=== PATIENT | female | born 1990 | race Caucasian/White ===

== ENCOUNTER 2024-03-21 07:16 | Outpatient (RCR) | payer BC, SELFPAY ==
[2024-03-21 08:07] LABS: HCG Quantitative 8482 mIU/mL
[2024-03-23 09:57] LABS: HCG Quantitative 14568 mIU/mL
== END 2024-04-06 12:38 | disposition home or self-care (01) ==
LOC: LAB 07:16
PROVIDERS: PCP Internal Medicine; Visit Provider Obstetrics & Gynecology
DX: N92.6 Irregular menstruation, unspecified (principal)
CPT/HCPCS: 36415; 84702

== ENCOUNTER 2024-04-20 09:47 | Outpatient (OUT) | payer BC, MEDICAID, SELFPAY ==
[2024-04-20 10:22] LABS: BOX Test Reference Lab UNITY; BOX Test Sent Out UNITY
[2024-04-20 10:23] LABS: Basophils Absolute Auto 0.1 10^3/uL (0.0-0.1); Basophils Percent Auto 0.6 % (0.2-2.0); Eosinophils Absolute Auto 0.1 10^3/uL (0.0-0.7); Hematocrit 38.7 % (36.0-48.0); Hemoglobin 13.6 g/dL (12.0-16.0); Immature Granulocytes Abs Auto 0.02 10^3/uL (0.00-0.03); Immature Granulocytes Pct Auto 0.2 % (0.0-0.5); Lymphocytes Absolute Auto 1.7 10^3/uL (1.2-3.8); Lymphocytes Percent Auto 19.3 % (20.5-60.0); Mean Corpuscular HGB Conc 35.1 g/dL (29.9-35.2); Mean Corpuscular Hemoglobin 30.4 pg (26.7-34.0); Mean Corpuscular Volume 86.6 fL (81.0-99.0); Mean Platelet Volume 10.2 fL (9.5-13.5); Monocytes Absolute Auto 0.4 10^3/uL (0.3-0.8); Monocytes Percent Auto 4.8 % (1.7-12.0); Neutrophils Absolute Auto 6.5 10^3/uL (1.4-6.5); Neutrophils Percent Auto 74.1 % (43.0-75.0); Platelet Count 298 10^3/uL (150-450); Red Blood Count 4.47 10^6/uL (4.20-5.40); White Blood Count 8.8 10^3/uL (4.0-11.0)
[2024-04-20 10:58] LABS: Amphetamine Screen Urine NEGATIVE (NEGATIVE); Barbiturates Screen Urine NEGATIVE (NEGATIVE); Benzodiazepines Screen Urine NEGATIVE (NEGATIVE); Buprenorphine Screen Urine NEGATIVE (NEGATIVE); Cannabinoid Screen Urine NEGATIVE (NEGATIVE); Cocaine Screen Urine NEGATIVE (NEGATIVE); Methadone Screen Urine NEGATIVE (NEGATIVE); Methamphetamines Screen Urine NEGATIVE (NEGATIVE); Opiate Screen Urine NEGATIVE (NEGATIVE); Oxycodone Screen Urine NEGATIVE (NEGATIVE); Phencyclidine Screen Urine NEGATIVE (NEGATIVE); Tricyclic Antidepressant Urine NEGATIVE (NEGATIVE)
[2024-04-20 11:34] LABS: Estimated Average Glucose 97 mg/dL
[2024-04-21 06:11] LABS: HBsAg Screen Negative (Negative); HIV Ab/p24 Ag Screen Non Reactive (Non Reactive); Rubella Antibodies, IgG 6.91 index (Immune >0.99)
[2024-04-21 10:08] LABS: Rapid Plasma Reagin, Quant Non Reactive titer (NonRea<1:1)
[2024-04-23 18:08] LABS: HCV Ab Reactive (Non Reactive)
== END 2024-04-20 09:48 | disposition home or self-care (01) ==
LOC: LAB 09:51
PROVIDERS: Visit Provider Obstetrics & Gynecology
DX: Z34.01 Encounter for supervision of normal first pregnancy, first trimester (principal); Z36.0 Encounter for antenatal screening for chromosomal anomalies; N92.6 Irregular menstruation, unspecified
CPT/HCPCS: 36415; 80307; 83036; 85025; 86592; 86762; 86803; 86850; 86900; 86901; 87086; 87340; 87389

== ENCOUNTER 2024-05-10 18:38 | Outpatient (REF) | payer BC, MEDICAID, SELFPAY ==
--- OUTSIDE RECORDS SUMMARY | 2024-05-10 18:43 | XMS_ITS | CCD ---
Author Organization [facility] Inform ion Partnership [facility] Care Team Providers Care Tariff Supervisor Name Role Phone AMANDEEP MORATAYA Admitting Unavailable AMANDEEP MORATAYA Attending Unavailable DR VINCENT BUSTAMANTE Primary Care Unavail able DR GURVINDER GUAMAN V Consulting Unavailable SAMAN JARA Consulting Unavailable Unavailable Primary Care Provider Unavailabl e Medications Current Medications Medication Drug Class(es) Dates Sig (Normalized) Sig (Original) MV-Min-Fe Fum-FA-DHA ( 1 PO) (3 sources) MV-Min- Fe Fum-FA-DHA ( 1 PO) Take by mouth Active Problems Problem Classification Problem Date Documented Da te Episodic/Chronic Hepatitis (1 source) Finding of Hepatitis C status; Translations: [Unspecified viral hepatitis C without hepatic coma] Onset: 04-25-2024 04-25-2024 Episodic Menstrual disorders (1 source) Missed period; Translations: [Irregular menstruation, unspecified] 04-20-2024 Chronic Other lower respiratory disease (4 sources) Cough; Translations: [COUGH] Onset: 11-26-2020 Episodic Other and delivery including normal (2 sources) ; Translations: [Encounter for supervision of normal , unspecified, unspecified trimester] 04-20-2024 Episodic Pneumonia (except that caused by tuberculosis or sexually transmitted disease) (1 source) Pneumonia (except that caused by tuberculosis or sexually transmitted disease); Translations: [PNEUMONIA D/T CORONAVIRUS DIS 2019] Onset: 11-28-2020 Viral infection (1 source) Herpes simplex; Translations: [Herpesviral infection, unspecified] Onset: 04-25-2024 04-25-2024 Episodic Viral infection (1 source) COVID-19; Translations: [COVID-19] Onset: 11-28-2020 Results Test Name Value Interpretation Reference Range Facility BOX TESTon 04-20-2024 BOX TEST SENT OUT [facility] B[facility] 04/20/2024 [facility] HCG ( test) Ql (U)o n 04-20-2024 Interpretation and review of laboratory results Abnormal [facility] Preg Test, Ur Positive Negative [facility] Health care [facility] US OB TRANSVAGINALon 025 US OB TRANSVAGINAL TITLE OF EXAM: US OB TRANSVAGINAL REASON FOR EXAM: Dates TECHNIQUE: Grayscale, color, and M-mode spectral Doppler evaluation of the pelvis COMPARISON: None. PATIENT : 1990 PREGNANCIES: : 3, Para: 2, Aborta: 0 LMP: 02/14/2024 GA by LMP: 8 weeks, 1 day FINDINGS: AUA: 9 weeks, 6 days BETTIE by US: 11/17/2024 Uterus: There is a 4.6 x 2.1 x 5.9 cm gestational sac and 0.6 cm yolk sac within the uterine body/fundus. Live embryo within the gestational sac without evident abnormality. [place] rump length is 2.9 to 3.0 cm. heart rate is 176 bpm. Small lenticular shaped hypoechoic lesion regional to the gestational sac not measured by the spanish speaking nanny, 1 to 2 cm. Cervical length 5.2 cm. Right ovary: 3.0 x 1.8 x 3.1 cm (volume 9 mL). Present color flow. Left ovary not visualized, presumably obscured by overlying tissues/bowel gas. IMPRESSION: 1. Single live intrauterine gestation sonographically measuring 9 weeks, 6 days. 2. Small lenticular shaped hypoechoic lesion adjacent to the gestational sac, 1 to 2 cm. Question small perigestational hemorrhage. DICTATED ON: 04/20/2024 8:16 AM This report has been electronically signed and approved by the interpreting radiologist. Normal Not Available Comment on above: Order Comment: US OB TRANSVAGINAL No LMP recorded. Urinalysis macro (dipstick) panel (U)on 04-20-2024 Bilirubin, UA Negative Negative - 4(70) +++ mg/dL [facility] Blood, UA Negative Negative - 50 Herb/mcL [facility] Clarity, UA Clear [facility] Color, UA Yellow [facility] Glucose, UA Negative Negative - 1999(110) ++++ mg/dL [facility] Interpretation and review of laboratory results Normal [facility] Ketones, UA Negative Negative - 160(16) ++++ mg/dL [facility] Leukocytes, UA Negative Negative - 500+++ Bobby/mcL [facility] Nitrite, UA Negative Negative - Positive [facility] pH, UA 5.5 5 - 9 [facility]ly[facility] Protein, UA Negative Negative - 1999(20) ++++ mg/dL [facility] Spec Grav, UA 1.02 1 - 1.03 [facility] Urobilinogen, UA 1.0 0.2 - 12 mg/dL [facility] PREG QUANT HCGon 025 HCG QUANTITATIVE 90208 mIU/mL [facility] Comment on above: 5-50 0.2-1 WEEK 50-500 1-2 WEEKS 100-5,000 2-3 WEEKS 500-10,000 3-4 WEEKS 1,000-50,000 4-5 WEEKS 10,000-100,000 5-6 WEEKS 15,000-200,000 6-8 WEEKS 10,000-100,000 2-3 [facility] PREG QUANT HCGon 025 HCG QUANTITATIVE 8482 mIU/mL [facility] Comment on above: 5-50 0.2-1 WEEK 50-500 1-2 WEEKS 100-5,000 2-3 WEEKS 500-10,000 3-4 WEEKS 1,000-50,000 4-5 WEEKS 10,000-100,000 5-6 WEEKS 15,000-200,000 6-8 WEEKS 10,000-100,000 2-3 [facility] XR CHEST 1 Von 11-26-2020 XR CHEST 1 V EXAMINATION: XR CHES T 1 V HISTORY: COUGH COMPARISON: 08/07/2014 TECHNIQUE: AP portable erect FINDINGS: LUNGS: Mild bibasilar patchy infiltrates right greater than left. The upper lung zones are clear VASCULATURE: No increased pulmonary vasculature. PLEURA: No pneumothorax, effusion, or pleural thickening. CARDIAC: No cardiomegaly or cardiac silhouette abnormality. MEDIASTINUM: No visible mass or adenopathy. BONES: No fracture or visible bone lesion. OTHER: Negative. IMPRESSION: Multifocal pneumonia, consider a viral pneumonia Electronically authenticated by: GURVINDER GUAMAN Date: 2020-11-26 15:58 Normal [facility] Vital Signs Date Time Vital Sign Value Performing Clinician Oliverio partida 04-20-2024 09:47-0500 Body weight 80.2 kg [facility] Encounters Encounter Date Encounter Type Care Provider Facility Start: 05-10-2024 End: 05-10-2024 Bamboo flowsheet Derian Jose DO Work Phone: [facility] Start: 05-10-2024 End: 05-10-2024 Bamboo flowsheet Derian Jose DO Work Phone: [facility] Start: 04-20-2024 End: 04-20-2024 [facility] Result Encounter Derian Jose DO Work Phone: [facility] Unsolicited Start: 04-20-2024 End: 04-20-2024 [facility] Result Encounter Derian Jose DO Work Phone: [facility] Unsolicited Start: 04-20-2024 End: 04-20-2024 Office outpatient visit 5 minutes [facility] Jose Nurse [facility] Comment on above: GA: 9w3d Start: 04-20-2024 End: 04-20-2024 ambulatory Not Available Start: 03-23-2024 End: 03-23-2024 [facility] Result Encounter Derian Jose DO Work Phone: [facility] Unsolicited Start: 03-23-2024 End: 03-23-2024 [facility] Result Encounter Derian Jose DO Work Phone: [facility] Unsolicited Start: 03-21-2024 End: 03-21-2024 [facility] Result Encounter Derian Jose DO Work Phone: [facility] Unsolicited Start: 03-21-2024 End: 03-21-2024 [facility] Result Encounter Derian Jose DO Work Phone: [facility] Unsolicited Start: 11-26-2020 End: 11-26-2020 ambulatory AMANDEEP MORATAYA Facility:[facility] Procedures Date Procedure Procedure Detail Performing Clinician Start: 04-25-2024 H/O: section History of delivery affecting Derian Jose DO Work Phone: Start: 04-20-2024 BOX TEST Deiran Fazi o DO Work Phone: Start: 04-20-2024 Urnls dip stick/tabl et rgnt non-auto w/o micrscp Derian Jose DO Work Phone: Start: 03-23-2024 [facility] PREG QUANT HCG Core y Jose DO Work Phone: Start: 03-21-2024 [facility] PREG QUANT HCG Core y Jose DO Work Phone: H/O: section H/O: [facility] Plan of Treatment Date Care Activity Detail Author Start: 05-10-2024 End: 05-10-2024 Patient encounter procedure 05/10/2024 11:40 AM EST Office Visit [facility] [address] [place] [address] Derian Garcia, DO [address] [place] [address] [facility] Start: 04-20-2024 End: 04-20-2025 ABO/Rh ABO/Rh Lab Routine Missed menses , unspecified gestational age Expected: 04/20/2024 (Approximate), Expires: 04/20/2025 [facility] Comment on above: Expected: 04/20/2024 (Approximate), Expires: 04/20/2025 Start: 04-20-2024 End: 04-20-2025 Blood type and Indirect antibody screen panel - Blood Type and screen Lab Routine Missed menses , unspecified gestational age Expected: 04/20/2024 (Approximate), Expires: 04/20/2025 [facility] Comment on above: Expected: 04/20/2024 (Approximate), Expires: 04/20/2025 Start: 04-20-2024 End: 04-20-2025 Drugs of abuse panel - Urine by Screen method Rapid drug screen, urine Lab Routine , unspecified gestational age Encounter for supervision of normal first in first trimester Expected: 04/20/2024 (Approximate), Expires: 04/20/2025 [facility] Comment on above: Expected: 04/20/2024 (Approximate), Expires: 04/20/2025 Start: 04-20-2024 End: 04-20-2025 US Pelvis transvaginal [facility] Work Phone: Comment on above: Expected: 04/20/2024 , Expires: 04/20/2025 Bacteria identified in Urine by Culture Urine culture Microbiology Routine Missed menses Ordered: 04/20/2024 [facility] Comment on above: Ordered: 04/20/2024 CBC W Auto Different ial panel - Blood CBC and differential Lab Routine Missed menses , unspecified gestational age Ordered: 04/20/2024 [facility] Comment on above: Ordered: 04/20/2024 Hemoglobin A1c/Hemoglobin.total in Blood Hemoglobin A1c Lab Routine Missed menses , unspecified gestational age Ordered: 04/20/2024 [facility] Comment on above: Ordered: 04/20/2024 Hepatitis B virus surface Ag [Presence] in Serum or Plasma by Immunoassay Hepatitis B surface antigen Lab Routine Missed menses , unspecified gestational age Ordered: 04/20/2024 [facility] Comment on above: Ordered: 04/20/2024 Hepatitis C virus Ab [Presence] in Serum or Plasma by Immunoassay Hepatitis C antibody Lab Routine Missed menses , unspecified gestational age Ordered: 04/20/2024 [facility] Comment on above: Ordered: 04/20/2024 HIV-1/HIV-2 antigen/antibody combination immunoassay HIV-1 and HIV-2 antibodies Lab Routine Missed menses , unspecified gestational age Ordered: 04/20/2024 [facility] Comment on above: Ordered: 04/20/2024 Reagin Ab [Presence] in Serum by RPR RPR Lab Routine Missed menses , unspecified gestational age Ordered: 04/20/2024 [facility] Comment on above: Ordered: 04/20/2024 Rubella antibody, IgG Rubella an tibody, IgG Lab Routine Missed menses , unspecified gestational age Ordered: 04/20/2024 [facility] Comment on above: Ordered: 04/20/2024 Payers Date Payer Category Payer Medicaid [place] [id number] 2024 Medicaid [id number] 2021 [employer] [id number] 2021 Unknown [id number] 1990 Unknown [id number] 1990 Unknown [id number] 1990 Unknown [id number] 1958 Unknown [id number] Social History Date Type Detail [facility] Start: 1990 Sex assigned at Female [facility] Gender identity Not on file [facility] Start: 02-28-2024 [facility] History of Present illness Narrative 04-20-2024 Yessenia Flor LPN - 04/20/2024 9:00 AM EST Note Date & Type Note Facility 04-20-2024 History of Presen t illness Narrative Reason for Appointment: Patient ID: Mary Casey is a 33 y.o. female who presents for Amenorrhea Patient presents today for a Nurse OB Intake appointment. Patient is 9w3d with a Estimated Date of Delivery: 11/20/24 OB History Para Term AB Living 1 SAB IAB Ectopic Multiple Live Births # Outcome Date GA Lbr Rey/2nd Weight Sex Type Anes PTL Lv 1 Current Current Medications: has a current medication list which includes the following prescription(s): mv-min-fe fum-fa-dha. Medical History: Active Ambulatory Problems Diagnosis Date Noted No Active Ambulatory Problems Resolved Ambulatory Problems Diagnosis Date Noted No Resolved Ambulatory Problems No Additional Past Medical History No family history on file. Social History Tobacco Use Smoking status: Not on file Smokeless tobacco: Not on file Substance Use Topics Alcohol use: Not on file Drug use: Not on file History reviewed. No pertinent surgical history. No Known Allergies Vitals: There is no height or weight on file to calculate BMI. BP: Patient's last menstrual period was 02/14/2024. Assessment/Plan Diagnoses and all orders for this visit: Missed menses - US OB transvaginal; Future - Type and screen; Future - ABO/Rh; Future - CBC and differential - Hemoglobin A1c - RPR - Rubella antibody, IgG - Hepatitis B surface antigen - Hepatitis C antibody - HIV-1 and HIV-2 antibodies - Urine culture - POCT , urine manually resulted - POCT urinalysis dipstick manually resulted , unspecified gestational age - Type and screen; Future - ABO/Rh; Future - CBC and differential - Hemoglobin A1c - RPR - Rubella antibody, IgG - Hepatitis B surface antigen - Hepatitis C antibody - HIV-1 and HIV-2 antibodies - Rapid drug screen, urine; Future Encounter for supervision of normal first in first trimester - Rapid drug screen, urine; Future H/O: Nurse Note: OB Intake: Patient presents today for first OB visit. Patients history has been reviewed in great detail including any potential risks. Patient signed consent forms and patient desires testing in both trimesters. Patient currently has no complaints and has been advised to drink 6-8 glasses of water a day, eat no raw or undercooked meat, and stay away from [facility]. Patient has also been advised to not change litter boxes and eat 6 small meals a day. Patient has been consulted regarding the do's and don'ts of . Patient was given labs and all questions and concerns were answered. Follow Up: Patient is to return in 4 weeks for routine OB appointment. Follow Up: Patient is to have labs drawn at directed and return to office for initial OB appointment with provider. Patient may call office as needed with any concerns or questions. Nurse Visit Completed by: Yessenia Flor LPN documented in this encounter [facility] Evaluation note Note Date & Type Note Facility Evaluation note Diagnosis Missed menses , unspecified gestational age Encounter for supervision of normal first in first trimester H/O: Other postprocedural status documented in this encounter [facility] Summary Purpose Family History No Family History Records FoundNo Family History Records Found Advance Directives No Advanced Directives Records FoundNo Advanced Directives Records Found Additional Source Comments INFORMATION SOURCE (unrecogn ized section and content) DATE CREATED AUTHOR 11/29/2020 [facility] DATE CREATED AUTHOR AUTHOR'S ORGANIZ ATION 04/22/2024 [facility] EPIC Reason for Visit (unrecogniz ed section and content) Reason Comments Amenorrhea FOR RECORDS PERTAINING TO PATIENTS WHO ARE OR HAVE BEEN ENROLLED IN A CHEMICAL DEPENDENCY/SUBSTANCEABUSE PROGRAM, SOME INFORMATION MAY BE OMITTED. This clinical summary was aggregated from multiple sources. Caution should be exercised in using it in the provision of clinical care. This summary normalizes information from multiple sources, and as a consequence, information in this document may materially change the coding, format and clinical context of patient data. In addition, data may be omitted in some cases. CLINICAL DECISIONS SHOULD BE BASED ON THE PRIMARY CLINICAL RECORDS. [employer] provides no warranty or guarantee of the accuracy or completeness of information in this document.
[2024-05-17 20:08] LABS: Age Gdln ACOG Testing Note (.); HPV Aptima Positive (Negative); HPV Genotype 16 Positive (Negative); HPV Genotype 18,45 Negative (Negative); IGP, Aptima HPV, rfx 16/18,45 Note (.)
== END 2024-05-10 18:39 | disposition home or self-care (01) ==
LOC: LAB 18:38
PROVIDERS: Visit Provider Obstetrics & Gynecology
DX: Z01.419 Encounter for gynecological examination (general) (routine) without abnormal findings (principal)
CPT/HCPCS: 87624; 87625; 88175

== ENCOUNTER 2024-06-08 14:55 | Outpatient (OUT) | payer BC, SELFPAY ==
--- OUTSIDE RECORDS SUMMARY | 2024-06-08 15:21 | XMS_ITS | CCD ---
Author Organization [place] [facility] Care Team Providers Care Business Systems Analyst Name Role Phone AMANDEEP MORATAYA Admitting Unavailable AMANDEEP MORATAYA Attending Unavailable DR VINCENT BUSTAMANTE Primary Care Unavail able DR GURVINDER GUAMAN V Consulting Unavailable SAMAN JARA Consulting Unavailable Unavailable Primary Care Provider UnavailRANULFO King Attending Unavailable Medications Current Medications Medication Drug Class(es) Dates Sig (Normalized) Sig (Original) metoclopramide 10 mg oral tablet (4 sources) Dopamine-2 Receptor Antagonist Start: 05-10-2024 End: 06-09-2024 metoclopramide (Reglan) 10 MG tablet Indications: 12 weeks gestation of Take 1 tablet (10 mg) by mouth in the morning and 1 tablet (10 mg) at noon and 1 tablet (10 mg) in the evening. Take before meals. Take 1 tablet by mouth 30 minutes prior to meals 3 times daily as needed for nausea.. 90 tablet 3 05/10/2024 06/09/2024 Active MV-Min-Fe Fum-FA-DHA ( 1 PO) (7 sources) MV-Min- Fe Fum-FA-DHA ( 1 PO) Take by mouth Active Problems Problem Classification Problem Date Documented Date Episodic/Chronic Hepatitis (5 sources) Finding of Hepatitis C status; Translations: [Unspecified viral hepatitis C without hepatic coma] Onset: 04-25-2024 04-25-2024 Episodic Immunizations and screening for infectious disease (2 sources) Exposure to sexually transmissible disorder; Translations: [Contact with and (suspected) exposure to infections with a predominantly sexual mode of transmission] 05-10-2024 Episodic Menstrual disorders (1 source) Missed period; Translations: [Irregular menstruation, unspecified] 04-20-2024 Chronic Other female genital disorders (2 sources) Vaginal discharge; Translations: [Other specified noninflammatory disorders of vagina] 05-10-2024 Episodic Other lower respiratory disease (4 sources) Cough; Translations: [COUGH] Onset: 11-26-2020 Episodic Other and delivery including normal (4 sources) ; Translations: [Encounter for supervision of normal , unspecified, unspecified trimester] 04-20-2024 Episodic Pneumonia (except that caused by tuberculosis or sexually transmitted disease) (1 source) Pneumonia (except that caused by tuberculosis or sexually transmitted disease); Translations: [PNEUMONIA D/T CORONAVIRUS DIS 2019] Onset: 11-28-2020 Residual codes; unclassified (2 sources) Gestation period, 12 weeks; Translations: [12 weeks gestation of ] 05-10-2024 Episodic Viral infection (5 sources) Herpes simplex; Translations: [Herpesviral infection, unspecified] Onset: 04-25-2024 04-25-2024 Episodic Viral infection (1 source) COVID-19; Translations: [COVID-19] Onset: 11-28-2020 Results Test Name Value Interpretation Reference Range Facility IGP,APTIMA HPV,AGE GDLNon AGE GDLN ACOG TESTING Note . [facility] Comment on above: TESTS RESULT FLAG UN ITS REF RANGE LAB Clinician Provided Cytology Information Source.............Cervix No. of containers..01 ThinPrep Vial Age Algo ACOG Liss... FLAG LEGEND: L-Low Normal,H-High Normal,LL-Alert Low,HH-Alert High <-Panic Low,>-Panic High,A-Abnormal,AA-Critical Abnormal Performed at: 01 =G [address] [address] Serina Betancourt MD, HPV APTIMA Positive Abnormal Negative [facility] Comment on above: This nucleic acid am plification test detects fourteen high- risk HPV types (16,18,31,33,35,39,45,51,52,56,58,59,66,68) without differentiation. HPV GENOTYPE 16 Positive Abnormal Negative [facility] HPV GENOTYPE 18,45 Negative Negative [facility] Comment on above: Performed at: =G - [facility] [address] [id number] Wood Drill Operator: Serina Betancourt MD, Phone: [phone] Performed at: [facility] [address] [id number] Wood Drill Operator: Serina Betancourt MD, Phone: [phone] IGP, APTIMA HPV, RFX 16/18,45 Note . [facility] Comment on above: TESTS RESULT FLAG UN ITS REF RANGE LAB DIAGNOSIS: 02 NEGATIVE FOR INTRAEPITHELIAL LESION OR MALIGNANCY. Specimen adequacy: 02 Satisfactory for evaluation. Endocervical and/or squamous metaplastic cells (endocervical component) are present. Performed by: 02 Susannah Christina Marble Cutter Operator (ASCP) . 02 Note: Note 02 The Pap smear is a screening test designed to aid in the detection of premalignant and malignant conditions of the uterine cervix. It is not a diagnostic procedure and should not be used as the sole means of detecting cervical cancer. Both false-positive and false-negative reports do occur. Test Methodology: Note 02 This liquid based ThinPrep(R) pap test was screened with the use of an image guided system. HPV Genotype Reflex Note 02 Criteria met, see HPV Genotype results. FLAG LEGEND: L-Low Normal,H-High Normal,LL-Alert Low,HH-Alert High <-Panic Low,>-Panic High,A-Abnormal,AA-Critical Abnormal Performed at: [address] [address] Serina Betancourt MD, Interpretation and review of laboratory results Abnormal [facility] SPATULA-[facility]ONE C[facility] [employer] Urinalysis macro (dipstick) panel (U)on 05-10-2024 Bilirubin, UA Negative Negative - 4(70) +++ mg/dL [facility] Blood, UA Negative Negative - 50 Herb/mcL [facility] Clarity, UA Clear [facility] re Color, UA Straw [facility] [employer] Glucose, UA Negative Negative - 1999(110) ++++ mg/dL [facility] Interpretation and review of laboratory results Abnormal [facility] Ketones, UA Negative Negative - 160(16) ++++ mg/dL [facility] Leukocytes, UA Positive Negative - 500+++ Bobby/mcL [facility] Comment on above: small Nitrite, UA Negative Negative - Positive [facility] pH, UA 7 5 - 9 [facility] [employer] Protein, UA Trace Negative - 1999(20) ++++ mg/dL [facility] Spec Grav, UA 1.02 1 - 1.03 [facility] Urobilinogen, UA 0.2 0.2 - 12 mg/dL [facility] BOX TESTon 04-20-2024 BOX TEST SENT OUT [employer] [facility] BOX1 N[employer] BOX2 04/20/2024 [facility] [employer] [facility]ITY [facility] HCG ( test) Ql (U)o n 04-20-2024 Interpretation and review of laboratory results Abnormal [facility] Preg Test, Ur Positive Negative [facility] care [facility] US OB TRANSVAGINALon [...] within the gestational sac without evident abnormality. [place] rump length is 2.9 to 3.0 cm. heart rate is 176 bpm. Small lenticular shaped hypoechoic lesion regional to the gestational sac not measured by the commercial loan coordinator, 1 to 2 cm. Cervical length 5.2 [...] UA Negative Negative - 4(70) +++ mg/dL [facility] Blood, UA Negative Negative - 50 Herb/mcL [facility] Clarity, UA Clear [facility] re Color, UA Yellow [facility] Glucose, UA Negative Negative - 2000(110) ++++ mg/dL [facility] Interpretation and review of laboratory results Normal [facility] Ketones, UA Negative Negative - 160(16) ++++ mg/dL [facility] Leukocytes, UA Negative Negative - 500+++ Bobby/mcL [facility] Nitrite, UA Negative Negative - Positive [facility] pH, UA 5.5 5 - 9 [facility] [employer] Protein, UA Negative Negative - 2000(20) ++++ mg/dL [facility] Spec Grav, UA 1.02 1 - 1.03 [facility] Urobilinogen, UA 1.0 0.2 - 12 mg/dL [facility] PREG QUANT HCGon 03-23- 025 HCG QUANTITATIVE 45173 mIU/mL [facility] Comment on above: 5-50 0.2-1 WEEK 50-500 1-2 WEEKS 100-5,000 2-3 WEEKS 500-10,000 3-4 WEEKS 1,000-50,000 4-5 WEEKS 10,000-100,000 5-6 WEEKS 15,000-200,000 6-8 WEEKS 10,000-100,000 2-3 MONTHS [facility] PREG QUANT HCGon 025 HCG QUANTITATIVE 8482 mIU/mL [facility] Comment on above: 5-50 0.2-1 WEEK 50-500 1-2 WEEKS 100-5,000 2-3 WEEKS 500-10,000 3-4 WEEKS 1,000-50,000 4-5 WEEKS 10,000-100,000 5-6 WEEKS 15,000-200,000 6-8 WEEKS 10,000-100,000 2-3 MON[facility] XR CHEST 1 Von 11-26-2020 XR [...] by: GURVINDER GUAMAN Date: 2020-11-26 15:58 Normal [facility] Vital Signs Date Time Vital Sign Value Performing Clinician Oliverio bustillosy 05-10-2024 12:13-0500 Body weight 79.74 kg Ranulfo Jose DO Work Phone: [facility] 05-10-2024 12:13-0500 Diastolic blood pressure 80 mm[Hg] Ranulfo Jose DO Work Phone: [facility] 05-10-2024 12:13-0500 Systolic blood pressure 130 mm[Hg] Ranulfo Jose DO Work Phone: [facility] 04-20-2024 09:47-0500 Body weight 80.2 kg [facility] Nurse [facility] Encounters Encounter Date Encounter Type Care Provider Facility Start: 06-07-2024 End: 06-07-2024 Bamboo flowsheet Ranulfo Jose DO Work Phone: [facility] Start: 06-07-2024 End: 06-07-2024 Bamboo flowsheet Ranulfo Jose DO Work Phone: [facility] Start: 05-10-2024 End: 05-10-2024 Bamboo flowsheet Ranulfo Jose DO Work Phone: [facility] Start: 05-10-2024 End: 05-17-2024 Bamboo flowsheet Ranulfo Jose DO Work Phone: [facility] Start: 05-10-2024 End: 05-17-2024 [facility] Result Encounter Ranulfo Jose DO Work Phone: [facility] External Department Unsolicited Start: 05-10-2024 End: 05-10-2024 ambulatory RANULFO JOSE Not Available Start: 05-10-2024 End: 05-10-2024 Patient encounter procedure Ranulfo Jose DO Work Phone: [facility] Start: 05-10-2024 End: 05-10-2024 flow sheet Ranulfo Jose DO Work Phone: [facility] Comment on above: 12 weeks gestation o f ; First trimester ; Well woman exam with routine gynecological exam; Exposure to STD; Vaginal discharge Start: 04-20-2024 End: 04-20-2024 [facility]inis[facility] Result Encounter Ranulfo Jose DO Work Phone: [facility] Unsolicited Start: 04-20-2024 End: 04-20-2024 Clinisync Result Encounter Ranulfo Jose DO Work Phone: [facility] Unsolicited Start: 04-20-2024 End: 04-20-2024 Office outpatient visit 5 minutes [facility] Jose Nurse [facility] Comment on above: GA: 9w3d Start: 04-20-2024 End: 04-20-2024 ambulatory RANULFO JOSE Not Available Start: 03-23-2024 End: 03-23-2024 [facility]inis[facility] Result Encounter Ranulfo Jose DO Work Phone: [facility] Unsolicited Start: 03-23-2024 End: 03-23-2024 Clinisync Result Encounter Ranulfo Jose DO Work Phone: [facility] Unsolicited Start: 03-21-2024 End: 03-21-2024 Clinisync Result Encounter Ranulfo Jose DO Work Phone: [facility] Unsolicited Start: 03-21-2024 End: 03-21-2024 Clinisync Result Encounter Ranulfo Jose DO Work Phone: [facility] Unsolicited Start: 11-26-2020 End: 11-26-2020 ambulatory AMANDEEP MORATAYA Facility: Procedures Date Procedure Procedure Detail Performing Clinician Start: 05-10-2024 Urnls dip stick/tabl et rgnt non-auto w/o micrscp Ranulfo Jose DO Work Phone: Start: 05-10-2024 IGP,APTIMA HPV,AGE GDLN Ranulfo Jose DO Work Phone: Start: 04-25-2024 H/O: section History of delivery affecting Ranulfo Jose DO Work Phone: Start: 04-20-2024 BOX TEST Ranulfo Fazi o DO Work Phone: Start: 04-20-2024 Urnls dip stick/tabl et rgnt non-auto w/o micrscp Ranulfo Jose DO Work Phone: Start: 03-23-2024 [facility] PREG QUANT HCG Core y Jose DO Work Phone: Start: 03-21-2024 [facility] PREG QUANT HCG Core y Jose DO Work Phone: H/O: section H/O: [facility] Plan of Treatment Date Care Activity Detail Author Start: 05-20-2025 End: 05-20-2025 Patient encounter procedure 05/20/2025 9:00 AM EDT Office Visit [facility] [address] [place] [id number] Ranulfo Garcia, DO [address] [place] [address] [facility] Start: 06-07-2024 End: 06-07-2024 Patient encounter procedure [facility] Comment on above: Arrived Start: 05-10-2024 End: 05-10-2024 Patient encounter procedure 05/10/2024 11:40 AM EST Office Visit [facility] [address] [place] [id number] Ranulfo Garcia, DO [address] [place] [address] [facility] Start: 04-20-2024 End: 04-20-2025 ABO/Rh ABO/Rh Lab Routine Missed menses , unspecified gestational age Expected: 04/20/2024 (Approximate), Expires: 04/20/2025 [facility] Comment on above: Expected: 04/20/2024 (Approximate), Expires: 04/20/2025 Start: 04-20-2024 End: 04-20-2025 Blood type and Indirect antibody screen panel - Blood Type and screen Lab Routine Missed menses , unspecified gestational age Expected: 04/20/2024 (Approximate), Expires: 04/20/2025 [facility] Comment on above: Expected: 04/20/2024 (Approximate), Expires: 04/20/2025 Start: 04-20-2024 End: 04-20-2025 Drugs of abuse panel - Urine by Screen method Rapid drug screen, urine Lab Routine , unspecified gestational age Encounter for supervision of normal first in first trimester Expected: 04/20/2024 (Approximate), Expires: 04/20/2025 [facility] Comment on above: Expected: 04/20/2024 (Approximate), Expires: 04/20/2025 Start: 04-20-2024 End: 04-20-2025 US Pelvis transvaginal [facility] Work Phone: Comment on above: Expected: 04/20/2024 , Expires: 04/20/2025 Bacteria identified in Urine by Culture Urine culture Microbiology Routine Missed menses Ordered: 04/20/2024 [facility] Comment on above: Ordered: 04/20/2024 CBC W Auto Different ial panel - Blood CBC and differential Lab Routine Missed menses , unspecified gestational age Ordered: 04/20/2024 [facility] Comment on above: Ordered: 04/20/2024 CHLAMYDIA TRACHOMATI S (GENITO/STI) CHLAMYDIA TRACHOMATIS (GENITO/STI) Lab Routine Exposure to STD Ordered: 05/10/2024 [facility] Comment on above: Ordered: 05/10/2024 Cytology Cervical or vaginal smear or scraping study Pap Smear Pathology and Cytology Routine Well woman exam with routine gynecological exam Ordered: 05/10/2024 [facility] Comment on above: Ordered: 05/10/2024 Hemoglobin A1c/Hemoglobin.total in Blood Hemoglobin A1c Lab Routine Missed menses , unspecified gestational age Ordered: 04/20/2024 [facility] Comment on above: Ordered: 04/20/2024 Hepatitis B virus surface Ag [Presence] in Serum or Plasma by Immunoassay Hepatitis B surface antigen Lab Routine Missed menses , unspecified gestational age Ordered: 04/20/2024 [facility] Comment on above: Ordered: 04/20/2024 Hepatitis C virus Ab [Presence] in Serum or Plasma by Immunoassay Hepatitis C antibody Lab Routine Missed menses , unspecified gestational age Ordered: 04/20/2024 [facility] Comment on above: Ordered: 04/20/2024 HIV-1/HIV-2 antigen/antibody combination immunoassay HIV-1 and HIV-2 antibodies Lab Routine Missed menses , unspecified gestational age Ordered: 04/20/2024 [facility] Comment on above: Ordered: 04/20/2024 Human papilloma viru s DNA [Presence] in Unspecified specimen by Probe with amplification HPV DNA probe, amplified Microbiology Routine Well woman exam with routine gynecological exam Ordered: 05/10/2024 [facility] Comment on above: Ordered: 05/10/2024 Neisseria gonorrhoea e DNA [Presence] in Unspecified specimen by JOSE MANUEL with probe detection Neisseria gonorrhea DNA probe, direct Lab Routine Exposure to STD Ordered: 05/10/2024 [facility] Comment on above: Ordered: 05/10/2024 Reagin Ab [Presence] in Serum by RPR RPR Lab Routine Missed menses , unspecified gestational age Ordered: 04/20/2024 [facility] Comment on above: Ordered: 04/20/2024 Rubella antibody, IgG Rubella an tibody, IgG Lab Routine Missed menses , unspecified gestational age Ordered: 04/20/2024 [facility] Comment on above: Ordered: 04/20/2024 SURESWAB(R) ADVANCED VAGINITIS PLUS, TMA SURESWAB(R) ADVANCED VAGINITIS PLUS, TMA Pathology and Cytology Routine Vaginal discharge Ordered: 05/10/2024 [facility] Work Phone: Comment on above: Ordered: 05/10/2024 Payers Date Payer Category Payer Medicaid [place]ICA[place] [id number] 2024 Medicaid [id number] 2021 [facility] [id number] 2021 Unknown [id number] 1991 Unknown [id number] 1991 Unknown [id number] 1991 Unknown [id number] 1991 Unknown [id number] 1959 Unknown [id number] Social History Date Type Detail Facility Tobacco smoking stat [facility] Tobacco smoking consumption unknown [facility] Start: 1990 Sex assigned at Female [facility] Gender identity Not on file [facility] Start: 02-28-2024 [facility] History of Present illness Narrative 05-10-2024 Jessi Forrest LPN - 05/10/2024 11:40 AM EST Note Date & Type Note Facility 05-10-2024 History of Presen t illness Narrative Reason for Appointment: Patient ID: Mary Casey is a 33 y.o. female who presents for No chief complaint on file. Patient presents today for Annual Exam. and Return OB appointment. MEDICATIONS Current Outpatient Medications Medication Instructions MV-Min-Fe Fum-FA-DHA ( 1 PO) Take by mouth ALLERGIES No Known Allergies PROBLEMS Active Ambulatory Problems Diagnosis Date Noted HSV (herpes simplex virus) infection 04/25/2024 History of delivery affecting 04/25/2024 Hepatitis C test positive ([facility]) 04/25/2024 Resolved Ambulatory Problems Diagnosis Date Noted No Resolved Ambulatory Problems No Additional Past Medical History HISTORY PAST MEDICAL HISTORY SOCIAL HISTORY History reviewed. No pertinent past medical history. Social History Tobacco Use Smoking status: Not on file Smokeless tobacco: Not on file Substance Use Topics Alcohol use: Not on file Drug use: Not on file FAMILY HISTORY No family history on file. SURGICAL HISTORY Past Surgical History: Procedure Laterality Date SECTION, LOW TRANSVERSE COLONOSCOPY TONSILLECTOMY REVIEW OF SYSTEMS Review of Systems: Review of Systems All other systems reviewed and are negative. OBJECTIVE Objective: Physical Exam Constitutional: Appearance: Normal appearance. She is well-developed. Genitourinary: Vulva normal. Breasts: Breasts are soft. Right: Normal. Left: Normal. Cardiovascular: Rate and Rhythm: Normal rate and regular rhythm. Pulmonary: Effort: Pulmonary effort is normal. Breath sounds: Normal breath sounds. Abdominal: General: Bowel sounds are normal. There is no distension. Palpations: Abdomen is soft. Tenderness: There is no abdominal tenderness. There is no guarding or rebound. Musculoskeletal: General: No swelling. Normal range of motion. Right lower leg: No edema. Left lower leg: No edema. Neurological: Mental Status: She is alert and oriented to person, place, and time. Skin: General: Skin is warm and dry. Psychiatric: Mood and Affect: Mood normal. Behavior: Behavior normal. Vitals and nursing note reviewed. Exam conducted with a feeder catcher present. Vitals: There is no height or weight on file to calculate BMI. BP: 130/80 Patient's last menstrual period was 02/14/2024. ASSESSMENT & PLAN ICD-10-CM 1. 12 weeks gestation of Z3A.12 POCT urinalysis dipstick manually resulted 2. First trimester Z34.91 POCT urinalysis dipstick manually resulted 3. Well woman exam with routine gynecological exam Z01.419 Pap Smear HPV DNA probe, amplified 4. Exposure to STD Z20.2 CHLAMYDIA TRACHOMATIS (GENITO/STI) Neisseria gonorrhea DNA probe, direct 5. Vaginal discharge N89.8 SURESWAB(R) ADVANCED VAGINITIS PLUS, TMA New OB: Patient presents today for 1st time obstetrics appointment with provider. Patient is currently 12w2d . Patients history has been reviewed in great detail including any potential risks. Patient stated she currently has no complaints. Expectations throughout regarding labs, ultrasounds, and appointments have been discussed with the patient in detail. It was reiterated that the patient is to drink 6-8 glasses of water a day, eat 6 small meals a day, do not consume raw or undercooked meat, and stay away from [facility]. Patient has been consulted regarding any further do's and don'ts of . Patient voiced understanding and all questions and concerns were answered. Return OB/Annual Exam: Patient presents today for an annual exam/routine obstetrics appointment. Patient is currently 12w2d . Patient is doing well and states she has no complaints. Pap/cultures was obtained without difficulty. Orders Placed This Encounter Procedures HPV DNA probe, amplified CHLAMYDIA TRACHOMATIS (GENITO/STI) Neisseria gonorrhea DNA probe, direct POCT urinalysis dipstick manually resulted Follow Up: Patient is to return to our office in 4 weeks for routine OB appointment Documented by Jessi Forrest LPN on behalf of: Ranulfo Garcia DO documented in this encounter [facility] History of Present illness Narrative 04-20-2024 Yessenia [...] or undercooked meat, and stay away from [facility]. Patient has also been advised to not [...] status documented in this encounter [facility] Evaluation note Note Date & Type Note Facility Evaluation note Diagnosis 12 weeks gestation of First trimester state, incidental Well woman exam with routine gynecological exam Routine gynecological examination Exposure to STD Vaginal discharge Leukorrhea, not specified as infective documented in this encounter [facility] Summary Purpose Family History No Family History Records FoundNo Family History Records Found Advance Directives No Advanced Directives Records FoundNo Advanced Directives Records Found Additional Source Comments INFORMATION SOURCE (unrecogn ized section and content) DATE CREATED AUTHOR 11/29/2020 [facility] DATE CREATED AUTHOR AUTHOR'S ORGANLILIAN ATION 05/12/2024 [facility] EPIC Reason for Visit (unrecogniz ed [...] BE BASED ON THE PRIMARY CLINICAL RECORDS. [employer] provides no warranty or guarantee of the accuracy or completeness of information in this document.
[2024-06-10 00:10] LABS: Gest. Age on Collection Date 16.9 weeks (.); Insulin Dep Diabetes No (.); Maternal Age At EDD 33.1 yr (.); OSBR Risk 1 IN 9862 (.); Results Report (.)
== END 2024-06-08 14:56 | disposition home or self-care (01) ==
PROVIDERS: Visit Provider Obstetrics & Gynecology
DX: Z34.92 Encounter for supervision of normal pregnancy, unspecified, second trimester (principal); Z3A.16 16 weeks gestation of pregnancy
CPT/HCPCS: 36415; 82105

== ENCOUNTER 2024-08-11 11:34 | Outpatient (OUT) | payer BC, SELFPAY ==
--- OUTSIDE RECORDS SUMMARY | 2024-08-09 09:20 | XMS_ITS | Encounter Summary ---
Author Organization [facility] Address [address] [place] [address] Care Team Providers Care Online Facilitator Name Role Phone Unavailable Primary Care Provider Unavailabl e Reason for Visit * Reason Comments Routine Visit Encounter Details Date Type Department Care Team (Latest Contact Info) Description 08/09/2024 9:20 AM EDT Routine [facility] [address] [id number] Derian Garcia, DO [address] [place] [address] Second trimester ; 25 weeks gestation of ; with normal glucose tolerance test (GTT); Diabetes mellitus screening; Encounter for consultation for female sterilization Social History Tobacco Use Types Packs/Day Years Used Date Smoking Tobacco: Never Assessed Estimated Date of Delivery Comme nts Yes 11/20/2024 Based on last me nstrual period of 02/14/2024 Sex and Gender Information Value Date Recorded Sex Assigned at Female 07/12/2022 1:21 PM EDT Legal Sex Female 1:15 PM EDT Gender Identity Not on file Sexual Orientation Not on file documented as of this encounter Last Filed Vital Signs Vital Sign Reading Time Taken Comments Blood Pressure 122/66 08/09/2024 9:50 AM EDT Pulse - - Temperature - - Respiratory Rate - - Oxygen Saturation - - Inhaled Oxygen Concentration - - Weight 83.1 kg (183 lb 1.9 oz) 08/09/2024 9:50 A M EDT Height - - Body Mass Index - - documented in this encounter Plan of Treatment Upcoming Encounters Date Type Department Care Team (Late st Contact Info) Description 08/30/2024 1:50 PM EDT Routine [facility] [address] [address] Sydney Ayala PA [address] [facility] [place] [address] 05/20/2025 9:00 AM EDT Office Visit [facility] [address] [address] Derian Garcia DO [address] [facility] [place] [address] Scheduled Orders Name Type Priority Associated Diagnoses Orde r Schedule CBC Lab Routine Diabetes mellitus screening Expected: 08/09/2024 (Approximate), Expires: 08/09/2025 Glucose tolerance, 1 hour Lab Routine Diabetes mellitus screening Expected: 08/09/2024 (Approximate), Expires: 08/09/2025 documented as of this encounter Procedures Procedure Name Priority Date/Time Associated Diagnosis Comments POCT URINALYSIS DIPSTICK Routine 08/09/2024 9:56 AM EDT Second trimester 25 weeks gestation of documented in this encounter Results * (ABNORMAL) POCT urinalysis dipstick manually resulted (08/09/2024 9:56 AM EDT) Color, UA Yellow Clarity, UA Clear Glucose, UA Negative Negative - 1999(110) ++++ mg/dL Bilirubin, UA Negative Negative - 4(70) +++ mg/dL Ketones, UA Negative Negative - 160(16) ++++ mg/dL Spec Grav, UA 1.020 1 - 1.03 Blood, UA Negative Negative - 50 Herb/mcL pH, UA 8.5 5 - 9 Protein, UA Negative Negative - 2000(20) ++++ mg/dL Urobilinogen, UA 1.0 0.2 - 12 mg/dL Leukocytes, UA Trace Negative - 500+++ Bobby/mcL Nitrite, UA Negative Negative - Positive Urine 08/09/2024 9:56 AM EDT Derian Garcia DO POINT OF CARE TEST ENTER/EDIT OR DERABLES Final Result documented in this encounter Visit Diagnoses Diagnosis Second trimester state, incidental 25 weeks gestation of with normal glucose tolerance test (GTT) Diabetes mellitus screening Screening for diabetes mellitus Encounter for consultation for female sterilization documented in this encounter
--- OUTSIDE RECORDS SUMMARY | 2024-08-09 14:36 | XMS_ITS | Encounter Summary ---
Author Organization [facility] [employer] [facility] tem Address [id number] [address] [place] [address] Care Team Providers Care Technical Services Specialist Name Role Phone Unavailable Primary Care Provider Unavailabl e Reason for Referral * Diagnostic Imaging (Routine) - Pending Review Specialty Diagnoses / Procedures Referred By [facility] Referred To Contact Maternal and Medicine Diagnoses Hepatitis C virus infection in mother during Low-lying placenta Procedures [facility] with or without consult Kristina Palmer MD [address] [address] Phone: tel: fax: Maternal- Medicine at [address] [address] Phone: tel: fax: Referral ID Status Reason Start Date Expiration Date V isits Requested Visits Authorized [id number] Pending Review 07/04/2024 07/04/2025 1 1 Reason for Visit * Diagnostic Imaging (Routine) - Pending Review Specialty Diagnoses / Procedures Referred By [facility] Referred To Contact Maternal and Medicine Diagnoses Hepatitis C virus infection in mother during Low-lying placenta Procedures US [facility] with or without consult Kristina Palmer MD [address] [address] Phone: tel: fax: Maternal- Medicine at [facility] [address] [place] [address] Phone: tel: fax: Referral ID Status Reason Start Date Expiration Date V isits Requested Visits Authorized [id number] Pending Review 07/04/2024 07/04/2025 1 1 Encounter Details Date Type Department Care Team (Latest Contact Info) Description 08/09/2024 2:36 PM EDT - 08/09/2024 11:59 PM EDT Hospital Encounter [facility] [address] [facility] [place] [address] Hepatitis C virus infection in mother during ; Low-lying placenta Discharge Disposition: Home Social History Tobacco Use Types Packs/Day Years Used Date Smoking Tobacco: Never Passive Smoke Exposure: Never Smokeless Tobacco: Never Alcohol Use Standard Drinks/Week Comments Not Currently 0 (1 standard drink = 0.6 oz pur e alcohol) Childcare Answer Date Recorded Childcare Unknown 08/16/2018 Employment Answer Date Recorded Employment Unknown 08/16/2018 Hunger Screening Answer Date Recorded Within the past 12 months we worried whether our food would run out before we got money to buy more. Never True 07/04/2024 Within the past 12 months th e food we bought just didn't last and we didn't have money to get more. Never True 07/04/2024 Purpose - Life Answer Date Recorded Purpose and direction in life Unknown Estimated Date of Delivery Comme nts Yes 11/20/2024 Based on last me nstrual period of 02/14/2024 Sex and Gender Information Value Date Recorded Sex Assigned at Not on file Legal Sex Female 11:50 AM EDT Gender Identity Not on file Sexual Orientation Not on file documented as of this encounter Medications at Time of Discharge metoclopramide (REGLAN) 10 mg tablet Take 1 tablet (10 mg total) by mouth in the morning and 1 tablet (10 mg total) at noon and 1 tablet (10 mg total) in the evening and 1 tablet (10 mg total) before bedtime. [id number] ( 19) 29 mg iron- 1 mg tablet,chewable Chew 1 tablet and swallow in the morning. documented as of this encounter Plan of Treatment Upcoming Encounters Date Type Department Care Team (Late st Contact Info) Description 09/20/2024 11:00 AM EDT Appointment Maternal Medicine [facility] [address] [facility] [address] [place] [address] documented as of this encounter Procedures Procedure Name Priority Date/Time Associated Diagnosis Comments US MFM OB FOLLOW-UP, 1 FETUS Routine 08/09/2024 4:16 PM EDT Hepatitis C virus infection in mother during Low-lying placenta documented in this encounter Results * US MFM OB FOLLOW-UP, 1 FETUS (08/09/2024 4:16 PM EDT) Anatomical Region Laterality Modality OB-ASSISTANT BRAND MANAGER Ultrasound 08/09/2024 3:03 PM EDT Narrative 08/09/2024 4:26 PM EDT NAME: ELAN MCCARTY : 1990 SEX: F Accession Number: [id number] ORDERING PHYSICIAN: KRISTINA PALMER REFERRING PHYSICIAN: RANULFO CARRASCO Coding ----- --------- Procedures 14981: Follow-up Ultrasound, per fetus 32061: Transvaginal Ultrasound (OB) Indication ----- --------- Screening for cervical length , Previous , Hepatitis C in , Obesity in , Screening for follow-up survey History ----- --------- OB History 3. Para 2 [id number] Current ----- --------- Cell free DNA Low Risk analysis Maternal Assessment ----- --------- Physical Exam Height 157 cm, 5 ft 2 in. Initial weight 80 kg, 177 lb. Initial BMI 32.37 kg/m Method ----- --------- Transabdominal and transvaginal ultrasound examination ----- --------- Grier . Number of fetuses: 1 Dating ----- --------- LMP on: 02/14/2024 GA by LMP 25 w + 2 d BETTIE by LMP: 11/20/2024 Previous Ultrasound on: 04/20/2024 Type of prior assessment: CRL U/S measurement at prior assessment date 29.8 mm GA by previous U/S 25 w + 5 d BETTIE by previous Ultrasound: 11/17/2024 Ultrasound examination on: 08/09/2024 GA by U/S based upon: AC, BPD, Femur, HC GA by U/S 26 w + 4 d BETTIE by U/S: 11/11/2024 Assigned: based on the LMP, selected on 07/04/2024 Assigned GA 25 w + 2 d Assigned BETTIE: 11/20/2024 General Evaluation ----- --------- Cardiac activity Present. FHR 140 bpm. Presentation: cephalic Placenta: Placental site: posterior, away from cervical os Umbilical cord: Cord vessels: 3 vessel cord. Insertion site: documented previously Amniotic fluid: Amount of AF: normal amount. MVP 4.6 cm Biometry ----- --------- Standard BPD 64.8 mm 26w 1d 72% Hadlock OFD 87.2 mm 28w 0d >99% Nolan HC 245.5 mm 26w 5d 76% Hadlock Cerebellum tr 29.2 mm 25w 4d 62% Hill AC 232.1 mm 27w 4d 95% Hadlock Femur 47.3 mm 25w 6d 52% Hadlock Humerus 41.9 mm 25w 2d 39% Nolan HC / AC 1.06 EFW 981 g 93% Hadlock EFW (lb) 2 lb EFW (oz) 3 oz EFW by: Hadlock ([id number]) Extended Tibia 41.6 mm 26w 0d 66% Nolan Diving Supervisor 5.0 mm CM 5.0 mm 17% Nicolaides Head / Face / Neck Cephalic index 0.74 11% Nicolaides Nasal bone: present Extremities / Bony Struc FL / BPD 0.73 FL / HC 0.19 FL / AC 0.20 Other Structures FHR 140 bpm Anatomy ----- --------- The following structures appear normal: Head/Neck: Cranium. Lateral ventricles. Cavum septi pellucidi. Cerebellum. Cisterna magna. Parenchyma. Vermis. Face: Lips. Profile. Nose. Nasal bone. Maxilla. Mandible. Heart/Thorax: RVOT view. LVOT view. 3-vessel view. 0-bssmlf-ieorlzk view. Situs. Bicaval view. Interventricular septum. Cardiac position. Cardiac axis. Cardiac size. Cardiac rhythm. Abdomen: Abdom. wall. Cord insertion. Stomach. Kidneys. Bladder. Small bowel. Large bowel. The following structures could not be adequately visualized: Heart / Thorax 4-chamber view. Great vessels. Diaphragm. The following structures were documented previously: Head / Neck Choroid plexus. Midline falx. Neck. Face Orbits. Heart / Thorax Aortic arch view. Ductal arch view. Right lung. Left lung. Abdomen Right renal artery. Left renal artery. Genitals. Spine: Cervical spine. Thoracic spine. Lumbar spine. Sacral spine. Extremities/Skeleton: Right upper arm. Right forearm. Right hand. Left upper arm. Left forearm. Left hand. Right upper leg. Right lower leg. Right foot. Left upper leg. Left lower leg. Left foot. Maternal Structures ----- --------- Uterus Visualized Cervix Visualized Approach - Transvaginal: Cervical length 4.43 cm Right Ovary Not visualized Left Ovary Not visualized Cul de Sac Normal. No free fluid visualized Impression ----- --------- Single viable intrauterine consistent with 25w 2d with an BETTIE of 11/20/2024. Amniotic fluid MVP measures 4.6 cm. Transvaginal cervical length measures 4.43 cm. Posterior low lying placenta has resolved. Recommendations ----- --------- The patient is scheduled in four to six week(s) to complete anatomic survey. Subsequent follow up or other follow up as clinically determined by primary OB provider unless otherwise specified by MFM. Results forwarded to ordering provider so they can follow up with the patient as necessary. Procedure Note Jeni Caballero MD - 08/09/2024 NAME: ELAN MCCARTY : 1990 SEX: F Accession Number: [id number] ORDERING PHYSICIAN: KRISTINA PALMER REFERRING PHYSICIAN: RANULFO CARRASCO Coding ----- --------- Procedures 45664: Follow-up Ultrasound, per fetus 91768: Transvaginal Ultrasound (OB) Indication ----- --------- Screening for cervical length , Previous , Hepatitis C inpregnancy, Obesity in , Screening for follow-up survey History ----- --------- OB History 3. Para 2 [id number] Current ----- --------- Cell free DNA Low Risk analysis Maternal Assessment ----- --------- Physical Exam Height 157 cm, 5 ft 2 in. Initial weight 80 kg, 177 lb.Initial BMI 32.37 kg/m Method ----- --------- Transabdominal and transvaginal ultrasound examination ----- --------- Grier . Number of fetuses: 1 Dating ----- --------- LMP on: 02/14/2024 GA by LMP 25 w + 2 d BETTIE by LMP: 11/20/2024 Previous Ultrasound on: 04/20/2024 Type of prior assessment: CRL U/S measurement at prior assessment date 29.8 mm GA by previous U/S 25 w + 5 d BETTIE by previous Ultrasound: 11/17/2024 Ultrasound examination on: 08/09/2024 GA by U/S based upon: AC, BPD, Femur, HC GA by U/S 26 w + 4 d BETTIE by U/S: 11/11/2024 Assigned: based on the LMP, selected on 07/04/2024 Assigned GA 25 w + 2 d Assigned BETTIE: 11/20/2024 General Evaluation ----- --------- Cardiac activity Present. FHR 140 bpm. Presentation: cephalic Placenta: Placental site: posterior, away from cervical os Umbilical cord: Cord vessels: 3 vessel cord. Insertion site: documentedpreviously Amniotic fluid: Amount of AF: normal amount. MVP 4.6 cm Biometry ----- --------- Standard BPD 64.8 mm 26w 1d 72% Hadlock OFD 87.2 mm 28w 0d >99% Nolan HC 245.5 mm 26w 5d 76% Hadlock Cerebellum tr 29.2 mm 25w 4d 62% Hill AC 232.1 mm 27w 4d 95% Hadlock Femur 47.3 mm 25w 6d 52% Hadlock Humerus 41.9 mm 25w 2d 39% Nolan HC / AC 1.06 EFW 981 g 93% Hadlock EFW (lb) 2 lb EFW (oz) 3 oz EFW by: Hadlock ([id number]) Extended Tibia 41.6 mm 26w 0d 66% Nolan Diving Supervisor 5.0 mm CM 5.0 mm 17% Nicolaides Head / Face / Neck Cephalic index 0.74 11% Nicolaides Nasal bone: present Extremities / Bony Struc FL / BPD 0.73 FL / HC 0.19 FL / AC 0.20 Other Structures FHR 140 bpm Anatomy ----- --------- The following structures appear normal: Head/Neck: Cranium. Lateral ventricles. Cavum septi pellucidi. Cerebellum.Cisterna magna. Parenchyma. Vermis. Face: Lips. Profile. Nose. Nasal bone. Maxilla. Mandible. Heart/Thorax: RVOT view. LVOT view. 3-vessel view. 7-vpefwd-yeujfot view.Situs. Bicaval view. Interventricular septum. Cardiac position. Cardiac axis. Cardiac size. Cardiac rhythm. Abdomen: Abdom. wall. Cord insertion. Stomach. Kidneys. Bladder. Smallbowel. Large bowel. The following structures could not be adequately visualized: Heart / Thorax 4-chamber view. Great vessels. Diaphragm. The following structures were documented previously: Head / Neck Choroid plexus. Midline falx. Neck. Face Orbits. Heart / Thorax Aortic arch view. Ductal arch view. Right lung. Left lung. Abdomen Right renal artery. Left renal artery. Genitals. Spine: Cervical spine. Thoracic spine. Lumbar spine. Sacral spine. Extremities/Skeleton: Right upper arm. Right forearm. Right hand. Leftupper arm. Left forearm. Left hand. Right upper leg. Right lower leg. Right foot. Left upper leg. Left lower leg. Leftfoot. Maternal Structures ----- --------- Uterus Visualized Cervix Visualized Approach - Transvaginal: Cervical length 4.43 cm Right Ovary Not visualized Left Ovary Not visualized Cul de Sac Normal. No free fluid visualized Impression ----- --------- Single viable intrauterine consistent with 25w 2d with an BETTIE of11/20/2024. Amniotic fluid MVP measures 4.6 cm. Transvaginal cervical length measures 4.43 cm. Posterior low lying placenta has resolved. Recommendations ----- --------- The patient is scheduled in four to six week(s) to complete anatomicsurvey. Subsequent follow up or other follow up as clinically determined byprimary OB provider unless otherwise specified by MFM. Results forwarded to ordering provider so they can follow up with thepatient as necessary. us Kristina Palmer MD [facility] US ORDERABLES Final Resul t documented in this encounter Visit Diagnoses Diagnosis Hepatitis C virus infection in mother during Low-lying placenta Hemorrhage from placenta previa, unspecified as to episode of care documented in this encounter
--- OUTSIDE RECORDS SUMMARY | 2024-08-10 14:00 | XMS_ITS | Encounter Summary ---
Author Organization [facility] tem Address [id number] [address] [place] [address] Care Team Providers Care Gas Main And Line Fitter Name Role Phone Unavailable Primary Care Provider Unavailabl e Encounter Details Date Type Department Care Team (Late st Contact Info) Description 08/10/2024 2:00 PM EDT Telemedicine Maternal- Medicine at [facility] [address] [place] [phone] Jeni Caballero MD [address] [facility], [address] [place] [id number] 25 weeks gestation of (Primary Dx); Hepatitis C antibody positive Social History Tobacco Use Types Packs/Day Years [...] on file documented as of this encounter Progress Notes * Jeni Caballero MD - 08/10/2024 2:00 PM EDT Video Visit via Real-time Synchronous Audiovisual Provider Location: [facility] AT [address] [id number] Patient Location: Other Patient Location Performance [employer] Specialist: None Video Visit Consent Statement: I discussed risks, benefits, and alternatives of a real-time synchronous audiovisual consultation with the patient (and any accompanying persons) including the risks that the patient's personal health details and medical records will be discussed over real-time, synchronous, interactive video/audio/telecommunication technology, the visit will not be recorded withoutthe express consent of both the provider and the patient, and that there are some limitations compared to cctb-av-zhlm evaluations. We elected to proceed. REASON FOR OFFICE VISIT: follow up HISTORY OF PRESENT ILLNESS: Mary Casey is a pleasant 33 y.o. at this is 25w3d due on Estimated Date of Delivery: 11/20/24 Currently the patient has no complaints. The patient denies nausea, vomiting, abdominal pain, vaginal bleedind I youg, SOB or chest pain. PAST OBSTETRICAL HISTORY: OB History 3 Para 2 Term 2 AB Living SAB IAB Ectopic Multiple Live Births SURGICAL HISTORY: Past Surgical History: Procedure Laterality Date SECTION COLONOSCOPY TONSILLECTOMY ALLERGIES: No Known Allergies CURRENT MEDICATIONS: Current Outpatient Medications: metoclopramide (REGLAN) 10 mg tablet, Take 1 tablet (10 mg total) by mouth in the morning and 1 tablet (10 mg total) at noon and 1 tablet (10 mg total) in the evening and 1 tablet (10 mg total) before bedtime., Disp: , Rfl: [id number] acid ( 19) 29 mg iron- 1 mg tablet,chewable, Chew 1 tablet and swallow in the morning., Disp: , Rfl: REVIEW OF SYSTEMS: Head and Neck: Negative for any dizziness and headaches. Cardiovascular and Respiratory System: Denies any chest pain, shortness of breath, and coughing. Abdominal and System: Denies any abdominal pain, nausea, vomiting, vaginal bleeding, and vaginal discharge FAMILY/GENETIC HISTORY: No family history of VTE, cardiac defects and mental retardation . SOCIAL HISTORY:Patient denies tobacco use, alcohol use, or drug use. REVIEW OF TESTS AND ULTRASOUND REPORTS: See ultraound report for details. Posterior low lying placenta HABITS: Patient activity no restrictions, diet no restrictions PHYSICAL EXAMINATION: LMP 02/14/2024 . Video visit ABDOMEN LIMITED ULTRASOUND HISTORY: Elevated liver enzymes COMPARISON: None FINDINGS: Pancreas: Visualized portions of the pancreatic head and body are unremarkable. Visualized portions of liver are homogenous in echotexture without focal lesion. No intrahepatic biliary dilatation. Main portal vein is patent with appropriate direction of flow. Gallbladder sludge, no stone, wall thickening, or adjacent fluid. Common duct measures 2 mm, within normal limits for patient's provided age. No visualized ascites. IMPRESSION: 1. Gallbladder sludge. DISCUSSION: Please see original consultation note for detailed recommendations Abdominal ultrasound results reviewed with the patient I also reviewed her recent M ultrasound Low-lying placenta has resolved I was not able to locate hep C quant and therefore I would recommend she has 1 done this was ordered today along with genotype a repeat CMP. The patient tells me that she has been given referral to the GI team and she plans to follow with them Risk of shoulder dystocia recurrence reviewed the patient desires repeat Orders Placed This Encounter Procedures Hepatitis C Virus Quantitative by NAAT HCV Genotype, S Comprehensive metabolic panel Recommendations - please review the original Maternal- Medicine note for detailed recommendations - labs as above - please perform also a viral quant in the 3rd trimester prior to delivery All questions and concerns answered Thank you for allowing me to participate in her care Jeni Caballero MD, FACOG (she/hers) Maternal- Medicine [place] [address] [facility] [address] [place] [address] documented in this encounter Plan of Treatment Upcoming Encounters Date Type Department Care Team (Late st Contact Info) Description 09/20/2024 11:00 AM EDT Appointment Maternal Medicine [place] [address] [facility] [address] [place] [address] Pending Results Name Type Priority Associated Diagnoses Date /Time Hepatitis C Virus Quantitative by NAAT Lab Routine 25 weeks gestation of Hepatitis C antibody positive 08/11/2024 11:03 AM EDT HCV Genotype, S Lab Routine 25 weeks gestation of Hepatitis C antibody positive 08/11/2024 11:03 AM EDT Comprehensive metabolic panel Lab Routine 25 weeks gestation of Hepatitis C antibody positive 08/11/2024 11:03 AM EDT Scheduled Orders Name Type Priority Associated Diagnoses Orde r Schedule Hepatitis C Virus Quantitative by NAAT Lab Routine 25 weeks gestation of Hepatitis C antibody positive 1 Occurrences starting 08/10/2024 until 08/10/2025 HCV Genotype, S Lab Routine 25 weeks gestation of Hepatitis C antibody positive 1 Occurrences starting 08/10/2024 until 08/10/2025 Comprehensive metabolic panel Lab Routine 25 weeks gestation of Hepatitis C antibody positive 1 Occurrences starting 08/10/2024 until 08/10/2025 documented as of this encounter Visit Diagnoses Diagnosis 25 weeks gestation of - Primary Hepatitis C antibody positive documented in this encounter
--- OUTSIDE RECORDS SUMMARY | 2024-08-11 11:38 | XMS_ITS | CCD ---
Author Organization [facility] Inform ion [facility] Care Team Providers Care Cementing Machine Operator Name Role Phone AMANDEEP MORATAYA Admitting Unavailable AMANDEEP MORATAYA Attending Unavailable DIANNA, DR VINCENT Meza Primary Care Unavail able MYERS FLAT, DR GURVINDER Corey Consulting Unavailable SAMAN JARA Consulting Unavailable Unavailable Primary Care Provider Unavailabl e Pcp, Not In System Primary Care Provider Unavail able Pcp, Not In System Primary Care Provider Unavail able Unavailable Primary Care Provider Unavailabl e SPENCER, KRISTINA E Referring Unavailable PCP, NOT IN SYSTEM Primary Care Unavailable SPENCER, KRISTINA E Referring Unavailable SPENCER, KRISTINA E Referring Unavailable JOSE, RANULFO Attending Unavailable JOSE, RANULFO Attending Unavailable CRISTY PULIDO Attending Unavailable JOSE, RANULFO Attending Unavailable JOSE, RANULFO R Referring Unavailable PCP, NOT IN SYSTEM Primary Care Unavailable JOSE, RANULFO R Referring Unavailable PCP, NOT IN SYSTEM Primary Care Unavailable SPENCER, KRISTINA E Attending Unavailable JOSE, RANULFO R Referring Unavailable JONAH MACDONALD Attending Unavailable JOSE, RANULFO R Referring Unavailable Medications Current Medications Medication Drug Class(es) Dates Sig (Normalized) Sig (Original) metoclopramide 10 mg oral tablet (17 sources) Dopamine-2 Receptor Antagonist Start: 05-10-2024 End: [...] needed for nausea.. 90 tablet 3 05/10/2024 Active MV-Min-Fe Fum-FA-DHA ( 1 PO) (14 sources) MV-Min- Fe Fum-FA-DHA ( 1 PO) Take by mouth Active [id number] acid ( 19) 29 mg iron- 1 mg tablet,chewable (9 sources) [id number] acid ( 19) 29 mg iron- 1 mg tablet,chewable Chew 1 tablet and swallow in the morning. Active Problems Active Problems Problem Classification Problem Date Documented Date Episodic/Chronic Hemorrhage during ; abruptio placenta; placenta previa (5 sources) Low lying placenta; Translations: [Low lying placenta NOS or without hemorrhage, unspecified trimester] Onset: 08-09-2024 07-04-2024 Episodic Hepatitis (14 sources) Finding of Hepatitis C status; Translations: [Unspecified viral hepatitis C without hepatic coma] Onset: 04-25-2024 04-25-2024 Episodic Hepatitis (4 sources) Hepatitis Onset: 07-04-2024 07-04-2024 Immunizations and screening for infectious disease (2 sources) Exposure to sexually transmissible disorder; Translations: [Contact with and (suspected) exposure to infections with a predominantly sexual mode of transmission] 05-10-2024 Episodic Menstrual disorders (1 source) Missed period; Translations: [Irregular menstruation, unspecified] 04-20-2024 Chronic Other complications of (7 sources) Viral hepatitis complicating , unspecified trimester; Translations: [Other viral diseases in the mother, unspecified as to episode of care or not applicable] Onset: 07-04-2024 07-04-2024 Episodic Other female genital disorders (2 sources) Vaginal discharge; Translations: [Other specified noninflammatory disorders of vagina] 05-10-2024 Episodic Other lower respiratory disease (4 sources) Cough; Translations: [COUGH] Onset: 11-26-2020 Episodic Other and delivery including normal (8 sources) ; Translations: [Encounter for supervision of normal , unspecified, unspecified trimester] 04-20-2024 Episodic Other screening for suspected conditions (not mental disorders or infectious disease) (1 source) Encounter for other specified screening; Translations: [Encounter for other specified screening] Onset: 07-04-2024 Episodic Pneumonia (except that caused by tuberculosis or sexually transmitted disease) (1 source) Pneumonia (except that caused by tuberculosis or sexually transmitted disease); Translations: [PNEUMONIA D/T CORONAVIRUS DIS 2019] Onset: 11-28-2020 Residual codes; unclassified (2 sources) Insomnia; Translations: [Other insomnia] 06-07-2024 Chronic Residual codes; unclassified (2 sources) Gestation period, 12 weeks; Translations: [12 weeks gestation of ] 05-10-2024 Episodic Residual codes; unclassified (2 sources) Gestation period, 16 weeks; Translations: [16 weeks gestation of ] 06-07-2024 Episodic Residual codes; unclassified (2 sources) Gestation period, 20 weeks; Translations: [20 weeks gestation of ] 07-05-2024 Episodic Residual codes; unclassified (1 source) 25 weeks gestation of ; Translations: [25 weeks gestation of ] Onset: 08-10-2024 Episodic Unclassified (1 source) Hx C/S Onset: 07-04-2024 Viral infection (1 source) COVID-19; Translations: [COVID-19] Onset: 11-28-2020 Past or Other Problems Problem Classification Problem Date Documented Da te Episodic/Chronic Viral infection (12 sources) Herpes simplex; Translations: [Herpesviral infection, unspecified] Onset: 04-25-2024 04-25-2024 Episodic Results Test Name Value Interpretation Reference Range Facility US ABDOMEN LMTDon 07-12-2024 US ABDOMEN LMTD US ABDOMEN LMTD ABDOMEN LIMITED ULTRASOUND HISTORY: Elevated liver enzymes [...] for patient's provided age. No visualized ascites. _ IMPRESSION: 1. Gallbladder sludge. Finalized by Alejandro Fink MD on 07/12/2024 8:[address] [facility] APTTon 07-11-2024 aPTT Coag (Bld) [Time] 29 s Normal 26-37 [facility] Comment on above: Performed By: #### P TT #### [facility] ([facility]) [address] [place] [address] VIR PROTIME AND INRon 07-11-2024 INR 0.9 Normal 0.9-1.2 [facility] Comment on above: Performed By: #### P INR #### [facility] ([facility]) [address] [place] [address] VIR PT Coag (PPP) [Time] 10.5 s Normal 9.8-13.2 [facility] Comment on above: Performed By: #### P INR #### [facility] ([facility]) [address] [place] [address] [place] [address] VIR Urinalysis macro (dipstick) panel (U)on 07-05-2024 Bilirubin, UA Negative Negative - 4(70) +++ mg/dL [facility] Blood, UA Negative Negative - 50 Herb/mcL [facility] Clarity, UA Clear [facility] Healthin re Color, UA Yellow [facility] Healthcar [facility] Glucose, UA Negative Negative - 1999(110) ++++ mg/dL [facility] Interpretation and review of laboratory results Normal [facility] Ketones, UA Negative Negative - 160(16) ++++ mg/dL [facility] Leukocytes, UA Negative Negative - 500+++ Bobby/mcL [facility] Nitrite, UA Negative Negative - Positive [facility] pH, UA 6.5 5 - 9 [facility] Health[facility] e Protein, UA Negative Negative - 1999(20) ++++ mg/dL [facility] Spec Grav, UA 1.02 1 - 1.03 [facility] Urobilinogen, UA 0.2 0.2 - 12 mg/dL [facility] COMPREHENSIVE METABOLIC PANE Maverick 07-04-2024 Albumin [Mass/Vol] 3.9 g/dL Normal 3.2-5.3 [facility] Comment on above: Performed By: #### C MP #### [facility] ([facility]) [address] [place] [address] VIR ALP [Catalytic activity/Vol] 45 U/L Normal 39-130 [facility] Comment on above: Performed By: #### C MP #### [facility] ([facility]) [address] [place] [address] VIR ALT [Catalytic activity/Vol] 55 U/L High <=31 [facility] Comment on above: Performed By: #### C MP #### [facility] ([facility]) [address] [place] [address] VIR Anion gap [Moles/Vol] 8 mmol/L Normal 5-15 [facility] Comment on above: Performed By: #### C MP #### [facility] ([facility]) [address] [place] [address] VIR AST [Catalytic activity/Vol] 31 U/L Normal <=41 [facility] Comment on above: Performed By: #### C MP #### [facility] ([facility]) [address] [place] [address] VIR Bilirubin [Mass/Vol] 0.4 mg/dL Normal 0.3-1.2 [facility] Comment on above: Performed By: #### C MP #### [facility] ([facility]) [address] [place] [address] VIR Calcium [Mass/Vol] 9.5 mg/dL Normal 8.5-10.5 [facility] Comment on above: Performed By: #### C MP #### [facility] ([facility]) [address] [place] [address] VIR Chloride [Moles/Vol] 105 mmol/L Normal 98-109 [facility] Comment on above: Performed By: #### C MP #### [facility] ([facility]) [address] [place] [address] VIR CO2 [Moles/Vol] 25 mmol/L Normal 22-32 [facility] Comment on above: Performed By: #### C MP #### [facility] ([facility]) [address] [place] [address] VIR Creatinine [Mass/Vol] 0.57 mg/dL Normal 0.40-1.00 [facility] Comment on above: Result Comment: METH OD TRACEABLE TO IDMS STANDARD Performed By: #### C MP #### [facility] ([facility]) [address] [place] [address] VIR EGFR (CKD-EPI) NON-RACE DEPENDENT >^90 Normal >=60 [facility] Comment on above: Result Comment: Repo rted eGFR is based on the CKD-EPI 2020 equation that does not use a race coefficient. Performed By: #### C MP #### [facility] ([facility]) [address] [place] [address] VIR Glucose [Mass/Vol] 92 mg/dL Normal 65-99 [facility] Comment on above: Performed By: #### C MP #### [facility] ([facility]) [address] [place] [address] VIR Potassium [Moles/Vol] 3.9 mmol/L Normal 3.5-5.0 [facility] Comment on above: Performed By: #### C MP #### [facility] ([facility]) [address] [facility] [address] [place] [address] VIR Protein [Mass/Vol] 7.0 g/dL Normal 6.0-8.0 [facility] Comment on above: Performed By: #### C MP #### [facility] ([facility]) [address] [place] [address] VIR Sodium [Moles/Vol] 138 mmol/L Normal 134-146 [facility] Comment on above: Performed By: #### C MP #### [facility] ([facility]) [address] [place] [address] VIR Urea nitrogen [Mass/Vol] 10 mg/dL Normal 5-23 [facility] Comment on above: Performed By: #### C MP #### [facility] ([facility]) [address] [place] [address] VIR AFP, SERUM, OPEN SPINA BIFID Aon 06-10-2024 AFP MOM 1.07 . [facility] Healthcar e AFP VALUE 36.0 ng/mL . [facility] Healthcar e COMMENT: Comment . [facility] Healthcar e Comment on above: Erendira Lopez , Ph.D., [facility] Director References: Available Upon Request. Multiples Of Median Cutoffs For AFP Elevations Grier 2.5 Black 2.8 IDD 2.0 Twins 4.5 Abbreviation Definitions IDD - Insulin Dep Diabetes OSBR - Open Spina Bifida Risk For further inquiries contact [employer] [facility] at [phone]. This test was developed and its performance characteristics determined by [employer]. It has not been cleared or approved by the Food and Drug Administration. Performed at: [facility] [place], [place] [id number] Refrigerator Crater: Nancy Pardo [facility], Phone: [phone] GEST. AGE ON COLLECTION DATE 16.9 . weeks [facility] GESTAT. AGE BASED ON LMP . [facility] Comment on above: Recalculations are n ot recommended when gestational dating by LMP and ultrasound are within 10 days. INSULIN DEP DIABETES No . [facility] Healthcare INTERPRETATION Comment . JEWELL Pj galvez Comment on above: Interpretation: Scre en Negative This result is screen negative for OSB. The AFP MoM calculated is based on the gestational age provided. MS-AFP can identify up to 80% of open neural tube defects. Closed neural tube defects and some open defects may not be detected by this test. This test does not screen for Down Syndrome or Trisomy 18. If screening for Down Syndrome or Trisomy 18 is desired, contact [employer] to discuss available options. The [place] [employer] recommends amniocentesis be offered to women age 35 and older. [age] [facility] Targeter App MULTIPLE GESTATION No . [facility] OSBR RISK 1 IN 9861 . ROSIE galvez RACE . [facility] Healthcar e RESULTS Report . [facility] Health[facility] TEST RESULTS: Negative . [facility] care WEIGHT 176 . lbs [facility] Healthcar e N N LMP [id number] 5 16 N 1 Y 176 N N N N N White/ [facility] Senexxcar e Urinalysis macro (dipstick) panel (U)on 06-07-2024 Bilirubin, UA Negative Negative - 4(70) +++ mg/dL [facility] Blood, UA Negative Negative - 50 Herb/mcL [facility] Clarity, UA Clear [facility] Senexxin re Color, UA Yellow [facility] Stylewhile e Glucose, UA Negative Negative - 1999(110) ++++ mg/dL [facility] Interpretation and review of laboratory results Abnormal [facility] Ketones, UA Negative Negative - 160(16) ++++ mg/dL [facility] Leukocytes, UA Trace Negative - 500+++ Bobby/mcL [facility] Nitrite, UA Negative Negative - Positive [facility] pH, UA 6.5 5 - 9 [facility] Stylewhile Protein, UA Negative Negative - 1999(20) ++++ mg/dL [facility] Spec Grav, UA 1.025 1 - 1.03 [facility] Urobilinogen, UA 0.2 0.2 - 12 mg/dL [facility] Stylewhile e IGP,APTIMA HPV,AGE GDLNon AGE GDLN ACOG TESTING Note . [facility] Comment on above: TESTS RESULT FLAG UN ITS REF RANGE LAB Clinician Provided Cytology Information Source.............Cervix No. of containers..01 ThinPrep Vial Age Algo ACOG Liss... FLAG LEGEND: L-Low Normal,H-High Normal,LL-Alert Low,HH-Alert High <-Panic Low,>-Panic High,A-Abnormal,AA-Critical Abnormal Performed at: 01 =G [address] [address] Serina Betancourt MD, HPV APTIMA Positive Abnormal Negative [facility] Comment on above: This nucleic acid am plification test detects fourteen high- risk HPV types (16,18,31,33,35,39,45,51,52,56,58,59,66,68) without differentiation. HPV GENOTYPE 16 Positive Abnormal Negative [facility] HPV GENOTYPE 18,45 Negative Negative [facility] Comment on above: Performed at: =G - L [address], [place] [id number] Refrigerator Crater: Serina Betancourt MD, Phone: [phone] Performed at: [facility] [id number] Refrigerator Crater: Serina Betancourt MD, Phone: [phone] IGP, APTIMA HPV, RFX 16/18,45 Note . [facility] Healthcare Comment on above: TESTS RESULT FLAG U NITS REF RANGE LAB DIAGNOSIS: 02 NEGATIVE FOR INTRAEPITHELIAL LESION OR MALIGNANCY. Specimen adequacy: 02 Satisfactory for evaluation. Endocervical and/or squamous metaplastic cells (endocervical component) are present. Performed by: 02 Susannah Christina Auto Polisher (ASCP) . 02 Note: Note 02 The [...] <-Panic Low,>-Panic High,A-Abnormal,AA-Critical Abnormal Performed at: [address] [address] Serina Betancourt MD, Interpretation and review of laboratory results Abnormal [facility] SPATULA-ALONE CERVIX [facility] Healthcar e Urinalysis macro (dipstick) panel (U)on 05-10-2024 Bilirubin, UA Negative Negative - 4(70) +++ mg/dL [facility] Blood, UA Negative Negative - 50 Herb/mcL [facility] Clarity, UA Clear NOM Healthin re Color, UA Straw [facility] Healthcar e Glucose, UA Negative Negative - 1999(110) ++++ mg/dL [facility] Interpretation and review of laboratory results Abnormal [facility] Ketones, UA Negative Negative - 160(16) ++++ mg/dL [facility] Leukocytes, UA Positive Negative - 500+++ Bobby/mcL [facility] Comment on above: small Nitrite, UA Negative Negative - Positive [facility] pH, UA 7 5 - 9 [facility] Protein, UA Trace Negative - 1999(20) ++++ mg/dL [facility] Spec Grav, UA 1.02 1 - 1.03 [facility] care Urobilinogen, UA 0.2 0.2 - 12 mg/dL [facility] Ultrasound - Officeon 2024 Radiology Study observation (narrative) [facility] AFP Single Marker Scrn, Mate rnal, Serumon 04-20-2024 Ms Alpha-Fetoprotein 36 [facility] BOX TESTon 04-20-2024 BOX TEST SENT OUT MELINDA [facility] [address] [facility] Healthcar e BOX2 04/20/2024 [facility] Healthcar e MELINDA BOX [facility] e CBC without diffon Hematocrit (Bld) [Volume fraction] 38.7 % [facility] Hemoglobin (Bld) [Mass/Vol] 13.6 g/dL [facility] Platelets (Bld) [#/Vol] 298 10*3/uL [facility] Rbc Mcv (Fl) By Automated Count 86.6 [facility] Drug Screen, Urineon 025 Amphetamine/Methamph etamine Negative [facility] Barbiturates Negative [facility] Benzodiazepines Negative [facility] Cocaine Metabolite Negative [facility] Opiates Negative [facility] Oxycodone Negative [facility] Phencyclidine Negative [facility] Thc Marijuana, Urine Negative [facility] HBV surface Ag IA Qlon 04-20 Hepatitis B Surface Antigen Negative [facility] HCG ( test) Ql (U)o n 04-20-2024 Interpretation and review of laboratory results Abnormal [facility] Preg Test, Ur Positive Negative [facility] HCV Ab IA Qlon 04-20-2024 HCV Ab Ql (S) Reactive [facility] HIV 1+2 Ab+HIV1 p24 Ag IA Ql on 04-20-2024 HIV 1&2 AB/AG Non-Reactive [facility] Hemoglobin A1con 04-20-2024 HbA1c (Bld) [Mass fraction] 5 % 4.0 - 6.0 % [facility] High risk HPV w/genoon 04-20 Other High Risk Hpv Positive [facility] No Panel Informationon 04-20 [facility] e Rubella IGG immune statuson 04-20-2024 Rubella immune IgG immune [facility] Syphilis Total(Unknown Syphi lis Status)on 04-20-2024 Syphilis Non-Reactive [facility] Type and screenon 04-20-2024 Abo/Rh(D) Positive [facility] US OB TRANSVAGINALon 025 US OB TRANSVAGINAL [...] within the gestational sac without evident abnormality. Bootjack rump length is 2.9 to 3.0 cm. heart rate is 176 bpm. Small lenticular shaped hypoechoic lesion regional to the gestational sac not measured by the video system repairer, 1 to 2 cm. Cervical length 5.2 [...] Comment: US OB TRANSVAGINAL No LMP recorded. Ultrasound - Officeon 2024 [facility] Urinalysis macro (dipstick) panel (U)on 04-20-2024 Bilirubin, UA Negative Negative - 4(70) +++ mg/dL [facility] Blood, UA Negative Negative - 50 Herb/mcL [facility] Clarity, UA Clear [facility] Healthca re Color, UA Yellow [facility] Healthcar e Glucose, UA Negative Negative - 2000(110) ++++ mg/dL [facility] Interpretation and review of laboratory results Normal [facility] Ketones, UA Negative Negative - 160(16) ++++ mg/dL [facility] Leukocytes, UA Negative Negative - 500+++ Bobby/mcL [facility] Nitrite, UA Negative Negative - Positive [facility] pH, UA 5.5 5 - 9 [facility] Protein, UA Negative Negative - 1999(20) ++++ mg/dL [facility] Spec Grav, UA 1.02 1 - 1.03 [facility] Urobilinogen, UA 1.0 0.2 - 12 mg/dL [facility] PREG QUANT HCGon 025 HCG QUANTITATIVE 18906 mIU/mL [facility] Comment on above: 5-50 0.2-1 WEEK 50-500 1-2 WEEKS 100-5,000 2-3 WEEKS 500-10,000 3-4 WEEKS 1,000-50,000 4-5 WEEKS 10,000-100,000 5-6 WEEKS 15,000-200,000 6-8 WEEKS 10,000-100,000 2-[facility] H[facility] 025 HCG QUANTITATIVE 8482 mIU/mL [facility] Comment on above: 5-50 0.2-1 WEEK 50-500 1-2 WEEKS 100-5,000 2-3 WEEKS 500-10,000 3-4 WEEKS 1,000-50,000 4-5 WEEKS 10,000-100,000 5-6 WEEKS 15,000-200,000 6-8 WEEKS 10,000-100,000 2-3 MONTHS [facility] XR CHEST 1 Von 11-26-2020 XR CHEST [...] by: GURVINDER GUAMAN Date: 2020-11-26 15:58 Normal [facility] Vital Signs Date Time Vital Sign Value Performing Clinician Oliverio partida 07-05-2024 09:23-0400 Body weight 81.65 kg Cristy Pulido NP Work Phone: [facility] 07-05-2024 09:23-0400 Diastolic blood pressure 62 mm[Hg] rCisty Pulido SYRUP FILTERER Work Phone: [facility] 07-05-2024 09:23-0400 Systolic blood pressure 110 mm[Hg] Cristy Pulido SYRUP FILTERER Work Phone: [facility] 07-04-2024 08:39-0400 Body height 157.5 cm Kristina Torres MD Work Phone: [facility] 07-04-2024 08:39-0400 Body mass index (BMI) [Ratio] 33.39 kg/m2 Kristina Torres MD Work Phone: [facility] 07-04-2024 08:39-0400 Body weight 82.83 kg Kristina Torres MD Work Phone: [facility] 07-04-2024 08:39-0400 Diastolic blood pressure 80 mm[Hg] Kristina Torres MD Work Phone: [facility] 07-04-2024 08:39-0400 Heart rate 80 /min Kristina Torres MD Work Phone: [facility] 07-04-2024 08:39-0400 Systolic blood pressure 125 mm[Hg] Kristina Torres MD Work Phone: [facility] 06-07-2024 09:40-0400 Body weight 80.2 kg Ranulfo Jose DO Work Phone: [facility] 06-07-2024 09:40-0400 Diastolic blood pressure 70 mm[Hg] Ranulfo Jose DO Work Phone: [facility] 06-07-2024 09:40-0400 Systolic blood pressure 120 mm[Hg] Ranulfo Jose DO Work Phone: [facility] 05-10-2024 12:13-0500 Body weight 79.74 kg Ranulfo Jose DO Work Phone: [facility] 05-10-2024 12:13-0500 Diastolic blood pressure 80 mm[Hg] Ranulfo Jose DO Work Phone: [facility] 05-10-2024 12:13-0500 Systolic blood pressure 130 mm[Hg] Ranulfo Jose DO Work Phone: [facility] 04-20-2024 09:47-0500 Body weight 80.2 kg Noms Nurse [facility] Encounters Encounter Date Encounter Type Care Provider Facility Start: 08-10-2024 End: 08-10-2024 ambulatory JONAH MACDONALD [facility] Comment on above: Hepatitis C virus in fection in mother during (Primary Dx); Low-lying placenta Start: 08-09-2024 End: 08-09-2024 ambulatory RANULFO R [facility] Start: 08-09-2024 End: 08-09-2024 Bamboo flowsheet Ranulfo Jose DO Work Phone: [facility] Start: 08-09-2024 End: 08-09-2024 Bamboo flowsheet Ranulfo Jose DO Work Phone: [facility] Start: 08-09-2024 End: 08-09-2024 ambulatory RANULFO JOSE Not Available Start: 07-11-2024 End: 07-11-[address] [facility] Start: 07-09-2024 End: 07-09-2024 Telephone encounter Jillian Hernandez [facility] Start: 07-06-2024 End: 07-06-2024 Orders Only Kristina Torres MD Work Phone: [facility] Comment on above: Hepatitis C virus in fection in mother during (Primary Dx) Start: 07-05-2024 End: 07-05-2024 Bamboo flowsheet Cristy Pulido NP Work Phone: [facility] Start: 07-05-2024 End: 07-05-2024 Bamboo flowsheet Cristy Pulido NP Work Phone: [facility] Start: 07-05-2024 End: 07-05-2024 ambulatory CRISTY PULIDO Not Available Start: 07-05-2024 End: 07-05-2024 flow sheet Cristy Pulido SYRUP FILTERER Work Phone: [facility] Comment on above: Second trimester pre gnancy; 20 weeks gestation of Start: 07-04-2024 End: 07-04-2024 Office outpatient new 45 minutes Kathryn Awad MD Work Phone: [facility] Comment on above: Hepatitis C virus in fection in mother during (Primary Dx) Start: 07-04-2024 End: 07-04-2024 Orders Only Jillian Colin RN [facility] Comment on above: Hepatitis C virus in fection in mother during (Primary Dx); Low-lying placenta Start: 07-03-2024 End: 07-03-2024 Chart abstracting Kathryn Awad MD Work Phone: [facility] Start: 06-08-2024 End: 06-10-2024 Clinisync Result Encounter Ranulfo Jose DO Work Phone: [facility] Unsolicited Start: 06-08-2024 End: 06-10-2024 Clinisync Result Encounter Ranulfo Jose DO Work Phone: [facility] Unsolicited Start: 06-07-2024 End: 06-07-2024 Bamboo flowsheet Ranulfo Jose DO Work Phone: [facility] Start: 06-07-2024 End: 06-07-2024 Bamboo flowsheet Ranulfo Jose DO Work Phone: [facility] Start: 06-07-2024 End: 06-07-2024 flow sheet Ranulfo Jose DO Work Phone: [facility] Comment on above: 16 weeks gestation o f ; Second trimester ; Other insomnia Start: 06-07-2024 End: 06-07-2024 ambulatory RANULFO JOSE Not Available Start: 05-10-2024 End: 05-10-2024 Bamboo flowsheet Ranulfo Jose DO Work Phone: [facility] Start: 05-10-2024 End: 05-17-2024 Bamboo flowsheet Ranulfo Jose DO Work Phone: [facility] Start: 05-10-2024 End: 05-17-2024 Clinisync Result Encounter Ranulfo Jose DO Work Phone: [facility] Unsolicited Start: 05-10-2024 End: 05-10-2024 ambulatory RANULFO JOSE Not Available Start: 05-10-2024 End: 05-10-2024 Patient encounter procedure Ranulfo Jose DO Work Phone: [facility] Start: 05-10-2024 End: 05-10-2024 flow sheet Ranulfo Jose DO Work Phone: [facility] Comment on above: 12 weeks gestation o f ; First trimester ; Well woman exam with routine gynecological exam; Exposure to STD; Vaginal discharge Start: 05-07-2024 End: 05-07-2024 Chart abstracting Kristina Torres MD Work Phone: [facility] Start: 04-20-2024 End: 04-20-2024 Clinisync Result Encounter [...] Date Procedure Procedure Detail Performing Clinician Start: 07-05-2024 Urnls dip stick/tabl et rgnt non-auto w/o micrscp Cristy Pulido NP Work Phone: Start: 07-04-2024 H/O: section Previous delivery affecting Kristina Torres MD Work Phone: Start: 06-08-2024 AFP, SERUM, OPEN SPI NA BIFIDA Ranulfo Jose DO Work Phone: Start: 06-07-2024 Urnls dip stick/tabl et rgnt non-auto w/o micrscp Ranulfo Jose DO Work Phone: Start: 05-10-2024 Urnls dip stick/tabl et rgnt non-auto w/o micrscp Ranulfo Jose DO Work Phone: Start: 05-10-2024 IGP,APTIMA HPV,AGE GDLN Ranulfo Jose DO Work Phone: Start: 05-10-2024 Microscopic observat ion [Identifier] in Cervix by Cyto stain Kristina Torres MD Work Phone: Start: 04-25-2024 H/O: section History of delivery affecting Ranulfo Jose DO Work Phone: Start: 04-20-2024 Antibody screen Kathryn woodall MD Work Phone: Start: 04-20-2024 Drug scrn 1+ class nonchromo Not In System Ref Prov Start: 04-20-2024 Hemoglobin glycosyla mark a1c Kathryn Awad MD Work Phone: Start: 04-20-2024 HIGH RISK HPV W/JOSIE No t In System Ref Prov Start: 04-20-2024 HIV 1&2 AB/AG SCREEN (P24 AG) Not In System Ref Prov Start: 04-20-2024 Iaad ia hepatitis b surface antigen Not In System Ref Prov Start: 04-20-2024 Syphilis test non-treponemal antibody qual Not In System Ref Prov Start: 04-20-2024 TYPE AND SCREEN Not In System Ref Prov Start: 04-20-2024 ULTRASOUND OFFICE Not I n System Ref Prov Start: 04-20-2024 BOX TEST Ranulfo Fazi o DO Work Phone: Start: 04-20-2024 Urnls dip stick/tabl et rgnt non-auto w/o micrscp Ranulfo Jose DO Work Phone: Start: 04-20-2024 Microscopic observat ion [Identifier] in Cervix by Cyto stain Kathryn Awad MD Work Phone: Start: 03-23-2024 [facility] PREG QUANT HCG Core y Jose DO Work Phone: Start: 03-21-2024 [facility] PREG QUANT HCG Core y Jose DO Work Phone: H/O: section H/O: [facility] Nurse Plan of Treatment Date Care Activity Detail Author Start: 03-08-2028 DTaP,Tdap and Td Vaccines (8 - Td or Tdap) DTaP,Tdap and Td Vaccines (8 - Td or Tdap) [facility] Start: 05-11-2027 Screening for malign ant neoplasm of cervix Pap Smear [facility] Start: 08-10-2025 End: 08-10-2025 US MFM with or without consult US MFM with or without consult Imaging Routine Hepatitis C virus infection in mother during Low-lying placenta Expected: 08/10/2025 (Approximate), Expires: 08/10/2025 [facility] Work Phone: Comment on above: Expected: 08/10/2025 (Approximate), Expires: 08/10/2025 Start: 07-04-2025 Adult BMI Screening Adult BMI Screen ing [facility] Start: 07-04-2025 Tobacco Screening Tobacco Screening [facility] Start: 07-04-2025 End: 07-04-2025 US MFM with or without consult US MFM with or without consult Imaging Routine Hepatitis C virus infection in mother during Low-lying placenta Expected: 07/04/2025 (Approximate), Expires: 07/04/2025 [facility] Work Phone: Comment on above: Expected: 07/04/2025 (Approximate), Expires: 07/04/2025 Start: 05-20-2025 End: 05-20-2025 Patient encounter procedure 05/20/2025 9:00 AM EDT Office Visit [facility] [address] [place] [id number] Ranulfo Garcia, DO [address] [place] [address] [facility] Start: 11-05-2024 Influenza vaccination Influenza Vacc ine [facility] Start: 09-20-2024 End: 09-20-2024 Patient encounter procedure 09/20/2024 11:00 AM EDT Appointment [facility] [address] [address] [place] [id number] [facility] Start: 08-10-2024 End: 08-10-2024 Telemedicine consultation with patient 08/10/2024 2:00 PM EDT Telemedicine [facility] [address] [place] [phone] Jonah Macdonald MD [address], [address] [place] [id number] [facility] Start: 08-09-2024 End: 08-09-2024 Patient encounter procedure [facility] Start: 07-11-2024 End: 07-11-2024 Patient encounter procedure 07/11/2024 8:00 AM EDT Appointment [facility] - [facility] [address] [place] [address] [facility] Start: 07-06-2024 End: 07-06-2025 US Abdomen limited Ultrasound abdomen limited Imaging Routine Hepatitis C virus infection in mother during Expected: 07/06/2024, Expires: 07/06/2025 [facility] Work Phone: Comment on above: Expected: 07/06/2024 , Expires: 07/06/2025 Start: 07-05-2024 End: 07-05-2024 Patient encounter procedure 07/05/2024 8:30 AM EDT Routine [facility] [address] [phone] Sydney Ayala PA [address] [place] [address] [facility] Start: 07-04-2024 End: 07-04-2024 Patient encounter procedure [facility] Start: 06-07-2024 End: 07-07-2024 Alpha fetoprotein, maternal Alpha fetoprotein, maternal Lab Routine 16 weeks gestation of Second trimester Expected: 06/07/2024 (Approximate), Expires: 07/07/2024 [facility] Work Phone: Comment on above: Expected: 06/07/2024 (Approximate), Expires: 07/07/2024 Start: 06-07-2024 End: 06-07-2024 Patient encounter procedure [facility] Comment on above: Arrived Start: 05-10-2024 End: 03-06-2025 Patient encounter procedure 05/10/2024 11:40 AM EST Office Visit [facility] [address] [place] [address] Ranulfo Garcia DO [address] [place] [address] [facility] OB Start: 04-20-2024 End: 04-20-2025 ABO/Rh ABO/Rh Lab Routine Missed menses , unspecified gestational age Expected: 04/20/2024 (Approximate), Expires: 04/20/2025 [facility] Comment on above: Expected: 04/20/2024 (Approximate), Expires: 04/20/2025 Start: 04-20-2024 End: 04-20-2025 Blood type and Indirect antibody screen panel - Blood Type and screen Lab Routine Missed menses , unspecified gestational age Expected: 04/20/2024 (Approximate), Expires: 04/20/2025 [facility] Comment on above: Expected: 04/20/2024 (Approximate), Expires: 04/20/2025 Start: 04-20-2024 End: 04-20-2025 Drugs of abuse panel - Urine by Screen method Rapid drug screen, urine Lab Routine , unspecified gestational age Encounter for supervision of normal first in first trimester Expected: 04/20/2024 (Approximate), Expires: 04/20/2025 [facility] Comment on above: Expected: 04/20/2024 (Approximate), Expires: 04/20/2025 Start: 04-20-2024 End: 04-20-2025 US Pelvis transvaginal [facility] Work Phone: Comment on above: Expected: 04/20/2024 , Expires: 04/20/2025 Start: 11-06-2023 Influenza vaccination Influenza Vacc ine [facility] Start: 10-07-2012 Screening for malign ant neoplasm of cervix Pap Smear [facility] Start: 10-07-2009 Adult BMI Follow Up Plan Adult BMI Follow Up Plan [facility] Start: 10-07-2009 Adult BMI Screening Adult BMI Screen ing [facility] Start: 2003 Depression Screening Depression Scre ening [facility] Start: 2003 Tobacco Screening Tobacco Screening [facility] End: 07-04-2025 aPTT in Blood by Coagulation assay APTT Lab Routine Hepatitis C virus infection in mother during 1 Occurrences starting 07/04/2024 until 07/04/2025 [facility] Comment on above: 1 Occurrences starti ng 07/04/2024 until 07/04/2025 Bacteria identified in Urine by Culture Urine culture Microbiology Routine Missed menses Ordered: 04/20/2024 [facility] Comment on above: Ordered: 04/20/2024 CBC W Auto Different ial panel - Blood CBC and differential Lab Routine Missed menses , unspecified gestational age Ordered: 04/20/2024 [facility] Comment on above: Ordered: 04/20/2024 CHLAMYDIA TRACHOMATI S (GENITO/STI) CHLAMYDIA TRACHOMATIS (GENITO/STI) Lab Routine Exposure to STD Ordered: 05/10/2024 [facility] Comment on above: Ordered: 05/10/2024 End: 07-04-2025 Comprehensive metabolic 2000 panel - Serum or Plasma Comprehensive metabolic panel Lab Routine Hepatitis C virus infection in mother during 1 Occurrences starting 07/04/2024 until 07/04/2025 [facility] Phone: Comment on above: 1 Occurrences starti ng 07/04/2024 until 07/04/2025 Comprehensive metabo lic 2000 panel - Serum or Plasma Comprehensive metabolic panel Lab Routine Hepatitis C virus infection in mother during 07/04/2024 11:48 AM EDT [facility] Cytology Cervical or vaginal smear or scraping study Pap Smear Pathology and Cytology Routine Well woman exam with routine gynecological exam Ordered: 05/10/2024 [facility] Comment on above: Ordered: 05/10/2024 Hemoglobin A1c/Hemoglobin.total in Blood Hemoglobin A1c Lab Routine Missed menses , unspecified gestational age Ordered: 04/20/2024 [facility] Comment on above: Ordered: 04/20/2024 Hepatitis B virus surface Ag [Presence] in Serum or Plasma by Immunoassay Hepatitis B surface antigen Lab Routine Missed menses , unspecified gestational age Ordered: 04/20/2024 [facility] Comment on above: Ordered: 04/20/2024 Hepatitis C virus Ab [Presence] in Serum or Plasma by Immunoassay Hepatitis C antibody Lab Routine Missed menses , unspecified gestational age Ordered: 04/20/2024 [facility] Comment on above: Ordered: 04/20/2024 HIV-1/HIV-2 antigen/antibody combination immunoassay HIV-1 and HIV-2 antibodies Lab Routine Missed menses , unspecified gestational age Ordered: 04/20/2024 [facility] Comment on above: Ordered: 04/20/2024 Human papilloma viru s DNA [Presence] in Unspecified specimen by Probe with amplification HPV DNA probe, amplified Microbiology Routine Well woman exam with routine gynecological exam Ordered: 05/10/2024 [facility] Comment on above: Ordered: 05/10/2024 Neisseria gonorrhoea e DNA [Presence] in Unspecified specimen by JOSE MANUEL with probe detection Neisseria gonorrhea DNA probe, direct Lab Routine Exposure to STD Ordered: 05/10/2024 [facility] Comment on above: Ordered: 05/10/2024 End: 07-04-2025 Protime & INR Protime & INR Lab Routine Hepatitis C virus infection in mother during 1 Occurrences starting 07/04/2024 until 07/04/2025 [facility] Comment on above: 1 Occurrences starti ng 07/04/2024 until 07/04/2025 Reagin Ab [Presence] in Serum by RPR RPR Lab Routine Missed menses , unspecified gestational age Ordered: 04/20/2024 [facility] Comment on above: Ordered: 04/20/2024 Rubella antibody, IgG Rubella an tibody, IgG Lab Routine Missed menses , unspecified gestational age Ordered: 04/20/2024 [facility] Comment on above: Ordered: 04/20/2024 SURESWAB(R) ADVANCED VAGINITIS PLUS, TMA SURESWAB(R) ADVANCED VAGINITIS PLUS, TMA Pathology and Cytology Routine Vaginal discharge Ordered: 05/10/2024 [facility] Work Phone: Comment on above: Ordered: 05/10/2024 Immunizations Immunization Date Immunization Notes Care Provider [facility] 12-25-2019 influenza virus vaccine, unspecified formulation Kristina Torres MD Work Phone: [facility] 03-08-2018 tetanus toxoid, redu liza diphtheria toxoid, and acellular pertussis vaccine, adsorbed Kristina Torres MD Work Phone: [facility] Payers Date Payer Category Payer Medicaid MEDICAID [facility] [id number] 2024 Medicaid [id number] 2021 Blue Cross Blue Shield [id number] 2021 Blue Cross Blue [employer] Managed Care - Other ANTH [id number] 2021 Unknown [id number] 2018 Worker's Comp, Other (unspecified) WORKER'S COMPENSATION [id number] 2016 Commercial Managed C are - POS [employer] [id number] 1991 Unknown [id number] [id number]. 2.593 1991 Unknown [id number] 2.16840.1.158899.3.579. 2.1286 1991 Unknown [id number] 2.16840.1.790281.3.579. 2.1286 1991 Unknown [id number] 2.16840.1.051463.3.579. 2.1286 1991 Unknown [id number] 2.16840.1.419086.3.579. 2.1259 1991 Unknown [id number] 2.16.840.1.525555.3.579. 2.1259 1991 Unknown [id number] 2.16.840.1.116113.3.579. 2.1259 1991 Unknown [id number] 2.16.840.1.725535.3.579. 2.1259 1991 Unknown [id number] 2.16.840.1.676101.3.579. 2.1259 1991 Unknown [id number] 2.16.840.1.331147.3.579. 2.1259 1991 Unknown [id number] 2.16.840.1.831668.3.579. 2.1286 1991 Unknown [id number] 2.16.840.1.374836.3.579. 2.1286 1991 Unknown [id number] 2.16.840.1.775526.3.579. 2.1286 1991 Unknown [id number] [id number]. 2.1286 1959 Unknown [id number] Social History Date Type Detail Facility Tobacco smoking status NHIS Tobacco smoking consumption unknown [facility] Start: 1990 Sex assigned at Female [facility] Start: 08-16-2018 End: 04-17-2020 Gender identity Not on file [facility] Start: 02-28-2024 [facility] Start: 08-16-2018 End: 04-17-2020 History of Social function [facility] Childcare Unknown [facility] Start: 1991 Sex assigned at Not on file [facility] Start: 10-10-2014 Sex Female (finding) [facility] Start: 07-04-2024 Tobacco smoking status NJIS Never smoked tobacco [facility] Start: 07-04-2024 Tobacco use and exposure Smokeless tobacco non-user [facility] Start: 07-04-2024 End: 07-09-2024 Alcoholic beverage intake Ex-drinker (finding) [facility] NEGATED: Highlighted rowStart: NINF History of tobacco use Passive smoker [facility] Clinical Notes 04-20-2024 to 07-09-2024 Telephone Encounter - Jillian Hernandez CMA - 07/09/2024 7:28 AM EDTTelephone Encounter - Jillian Hernandez CMA - 07/09/2024 7:28 AM Jhoan Torres MD - 07/06/2024 11:02 AM EDT Note Date & Type Note Facility 07-09-2024 Miscellaneous Notes 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 IU/mL 699,000 Will send a mychart message to patient in regards to treatment plan documented in this encounter [facility] 07-09-2024 Telephone encounter Note 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 IU/mL 699,000 Will send a mychart message to patient in regards to treatment plan [facility] 07-06-2024 History of Presen t illness Narrative Labs reviewed AST/ALT Alt mildly elevated- Recommend ruq sonogram and gi consult . Repeat LFTs within one month documented in this encounter [facility] 07-05-2024 History of Presen t illness Narrative Reason for Appointment: Patient ID: Bibiana Ansari is a 33 y.o. female who presents for Routine Visit Patient presents today for Return OB appointment. MEDICATIONS Current Outpatient Medications Medication Instructions metoclopramide (REGLAN) 10 mg, Oral, 3 times daily before meals, Take 1 tablet by mouth 30 minutes prior to meals 3 times daily as needed for nausea. MV-Min-Fe Fum-FA-DHA ( 1 PO) Take by mouth ALLERGIES No Known Allergies PROBLEMS Active Ambulatory Problems Diagnosis Date Noted HSV (herpes simplex virus) infection 04/25/2024 History of delivery affecting 04/25/2024 Hepatitis C test positive (CMS/HCC) 04/25/2024 Resolved Ambulatory Problems Diagnosis Date Noted No Resolved Ambulatory Problems No Additional Past Medical History HISTORY PAST MEDICAL HISTORY SOCIAL HISTORY No past medical history on file. Social History Tobacco Use Smoking status: Not on file Smokeless tobacco: Not on file Substance Use Topics Alcohol use: Not on file Drug use: Not on file FAMILY HISTORY No family history on file. SURGICAL HISTORY Past Surgical History: Procedure Laterality Date SECTION, LOW TRANSVERSE COLONOSCOPY TONSILLECTOMY REVIEW OF SYSTEMS Review of Systems: Review of Systems Constitutional: Negative. HENT: Negative. Eyes: Negative. Respiratory: Negative. Cardiovascular: Negative. Gastrointestinal: Negative. Genitourinary: Negative. Musculoskeletal: Negative. Skin: Negative. Neurological: Negative. All other systems reviewed and are negative. Hematological: Negative. Endocrine: Negative. Allergic/Immunologic: Negative. OBJECTIVE Objective: Physical Exam Constitutional: Appearance: Normal appearance. She is well-developed. Cardiovascular: Rate and Rhythm: Normal rate and [...] nursing note reviewed. Exam conducted with a technical administrative assistant present. Vitals: There is no height or weight on file to calculate BMI. BP: 110/62 Patient's last menstrual period was 02/14/2024. ASSESSMENT & PLAN ICD-10-CM 1. Second trimester Z34.92 POCT urinalysis dipstick manually resulted 2. 20 weeks gestation of Z3A.20 Return OB: Patient presents today for a routine obstetrics appointment. Patient is currently 20w2d . Patient states she is doing well but has complaints of being tired due to current . Patient has verbalizes frequent movement. labor precautions was discussed/given and patient was instructed to perform kick counts three times a day. Orders Placed This Encounter Procedures POCT urinalysis dipstick manually resulted Follow Up: Patient is to return to office in 4 week for routine OB appointment. Has repeat anatomy scan in 4 weeks with M and continues to follow with [facility] for Hepatitis C dx and serial Liver function testing Documented by Cristy Pulido NP on behalf of: Cristy Pulido NP documented in this encounter [facility] 07-04-2024 History of Presen t illness Narrative Headache/epigastric pain/blurry vision/swelling? Blurry vision, headaches that go away with tylenol Cramping/contractions? Mild cramping occasionally, sharp pains in lower abdomen ocassionaly Abnormal vaginal discharge? Increased vaginal discharge, clear, no foul odor Spotting/vaginal bleeding? Bleeding once after intercourse Loss or gush of fluid like your water may have broken? No Do you have cats at home? Yes Do you change the litter box (reason: risk of toxoplasmosis)? No Genetic testing done this here or other office? Yes, through primary OB, low risk Have you been seen here at [facility] in a previous ? No Recent ER visits or hospitalizations? No Bring blood sugar log or meter with you today? (Please bring them with you for every visit at [facility]) N/A Flu vaccine (Jan-May)? N/A Any concerns that you would like me to mention to the provider today? No REASON FOR CONSULTATION: hepatitis C HISTORY OF PRESENT ILLNESS: Bibiana Ansari is a pleasant 33 y.o. at 20w1d due on Estimated Date of Delivery: 11/20/24 . Currently the patient has no complaints. The patient denies nausea, vomiting, abdominal pain, vaginal bleeding, SOB or chest pain. Bibiana's partner has a history of hepatitis-C due to past IV drug use. He was treated and reports care as of the last time he was tested. He will now be retested. This is a new diagnosis for her and I do not have liver function tests available for review. Bibiana's obstetric history is significant for a shoulder dystocia in her 1st delivery and a subsequent primary section due to that obstetric history of shoulder dystocia. PAST OBSTETRICAL HISTORY: OB History 3 Para [...] mg total) before bedtime., Disp: , Rfl: [id number] acid ( 19) 29 mg iron- 1 [...] no restrictions, diet no restrictions PHYSICAL EXAMINATION: BP 125/80 (BP Site: Right Arm, BP Postition: Sitting) Pulse 80 Ht 157.5 cm (5' 2.01 ) Wt 82.8 kg (182 lb 9.6 oz) LMP 02/14/2024 BMI 33.39 kg/m . Gravid abdomen, Respirations not labored. DISCUSSION: Hepatitis C is one of the most common and potentially serious infections that can occur in women and it affect 1-4% of women in the [facility]. I reviewed with the patient that Hepatitis C is bloodborne virus. The primary mode of Hepatitis C transmission is percutaneous exposure to blood from injection of illicit drugs. Other modes of transmission include vertical transmission (mother to child); sharing of contaminated devices for noninjection drug use; exposure to infected blood through occupational exposures, tattoo needles, or other means; and sexual intercourse (specifically increased in the setting of multiple partners) which can be transmitted via sharing needles in intravenous drug users, through sexual contact, and by vertical transmission. We described that 75% of patients with Hepatitis C infection are asymptomatic and because of this only 25-30% of infected people are actually diagnosed. Without treatment, approximately 15% to 45% of infected individuals spontaneously clear Hepatis C within 6 months of infection. Without treatment, 15% to 30% of patients with chronic Hepatitis C infection develop cirrhosis within 20 years, although rates vary widely by study; 27% of those with cirrhosis develop hepatocellular carcinoma (HCC) within 10 years. In comparison, among patients with cirrhosis treated with antiviral medications and who achieve a sustained virologic response (SVR), only 5% develop HCC within 10 year. In addition, there is a clear causal relationship between chronic Hepatitis C infection and extrahepatic diseases, including cryoglobulinemic vasculitis, lymphoma, cardiovascular diseases, insulin resistance, and type 2 diabetes mellitus. We explained to her that sharing needles with another person who is positive for Hepatitis C can actually worsen her disease status due to being exposed to and infected with multiple strains of Hepatitis C. The diagnosis of Hepatitis C is confirmed by the identification of the antibody to hepatitis C virus, via a second- or third-generation enzyme immunoassay (TALISHA). The antibody may not be present until 6-10 weeks after the onset of clinical illness. Hepatitis C viral RNA can be detected by polymerase chain reaction assay of serum soon after infection, as well as in chronic disease. A positive anti-HCV antibody test result indicates one of the following: the patient has active HCV infection (acute or chronic), the patient has had a past infection that has resolved, or the result is a false positive. Thus, a positive antibody test result can indicate the patient is currently positive, was positive, or is negative. For this reason, a positive anti-HCV antibody result should be followed by a quantitative nucleic acid test for Hepatitis C RNA. If the anti-HCV antibody test result is positive and the Hepatitis C RNA test result is negative, distinguishing a false-positive antibody test from a previous infection requires testing for anti-HCV antibodies with a different antibody assay platform (such as polymerase chain reaction or immunoblot). If the anti-HCV antibody test result on the different platform is negative, the initial test result should be considered a false positive. The patient was counseled that Hepatitis C infection is not associated with an increased risk of structural anomalies. Hepatitis C has been associated with higher risk for of gestational diabetes, intrahepatic cholestasis and increased risk for , growth restriction and low birthweight, admission to the intensive care unit. Maternal Hepatitis C infection has been associated with feeding difficulties and other adverse outcomes, including cephalohematoma, brachial plexus injury, distress, intraventricular hemorrhage, and seizures. The overall risk of Mrzhrrav-Pd-Jnwpm-Transmission (MTCT) during is approximately 4-8%. If the Hepatitis C viral load (VL) is undetectable near the time of delivery, the MTCT rate is reduced to approximately 1% or less. We explained the maternal antibodies cross the placenta and can be detected in the blood for up to 18-24 months, therefore this cannot be used as a test to diagnose the with Hepatitis C infection until after 18 months. The [place] [employer] and CDC recommend screening of infants born to HCV-positive women for anti-HCV antibodies at the age of >18 months or for HCV RNA on 2 occasions in infants at the age of >1 month. We also reviewed that to date there is no evidence that a section reduces the MTCT rate. A section should be reserved for usual obstetric indications. The patient is informed that is compatible with maternal Hepatitis C infection and does not adversely affect the MTCT rate. Abstaining from if the nipples are bleeding or cracked is recommended. To minimize MTCT rate, placement of a scalp electrode or amniotomy will be avoided, if possible, during labor. It is unclear whether a patient with a positive HCV antibody and a negative viral load should be managed in labor in the same fashion as one with a detectable viral load. We suggest that negative confirmatory HCV antibody test results be considered a false positive; thus, the additional precautions suggested earlier are likely unnecessary. However, if the confirmatory test result is positive or if the test was not performed, until further data are available, it may be safest in labor to follow the same suggestions as in a patient with a positive viral load because of the theoretical possibility of intermittent viral shedding. Also if diagnostic testing is requested, patients are counseled that data regarding the risk of vertical transmission are reassuring but limited, risks and benefits should be discussed and shared-decision making utilized. Currently the Society of Maternal- Medicine recommends that direct-acting antiviral regimens only be initiated in the setting of a clinical trial during and that people who become while taking a direct-acting antiviral should be counseled in a shared decision-making framework about the risks and benefits of continuation. Recommendations: early glucola serial assessments of her HCV VL and LFTs per new [facility] guidelines not routinely recommended recommended laboratory tests for confirmed active HCV infection in Liver function tests (AST, ALT, bilirubin) Albumin Platelet count Prothrombin time Quantitative HCV RNA HCV genotype (if not previously obtained) STI screening (HIV, syphilis, gonorrhea, chlamydia, and HBV) third trimester growth ultrasound if no other indication for testing Hep A and Hep B vaccine if not immune refer to GI/cytology supervisor/ID avoid internal monitors and early artificial rupture of membranes when managing labor in patients with HCV unless necessary in the course of management (ie, when unable to trace the heart rate with external monitors and the alternative is proceeding with delivery). recommend against delivery solely for the indication of HCV SUMMARY/RECOMMENDATION: The following is a summary of our recommendations: 1. Aneuploidy screening low risk NIPT 2. Assessment of LFTs and coags. Would repeat with VL in the third trimester. If transaminases are abnormal I would recommend right upper quadrant sonogram. 3. Follow up anatomy and placental location in 4-6 weeks 4. If clinically unable to follow growth due to BMI, consider growth scans every 4 weeks after 28 weeks 5. GDM screening now and if normal repeat at 26-28 weeks 6. No need for additional testing 7. Delivery timing: at or after 39 weeks TIME OF CONSULTATION: We spent 45 minutes with the patient, >50% in discussion and counseling, coordination of care which was [id number]. documented in this encounter [facility] [employer] 06-07-2024 History of Presen t illness Narrative Reason for Appointment: Patient ID: Bibiana Ansari is a 33 y.o. female who presents for Routine Visit Patient presents today for Return OB appointment. MEDICATIONS Current Outpatient Medications Medication Instructions metoclopramide (REGLAN) 10 mg, Oral, 3 times daily before meals, Take 1 tablet by mouth 30 minutes prior to meals 3 times daily as needed for nausea. MV-Min-Fe Fum-FA-DHA ( 1 PO) Take by mouth ALLERGIES No Known Allergies PROBLEMS Active Ambulatory Problems Diagnosis Date Noted HSV (herpes simplex virus) infection 04/25/2024 History of delivery affecting 04/25/2024 Hepatitis C test positive (CMS/HCC) 04/25/2024 Resolved Ambulatory Problems Diagnosis Date Noted [...] Constitutional: Appearance: Normal appearance. She is well-developed. Cardiovascular: Rate and Rhythm: Normal rate and [...] nursing note reviewed. Exam conducted with a technical administrative assistant present. Vitals: There is no height or weight on file to calculate BMI. BP: 120/70 Patient's last menstrual period was 02/14/2024. ASSESSMENT & PLAN ICD-10-CM 1. 16 weeks gestation of Z3A.16 POCT urinalysis dipstick manually resulted Alpha fetoprotein, maternal Alpha fetoprotein, maternal CANCELED: POCT urinalysis dipstick manually resulted 2. Second trimester Z34.92 POCT urinalysis dipstick manually resulted Alpha fetoprotein, maternal Alpha fetoprotein, maternal CANCELED: POCT urinalysis dipstick manually resulted 3. Other insomnia G47.09 Patient presents today for a routine obstetrics appointment. Patient is currently 16w2d with a Estimated Date of Delivery: 11/20/24. Patient complaints of insomnia and advised to take Unisom if needed. Patient voiced that she fall and was concerned with fetus. Reassurance given to patient and spouse. Patient to return to clinic in 4 weeks for routine OB appointment. Manager Package discussed [facility] paperwork with patient and spouse. Patient to RTC in 4 weeks for routine OB care. Documented by Jessi Forrest LPN on behalf of: Ranulfo Garcia DO documented in this encounter [facility] 05-10-2024 History of Presen t illness Narrative Reason for Appointment: Patient ID: Bibiana Ansari is a 33 y.o. female who presents for No chief complaint on file. Patient presents today for Annual Exam. and Return OB appointment. MEDICATIONS Current Outpatient Medications Medication Instructions MV-Min-Fe Fum-FA-DHA ( 1 PO) Take by mouth ALLERGIES No Known Allergies PROBLEMS Active Ambulatory Problems Diagnosis Date Noted HSV (herpes simplex virus) infection 04/25/2024 History of delivery affecting 04/25/2024 Hep[facility] C test positive ([facility] 04/25/2024 Resolved Ambulatory Problems Diagnosis Date Noted [...] nursing note reviewed. Exam conducted with a technical administrative assistant present. Vitals: There is no height or [...] or undercooked meat, and stay away from [facility]. Patient has been consulted regarding any further [...] Ranulfo Garcia DO documented in this encounter [facility] 04-20-2024 History of Presen t illness Narrative Reason for Appointment: Patient ID: Bibiana Ansari is a 33 y.o. female who presents [...] or undercooked meat, and stay away from [facility]. Patient has also been advised to not [...] Yessenia Flor LPN documented in this encounter [facility] Healthcare Evaluation note Diagnosis Missed menses , unspecified gestational age Encounter for supervision of normal first in first trimester H/O: Other postprocedural status [facility] Diagnosis 12 weeks gestation of First trimester state, incidental Well woman exam with routine gynecological exam Routine gynecological examination Exposure to STD Vaginal discharge Leukorrhea, not specified as infective documented [facility] Diagnosis 16 weeks gestation of Second trimester state, incidental Other insomnia [facility] Diagnosis Hepatitis C virus infection in mother during - Primary [facility] Diagnosis Hepatitis C virus infection in mother during - Primary Low-lying placenta Hemorrhage from placenta previa, unspecified as to episode of care [facility] Diagnosis Second trimester state, incidental 20 weeks gestation of documented in this encounter [facility]* Diagnosis Hepatitis C virus infection in mother during - Primary documented in this encounter [facility] Diagnosis Hepatitis C virus infection in mother during - Primary [facility]* Diagnosis Hepatitis C virus infection in mother during - Primary Low-lying placenta Hemorrhage from placenta previa, unspecified as to episode of care documented in this encounter [facility] System[facility]ructionsNot on filedocumented in this encounter [facility] System[facility]ructionsNot on filedocumented in this encounter [facility] SystemInstructionsNot on filedocumented in this encounter [facility] SystemInstructionsNot on filedocumented in this encounter [facility] System[facility]ructionsNot on filedocumented in this encounter [facility] Summary Purpose Family History No Family History Records FoundNo Family History Records FoundNo Family History Records FoundNo Family History Records Found Advance Directives No Advanced Directives Records FoundNo Advanced Directives Records FoundNo Advanced Directives Records FoundNo Advanced Directives Records Found Additional Source Comments INFORMATION SOURCE (unrecogn ized section and content) DATE CREATED AUTHOR 11/29/2020 [facility] DATE CREATED AUTHOR 'S ORGANIZ ATION 08/05/2024 [facility] DATE CREATED AUTHOR AUTHOR'S ORGANIZ ATION 08/10/2024 [facility] DATE CREATED AUTHOR AUTHOR'S ORGANIZ ATION 08/10/2024 [facility] Reason for Visit (unrecogniz ed section and content) Reason Comments Amenorrhea Reason Comments Routine Visit Reason Comments Hepatitis C Hx C/S Care Teams (unrecognized sec tion and content) 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 Start Date End Date [place]cp, [place] [address] PCP - General Family Medicine 03/08/18 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 Start Date End Date Pcp, [place] [address] PCP - General Family Medicine 03/08/18 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 Start Date End Date Pcp, [place] [address] PCP - General Family Medicine 03/08/18 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 Start Date End Date Pcp, [place] [address] PCP - General Family Medicine 03/08/18 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 [facility] [employer] provides no warranty or guarantee of the accuracy or completeness of information in this document.
--- OUTSIDE RECORDS SUMMARY | 2024-08-11 11:38 | XMS_ITS | Encounter Summary ---
Author Organization [facility] Address [address] [place] [address] Care Team Providers Care Floor Associate Name Role Phone Unavailable Primary Care Provider Unavailabl e Encounter Details Date Type Department Care Team (Late st Contact Info) Description 04/27/2024 Abstract [facility] [address] [place] [address] Derian Garcia, [facility] [address] [place], [id number] Social History Tobacco Use Types Packs/Day Years [...] on file documented as of this encounter Plan of Treatment Upcoming Encounters Date Type Department Care Team (Late st Contact Info) Description 08/30/2024 1:50 PM EDT Routine [facility] [address] [place] [address] Sydney Ayala PA [address] [place], [place] [id number] 05/20/2025 9:00 AM EDT Office Visit [facility] [address] [place] [address] Derian Garcia, [address] [place] [address] documented as of this encounter Visit Diagnoses Not on filedocumented in this encounter
--- OUTSIDE RECORDS SUMMARY | 2024-08-11 11:38 | XMS_ITS | Encounter Summary ---
Author Organization [facility] tem Address [id number] [address] [place] [address] Care Team Providers Care Blending Tank Tender Helper Name Role Phone Unavailable Primary Care Provider Unavailabl e Reason for Referral * Diagnostic Imaging (Routine) - Pending Review Specialty Diagnoses / Procedures Referred By Contac t Referred To Contact Maternal and Medicine Diagnoses Hepatitis C virus infection in mother during Low-lying placenta Procedures US MFM with or without consult Kathryn Awad MD [address] [place] [id number] Phone: tel: fax: Maternal- Medicine at [address] [address] Phone: tel: fax: Referral ID Status Reason Start Date Expiration Date V isits Requested Visits Authorized [id number] Pending Review 08/10/2024 08/10/2025 1 1 Encounter Details Date Type Department Care Team (Late st Contact Info) Description 08/10/2024 Orders Only [facility]aternal- Medicine at [address] [phone] Blaise Armas CMA Hepatitis C virus infection in mother during (Primary Dx); Low-lying placenta Social History Tobacco Use Types Packs/Day Years [...] 09/20/2024 11:00 AM EDT Appointment Maternal Medicine [place] [address] [facility] [address] [place] [phone] Scheduled Orders Name Type Priority Associated Diagnoses Orde r Schedule US MFM with or without consult Imaging Routine Hepatitis C virus infection in mother during Low-lying placenta Expected: 08/10/2025 (Approximate), Expires: 08/10/2025 documented as of this encounter Visit Diagnoses Diagnosis Hepatitis C virus infection in mother during - Primary Low-lying placenta Hemorrhage from placenta previa, unspecified as to episode of care documented in this encounter
--- OUTSIDE RECORDS SUMMARY | 2024-08-11 11:38 | XMS_ITS | Encounter Summary ---
Author Organization [employer] [facility] tem Address [id number] [address] [place] [address] Care Team Providers Care Chemical Instrumentation Officer Name Role Phone Unavailable Primary Care Provider Unavailabl e Encounter Details Date Type Department Care Team (Latest Contact Info) Description 08/10/2024 Travel Social History Tobacco Use Types Packs/Day Years [...] 09/20/2024 11:00 AM EDT Appointment Maternal Medicine [place] [address] [facility] [address] [place] [address] documented as of this encounter Visit Diagnoses Not on filedocumented in this encounter
--- OUTSIDE RECORDS SUMMARY | 2024-08-11 11:38 | XMS_ITS | Data Portability ---
Author Organization [facility] VINCENT ANDERSON MD, PHD, [facility] Address [address] [place] [address] Assessment No assessment recorded. Plan of Treatment Reminders Order Date Submit Date Provider Last Modified By Organization Details Last Modified Time Details Appointments None record ed. Lab urinal ysis, dipsti ck 2020 [facility] Main Office, [address] [place], [place] [address] [place], [address], 15:52:28 Referral None record ed. Procedures None record ed. Surgeries None record ed. Imaging None record ed. Medication Orders valacy clovir 500 mg tablet [address] [facility] #[id number], [address] [place], [address], 15:44:03 sertra line 25 mg tablet [address] [facility] #[id number], [address] [place], [address], 15:44:03 Zithro max Z-Jorgito 250 mg tablet 2020 021 [facility]/Pharmacy #[id number], [address] [place], [address], 15:46:09 sertra line 25 mg tablet 2019 020 [facility]arm[facility] #[id number], [address] [place], [address], 0 15:53:59 Patient TargetsNo targets recorded. Patient Instructions Encounter Date Encounter Id Patient Instructions Last Modified By Organization Details Last Modified Time 01/09/2020 [id number] Patient is frustrated about the stress and inability to sleep. We discussed OTC remedies and states she has tried and failed these. She feels that this is mostly anxiety and depression as it runs in the family. We spent 25 minutes discussing the stressors in her life and ways to counteract them. We also discussed massage therapy and relaxation techniques in addition to starting a new medication. [email or web address] Not available 01/22/2020 08:24:29 11/21/2020 [id number] Discussed with patient nature of covid and signs and symptoms to have further investigation. We discussed if SOB worsens if light headed needs to be re evaluated. She does have access to albuterol which she will use every 4-6 hours as needed. If she starts to require it more frequently she needs to be seen. Answered all questions and spent 25 minutes. [email or web address] Not available 11/23/2020 15:39:52 12/24/2020 [id number] Discussed with patient need to use condoms to protect against exposure. Also discussed the outbreaks and preventing spread of herpes. We also discussed the suppression of herpes and decreasing the spread but that it can still happen. Also discussed her moodiness and behavior and how depression and anxiety can influence the behavior but also how sleep can play a role. Patient will start zoloft again for 2 months and see how her behavior changes and to see if her sleep improves. Spent 25 minutes. [email or web address] Not available 12/25/2020 17:10:01 Reason for Referral None Reported. Results Created Date Observation Date Name Description Value Unit Range Abnormal Flag Note LastModifiedBy Organization Detail LastModifiedTime 11/27/19 21 11/26/2020 imagi ng/di thonyos tic resul t No observ ation record ed. [facility] [address] [place], [address], 11/26/2020 16:06:28 Result Notes None recorded. Problems No Known Problems Procedures Surgical History Date Name Laterality Status Provider Name and Address Organization Details Recorded Time tonsillectomy and adenoidectomy completed Vincent Bustamante MD [address] [place], [address], [facility] - VINCENT BUSTAMANTE MD, PHD 01/02/2021 15:49:59 Imaging Results None recorded. Procedure Notes None recorded. Medical Equipment None Reported. Allergies No known drug allergies Medications Name Sig Start Date Stop Date Status Note LastModified by Organization Details LastModified Time azithromyci n 250 mg tablet TAKE 2 TABLETS BY MOUTH ON DAY 1 AND THEN TAKE 1 TABLET BY MOUTH ONCE A DAY ON DAY 2 THROUGH DAY 5 01/02 completed Not Available Not Available Not Available ibuprofen 800 mg tablet 07/24 completed Not Available Not Available Not Available fluconazole 150 mg tablet Take 1 tablet every day by oral route as directed. 07/24 completed Not Available Not Available Not Available prednisone 20 mg tablet TAKE 3 TABLETS BY MOUTH FOR 2 DAYS, THEN 2 TABLETS FOR 2 DAYS, THEN 1 TABLET FOR 2 DAYS 01/02 completed Not Available Not Available Not Available penicillin V potassium 500 mg tablet 07/24 completed Not Available Not Available Not Available Nexium 40 mg capsule,del ayed release Take 1 capsule every day by oral route as directed for 30 days. 09/23 completed Not Available Not Available Not Available acyclovir 400 mg tablet Take 1 tablet every 8 hours by oral route as directed for 7 days. 08/05 completed Not Available Not Available Not Available valacyclovi r 500 mg tablet Take 1 tablet every day by oral route as directed for 90 days. active Not Available Not Available No t Available omeprazole 40 mg capsule,del ayed release Take 1 capsule every day by oral route for 90 days. 07/24 completed Not Available Not Available Not Available Polytrim 10,000 unit-1 mg/mL eye drops Instill 1 drop 4 times a day by ophthalmi c route as directed for 7 days. 01/02 completed Not Available Not Available Not Available sertraline 25 mg tablet Take 1 tablet every day by oral route as directed for 60 days. active Not Available Not Available No t Available albuterol sulfate HFA 90 mcg/actuati on aerosol inhaler INHALE 2 PUFFS BY MOUTH EVERY 6 HOURS NEEDED active Not Available Not Available No t Available bromphenira mine-pseudo ephedrine-D M 2 mg-30 mg-10 mg/5 mL oral syrup TAKE 10 ML BY MOUTH 4 TIMES DAILY NEEDED FOR COLD SYMPTOMS active Not Available Not Available No t Available amoxicillin 875 mg-potassiu kecia clavulanate 125 mg tablet TAKE 1 TABLET BY MOUTH EVERY 12 HOURS FOR 7 DAYS 09/23 completed Not Available Not Available Not Available azithromyci n 500 mg tablet 07/24 completed Not Available Not Available Not Available Larissia 0.1 mg-20 mcg tablet TAKE 1 TABLET BY MOUTH EVERY DAY active Not Available Not Available No t Available Vitals Date Recorded Body height Heart rate Respiratory rate Body temperature Body mass index (BMI) Body weight Oxygen saturation Oxygen saturation in Arterial blood by Pulse oximetry Systolic blood pressure Diastolic blood pressure Provider Name and Address Organization Details Last Updated DateTime 1 160.66 cm 100 /min 20 /min 100.4 [degF] 28.6 kg/m2 41045.5 6 g 98 % 98 % 107 mm[Hg] 62 mm[Hg] Vincent loya MD [address], [address], [facility] VINCENT BUSTAMANTE MD, PHD 1 14:55:12 Date Recorded Body height Heart rate Body temperature Body mass index (BMI) Body weight Oxygen saturation Oxygen saturation in Arterial blood by Pulse oximetry Provider Name and Address Organization Details Last Updated DateTime 0 160.66 cm 69 /min 96.4 [degF] 27.2 kg/m2 22737.8 2 g 99 % 99 % Ruth Barba [facility] VINCENT BUSTAMANTE MD, PHD 0 09:44:35 Date Recorded Body height Heart rate Respiratory rate Body temperature Body mass index (BMI) Body weight Oxygen saturation Oxygen saturation in Arterial blood by Pulse oximetry Systolic blood pressure Diastolic blood pressure Provider Name and Address Organization Details Last Updated DateTime 1 160.66 cm 60 /min 18 /min 98.5 [degF] 29 kg/m2 31972.7 4 g 98 % 98 % 130 mm[Hg] 79 mm[Hg] Vincent loya MD [address], [address], [facility] VINCENT BUSTAMANTE MD, PHD 1 16:54:55 Date Recorded Body mass index (BMI) Body weight Provider Name and Address Organization Details Last Updated DateTime 01/02/2021 28.8 kg/m2 67708.15 g Vincent Bustamante MD [address], [place], [address], [place] Diana BUSTAMANTE MD, PHD 01/02/2021 15:07:03 Date Recorded Body height Heart rate Respiratory rate Body temperature Oxygen saturation Oxygen saturation in Arterial blood by Pulse oximetry Systolic blood pressure Diastolic blood pressure Provider Name and Address Organization Details Last Updated DateTime 1 160.66 cm 72 /min 18 /min 98 [degF] 98 % 98 % 114 mm[Hg] 84 mm[Hg] Shawn Terrazas [facility] VINCENT BUSTAMANTE MD, PHD 10:08:57 Date Recorded Body height Heart rate Respiratory rate Body temperature Body mass index (BMI) Body weight Oxygen saturation Oxygen saturation in Arterial blood by Pulse oximetry Systolic blood pressure Diastolic blood pressure Provider Name and Address Organization Details Last Updated DateTime 0 160.66 cm 76 /min 17 /min 97.8 [degF] 27.4 kg/m2 57262.4 1 g 98 % 98 % 122 mm[Hg] 76 mm[Hg] Ruth Barba [facility] VINCENT BUSTAMANTE MD, PHD 0 09:21:29 Social History Question Answer Notes LastModified by Organizat ion Details LastModified Time Tobacco Smoking Status Never Smoker Not Available [facility] 01/08/2020 03:54:39 Do You Have An Advance Directive? No Information n ot available 11/23/2020 Are You Blind Or Do You Have Difficulty Seeing? No Information n ot available 11/23/2020 What Is Your Level Of Caffeine Consumption? Occasional [id number] Information not available 01/08/2020 How Much Tobacco Do You Chew? None [id number] Information not available 01/08/2020 In The 14 Days Before Symptom Onset, Have You Had Close Contact With A Laboratory-confirm ed COVID-19 While That Case Was Ill? No Information n ot available 11/23/2020 In The 14 Days Before Symptom Onset, Have You Had Close Contact With A Person Who Is Under Investigation For COVID-19 While That Person Was Ill? No Information not available 11/23/2020 Have You Been To An Area Known To Be High Risk For COVID-19? No Information not available 11/23/2020 Are You Deaf Or Do You Have Serious Difficulty Hearing? No Information not available 11/23/2020 What Type Of Diet Are You Following? REGULAR [id number] Information n ot available 01/08/2020 Which Illicit Or Recreational Drugs Have You Used? No [id number] Information not available 01/08/2020 Have You Processed Blood Or Body Fluids From An Ebola Virus Disease Patient Without Appropriate PPE? No Information not available 11/23/2020 Do You Reside In Or Have You Traveled To An Area Where Ebola Virus Transmission Is Active? No Information not available 11/23/2020 Education 12 Information no t available 07/25/2019 Have There Been Any Changes To Your Family Or Social Situation? No Information no t available 11/23/2020 What Is The Fluoride Status Of Your Home? Fluoridated Information not available 11/23/2020 Are There Any Guns Present In Your Home? No [id number] Information not available 01/08/2020 Hard Of Hearing Or Deaf In One Or Both Ears? No Information not available 07/25/2019 Have You Recently Or Are You Planning To Travel To An Area With Zika Virus? No Information not available 11/23/2020 Legally Blind In One Or Both Eyes? No Information no t available 07/25/2019 Live Alone Or With Others? With Others Information not available 07/25/2019 What Was The Date Of Your Most Recent Tobacco Screening? 11/21/2020 Information not available 11/23/2020 How Many Children Do You Have? 2 [id number] Information not available 01/08/2020 Performs Monthly Self-breast Exam? Yes Information no t available 07/25/2019 Seat Belts Used Routinely Yes Information not available 07/25/2019 Are You Sexually Active? Yes [id number] Information not available 01/08/2020 Smoke Alarm In Home Yes Information not available 07/25/2019 Do You Have Smoke And Carbon Monoxide Detectors In Your Home? Yes Information not available 11/23/2020 Are You Passively Exposed To Smoke? No Information no t available 07/25/2019 How Much Tobacco Do You Smoke? No [id number] Information not available 01/08/2020 General Stress Level Medium Information not available 07/25/2019 Do You Use Sunscreen Routinely? Yes [id number] Information not available 01/08/2020 Do You Have Difficulty Walking Or Climbing Stairs? No Information not available 11/23/2020 Sex: Unknown Functional Status Question Answer Note LastModified by Organizat ion Details LastModified Time Do you use any illicit or recreational drugs? No Information not available 11/23/2020 Do you or have you ever used any other forms of tobacco or nicotine? No Information not available 11/23/2020 What is your level of alcohol consumption? Occasional [id number] Information not available 01/08/2020 Do you or have you ever used smokeless tobacco? Never used smokeless tobacco [id number] Information not available 01/08/2020 Are you currently employed? Yes [id number] Information not available 01/08/2020 Do you have transportation difficulties? No Information not available 11/23/2020 Are you able to walk? YESWOREST [id number] Information not available 01/08/2020 Do you have difficulty doing errands alone? No Information not available 11/23/2020 Are you able to care for yourself? Yes [id number] Information n ot available 01/08/2020 Do you have difficulty dressing or bathing? No Information not available 11/23/2020 Do you or have you ever used e-cigarettes or vape? Never used electronic cigarettes [id number] Information not available 01/08/2020 What is your exercise level? Moderate [id number] Information not available 01/08/2020 Mental Status Question Answer Note LastModified by Organization D etails LastModified Time Do you have difficulty concentrating, remembering or making decisions? No Information no t available 11/23/2020 Family History Relationship Description Onset Age of this Age Resolved Age Notes LastModified by Organization Details LastModified Time Maternal Grandmother Heart disease [email or web address] Not available 05/05 13:57:43 Mother Hypertensive disorder [email or web address] Not available 05/05 13:57:52 Unspecified Relation Severe protein-ivana radha malnutrition (Grubbs: less than 60 percent of standard weight) grandcarmen sellerst [email or web address] Not available 05/23/2017 13:58:19 Medical History Condition Response Coronary Artery Disease N Other N Gout N Kidney Stones N Blood Diseases N Hyperthyroidism N Breast Cancer N Blood Transfusion N Hospital Admission Other Than N Hypothyroidism N Lung Disease N Depression N COPD N Defects or Inherited Disease N Developmental or Behavioral Disorders N Breast Problem N Difficulty Swallowing N Anesthesia Complications N Meniere's disease N Anxiety Disorder N Muscle, Joint, or Bone Problems N Obesity N Vision or Eye Problems N Arthritis N Head Injury/Concussion N Polyps N Infertility N Mental Disorder N Congenital Anomalies N Cancer N Varicosities N Stroke N Endometriosis N Bladder or Kidney Problems N High Cholesterol N Liver Disease N Fibromyalgia N Headaches N Kidney Disease N Allergies/Hayfever N Heart Problems N Ear or Hearing Problems N Hospitalizations N Thyroid Problems N GI Problems N ADD/ADHD N Skin Problems N Eating Disorder N Anemia N MRSA exposure N Constipation N Mental Illness N Ovarian Cancer N Diabetes N Bedwetting N Seizures/Epilepsy N Tuberculosis N AIDS/HIV N Congestive Heart Failure (CHF) N Eczema N Diverticulitis N Abuse/Domestic Violence N Asthma N Reflux/GERD N Hepatitis N Heart Disease N Pulmonary Embolism N Pre-Eclampsia N Hypertension N Chronic Ear Infections N Osteoporosis N Chicken Pox N Autism Spectrum Disorder (ASD) N Thrombophilias N Gynecological HistoryNo gynecological history recorded. Obstetrics History GPAL:G 0 P 0 0 0 0 Immunizations Vaccine Type Date Status Note Provider Nam e and Address Organization Details Recorded Time Influenza, split virus, quadrivalent, preservative 0 completed Vicnent Bustamante MD [address] [place], [address], HELIO BUSTAMANTE MD, PHD 12/25/2019 17:31:43 DTaP, unspecified formulation 2 completed stu khalil, HELIO BUSTAMANTE MD, PHD 05/23/2017 13:19:21 DTaP, unspecified formulation 2 completed stu khalil, HELIO BUSTAMANTE MD, PHD 05/23/2017 13:19:28 DTaP, unspecified formulation 3 completed stu khalil, HELIO BUSTAMANTE MD, PHD 05/23/2017 13:19:32 DTaP, unspecified formulation 4 completed stu khalil, HELIO BUSTAMANTE MD, PHD 05/23/2017 13:19:38 DTaP, unspecified formulation 5 completed stu khalil, HLEIO BUSTAMANTE MD, PHD 05/23/2017 13:19:42 polio, unspecified formulation 2 completed stu khalil, HELIO BUSTAMANTE MD, PHD 05/23/2017 13:19:55 polio, unspecified formulation 2 completed stu khalil, HELIO BUSTAMANTE MD, PHD 05/23/2017 13:19:59 polio, unspecified formulation 4 completed stu khalil, HELIO BUSTAMANTE MD, PHD 05/23/2017 13:20:05 MMR 3 completed stu khalil, HELIO BUSTAMANTE MD, PHD 05/23/2017 13:20:15 Hib, unspecified formulation 2 completed stu khalil, HELIO BUSTAMANTE MD, PHD 05/23/2017 13:20:28 Hib, unspecified formulation 2 completed stu khalil, HELIO BUSTAMANTE MD, PHD 05/23/2017 13:20:34 Hib, unspecified formulation 3 completed stu khalil, HELIO BUSTAMANTE MD, PHD 05/23/2017 13:21:03 Hib, unspecified formulation 4 completed stu khalil, HELIO BUSTAMANTE MD, PHD 05/23/2017 13:21:08 Tdap 4 completed stu khalil, HELIO BUSTAMANTE MD, PHD 05/23/2017 13:23:44 Hep B, unspecified formulation 3 completed stu khalil, HELIO BUSTAMANTE MD, PHD 05/23/2017 13:23:59 Hep B, unspecified formulation 4 completed stu khalil, HELIO BUSTAMANTE MD, PHD 05/23/2017 13:24:04 Hep B, unspecified formulation 4 completed stu khalil, HELIO BUSTAMANTE MD, PHD 05/23/2017 13:24:07 influenza, unspecified formulation 4 completed HELIO aquino MD, PHD 05/23/2017 13:24:21 Influenza, split virus, quadrivalent, PF 8 completed Not Available [facility] 03/24/2019 02:56:38 Past Encounters Encounter ID Performer Location Encounter Start Date Encounter Closed Date Diagnosis/Indication Diagnosis SNOMED-CT Code Diagnosis ICD10 Code Diagnosis Note [id number] Vincent Valdez rn, MD Main Office [address] [place] [address] 05/23/2017 14:04:28 05/23/2017 14:41:04 Vaginitis 78640116 N76.0 Dysuria 17246834 R30.0 Viral screening 73912618 4 Z11.59 [id number] Vincent Valdez rn, MD Main Office [address] [place] [address] 06/07/2017 15:33:48 06/07/2017 16:26:52 History of sexually transmitted disease 486131341 Z86.19 Suprapubic pain 05756450 6 R10.33 Mid-cycle bleeding 83919 1000 N92.1 Increased frequency of urination 584177092 R35.0 [id number] Vincent Valdez rn, MD Main Office [address] [place] [address] 11/14/2017 16:49:06 11/14/2017 19:35:26 Gastroesophageal reflux disease 204140089 K21.9 Sore throat 013967604 J0 2.9 [id number] Vincent Valdez rn, MD Main Office [address] [place] [address] 11/21/2017 16:08:00 11/21/2017 16:32:37 Gastroesophageal reflux disease 700965064 K21.9 Administra tion of influenza vaccine 15677155 Z23 [id number] Vincent Valdez rn, MD Main Office [address] [place] [address] 07/25/2019 09:52:31 07/25/2019 11:12:25 Recurrent genital herpes simplex 215949717 A60.00 Dysuria 98438362 R30.0 Pseudofoll iculitis barbae 795468168 L73.1 History of chlamydial infection 316287342 Z86.19 Microscopic hematuria 19 3102557 R31.21 [id number] Vincent Valdez rn, MD Main Office [address] [place] [address] 07/27/2019 09:09:56 07/27/2019 10:05:03 Gastroesophageal reflux disease 719551648 K21.9 Acute pharyngitis 160776 003 J02.9 Laryngitis 70895732 J04. 0 Pruritic rash 91319675 L 28.2 [id number] Vincent Valdez rn, MD Main Office [address] [place] [address] 08/06/2019 09:53:29 08/06/2019 10:41:52 Adult health examination 862281981 Z00.00 Sleep tonio rivera disturbance 52423954 G47.9 [id number] Vincent Valdez rn, MD Main Office [address] [place] [address] 08/21/2019 09:32:36 08/21/2019 10:37:11 Acute urinary tract infection 006778113 N39.0 Herpes sim plex of female genitalia 872517702 A60.09 Pseudofoll iculitis barbae 501327960 L73.1 [id number] Vincetn Valdez rn, MD Main Office [address] [place], [place] [address] [address] 09/24/2019 15:07:20 09/24/2019 16:13:39 Hordeolum externum of upper eyelid of left eye 4937357253 28247 H00.014 Acute conjunctivitis 537 67869 H10.32 [id number] Vincent Valdez rn, MD Main Office [address] [place] [address] 11/19/2019 09:14:38 11/19/2019 09:20:17 Renewal of prescription 394778422 Z76.0 Recurrent genital herpes simplex 454611573 A60.00 [id number] Vincent Valdez rn, MD Main Office [address] [place] [address] 12/25/2019 09:25:03 12/25/2019 09:26:16 Administration of influenza vaccine 36034975 Z23 [id number] Vincent Valdez rn, MD Main Office [address] [place] [address] 01/09/2020 08:55:04 01/09/2020 09:26:21 Mixed anxiety and depressive disorder 976846756 F41.8 Cervical lymphadenopathy 381637308 R59.0 Fatigue 42058637 R53.83 [id number] Vincent Valdez rn, MD Main Office [address] [place], [place] [address] [address] 11/21/2020 10:07:28 11/21/2020 11:11:01 Cough 51594418 R05 Fever 928090616 R50.9 SARS-CoV-2 041574419 U07 .1 [id number] Vincent Valdez rn, MD Main Office [address] [place] [address] 12/24/2020 09:58:38 12/24/2020 10:23:28 Mixed anxiety and depressive disorder 226233594 F41.8 Genital he rpes simplex 23702415 A60.9 Depressive disorder 3548 9007 F32.9 Guerrero 920493566 R45.86 Venereal d isease screening 300260977 Z11.3 Sleep tonio rivera disturbance 18989765 G47.9 [id number] Vincent Valdez rn, Main Office [address] [place] [address] 01/02/2021 09:17:28 01/02/2021 10:03:20 Adult health examination 099798667 Z00.01 Mixed anxi ety and depressive disorder 956415912 F41.8 Genital he rpes simplex 73847165 A60.9 Health Concerns Section Related Observation LastModified by Organization Detai ls LastModified Time None Recorded Concern Status LastModified by Organization Details LastModified Time None Recorded Advance Directives Directive N: Payers Encounter Date Sequence Insurance Name Policy Number Policy Santacruz Covered Member ID Santacruz Member ID Guarantor Name 12/25/2019 1 [employer] (PPO) [facility] Mary Riana Casey [id number] Mary Riana Casey 12/25/2019 2 *SELF PAY* Cr ystal Riana Casey 01/09/2020 1 [employer] (PPO[employer] [facility] Mary Riana Casey [id number] Mary Riana Casey 01/09/2020 2 *SELF PAY* Cr ystal Riana Casey 11/21/2020 1 [employer] (PPO) [facility] Mary Riana Casey [id number] Mary Riana Casey 11/21/2020 2 *SELF PAY* Cr ystal Riana Casey 12/24/2020 1 [employer] (PPO[employer] [facility] Mary Riana Casey [id number] Mary Riana Casey 12/24/2020 2 *SELF PAY* Cr ystal Riana Casey 01/02/2021 1 [employer] (PPO[employer] [facility] Mary Riana Casey [id number] Mary Riana Casey 01/02/2021 2 *SELF PAY* Cr ystal Riana Casey Notes Date Note Type Note Provider Name and Address Organization Details Recorded Time 12/25/2019 text/html Generic HPI TemplateReported bypatient.Notes:Dank adler is here today to receive her flu vaccine. Patient has no concerns today. Patient presents to the office for her annual influenza vaccination. She is doing well and she has no concerns at this time. She has not had any signs or symptoms of an illness. She has not had a fever. She has never had a reaction to previous immunizations and she has no allergy to eggs. She has never had Guillain [place]. Vincent Bustamante MD [address], [place], [address], [place] - VINCENT BUSTAMANTE MD, PHD 12/25/2019 18:10:21 01/09/2020 text/html Sleep ProblemsRe ported [facility].Notes:Dank adler is here today because she is having problems sleeping. Patient states she has a bump on the right side of her head that is very sore and is causing her to loose sleep. Patient presents to the office for evaluation of poor sleeping as well as a bump on the side of her head and feeling very anxious and depressed. She states that she has a lot of trouble falling asleep and then staying a sleep. She feels that she is always on edge and snapping. She states that her mind is always racing when she tries to fall asleep. She is tired most of the day. She does not think she snores.She also complains of a bump on the right side of her head that hurts. She does not remember hitting her head and she just noticed it last night. There has been no fever. Vincent Bustamante MD [address] [place], [address], [place] - VINCENT BUSTAMANTE MD, PHD 01/22/2020 08:27:47 11/21/2020 text/html Patient presents to the office for evaluation of shortness of breath intermittently along with fevers that started yesterday. She first became ill on Tuesday with a migraine followed by myalgias the next day associated with a fever which then prompted her to get a covid test at on (11/20/2020)that was positive. She started having some intermittent SOB and her chest felt like when cold air hits it and you can't breathe . She also started with a sore throat with PND. She was not given any medications at and was told to quarantine for 10 days. Vincent Bustamante MD [address] [place], [place], [address], [place] - VINCENT BUSTAMANTE MD, PHD 11/23/2020 15:40:19 12/24/2020 text/html Patient presents to the office for evaluation of moodiness and being short tempered and quick to snap at everyone. She states she has trouble sleeping and is always tired. She has tried melatonin and some OTC sleep medicines. She states that she was on zoloft for about a month until she ran out of it. She states that she did not notice a change but her friends and family state that she was calmer and more pleasant. She feels she needs to try something because she does not like her behavior. She also would like to restart her medication for her genital herpes. She was on daily routine for a while which did prevent the outbreaks. Since she has been off she had once outbreak and then a couple of mild episodes. She is also concerned about being exposed to STDs. Vincent Bustamante MD [address], [address], [place] - VINCENT BUSTAMANTE MD, PHD 12/25/2020 17:10:29 01/02/2021 text/html Patient presents to the office for her annual wellness as well as for her mixed anxiety/depression. She states that she just picked up her zoloft 5 days ago so it has not been very long ago that she started it. She still feels anxious and snappy. Otherwise she is doing well. She has not had a break out of her herpes in a while but has started taking it daily so to keep it from breaking out. She sees the eye doctor and dentist regularly. 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 She eats and sleeps well. She has one pop a day for caffeine and does not drink coffee. Vincent Bustamante MD [address] [place], [address], [facility] - VINCENT BUSTAMANTE MD, PHD 01/02/2021 15:53:29 OBGyn Episode No OBEpisode recorded.
--- OUTSIDE RECORDS SUMMARY | 2024-08-11 11:38 | XMS_ITS | Encounter Summary ---
Author Organization [facility] Address [address] [place] [address] Care Team Providers Care Football Pad Repairer Name Role Phone Unavailable Primary Care Provider Unavailabl e Encounter Details Date Type Department Care Team (Latest Contact Info) Description 08/02/2024 Travel Social History Tobacco Use Types Packs/Day [...] PM EDT Routine [facility] [address] [place] [address] Sydney Ayala PA [address] [place], [facility] 05/20/2025 9:00 AM EDT Office Visit [facility] [address] [facility] [address] Derian Garcia DO [address] [place] [address] documented as of this encounter Visit Diagnoses Not on filedocumented in this encounter
--- OUTSIDE RECORDS SUMMARY | 2024-08-11 11:38 | XMS_ITS | Encounter Summary ---
Author Organization [employer] [facility] tem Address [id number] [place] [address] Care Team Providers Care Engineer System Administrator Name Role Phone Unavailable Primary Care Provider Unavailabl e Encounter Details Date Type Department Care Team (Latest Contact Info) Description 08/08/2024 Travel Social History Tobacco Use Types Packs/Day [...] 09/20/2024 11:00 AM EDT Appointment [facility] [place] [address] [facility] [address] [place] [address] documented as of this encounter Visit Diagnoses Not on filedocumented in this encounter
--- OUTSIDE RECORDS SUMMARY | 2024-08-11 11:38 | XMS_ITS | Encounter Summary ---
Author Organization [facility] Address [address] [facility] [place] [address] Care Team Providers Care Screen Printing Loader Unloader Name Role Phone Unavailable Primary Care Provider Unavailabl e Encounter Details Date Type Department Care Team (Late st Contact Info) Description 08/09/2024 Bamboo flowsheet [facility] [address] [place] [address] Derian Garcia DO [address] [place], [facility]11 Social History Tobacco Use Types Packs/Day Years [...] Routine [facility] [address] [place] [address] Sydney Ayala PA [address] [place] [address] 05/20/2025 9:00 AM EDT Office Visit [facility] [address] [place] [address] Derian Garcia, [address] [place] [address] documented as of this encounter Visit Diagnoses Not on filedocumented in this encounter
--- OUTSIDE RECORDS SUMMARY | 2024-08-11 11:38 | XMS_ITS | Encounter Summary ---
Author Organization [employer] [facility] tem Address [id number] [address] [place] [address] Care Team Providers Care Silvering Department Supervisor Name Role Phone Unavailable Primary Care Provider Unavailabl e Encounter Details Date Type Department Care Team (Latest Contact Info) Description 08/07/2024 Travel Social History Tobacco Use Types Packs/Day [...] 09/20/2024 11:00 AM EDT Appointment [facility] [place] [address] [facility] [facility] [address] [place] [address] documented as of this encounter Visit Diagnoses Not on filedocumented in this encounter
--- OUTSIDE RECORDS SUMMARY | 2024-08-11 11:38 | XMS_ITS | Encounter Summary ---
Author Organization [facility] Address [address] [facility] [place] [address] Care Team Providers Care Combine Driver Name Role Phone Unavailable Primary Care Provider Unavailabl e Encounter Details Date Type Department Care Team (Late st Contact Info) Description 05/02/2024 Abstract [facility] [address] [place] [address] Derian Garcia, [facility] [place], [facility]11 Social History Tobacco Use Types Packs/Day [...] Routine [facility] [address] [place] [address] Sydney Ayala PA [address] [place], [place] [id number] 05/20/2025 9:00 AM EDT Office Visit [facility] [address] [place] [address] Derian Garcia, [address] [place] [address] documented as of this encounter Visit Diagnoses Not on filedocumented in this encounter
--- OUTSIDE RECORDS SUMMARY | 2024-08-11 11:38 | XMS_ITS | Encounter Summary ---
Author Organization [facility] Address [address] [place] [address] Care Team Providers Care Biofuels Operations Manager Name Role Phone Unavailable Primary Care Provider Unavailabl e Encounter Details Date Type Department Care Team (Late st Contact Info) Description 08/10/2024 Abstract [facility] [address] [place] [address] Ana Lilia Mann MA Social History Tobacco Use Types Packs/Day Years [...] Routine [facility] [address] [place] [address] Sydney Ayala PA [facility] [address] [place], [place] [address] 05/20/2025 9:00 AM EDT Office Visit [facility] [place] [address] Derian Garcia DO [facility] [place] [address] documented as of this encounter Visit Diagnoses Not on filedocumented in this encounter
--- OUTSIDE RECORDS SUMMARY | 2024-08-11 11:38 | XMS_ITS ---
Author Organization [employer] (ClinicalSummary Clone) Address Unknown Care Team Providers Care Pony Trimmer Name Role Phone Unavailable Primary Care Physician Unavailab le Results * [UNITY] ANEUPLOIDY NIPT Performed by: Snehta Component Value Range Date Fraction 5.8% 04/27/2024 06 :35 am UT Sex Chromosome Aneuploidy NOT DETECTED 06:35 am UT Monosomy X LOW RISK <1 in 10,000 2024 06:35 am UT Trisomy 13 LOW RISK <1 in 10,000 2024 06:35 am UT Trisomy 18 LOW RISK <1 in 10,000 2024 06:35 am UTC Trisomy 21 LOW RISK <1 in 10,000 2024 06:35 am UT Sex MALE 04/27/2024 06:3 5 am UT Gestation MUNOZ 04/27/19 06:35 am UT For detailed report, see PDF See PDF 04/27/2024 06:35 am UTC 04/27/2024 06:3 5 am UT Social History Observation Value Start Date End Date
--- OUTSIDE RECORDS SUMMARY | 2024-08-11 11:38 | XMS_ITS | Clinical Summary ---
Author Organization [facility] Healthcare Address [address] [place] [address] Care Team Providers Care Line Assembler Aircraft Name Role Phone Unavailable Primary Care Provider Unavailabl e Allergies No known active allergies Medications MV-Min-Fe Fum-FA-DHA ( 1 PO) Take 1 tablet by mouth Daily Active metoclopramide (Reglan) 10 MG tabletIndicatio ns:12 weeks gestation of Take 1 tablet (10 mg) by mouth in the morning and 1 tablet (10 mg) at noon and 1 tablet (10 mg) in the evening. Take before meals. Take 1 tablet by mouth 30 minutes prior to meals 3 times daily as needed for nausea.. 90 tablet 3 05/10/2024 Active 27-1 MG tabletIndicatio ns:Second trimester ,25 weeks gestation of Take 1 tablet by mouth Daily 30 tablet 11 08/09/2024 Active Active Problems Problem Noted Date Diagnosed Date HSV (herpes simplex virus) infection 04/25/2024 History of delivery affecting 04/25/2024 Hepatitis C test positive 04/25/2024 Estimated Date of Delivery Comme nts Yes 11/20/2024 Based on last me nstrual period of 02/14/2024 Encounters Date Type Department Care Team Description 08/10/2024 Abstract [facility] [address] [place] [address] Ana Lilia Mann MA 08/09/2024 9:20 AM EDT Routine [facility] [address] [place] [address] Derian Garcia DO Second trimester ; 25 weeks gestation of ; with normal glucose tolerance test (GTT); Diabetes mellitus screening; Encounter for consultation for female sterilization 08/09/2024 Bamboo flowsheet [facility] [address] [place] [address] Derian Garcia, DO 08/02/2024 Travel 07/05/2024 8:30 AM EDT Routine [facility] OB [address] [facility] [address] Cristy Pulido, CAFETERIA SERVER Second trimester ; 20 weeks gestation of 07/05/2024 Bamboo flowsheet [facility] [address] [place] [address] Cristy Pulido, LINH 07/03/2024 Telephone [facility] [address] [facility] [place] [place] [id number] 901-200 Jessi oFrrest LPN 06/28/2024 Travel 06/08/2024 Clinisync Result Encounter [facility] External Department Unsolicited Derian Garcia, 06/07/2024 9:10 AM EDT Routine [facility] [address] [place] [address] Derian Garcia DO 16 weeks gestation of ; Second trimester ; Other insomnia 06/07/2024 Bamboo flowsheet [facility] [address] [place] [address] Derian Garcia, 05/31/2024 Travel 05/21/2024 Orders Only [facility] [address] [place] [address] Jackie Corea MA 05/11/2024 Telephone [facility] [address] [place] [address] Derian Garcia DO from Last 3 Months Social History Tobacco Use Types Packs/Day Years Used Date Smoking Tobacco: Never Assessed Estimated Date of Delivery Comme nts Yes 11/20/2024 Based on last me nstrual period of 02/14/2024 Sex and Gender Information Value Date Recorded Sex Assigned at Female 07/12/2022 1:21 PM EDT Legal Sex Female 1:15 PM EDT Gender Identity Not on file Sexual Orientation Not on file Last Filed Vital Signs Vital Sign Reading Time Taken Comments Blood Pressure 122/66 08/09/2024 9:50 AM EDT Pulse - - Temperature - - Respiratory Rate - - Oxygen Saturation - - Inhaled Oxygen Concentration - - Weight 83.1 kg (183 lb 1.9 oz) 08/09/2024 9:50 A M EDT Height - - Body Mass Index - - Plan of Treatment Upcoming Encounters Date Type Department Care Team (Late st Contact Info) Description 08/30/2024 1:50 PM EDT Routine [facility] [address] [facility] [place] [address] Sydney Ayala PA [address] [place] [address] 05/20/2025 9:00 AM EDT Office Visit [facility] [address] [facility] [place] [address] Derian Garcia DO [address] [place] [address] Procedures Procedure Name Priority Date/Time Associated Diagnosis Comments POCT URINALYSIS DIPSTICK Routine 08/09/2024 9:56 AM EDT Second trimester 25 weeks gestation of POCT URINALYSIS DIPSTICK Routine 07/05/2024 9:13 AM EDT Second trimester AFP, SERUM, OPEN SPINA BIFIDA Routine 06/08/2024 3:12 PM EDT POCT URINALYSIS DIPSTICK Routine 06/07/2024 9:45 AM EDT 16 weeks gestation of Second trimester from Last 3 Months Results * (ABNORMAL) POCT urinalysis dipstick manually resulted (08/09/2024 9:56 AM EDT) Only the most recent of3 resultswithin the time period is included. Color, UA Yellow Clarity, UA Clear Glucose, UA Negative Negative - 2000(110) ++++ mg/dL Bilirubin, UA Negative Negative - [...] CARE TEST ENTER/EDIT OR DERABLES Final Result * AFP, SERUM, OPEN SPINA BIFIDA (06/08/2024 3:12 PM EDT) RESULTS Report . [facility] TEST RESULTS: *Screen Negative* . [facility] GEST. AGE ON COLLECTION DATE 16.9 . weeks [facility] GESTAT. AGE BASED ON LMP . [facility] Comment: Recalculations are not recommended when gestational dating by LMP and ultrasound are within 10 days. [age] [facility] RACE . [facility] WEIGHT 176 . lbs [facility] INSULIN DEP DIABETES No . [facility] MULTIPLE GESTATION No . [facility] AFP VALUE 36.0 . ng/mL [facility] AFP MOM 1.07 . [facility] OSBR RISK 1 IN 9862 . [facility] INTERPRETATION Comment . [facility] Comment: Interpretation: Screen Negative This result is screen negative for [...] Customer Services to discuss available options. The [employer] recommends amniocentesis be offered to women age 35 and older. COMMENT: Comment . [facility] Comment: Erendira Lopez, Ph.D., [facility] Director References: Available Upon Request. Multiples Of Median Cutoffs For AFP Elevations Grier 2.5 Black 2.8 IDD 2.0 Twins 4.5 Abbreviation Definitions IDD - Insulin Dep Diabetes OSBR - Open Spina Bifida Risk For further inquiries contact [employer] at [phone]. This test was developed and its performance characteristics determined by [facility]. It has not been cleared or approved by the Food and Drug Administration. Performed at: [facility] [address] [id number] Aerospace Physiological Technician: Nancy Pardo [facility], Phone: [phone] 06/08/2024 3:12 PM EDT 06/08/2024 3:13 PM EDT Narrative [facility] - 06/10/2024 12:10 AM EDT N N LMP [id number] N 1 Y 176 N N N N N White/ us Derian Garcia DO LAB BLOOD ORDERABLES Final Resul t [facility] from Last 3 Months Insurance
--- OUTSIDE RECORDS SUMMARY | 2024-08-11 11:38 | XMS_ITS | Encounter Summary ---
Author Organization [facility] Address [address] [facility] [address] Care Team Providers Care Lab Engineer Name Role Phone Unavailable Primary Care Provider Unavailabl e Encounter Details Date Type Department Care Team (Late st Contact Info) Description 04/20/2024 Abstract [facility] [address] [place] [address] Derian Garcia, [facility] [place], [facility]11 Social History Tobacco Use Types Packs/Day Years [...] Routine [facility] [address] [place] [address] Sydney Ayala PA [address] [place], [place] [id number] 05/20/2025 9:00 AM EDT Office Visit [facility] [address] [place] [address] Derian Garcia, [address] [place] [address] documented as of this encounter Visit Diagnoses Not on filedocumented in this encounter
--- OUTSIDE RECORDS SUMMARY | 2024-08-11 11:38 | XMS_ITS | Clinical Summary ---
Author Organization [facility] tem Address [id number] [address] [place] [address] Care Team Providers Care Signal Tester Name Role Phone Unavailable Primary Care Provider Unavailabl e Allergies No known active allergies Medications [id number] c acid ( 19) 29 mg iron- 1 mg tablet,chewable Chew 1 tablet and swallow in the morning. Active metoclopramide (REGLAN) 10 mg tablet Take 1 tablet (10 mg total) by mouth in the morning and 1 tablet (10 mg total) at noon and 1 tablet (10 mg total) in the evening and 1 tablet (10 mg total) before bedtime. Active Active Problems Problem Noted Date Diagnosed Date Previous delivery affecting 0 07/04/2024 Estimated Date of Delivery Comme nts Yes 11/20/2024 Based on last me nstrual period of 02/14/2024 Encounters Date Type Department Care Team Description 08/10/2024 2:00 PM EDT Telemedicine Maternal- Medicine at [address] [phone] Jeni Caballero MD 25 weeks gestation of (Primary Dx); Hepatitis C antibody positive 08/10/2024 Travel 08/10/2024 Orders Only Maternal- Medicine at [address] [phone] Blaise Armas CMA Hepatitis C virus infection in mother during (Primary Dx); Low-lying placenta 08/09/2024 2:36 PM EDT - 08/09/2024 11:59 PM EDT Hospital Encounter [facility] - [facility] US Imaging [address] [place] [address] Hepatitis C virus infection in mother during ; Low-lying placenta Discharge Disposition: Home 08/08/2024 Travel 08/07/2024 Travel 07/11/2024 7:48 AM EDT - 07/11/2024 11:59 PM EDT Hospital Encounter [facility] - Ultrasound [address] [place] [address] Hepatitis C virus infection in mother during Discharge Disposition: Home 07/10/2024 Travel 07/09/2024 Travel 07/09/2024 Telephone Formerly [facility], Department of [address] [place] [address] Jillian Hernandez CMA 07/06/2024 Orders Only Maternal- Medicine at [facility] [address] [place] [address] Kristina Palmer MD Hepatitis C virus infection in mother during (Primary Dx) 07/06/2024 Orders Only Maternal- Medicine at [facility] [address] [place] [address] Kristina Palmer MD Hepatitis C virus infection in mother during (Primary Dx) 07/04/2024 10:00 AM EDT Office Visit Maternal- Medicine at [facility] [address] [place] [address] Kathryn Awad MD Simmonds, Lisa E, MD Hepatitis C virus infection in mother during (Primary Dx) 07/04/2024 8:30 AM EDT - 07/04/2024 11:59 PM EDT Hospital Encounter [facility] - [facility] US Imaging [address] [place] [address] Encounter for anatomic survey Discharge Disposition: Home 07/04/2024 Orders Only Maternal- Medicine at [facility] [address] [place] [address] Jillian Colin RN Hepatitis C virus infection in mother during (Primary Dx); Low-lying placenta 07/03/2024 Orders Only Maternal- Medicine at [facility] [address] [place] [address] Ref Prov, Not In System 07/03/2024 Abstract Maternal- Medicine at [facility] [address] [place] [address] Kathryn Awad MD 07/02/2024 Travel from Last 3 Months Immunizations Immunization Administration Dates Next Due Tdap 03/08/2018 Social History Tobacco Use Types Packs/Day Years Used Date Smoking Tobacco: Never Passive Smoke Exposure: Never Smokeless Tobacco: Never Tobacco Cessation:Counseling Given: Not Answered Alcohol Use Standard Drinks/Week Comments Not Currently [...] Sign Reading Time Taken Comments Blood Pressure 125/80 07/04/2024 8:39 AM EDT Pulse 80 07/04/2024 8:39 AM EDT Temperature 36.7 C (98.1 F) 03/08/2018 5:20 AM EST Respiratory Rate 14 03/08/2018 5:20 AM EST Oxygen Saturation 100% 03/08/2018 5:20 AM EST Inhaled Oxygen Concentration - - Weight 82.8 kg (182 lb 9.6 oz) 07/04/2024 8:39 A M EDT Height 157.5 cm (5' 2.01 ) 07/04/2024 8:39 AM ED T Body Mass Index 33.39 07/04/2024 8:39 AM EDT Plan of Treatment Upcoming Encounters Date Type Department Care Team (Late st Contact Info) Description 09/20/2024 11:00 AM EDT Appointment Maternal Medicine [place] [address] [facility] [address] [place] [phone] Health Maintenance Due Date Last Done Comments Depression Screening 2003 Adult BMI Follow Up Plan 10/07/2009 Influenza Vaccine 11/05/2024 12/25/2019, , 11/21/2017, Additional history exists Adult BMI Screening 07/04/2025 07/04/2024 Tobacco Screening 08/10/2025 08/10/2024 Pap Smear 05/11/2027 05/10/2024, 04/20/2024 DTaP,Tdap and Td Vaccines (8 - Td or Tdap) 03/08/2028 03/08/2018, 01/01/2014, 06/19/2004, Additional history exists Medical Devices Not on file Procedures Procedure Name Priority Date/Time Associated Diagnosis Comments US MFM OB FOLLOW-UP, 1 FETUS Routine 08/09/2024 4:16 PM EDT Hepatitis C virus infection in mother during Low-lying placenta US ABDOMEN LMTD Routine 07/11/2024 8:17 AM EDT Hepatitis C virus infection in mother during PROTIME & INR Routine 07/11/2024 7:47 AM EDT Hepatitis C virus infection in mother during APTT Routine 07/11/2024 7:47 AM EDT Hepatitis C virus infection in mother during COMPREHENSIVE METABOLIC PANEL Routine 07/04/2024 11:48 AM EDT Hepatitis C virus infection in mother during US MFM COMPREHENSIVE ANATOMIC SURVEY Routine 07/04/2024 10:12 AM EDT Encounter for anatomic survey FREE CELL DNA (NON-[place]) Routine 07/03/2024 4:19 PM EDT HIGH RISK HPV W/SOLA Routine 04/20/2024 from Last 3 Months or Most Recently Relevant to Health Maintenance Results * US [facility] OB FOLLOW-UP, 1 FETUS (08/09/2024 4:16 PM EDT) Only the most recent of2 resultswithin the time period is included. Anatomical Region Laterality Modality OB-ARMATURE BALANCER Ultrasound 08/09/2024 3:03 PM EDT Narrative 08/09/2024 4:26 PM EDT NAME: ELAN MCCARTY : 1990 SEX: F Accession Number: [id number] ORDERING PHYSICIAN: KRISTINA PALMER REFERRING PHYSICIAN: RANULFO CRARASCO Coding ----- --------- Procedures 11796: Follow-up Ultrasound, per fetus 83183: Transvaginal Ultrasound (OB) Indication ----- --------- Screening for cervical length , Previous , Hepatitis C in , Obesity in , Screening for follow-up survey History ----- --------- OB History 3. Para 2 [id number] Current ----- --------- Cell free DNA Low [...] EFW (oz) 3 oz EFW by: Hadlock (ESJ-WQ-PV-FL) Extended Tibia 41.6 mm 26w 0d 66% Nolan Anvil Worker 5.0 mm CM 5.0 mm 17% Nicolaides [...] Heart/Thorax: RVOT view. LVOT view. 3-vessel view. 3-dkvvyq-lpsxdwp view. Situs. Bicaval view. Interventricular septum. Cardiac [...] Note Jeni Caballero MD - 08/09/2024 NAME: EALN MCCARTY : 1990 SEX: F Accession Number: [id number] ORDERING PHYSICIAN: KRISTINA PALMER REFERRING PHYSICIAN: RANULFO CARRASCO Coding ----- --------- Procedures 19735: Follow-up Ultrasound, per fetus 78843: Transvaginal Ultrasound (OB) Indication ----- --------- Screening for cervical length , Previous , Hepatitis C inpregnancy, Obesity in , Screening for follow-up survey History ----- --------- OB History 3. Para 2 [id number] Current ----- --------- Cell free DNA Low [...] EFW (oz) 3 oz EFW by: Hadlock ([id number]-FL) Extended Tibia 41.6 mm 26w 0d 66% Nolan Anvil Worker 5.0 mm CM 5.0 mm 17% Nicolaides [...] Heart/Thorax: RVOT view. LVOT view. 3-vessel view. 8-vvbjxd-gnuzefz view.Situs. Bicaval view. Interventricular septum. Cardiac position. [...] byprimary OB provider unless otherwise specified by [facility]. Results forwarded to ordering provider so they can follow up with thepatient as necessary. us Kristina Palmer MD [facility] US ORDERABLES Final Resul t * Ultrasound abdomen limited (07/11/2024 8:17 AM EDT) Anatomical Region Laterality Modality Body, Abdomen Ultrasound 07/12/2024 8:05 PM EDT Narrative 07/12/2024 8:08 PM EDT ABDOMEN LIMITED ULTRASOUND HISTORY: Elevated liver enzymes [...] No visualized ascites. IMPRESSION: 1. Gallbladder sludge. Finalized by Alejandro Fink MD on 07/12/2024 8:08 PM Procedure Note Alejandro Fink MD - 07/12/2024 ABDOMEN LIMITED ULTRASOUND HISTORY: Elevated liver enzymes COMPARISON: None FINDINGS: Pancreas: Visualized portions of the pancreatic head and body areunremarkable. Visualized portions of liver are homogenous in echotexture without focallesion. No intrahepatic biliary dilatation. Main portal vein is patent withappropriate direction of flow. Gallbladder sludge, no stone, wall thickening, or adjacent fluid. Common duct measures 2 mm, within normal limits for patient's providedage. No visualized ascites. IMPRESSION: 1. Gallbladder sludge. Finalized by Alejandro Fink MD on 07/12/2024 8:08 PM us Kristina Palmer MD [facility] US ORDERABLES Final Resul t * APTT (07/11/2024 7:47 AM EDT) APTT 29 26 - 37 sec 07/11/2024 8:43 AM EDT [facility] Blood Venous blood / Unknown Venipuncture / Unknown 07/11/2024 7:47 AM EDT 07/11/2024 7:47 AM EDT Kristina Palmer MD LAB BLOOD ORDERABLES Final Re sult Performing Organization Address [facility] Co de Phone Number [address] [place] [address], [place] * Protime & INR (07/11/2024 7:47 AM EDT) PROTIME 10.5 9.8 - 13.2 sec 07/11/2024 8:43 AM EDT [facility] INR 0.9 0.9 - 1.2 07/11/2024 8:43 AM EDT [facility] Blood Venous blood / Unknown Venipuncture / Unknown 07/11/2024 7:47 AM EDT 07/11/2024 7:47 AM EDT Kristina Palmer MD LAB BLOOD ORDERABLES Final Re sult Performing Organization Address [facility] Co de Phone Number [address] [place] [address], [place] * (ABNORMAL) Comprehensive metabolic panel (07/04/2024 11:48 AM EDT) SODIUM 138 134 - 146 mmol/L 07/04/2024 6:32 PM EDT [facility] POTASSIUM 3.9 3.5 - 5.0 mmol/L 07/04/2024 6:32 PM EDT [facility] CHLORIDE 105 98 - 109 mmol/L 07/04/2024 6:32 PM EDT [facility] CARBON DIOXIDE 25 22 - 32 mmol/L 07/04/2024 6:32 PM EDT [facility] ANION GAP 8 5 - 15 mmol/L 07/04/2024 6:32 PM T [facility] BLOOD UREA NITROGEN 10 5 - 23 mg/dL 07/04/2024 6:32 PM T [facility] CREATININE 0.57 0.40 - 1.00 mg/dL 07/04/2024 6:32 PM T [facility] Comment:METHOD TRACEABLE TO IDKY STANDARD GLUCOSE 92 65 - 99 mg/dL 07/04/2024 6:32 PM T [facility] CALCIUM 9.5 8.5 - 10.5 mg/dL 07/04/2024 6:32 PM [facility] TOTAL PROTEIN 7.0 6.0 - 8.0 g/dL 07/04/2024 6:32 PM [facility] ALBUMIN 3.9 3.2 - 5.3 g/dL 07/04/2024 6:32 PM [facility] ALKALINE PHOSPHATASE 45 39 - 130 U/L 07/04/2024 6:32 PM [facility] AST 31 <=41 U/L 07/04/2024 6:32 PM [facility] ALT 55(H) <=31 U/L 07/04/2024 6:32 PM [facility] BILIRUBIN,TOTAL 0.4 0.3 - 1.2 mg/dL 07/04/2024 6:32 PM [facility] EGFR Non-Race Dependent >90 >=60 ml/min/1.7 3sq.m 07/04/2024 6:32 PM [facility] Comment: Reported eGFR is based on the CKD-EPI 2020 equation that does not use a race coefficient. Blood Venous blood / Unknown Venipuncture / Unknown 07/04/2024 11:48 AM EDT 07/04/2024 11:48 AM EDT us Kristina Palmer MD LAB BLOOD ORDERABLES Final Re sult [facility] [address] [place] [address], [place] [phone] * Free Cell DNA (07/03/2024 4:19 PM EDT) us Not In System Ref Prov LAB BLOOD ORDERABLES My l Result MANUALLY TRANSCRIBED RESULTS * High risk HPV w/sola (04/20/2024) Other High Risk Hpv POSITIVE MANUALLY TRANSCRIBED RESULTS Thin Prep Cervix uteri structure / Unknown us Not In System Ref Prov LAB BLOOD ORDERABLES My l Result MANUALLY TRANSCRIBED RESULTS from Last 3 Months or Most Recently Relevant to Health Maintenance Insurance [facility] [employer] COMPENSATION
--- OUTSIDE RECORDS SUMMARY | 2024-08-11 11:38 | XMS_ITS | Encounter Summary ---
Author Organization [facility] tem Address [id number] [address] [place] [address] Care Team Providers Care Rn Delivery Name Role Phone Pcp, Not In System Primary Care Provider Unavail able Encounter Details Date Type Department Care Team (Late Contact Info) Description 07/03/2024 Orders Only Maternal- Medicine at [facility] [address] [facility] [place] [phone] Ref Prov, [place] [address] Social History Tobacco Use Types Packs/Day Years Used Date Smoking Tobacco: Never Assessed Childcare Answer Date Recorded Childcare Unknown 08/16/2018 [...] Encounters Date Type Department Care Team (Late Contact Info) Description 09/20/2024 11:00 AM EDT Appointment Maternal Medicine [place] [address] [facility] [address] [place] [address] documented as of this encounter Procedures Procedure Name Priority Date/Time Associated Diagnosis Comments FREE CELL DNA (NON-[place]) Routine 07/03/2024 4:19 PM EDT documented in this encounter Results * Free Cell DNA (07/03/2024 4:19 PM EDT) us Not In System Ref Prov LAB BLOOD ORDERABLES My l Result MANUALLY TRANSCRIBED RESULTS documented in this encounter Visit Diagnoses Not on filedocumented in this encounter Care Teams Rn Delivery Relationship Specialty Start Date End Date Pcp, [place] [phone] PCP - General Family Medicine 03/08/18 07/08/24 documented as of this encounter
--- OUTSIDE RECORDS SUMMARY | 2024-08-11 11:38 | XMS_ITS | Encounter Summary ---
Author Organization [facility] Address [address] [place] [address] Care Team Providers Care Journeyman Pipefitter Name Role Phone Unavailable Primary Care Provider Unavailabl e Encounter Details Date Type Department Care Team (Late st Contact Info) Description 05/21/2024 Orders Only [facility] [address] [place] [address] Jackie Corea MA [address] [place] [address] Social History Tobacco Use Types Packs/Day Years [...] Routine [facility] [address] [place] [address] Sydney Ayala PA [address] [place] [address] 05/20/2025 9:00 AM EDT Office Visit [facility] [address] [place] [address] Derian Garcia DO [address] [place] [address] documented as of this encounter Procedures Procedure Name Priority Date/Time Associated Diagnosis Comments PAP SMEAR Routine 05/10/2024 12:00 AM EST documented in this encounter Results * Pap Smear (05/10/2024 12:00 AM EST) Swab Cervical swab / Unknown us Derian Quarleso DO LAB CYTOLOGY ORDERABLES Final Re sult EXTERNAL LAB documented in this encounter Visit Diagnoses Not on filedocumented in this encounter
[2024-08-11 12:57] LABS: Basophils Percent Auto 0.2 % (0.2-2.0); Eosinophils Absolute Auto 0.1 10^3/uL (0.0-0.7); Hemoglobin 11.5 g/dL (12.0-16.0); Immature Granulocytes Abs Auto 0.03 10^3/uL (0.00-0.03); Immature Granulocytes Pct Auto 0.4 % (0.0-0.5); Lymphocytes Absolute Auto 1.6 10^3/uL (1.2-3.8); Lymphocytes Percent Auto 19.1 % (20.5-60.0); Mean Corpuscular HGB Conc 34.8 g/dL (29.9-35.2); Mean Corpuscular Hemoglobin 30.7 pg (26.7-34.0); Mean Corpuscular Volume 88.2 fL (81.0-99.0); Mean Platelet Volume 10.2 fL (9.5-13.5); Monocytes Absolute Auto 0.4 10^3/uL (0.3-0.8); Monocytes Percent Auto 4.9 % (1.7-12.0); Neutrophils Absolute Auto 6.1 10^3/uL (1.4-6.5); Neutrophils Percent Auto 74.4 % (43.0-75.0); Platelet Count 247 10^3/uL (150-450); Red Blood Count 3.74 10^6/uL (4.20-5.40); Red Cell Distribution Width 12.9 % (11.0-15.0); White Blood Count 8.2 10^3/uL (4.0-11.0)
[2024-08-11 13:27] LABS: Glucose 1 Hour 174 mg/dL (<130)
== END 2024-08-11 11:35 | disposition home or self-care (01) ==
LOC: LAB 11:36
PROVIDERS: Visit Provider Obstetrics & Gynecology
DX: Z13.1 Encounter for screening for diabetes mellitus (principal)
CPT/HCPCS: 36415; 82950; 85025

== ENCOUNTER 2024-08-13 10:01 | Outpatient (OUT) | payer BC, SELFPAY ==
[2024-08-13 11:30] LABS: Glucose Fasting 93 mg/dL (<95)
[2024-08-13 12:01] LABS: Glucose 1 Hour 132 mg/dL (<180)
[2024-08-13 14:38] LABS: Glucose 2 Hour 152 mg/dL (<155)
[2024-08-13 14:41] LABS: Glucose 3 Hour 143 mg/dL (<140)
== END 2024-08-13 10:02 | disposition home or self-care (01) ==
LOC: LAB 10:07
PROVIDERS: Visit Provider Obstetrics & Gynecology
DX: R73.09 Other abnormal glucose (principal)
CPT/HCPCS: 36415; 82951; 82952

== ENCOUNTER 2024-10-12 10:24 | Observation (INO) | payer OTHER, BC, SELFPAY ==
--- OUTSIDE RECORDS SUMMARY | 2024-10-01 14:00 | XMS_ITS | Encounter Summary ---
Author Organization [facility] Address [address] [place] [address] Care Team Providers Care Computer Technology Instructor Name Role Phone Unavailable Primary Care Provider Unavailabl e Encounter Details Date Type Department Care Team (Latest Contact Info) Description 10/01/2024 2:00 PM EDT Ancillary Procedure ROSIE GALVEZ [address] [place] [address] 30 weeks gestation of ([facility]); Third trimester ([facility]); Hepatitis C test positive Social History Tobacco Use Types Packs/Day [...] Care Team (Late st Contact Info) Description 10/15/2024 1:00 PM EDT Routine ROSIE GALVEZ [address] [place] [address] Derian Garcia DO [address] [place], [place] [phone] 05/20/2025 9:00 AM EDT Office Visit ROSIE GALVEZ [address] [place] [address] Derian Garcia, DO [address] [place] [address] Dr Shweta Ricci [place] [phone] documented as of this encounter Procedures Procedure Name Priority Date/Time Associated Diagnosis Comments US OB FOLLOW UP TRANSABDOMINAL APPROACH Routine 10/01/2024 2:20 PM EDT 30 weeks gestation of ([facility]) Third trimester ([facility]) Hepatitis C test positive documented in this encounter Results * US OB follow up transabdominal approach (10/01/2024 2:20 PM EDT) Anatomical Region Laterality Modality Body Ultrasound 10/01/2024 11:4 3 PM EDT Narrative 10/01/2024 11:43 PM EDT EXAM: US OB FOLLOW UP TRANSABDOMINAL APPROACH HISTORY: Hepatitis-C positive. COMPARISON: Ob ultrasound 02/17/2025. TECHNIQUE: Two-dimensional transabdominal grayscale ultrasound imaging of the pelvis was performed. FINDINGS: Gestation: Single Presentation: Cephalic Cardiac Activity: 158 beats per minute Amniotic Fluid Index: 14.1 cm MEASUREMENTS: BPD: 8.3 cm EGA: 33 weeks 3 days HC: 30.4 cm EGA: 33 weeks 6 days AC: 31.4 cm EGA: 35 weeks 2 days FL: 6.4 cm EGA: 33 weeks 1 days HC/AC Ratio: 0.97 The gestational age by today's ultrasound is 34 weeks 0 days (+/- 17 days gestation). Estimated Weight: 2418 grams, +/- 363 grams ( 5 lb 5 oz). Weight Percentile for gestational age: 86 % IMPRESSION: 1. Single, live intrauterine gestation 32 weeks, 6 days by LMP. Today's ultrasound measurements correlate with a gestational age of 34 weeks 0 days. Estimated weight is 2418 grams, +/- 363 grams ( 5 lb 5 oz) which correlates to 86 %. BETTIE by today's ultrasound is 11/12/2024. Interpreted by: Electronically signed by TYRELL NUNO II, MD, PHD at 01-Oct-2024 11:42:55 PM [facility] Procedure Note Tyrell Nuno MD - 10/01/2024 EXAM: US OB FOLLOW UP TRANSABDOMINAL APPROACH HISTORY: Hepatitis-C positive. COMPARISON: Ob ultrasound 02/17/2025. TECHNIQUE: Two-dimensional transabdominal grayscale ultrasound imaging ofthe pelvis was performed. FINDINGS: Gestation: Single Presentation: Cephalic Cardiac Activity: 158 beats per minute Amniotic Fluid Index: 14.1 cm MEASUREMENTS: BPD: 8.3 cm EGA: 33 weeks 3 days HC: 30.4 cm EGA: 33 weeks 6 days AC: 31.4 cm EGA: 35 weeks 2 days FL: 6.4 cm EGA: 33 weeks 1 days HC/AC Ratio: 0.97 The gestational age by today's ultrasound is 34 weeks 0 days (+/- 17 daysgestation). Estimated Weight: 2418 grams, +/- 363 grams ( 5 lb 5 oz). Weight Percentile for gestational age: 86 % IMPRESSION: 1. Single, live intrauterine gestation 32 weeks, 6 days by LMP. Today'sultrasound measurements correlate with a gestational age of 34 weeks 0days. Estimated weight is 2418 grams, +/- 363 grams ( 5 lb 5 oz)which correlates to 86 %. BETTIE by today's ultrasound is 11/12/2024. Interpreted by: Electronically signed by TYRELL NUNO II, MD, PHD 11:42:55 PM [facility] us Derian Jose DO IMG OB US PROCEDURES Final Resul t documented in this encounter Visit Diagnoses Diagnosis 30 weeks gestation of ([facility]) Third trimester ([facility]) state, incidental Hepatitis C test positive documented in this encounter
--- OUTSIDE RECORDS SUMMARY | 2024-10-01 14:50 | XMS_ITS | Encounter Summary ---
Author Organization [facility] Address [address] [place] [address] Care Team Providers Care Leather Tacker Name Role Phone Unavailable Primary Care Provider Unavailabl e Reason for Visit * Reason Comments Routine Visit Encounter Details Date Type Department Care Team (Late st Contact Info) Description 10/01/2024 2:50 PM EDT Routine [facility] Rafael OBMISBAH [address] [phone] Sydney Ayala PA [address] [place] [address] Third trimester ([facility]) Social History Tobacco Use Types Packs/Day Years [...] Sign Reading Time Taken Comments Blood Pressure 124/80 10/01/2024 2:31 PM EDT Pulse - - Temperature - - Respiratory Rate - - Oxygen Saturation - - Inhaled Oxygen Concentration - - Weight 85.7 kg (189 lb) 10/01/2024 2:31 PM EDT Height - - Body Mass Index - - documented in this encounter Progress Notes * SAMAN Encarnacion - 10/01/2024 2:50 PM EDT Reason for Appointment: Patient ID: Mary Casey is a 33 y.o. female who presents for Routine Visit Patient presents today for Return OB appointment. MEDICATIONS Current Outpatient Medications Medication Instructions omeprazole (PRILOSEC) 20 mg, Oral, Daily before breakfast, Do not crush or chew. 27-1 MG tablet 1 tablet, Oral, Daily MV-Min-Fe Fum-FA-DHA ( 1 PO) 1 tablet, Daily ALLERGIES No Known Allergies PROBLEMS Active Ambulatory Problems Diagnosis Date Noted HSV (herpes simplex virus) infection 04/25/2024 History of delivery affecting ([facility]) 04/25/2024 Hepatitis C test positive 04/25/2024 Resolved Ambulatory Problems Diagnosis Date Noted [...] Exam Constitutional: Appearance: Normal appearance. She is normal weight. HENT: Head: Normocephalic. Cardiovascular: Rate and Rhythm: Normal rate. Pulses: Normal pulses. Pulmonary: Effort: Pulmonary effort is normal. Breath sounds: Normal breath sounds. Abdominal: Palpations: Abdomen is soft. Musculoskeletal: General: Normal range of motion. Neurological: General: No focal deficit present. Mental Status: She is alert and oriented to person, place, and time. Psychiatric: Mood and Affect: Mood normal. Behavior: Behavior normal. Thought Content: Thought content normal. Judgment: Judgment normal. Vitals and nursing note reviewed. Vitals: There is no height or weight on file to calculate BMI. BP: 124/80 Patient's last menstrual period was 02/14/2024. ASSESSMENT & PLAN (Z34.93) Third trimester ([facility]) Plan: POCT urinalysis dipstick manually resulted Documented by SAMAN Encarnacion on behalf of: SAMAN Encarnacion documented in this encounter Plan of Treatment Upcoming Encounters Date Type Department Care Team (Late st Contact Info) Description 10/15/2024 1:00 PM EDT Routine ROSIE GALVEZ [address] [place] [phone] Derian Garcia, DO [address] [place], [place] [phone] 05/20/2025 9:00 AM EDT Office Visit ROSIE GALVEZ [address] [facility] [place] [phone] Derian Garcia, DO [address] [place], [place] [phone] documented as of this encounter Procedures Procedure Name Priority Date/Time Associated Diagnosis Comments POCT URINALYSIS DIPSTICK Routine 10/01/2024 2:34 PM EDT Third trimester ([facility]) documented in this encounter Results * POCT urinalysis dipstick manually resulted (10/01/2024 2:34 PM EDT) Color, UA Yellow Clarity, UA Clear Glucose, UA Negative Negative - 1999(110) ++++ mg/dL Bilirubin, UA Negative Negative - 4(70) +++ mg/dL Ketones, UA Negative Negative - 160(16) ++++ mg/dL Spec Grav, UA 1.015 1 - 1.03 Blood, UA Negative Negative - 50 Herb/mcL pH, UA 6.5 5 - 9 Protein, UA Negative Negative - 2000(20) ++++ mg/dL Urobilinogen, UA 0.2 0.2 - 12 mg/dL Leukocytes, UA Negative Negative - 500+++ Bobby/mcL Nitrite, UA Negative Negative - Positive Urine 10/01/2024 2:34 PM EDT Sydney DAVISON POINT OF CARE TEST ENTER/EDIT OR DERABLES Final Result documented in this encounter Visit Diagnoses Diagnosis Third trimester ([facility]) state, incidental documented in this encounter
--- NOTE | 2024-10-12 10:27 | US_ITS ---
The [address] [address] Patient Name: BIBIANA ANSARI MRN: [id number] date: 1990 Sex: F Assigned Patient Location: [facility] Current Patient Location: [facility] Accession/Order Number: [id number] Exam Date: 10/12/2024 11:51 Report Date: 10/12/2024 12:02 At the request of: RANULFO CARRASCO DO Procedure: US OB BPP w non-stress CLINICAL DATA: Patient fell this morning and has had cramping since. BIOPHYSICAL PROFILE: COMPARISON: None There is a single live intrauterine gestation in cephalic presentation. The reported gestational age is 34 weeks 3 days. The heart rate [id number] beats per minutee. FINDINGS: TONE: 1 or more episodes of activity extension and flexion of extremity or opening and closing of the hand [Y] 2/2 GROSS BODY MOVEMENTS: 3 or more discrete body or limb movements [Y] 2/2 BREATHING MOVEMENTS: 1 or more episodes of breathing lasting at least 30 seconds [Y] 2/2 DEBBI: A sIngle deepest vertical pocket of amniotic fluid greater than 2 cm [Y] 2/2 DEBBI: 13.1 cm Total score: 10/12 US/US OB BPP w non-stress IMPRESSION: NORMAL BIOPHYSICAL PROFILE. ULTRASOUND OB PLACENTA COMPARISON: none The placenta is posterior and within normal limits for appearance and position. There might be a tiny venous glass measuring 1 cm in size. No previa or suspected abruption is seen. IMPRESSION: NO SIGNIFICANT PLACENTAL ABNORMALITIES. Impression dictated by: Steffi Lopez M.D. 10/12/2024 12:02 PM Dictation Location: [employer] Electronically authenticated by: [id number] Y Date: 10/12/2024 12:02
--- NOTE | 2024-10-12 10:28 | US_ITS ---
The [place] [id number] Patient Name: BIBIANA ANSARI MRN: [id number] date: 1990 Sex: F Assigned Patient Location: [facility] Current Patient Location: [facility] Accession/Order Number: [id number] Exam Date: 10/12/2024 11:51 Report Date: 10/12/2024 12:02 At the request of: RANULFO CARRASCO DO Procedure: US OB BPP w non-stress CLINICAL DATA: Patient fell this morning and has had cramping since. BIOPHYSICAL PROFILE: COMPARISON: None There is a single live intrauterine gestation in cephalic presentation. The reported gestational age is 34 weeks 3 days. The heart rate [id number] beats per minutee. FINDINGS: TONE: 1 or more episodes of activity extension and flexion of extremity or opening and closing of the hand [Y] 2/2 GROSS BODY MOVEMENTS: 3 or more discrete body or limb movements [Y] 2/2 BREATHING MOVEMENTS: 1 or more episodes of breathing lasting at least 30 seconds [Y] 2/2 DEBBI: A sIngle deepest vertical pocket of amniotic fluid greater than 2 cm [Y] 2/2 DEBBI: 13.1 cm Total score: 10/12 US/US OB placenta IMPRESSION: NORMAL BIOPHYSICAL PROFILE. ULTRASOUND OB PLACENTA COMPARISON: none The placenta is posterior and within normal limits for appearance and position. There might be a tiny venous glass measuring 1 cm in size. No previa or suspected abruption is seen. IMPRESSION: NO SIGNIFICANT PLACENTAL ABNORMALITIES. Impression dictated by: Steffi Lopez M.D. 10/12/2024 12:02 PM Dictation Location: [employer] Electronically authenticated by: [id number] Y Date: 10/12/2024 12:02
--- OUTSIDE RECORDS SUMMARY | 2024-10-12 10:28 | XMS_ITS | Encounter Summary ---
Author Organization [facility] Address [address] [place] [address] Care Team Providers Care Concrete Bucket Unloader Name Role Phone Unavailable Primary Care Provider Unavailabl e Encounter Details Date Type Department Care Team (Late st Contact Info) Description 08/10/2024 Abstract NOMSaima GALVEZ [address] [place] [address] Ana Lilia Mann MA Social History [...] EDT Routine ROSIE GALVEZ [address] [place] [address] Derian Garcia, DO [address] [place] [address] 05/20/2025 9:00 AM EDT Office Visit ROSIE GALVEZ [address] [place] [address] Derian Garcia, DO [address], [facility]11 documented as of this encounter Visit Diagnoses Not on filedocumented in this encounter
--- OUTSIDE RECORDS SUMMARY | 2024-10-12 10:28 | XMS_ITS | Encounter Summary ---
Author Organization [facility] Address [address] [place] [address] Care Team Providers Care Parliamentary Archivist Name Role Phone Unavailable Primary Care Provider Unavailabl e Encounter Details Date Type Department Care Team (Late st Contact Info) Description 04/20/2024 Abstract ORSIE GALVEZ [address] [place] [phone] Derian Garcia DO [address], [place] [address] Social History Tobacco Use Types Packs/Day Years [...] Info) Description 10/15/2024 1:00 PM EDT Routine NOMSaima GALVEZ [address] [place] [address] Derian Garcia DO [address], [facility]11 05/20/2025 9:00 [place] [address] Derian Garcia, [address] [place] [address] documented as of this encounter Visit Diagnoses Not on filedocumented in this encounter
--- OUTSIDE RECORDS SUMMARY | 2024-10-12 10:28 | XMS_ITS | Encounter Summary ---
Author Organization [facility] Address [address] [place] [address] Care Team Providers Care Meat Products Demonstrator Name Role Phone Unavailable Primary Care Provider Unavailabl e Encounter Details Date Type Department Care Team (Late st Contact Info) Description 05/21/2024 Orders Only NOMSaima GALVEZ [address] [place] [address] Jackie Corea MA [address] [place] [address] Social History Tobacco Use Types Packs/Day Years [...] EDT Routine NOMSaima GALVEZ [address] [place] [address] Derian Garcia DO [address] [place], [place] [id number] 05/20/2025 9:00 AM EDT Office Visit NOMSaima GALVEZ [address] [place] [address] Derian Garcia DO [address] [place] [address] Dr [place] [id number] documented as of this encounter Procedures Procedure Name Priority Date/Time Associated Diagnosis Comments PAP SMEAR Routine 05/10/2024 12:00 AM EST documented in this encounter Results * Pap Smear (05/10/2024 12:00 AM EST) Swab Cervical swab / Unknown Derian Garcia DO LAB CYTOLOGY ORDERABLES Final Re sult EXTERNAL LAB documented in this encounter Visit Diagnoses Not on filedocumented in this encounter
--- OUTSIDE RECORDS SUMMARY | 2024-10-12 10:28 | XMS_ITS ---
Author Organization [facility] (ClinicalSummary Clone) Address Unknown Care Team Providers Care Revenue Cycle Analyst Name Role Phone Unavailable Primary Care Physician Unavailab le Results * [UNITY] ANEUPLOIDY NIPT Performed by: [employer] Component Value Range Date Fraction 5.8% 04/27/2024 [...]
--- OUTSIDE RECORDS SUMMARY | 2024-10-12 10:28 | XMS_ITS | Encounter Summary ---
Author Organization [facility] Address [address] [place] [address] Care Team Providers Care Wire Weaver Cloth Name Role Phone Unavailable Primary Care Provider Unavailabl e Encounter Details Date Type Department Care Team (Late st Contact Info) Description 05/02/2024 Abstract ROSIE GALVEZ [address] [place] [phone] Derian Garcia DO [address], [place] [address] Social History Tobacco Use Types Packs/Day Years [...] EDT Routine NOMSaima GALVEZ [address] [place] [address] Derian Garcia DO [address], [facility]11 05/20/2025 9:00 [place] [address] Derian Garcia, [address] [place] [address] documented as of this encounter Visit Diagnoses Not on filedocumented in this encounter
--- OUTSIDE RECORDS SUMMARY | 2024-10-12 10:28 | XMS_ITS | Clinical Summary ---
Author Organization [facility] Address [address] [place] [address] Care Team Providers Care Hardboard Coating Machine Operator Name Role Phone Unavailable Primary Care Provider Unavailabl e Allergies No known active allergies Medications MV-Min-Fe Fum-FA-DHA ( 1 PO) Take 1 tablet by mouth Daily Active 27-1 MG tabletIndicati ons:Second trimester ([facility]),25 weeks gestation of ([facility]) Take 1 tablet by mouth Daily 30 tablet 11 5 08/10/19 26 Active omeprazole (PriLOSEC) [address] capsuleIndicat ions:Gastroeso phageal Reflux Disease,Heartb urn Take 1 capsule (20 mg) by mouth in the morning. Take before meals. Do not crush or chew. 30 capsule 3 5 Active metoclopramide (Reglan) 10 MG tabletIndicati ons:12 weeks gestation of ([facility]) Take 1 tablet (10 mg) by mouth in the morning and 1 tablet (10 mg) at noon and 1 tablet (10 mg) in the evening. Take before meals. Take 1 tablet by mouth 30 minutes prior to meals 3 times daily as needed for nausea.. 90 tablet 3 5 09/18/19 25 Discontinued Active Problems Problem Noted Date Diagnosed Date HSV (herpes simplex virus) infection 04/25/2024 History of delivery affecting ([facility]) 04/25/2024 Hepatitis C test positive 04/25/2024 Estimated Date of Delivery Comme nts Yes 11/20/2024 Based on last me nstrual period of 02/14/2024 Encounters Date Type Department Care Team Description 10/12/2024 Telephone [facility]OM[facility] Rafael GALVEZ [address] [place] [address] Ana Lilia Mann MA 10/01/2024 2:50 PM EDT Routine [facility] Rafael GALVEZ [address] [facility] [place] [place] [address] Sydney Ayala PA Third trimester ([facility]) 10/01/2024 2:00 PM EDT Ancillary Procedure NOMS Rafael COOLEYGYN [address] [place] [address] 30 weeks gestation of ([facility]); Third trimester ([facility]); Hepatitis C test positive 09/24/2024 Travel 09/17/2024 1:50 PM EDT Routine NOMS Rafael [place] [address] Derian Garcia DO 30 weeks gestation of ([facility]); Third trimester ([facility]); Hepatitis C test positive ; Gastroesophageal reflux in ([facility]) 09/17/2024 Bamboo flowsheet NOMS Rafael [place] [address] Derian Garcia DO 09/12/2024 Travel 08/30/2024 1:50 PM EDT Routine NOMS [place] [address] Sydnye Ayala PA Third trimester ([facility] 28 weeks gestation of ([facility]); Hepatitis C test positive ; Gastroesophageal reflux in ([facility]) 08/30/2024 Bamboo flowsheet NOMS Rafael GALVEZ [address] [address] Sydney Ayala PA 08/23/2024 Travel 08/16/2024 Abstract [facility] Mcmullen [facility] [place] [address] Ana Lilia Mann MA 08/13/2024 Clinisync Result Encounter NOMS External Department Unsolicited Derian Garcia, 08/13/2024 [place] [address] Ana Lilia Mann MA 08/11/2024 Clinisync Result Encounter NOMS External Department Unsolicited Derian Garcia, 08/10/2024 Abstract [facility] Rafael Mcmullen [facility] [place] [address] Ana Lilia Mann, ROSINA 08/09/2024 9:20 AM [place] [address] Derian Garcia, Second trimester ([facility]); 25 weeks gestation of ([facility]); with normal glucose tolerance test (GTT) ([facility]); Diabetes mellitus screening; Encounter for consultation for female sterilization 08/09/2024 [place] [address] Derian Garcia, 08/02/2024 Travel from Last 3 Months Social History Tobacco [...] 1:00 PM EDT Routine ROSIE GALVEZ [address] [address] Derian Garcia, DO [address] [facility] [address] [place] [address] 05/20/2025 9:00 AM EDT Office Visit ROSIE GALVEZ [address] [facility] [place] [address] Derian Garcia, DO [address] [place], [place] [address] Procedures Procedure Name Priority Date/Time Associated Diagnosis Comments POCT URINALYSIS DIPSTICK Routine 10/01/2024 2:34 PM EDT Third trimester ([facility]) US OB FOLLOW UP TRANSABDOMINAL APPROACH Routine 10/01/2024 2:20 PM EDT 30 weeks gestation of ([facility]) Third trimester ([facility]) Hepatitis C test positive POCT URINALYSIS DIPSTICK Routine 09/17/2024 2:06 PM EDT 30 weeks gestation of ([facility]) Third trimester ([facility]) Hepatitis C test positive Gastroesophageal reflux in ([facility]) POCT URINALYSIS DIPSTICK Routine 08/30/2024 2:07 PM EDT Third trimester ([facility]) GLUCOSE TOLERANCE 3 HOUR Routine 08/13/2024 10:26 AM EDT GLUCOSE 1 HOUR Routine 08/11/2024 12:42 PM EDT ALL CBC WITH AUTO DIFF Routine 12:42 PM EDT POCT URINALYSIS DIPSTICK Routine 08/09/2024 9:56 AM EDT Second trimester ([facility]) 25 weeks gestation of ([facility]) from Last 3 Months Results * POCT urinalysis dipstick manually resulted (10/01/2024 2:34 PM EDT) Only the most recent of4 resultswithin the time period is included. Color, [...] - Positive Urine 10/01/2024 2:34 PM EDT us Sydney DAVISON POINT OF CARE TEST ENTER/EDIT OR DERABLES Final Result * US OB follow up transabdominal approach [...] II, MD, PHD at 01-Oct-2024 11:42:55 PM [facility] Procedure Note Tyrell Nuno MD - [...] signed by TYRELL NUNO II, MD, PHD [id number] 11:42:55 PM [facility] us Derian Jose DO IMG OB US PROCEDURES Final Resul t * (ABNORMAL) GLUCOSE TOLERANCE 3 HOUR (08/13/2024 10:26 AM EDT) GLUCOSE TOLERANCE 3 HOUR (H) mg/dL [facility] Comment: GLU FAST 93 (<95) Col: 08/13/24 1026 GLU 1HR 132 (<180) Col: 08/13/24 1128 GLU 2HR 152 (<155) Col: 08/13/24 1228 GLU 3HR 143H (<140) Col: 08/13/24 1331 08/13/2024 10:2 6 AM EDT 08/13/2024 10:32 AM EDT Narrative [facility] - 08/13/2024 3:00 PM EDT Derian Jose DO LAB BLOOD ORDERABLES Final Resul t Performing Organization Address City/[facility]/ZIP Co de Phone Number [facility] TB * (ABNORMAL) GLUCOSE 1 HOUR (08/11/2024 12:42 PM EDT) GLUCOSE 1 HOUR 174(H) <130 mg/dL [facility] 08/11/2024 12:4 2 PM EDT 08/11/2024 12:50 PM EDT Narrative [facility] - 08/11/2024 1:28 PM EDT Derian Jose DO LAB BLOOD ORDERABLES Final Resul t [facility] TB * (ABNORMAL) ALL CBC WITH AUTO DIFF (08/11/2024 12:42 PM EDT) [facility] WBC 8.2 4.0 - 11.0 10 3/uL TB[facility] TBH RBC 3.74(L) 4.20 - 5.40 10 6/uL TBH TBH HGB 11.5(L) 12.0 - 16.0 g/dL TBH TBH HCT 33.0(L) 36.0 - 48.0 % TBH TBH MCV 88.2 81.0 - 99.0 fL TBH TBH MCH 30.7 26.7 - 34.0 pg TBH TBH MCHC 34.8 29.9 - 35.2 g/dL TBH TBH RDW 12.9 11.0 - 15.0 % TBH TBH PLT 247 150 - 450 10 3/uL TBH TBH MPV 10.2 9.5 - 13.5 fL TBH NEUTROPHILS PERCENT AUTO 74.4 43.0 - 75.0 % TBH LYMPHOCYTES PERCENT AUTO 19.1(L) 20.5 - 60.0 % TBH MONOCYTES PERCENT AUTO 4.9 1.7 - 12.0 % TBH TBH EO % 1.0 0.9 - 7.0 % TBH BASOPHILS PERCENT AUTO 0.2 0.2 - 2.0 % TBH IMMATURE GRANULOCYTES PCT AUTO 0.4 0.0 - 0.5 % TBH NEUTROPHILS ABSOLUTE AUTO 6.1 1.4 - 6.5 10 3/uL TBH LYMPHOCYTES ABSOLUTE AUTO 1.6 1.2 - 3.8 10 3/uL TBH MONOCYTES ABSOLUTE AUTO 0.4 0.3 - 0.8 10 3/uL TBH TBH EO # 0.1 0.0 - 0.7 10 3/uL TBH BASOPHILS ABSOLUTE AUTO 0.0 0.0 - 0.1 10 3/uL [facility] IMMATURE GRANULOCYTES ABS AUTO 0.03 0.00 - 0.03 10 3/uL [facility] 08/11/2024 12:4 2 PM EDT 08/11/2024 12:50 PM EDT Narrative [facility] - 08/11/2024 12:58 PM EDT us Derian Jose DO [facility] Final Result [facility] from Last 3 Months Insurance [facility]
--- OUTSIDE RECORDS SUMMARY | 2024-10-12 10:28 | XMS_ITS | Encounter Summary ---
Author Organization [facility] Address [address] [place] [address] Care Team Providers Care Strategy Specialist Name Role Phone Unavailable Primary Care Provider Unavailabl e Encounter Details Date Type Department Care Team (Late st Contact Info) Description 10/12/2024 Telephone NOMS Rafael GALVEZ [address] [place] [address] Ana Lilia Mann MA Social History [...] on file documented as of this encounter Miscellaneous Notes * Telephone Encounter - Ana Lilia Mann MA - 10/12/2024 9:43 AM EDT Pt reports falling at work on her side/stomach about 45 min ago. Pt states she's had mild cramping since the fall. Advised pt to head to [facility] for evaluation, PVU documented in this encounter Plan of Treatment Upcoming Encounters Date Type Department Care Team (Late st Contact Info) Description 10/15/2024 1:00 PM EDT Routine NOM[facility] Rafael GALVEZ [address] [place] [address] Derian Garcia, DO [address] [facility] [address] [place], [place] [id number] 05/20/2025 9:00 AM EDT Office Visit NOMS Rafael GALVEZ [address] [place] [phone] Derian Garcia, DO [address] [facility] [address] [place], [place] [id number] documented as of this encounter Visit Diagnoses Not on filedocumented in this encounter
--- OUTSIDE RECORDS SUMMARY | 2024-10-12 10:28 | XMS_ITS | Encounter Summary ---
Author Organization [facility] Address [address] [place] [address] Care Team Providers Care Drum Builder Name Role Phone Unavailable Primary Care Provider Unavailabl e Encounter Details Date Type Department Care Team (Late st Contact Info) Description 05/02/2024 Abstract ROSIE GALVEZ [address] [place] [address] Derian Garcia DO [address], [place] [address] Social History Tobacco Use Types Packs/Day Years [...] EDT Routine NOMSaima GALVEZ [address] [place] [address] Derian Garcia DO [address], [facility] 05/20/2025 9:00 AM [place] [address] Derian Garcia, [address] [place] [address] documented as of this encounter Visit Diagnoses Not on filedocumented in this encounter
--- OUTSIDE RECORDS SUMMARY | 2024-10-12 10:28 | XMS_ITS | Clinical Summary ---
Author Organization [facility] [employer] [facility] tem Address [id number] [address] [place] [address] Care Team Providers Care Receiver Bulk System Name Role Phone Unavailable Primary Care Provider Unavailabl e Allergies No known active allergies Medications [id number] c acid ( 19) 29 mg iron- [...] Encounters Date Type Department Care Team Description 09/20/2024 Travel 08/10/2024 2:00 PM EDT Telemedicine Maternal- Medicine at [facility] [address] [place] [address] Jeni Caballero MD 25 weeks gestation of (Primary Dx); Hepatitis C antibody positive 08/10/2024 Travel 08/10/2024 Orders Only Maternal- Medicine at [facility] [address] [place] [phone] Blaise Armas CMA Hepatitis C virus infection in mother during (Primary Dx); Low-lying placenta 08/09/2024 2:36 PM EDT - 08/09/2024 11:59 PM EDT Hospital Encounter [facility] Imaging [address] [place] [address] Hepatitis C virus infection in mother during ; Low-lying placenta Discharge Disposition: Home 08/08/2024 Travel 08/07/2024 Travel from Last 3 Months Immunizations Immunization [...] 07/04/2024 8:39 AM EDT Plan of Treatment Health Maintenance Due Date Last Done Comments [...] Name Priority Date/Time Associated Diagnosis Comments US MF OB FOLLOW-UP, 1 FETUS Routine 09/20/2024 11:29 AM EDT Hepatitis C virus infection in mother during Low-lying placenta COMPREHENSIVE METABOLIC PANEL Routine 08/11/2024 11:03 AM EDT 25 weeks gestation of Hepatitis C antibody positive HCV GENOTYPE, S Routine 08/11/2024 11:03 AM EDT 25 weeks gestation of Hepatitis C antibody positive HEPATITIS C VIRUS QUANTITATIVE BY NAAT Routine 08/11/2024 11:03 AM EDT 25 weeks gestation of Hepatitis C antibody positive US M OB FOLLOW-UP, 1 FETUS Routine 08/09/2024 4:16 PM EDT Hepatitis C virus infection in mother during Low-lying placenta HIGH RISK HPV W/JOSIE Routine 04/20/2024 from Last 3 Months or Most Recently Relevant to Health Maintenance Results * US [facility] OB FOLLOW-UP, 1 FETUS (09/20/2024 11:29 AM EDT) Only the most recent of2 resultswithin the time period is included. Anatomical Region Laterality Modality OB-TWO WAY RADIO INSTALLER Ultrasound 09/20/2024 10:5 3 AM EDT Narrative 09/23/2024 7:32 PM EDT NAME: JACINTO MCCARTY : 1990 SEX: F Accession Number: [id number] ORDERING PHYSICIAN: KATHRYN AG REFERRING PHYSICIAN: RANULFO CARRASCO Coding ----- --------- Procedures 43523: Follow-up Ultrasound, per fetus Indication ----- --------- Previous , Hepatitis C in , Obesity in , Screening for follow-up survey History ----- --------- OB History 3. Para 2 [id number] Current ----- --------- Cell free DNA Low Risk analysis Maternal Assessment ----- --------- Physical Exam Height 157 cm, 5 ft 2 in. Weight 85 kg, 188 lb. Initial weight 80 kg, 177 lb. BMI 34.39 kg/m . Initial BMI 32.37 kg/m . Weight gain 5 kg, 11 lb Method ----- --------- Transabdominal ultrasound examination. View: Suboptimal view: limited by late gestational age and position ----- --------- Grier . Number of fetuses: 1 Dating ----- --------- LMP on: 02/14/2024 GA by LMP 31 w + 2 d BETTIE by LMP: 11/20/2024 Previous Ultrasound on: 04/20/2024 Type of prior assessment: CRL U/S measurement at prior assessment date 29.8 mm GA by previous U/S 31 w + 5 d BETTIE by previous Ultrasound: 11/17/2024 Ultrasound examination on: 09/20/2024 GA by U/S based upon: AC, BPD, Femur, HC GA by U/S 31 w + 6 d BETTIE by U/S: 11/16/2024 Assigned: based on the LMP, selected on 07/04/2024 Assigned GA 31 w + 2 d Assigned BETTIE: 11/20/2024 General Evaluation ----- --------- Cardiac activity Present. FHR 136 bpm. Presentation: cephalic Placenta: Placental site: posterior, previously documented away from cervical os Umbilical cord: Cord vessels: 3 vessel cord. Insertion site: normal insertion, documented previously Amniotic fluid: Amount of AF: normal amount. MVP 4.5 cm Biometry ----- --------- Standard BPD 78.4 mm 31w 3d 45% Hadlock OFD 97.6 mm 31w 4d 57% Nolna HC 281.6 mm 30w 6d 9% Hadlock Cerebellum tr 42.1 mm 33w 2d 88% Hill AC 299.1 mm 33w 6d 97% Hadlock Femur 59.4 mm 31w 0d 27% Hadlock Humerus 53.6 mm 31w 1d 50% Nolan HC / AC 0.94 EFW 1,990 g 77% Hadlock EFW (lb) 4 lb EFW (oz) 6 oz EFW by: Hadlock ([id number]) Extended Tibia 54.3 mm 32w 0d 76% Nolan Explosive Ordn[employer] Disposal Manager 3.1 mm CM 7.2 mm 52% Nicolaides Head / Face / Neck Cephalic index 0.80 59% Nicolaides Nasal bone: documented previously Extremities / Bony Struc FL / BPD 0.76 FL / HC 0.21 FL / AC 0.20 Other Structures FHR 136 bpm Anatomy ----- --------- The following structures appear normal: Head/Neck: Cranium. Lateral ventricles. Cavum septi pellucidi. Cerebellum. Cisterna magna. Parenchyma. Vermis. Heart/Thorax: 4-chamber view. 8-hbajnw-nhaipmd view. Situs. Interventricular septum. Great vessels. Cardiac position. Cardiac axis. Cardiac size. Cardiac rhythm. Diaphragm. Abdomen: Abdom. wall. Stomach. Kidneys. Bladder. The following structures were documented previously: Head / Neck Choroid plexus. Midline falx. Neck. Nuchal fold. Face: Lips. Profile. Nose. Nasal bone. Maxilla. Mandible. Orbits. Heart / Thorax RVOT view. LVOT view. 3-vessel view. Aortic arch view. Bicaval view. Ductal arch view. Right lung. Left lung. Abdomen Cord insertion. Small bowel. Large bowel. Right renal artery. Left renal artery. Genitals. Spine: Cervical spine. Thoracic spine. Lumbar spine. Sacral spine. Extremities/Skeleton: Right upper arm. Right forearm. Right hand. Left upper arm. Left forearm. Left hand. Right upper leg. Right lower leg. Right foot. Left upper leg. Left lower leg. Left foot. Maternal Structures ----- --------- Uterus Visualized Cervix Suboptimal Approach - Transabdominal Right Ovary Not visualized Left Ovary Visualized Size 2.7 cm x 2.1 cm x 1.2 cm. Vol 3.6 cm Cul de Sac Suboptimal Impression ----- --------- Single viable intrauterine with appropriate interval growth. EFW measures at the 77%, AC measures at the 97%. Amniotic fluid MVP measures 4.5 cm. anatomic survey did not reveal sonographic evidence of any gross structural abnormalities. Recommendations ----- --------- Please see [facility] recommendations from prior clinical and/or ultrasound report documentation. Subsequent follow up or other follow up as clinically determined by primary OB provider unless otherwise specified by [facility]. Results forwarded to ordering provider so they can follow up with the patient as necessary. Procedure Note Kathryn Ag MD - 09/23/2024 NAME: JACINTO MCCARTY : 1990 SEX: F Accession Number: [id number] ORDERING PHYSICIAN: KATHRYN AG REFERRING PHYSICIAN: RANULFO CARRASCO Coding ----- --------- Procedures 81046: Follow-up Ultrasound, per fetus Indication ----- --------- Previous , Hepatitis C in , Obesity in ,Screening for follow-up survey History ----- --------- OB History 3. Para 2 [id number] Current ----- --------- Cell free DNA Low Risk analysis Maternal Assessment ----- --------- Physical Exam Height 157 cm, 5 ft 2 in. Weight 85 kg, 188 lb. Initialweight 80 kg, 177 lb. BMI 34.39 kg/m . Initial BMI 32.37 kg/m . Weight gain 5 kg, 11 lb Method ----- --------- Transabdominal ultrasound examination. View: Suboptimal view: limited bylate gestational age and position ----- --------- Grier . Number of fetuses: 1 Dating ----- --------- LMP on: 02/14/2024 GA by LMP 31 w + 2 d BETTIE by LMP: 11/20/2024 Previous Ultrasound on: 04/20/2024 Type of prior assessment: CRL U/S measurement at prior assessment date 29.8 mm GA by previous U/S 31 w + 5 d BETTIE by previous Ultrasound: 11/17/2024 Ultrasound examination on: 09/20/2024 GA by U/S based upon: AC, BPD, Femur, HC GA by U/S 31 w + 6 d BETTIE by U/S: 11/16/2024 Assigned: based on the LMP, selected on 07/04/2024 Assigned GA 31 w + 2 d Assigned BETTIE: 11/20/2024 General Evaluation ----- --------- Cardiac activity Present. FHR 136 bpm. Presentation: cephalic Placenta: Placental site: posterior, previously documented away fromcervical os Umbilical cord: Cord vessels: 3 vessel cord. Insertion site: normalinsertion, documented previously Amniotic fluid: Amount of AF: normal amount. MVP 4.5 cm Biometry ----- --------- Standard BPD 78.4 mm 31w 3d 45% Hadlock OFD 97.6 mm 31w 4d 57% Nolan HC 281.6 mm 30w 6d 9% Hadlock Cerebellum tr 42.1 mm 33w 2d 88% Hill AC 299.1 mm 33w 6d 97% Hadlock Femur 59.4 mm 31w 0d 27% Hadlock Humerus 53.6 mm 31w 1d 50% Nolna HC / AC 0.94 EFW 1,990 g 77% Hadlock EFW (lb) 4 lb EFW (oz) 6 oz EFW by: Hadlock ([id number]) Extended Tibia 54.3 mm 32w 0d 76% Nolan Explosive Ordnance Disposal Manager 3.1 mm CM 7.2 mm 52% Nicolaides Head / Face / Neck Cephalic index 0.80 59% Nicolaides Nasal bone: documented previously Extremities / Bony Struc FL / BPD 0.76 FL / HC 0.21 FL / AC 0.20 Other Structures FHR 136 bpm Anatomy ----- --------- The following structures appear normal: Head/Neck: Cranium. Lateral ventricles. Cavum septi pellucidi. Cerebellum.Cisterna magna. Parenchyma. Vermis. Heart/Thorax: 4-chamber view. 8-dyeewa-bwgbmwp view. Situs.Interventricular septum. Great vessels. Cardiac position. Cardiac axis. Cardiac size. Cardiac rhythm. Diaphragm. Abdomen: Abdom. wall. Stomach. Kidneys. Bladder. The following structures were documented previously: Head / Neck Choroid plexus. Midline falx. Neck. Nuchal fold. Face: Lips. Profile. Nose. Nasal bone. Maxilla. Mandible. Orbits. Heart / Thorax RVOT view. LVOT view. 3-vessel view. Aortic arch view.Bicaval view. Ductal arch view. Right lung. Left lung. Abdomen Cord insertion. Small bowel. Large bowel. Right renalartery. Left renal artery. Genitals. Spine: Cervical spine. Thoracic spine. Lumbar spine. Sacral spine. Extremities/Skeleton: Right upper arm. Right forearm. Right hand. Leftupper arm. Left forearm. Left hand. Right upper leg. Right lower leg. Right foot. Left upper leg. Left lower leg. Leftfoot. Maternal Structures ----- --------- Uterus Visualized Cervix Suboptimal Approach - Transabdominal Right Ovary Not visualized Left Ovary Visualized Size 2.7 cm x 2.1 cm x 1.2 cm. Vol 3.6 cm Cul de Sac Suboptimal Impression ----- --------- Single viable intrauterine with appropriate interval growth. EFWmeasures at the 77%, AC measures at the 97%. Amniotic fluid MVP measures 4.5 cm. anatomic survey did not reveal sonographic evidence of any grossstructural abnormalities. Recommendations ----- --------- Please see [facility] recommendations from prior clinical and/or ultrasoundreport documentation. Subsequent follow up or other follow up as clinically determined byprimary OB provider unless otherwise specified by [facility]. Results forwarded to ordering provider so they can follow up with thepatient as necessary. us Kathryn Ag MD [facility] ORDERABLES Final Result * (ABNORMAL) Hepatitis C Virus Quantitative by NAAT (08/11/2024 11:03 AM EDT) Pathologist [facility] HCV VIRAL LOAD 7,830,000 .00(H) 0 copies IU/mL IU/mL 08/13/2024 10:12 AM EDT [facility] HCV LOG VALUE 6.89(H) 0 copies Log IU/mL Log IU/mL 08/13/2024 10:12 AM EDT [facility] HCV Interpretation Detected( A) Not Detected 08/13/2024 10:12 AM EDT [facility] Blood Venous blood / Unknown Venipuncture / Unknown 08/11/2024 11:03 AM EDT 08/11/2024 11:03 AM EDT Jeni Caballero MD LAB BLOOD ORDERABLES Final Result [facility] [address] [place] [address], [place] [phone] * (ABNORMAL) HCV Genotype, S (08/11/2024 11:03 AM EDT) HCV GENOTYPE, S 1a(A) Undetected 11:19 PM EDT [facility] Comment: ADDITIONAL INFORMATION This test was performed using the Alfonso RealTime HCV Genotype II assay ([employer] [place], [place]). Test Performed by: [facility] [place] [address] Owner/Operator: Jovanna Ha Ph.D.; CLIA# [id number] Blood Venous blood / Unknown Venipuncture / Unknown 08/11/2024 11:03 AM EDT 08/11/2024 11:03 AM EDT us Jeni Caballero MD LAB BLOOD ORDERABLES Final Result [facility] [address] [place] [address], [place] * (ABNORMAL) Comprehensive metabolic panel (08/11/2024 11:03 AM EDT) Pathologist [facility] SODIUM 138 134 - 146 mmol/L 08/11/2024 3:42 PM [facility] POTASSIUM 4.1 3.5 - 5.0 mmol/L 08/11/2024 3:42 PM [facility] CHLORIDE 106 98 - 109 mmol/L 08/11/2024 3:42 PM [facility] CARBON DIOXIDE 24 22 - 32 mmol/L 08/11/2024 3:42 PM [facility] ANION GAP 8 5 - 15 mmol/L 08/11/2024 3:42 PM [facility] BLOOD UREA NITROGEN 7 5 - 23 mg/dL 08/11/2024 3:42 PM [facility] CREATININE 0.61 0.40 - 1.00 mg/dL 08/11/2024 3:42 PM [facility] Comment:METHOD TRACEABLE TO IDMI STANDARD GLUCOSE 84 65 - 99 mg/dL 08/11/2024 3:42 PM [facility] CALCIUM 9.2 8.5 - 10.5 mg/dL 08/11/2024 3:42 PM [facility] TOTAL PROTEIN 6.5 6.0 - 8.0 g/dL 08/11/2024 3:42 PM [facility] ALBUMIN 3.7 3.2 - 5.3 g/dL 08/11/2024 3:42 PM [facility] ALKALINE PHOSPHATASE 52 39 - 130 U/L 08/11/2024 3:42 PM [facility] AST 26 <=41 U/L 08/11/2024 3:42 PM [facility] ALT 36(H) <=31 U/L 08/11/2024 3:42 PM [facility] BILIRUBIN,TOTAL 0.5 0.3 - 1.2 mg/dL 08/11/2024 3:42 PM [facility] EGFR Non-Race Dependent >90 >=60 ml/min/1.7 3sq.m 08/11/2024 3:42 PM [facility] Comment: Reported eGFR is based on the CKD-EPI 2020 equation that does not use a race coefficient. Blood Venous blood / Unknown Venipuncture / Unknown 08/11/2024 11:03 AM EDT 08/11/2024 11:03 AM EDT us Jeni Caballero MD LAB BLOOD ORDERABLES Final Result [facility] [address] [place] [address], [place] [phone] * High risk HPV w/josie (04/20/2024) Other High Risk Hpv POSITIVE MANUALLY TRANSCRIBED RESULTS ThinPrep cytology technique (qualifier value) Cervix uteri structure / Unknown us Not In System Ref Prov LAB BLOOD ORDERABLES My l Result MANUALLY TRANSCRIBED RESULTS from Last 3 Months or Most Recently Relevant to Health Maintenance Insurance [address] [place] [address] WORKERS COMPENSATION
--- OUTSIDE RECORDS SUMMARY | 2024-10-12 10:28 | XMS_ITS | Encounter Summary ---
Author Organization [facility] tem Address [id number] [address] [place] [address] Care Team Providers Care Cycle Manager Name Role Phone Pcp, Not In System Primary Care Provider Unavail able Encounter Details Date Type Department Care Team (Late st Contact Info) Description 07/03/2024 Orders Only Maternal- Medicine at [facility] [address] [place] [address] Ref Prov, [place] [address] Social History Tobacco Use Types Packs/Day Years [...] as of this encounter Plan of Treatment Not on file documented as of this encounter Procedures Procedure Name Priority Date/Time Associated Diagnosis Comments FREE CELL DNA (NON-[facility] SEND OUT) Routine 07/03/2024 4:19 PM EDT documented in this encounter Results * Free Cell DNA (07/03/2024 4:19 PM EDT) us Not In System Ref Prov LAB BLOOD ORDERABLES My leander Result MANUALLY TRANSCRIBED RESULTS documented in this encounter Visit Diagnoses Not on filedocumented in this encounter Care Teams Cycle Manager Relationship Specialty Start Date End Date Pcp, [place] [address] PCP - General Family Medicine 03/08/18 07/08/24 documented as of this encounter
--- OUTSIDE RECORDS SUMMARY | 2024-10-12 10:28 | XMS_ITS | Encounter Summary ---
Author Organization [facility] Address [address] [place] [address] Care Team Providers Care Cook Mayonnaise Name Role Phone Unavailable Primary Care Provider Unavailabl e Encounter Details Date Type Department Care Team (Late st Contact Info) Description 04/27/2024 Abstract [facility] [address] [place] [phone] Derian Garcia DO [address], [place] [address] Social History Tobacco Use Types Packs/Day Years [...] EDT Routine [facility] [address] [place] [phone] Derian Garcia DO [address], [facility] 05/20/2025 9:00 AM [place] [phone] Derian Garcia, [address] [place] [address] documented as of this encounter Visit Diagnoses Not on filedocumented in this encounter
--- OUTSIDE RECORDS SUMMARY | 2024-10-12 10:29 | XMS_ITS | Encounter Summary ---
Author Organization [facility] Address [address] [place] [address] Care Team Providers Care Academic Director Name Role Phone Unavailable Primary Care Provider Unavailabl e Encounter Details Date Type Department Care Team (Late st Contact Info) Description 08/16/2024 Abstract [facility] [address] [place] [address] Ana Lilia Mann MA Social History [...] EDT Routine [facility] [address] [place] [address] Derian Garcia, DO [address] [place] [address] 05/20/2025 9:00 AM EDT Office Visit [facility] [address] [place] [address] Derian Garcia, DO [address], [facility] documented as of this encounter Visit Diagnoses Not on filedocumented in this encounter
[2024-10-12 10:30] VITALS: TEMP 36.3
[2024-10-12 11:38] VITALS: BP 121/80; PULSE 73
== END 2024-10-12 15:05 | disposition home or self-care (01) ==
PROVIDERS: Admitting Provider Obstetrics & Gynecology; Visit Provider Obstetrics & Gynecology
DX: O26.893 Other specified pregnancy related conditions, third trimester (principal); Z3A.34 34 weeks gestation of pregnancy
CPT/HCPCS: 76815; 76818; G0378; G0379

== ENCOUNTER 2024-10-20 22:03 | Observation (INO) | payer BC, SELFPAY ==
--- OUTSIDE RECORDS SUMMARY | 2024-10-15 13:00 | XMS_ITS | Encounter Summary ---
Author Organization [facility] Address [address] [place] [address] Care Team Providers Care Flow Match Sofa Cutter Name Role Phone Unavailable Primary Care Provider Unavailabl e Reason for Visit * Reason Comments Routine Visit Encounter Details Date Type Department Care Team (Late st Contact Info) Description 10/15/2024 1:00 PM EDT Routine [facility] [address] [place] [phone] Derian Garcia DO [address] [place] [address] Cystitis (Primary Dx); Third trimester ([facility]); 35 weeks gestation of ([facility]) Social History Tobacco Use Types Packs/Day Years [...] documented in this encounter Progress Notes * Cristy Pulido NP - 10/15/2024 1:00 PM EDT [...] virus) infection 04/25/2024 History of delivery affecting ([facility]) 04/25/2024 Hepatitis C test positive 04/25/2024 Resolved [...] nursing note reviewed. Exam conducted with a building maintenance repairer present. Vitals: There is no height or weight on file to calculate BMI. BP: 122/78 Patient's last menstrual period was 02/14/2024. ASSESSMENT & PLAN ICD-10-CM 1. Third trimester ([facility]) Z34.93 POCT urinalysis dipstick manually resulted 2. 35 weeks gestation of ([facility]) Z3A.35 Return OB: Patient presents today for [...] Care Team (Late st Contact Info) Description 10/23/2024 1:10 PM EDT Routine ROSIE GALVEZ [address] [place] [phone] Sydney Ayala PA [address] [place] [address] 05/20/2025 9:00 AM EDT Office Visit ROSIE GALVEZ [address] [place] [address] Derian Garcia DO [address] [place], [place] [id number] documented as of this encounter Procedures Procedure Name Priority Date/Time Associated Diagnosis Comments POCT URINALYSIS DIPSTICK Routine 10/15/2024 1:12 PM EDT Third trimester ([facility]) documented in this encounter Results * (ABNORMAL) [...] UA Negative Negative - Positive Urine 10/15/2024 1:1 2 PM EDT Derian Garcia DO POINT OF CARE TEST ENTER/EDIT OR DERABLES Final Result documented in this encounter Visit Diagnoses Diagnosis Cystitis- Primary Unspecified cystitis Third trimester ([facility]) state, incidental 35 weeks gestation of ([facility]) documented in this encounter
[2024-10-20] VITALS (11 sets, daily range): BP systolic 135–172; BP diastolic 73–102; PULSE 83–105
--- OUTSIDE RECORDS SUMMARY | 2024-10-20 22:07 | XMS_ITS | Encounter Summary ---
Author Organization [facility] Address [address] [place] [address] Care Team Providers Care Willow Analyst Name Role Phone Unavailable Primary Care Provider Unavailabl e Encounter Details Date Type Department Care Team (Late st Contact Info) Description 10/12/2024 Telephone [facility]ALVE[facility] [address] [place] [address] Ana Lilia Mann MA Social History [...] the fall. Advised pt to head to [facility] for evaluation, PVU documented in this encounter Plan of Treatment Upcoming Encounters Date Type Department Care Team (Late st Contact Info) Description 10/23/2024 1:10 PM EDT Routine [facility] GALVE[facility] [address] [place] [address] ySdney Ayala PA [address] [place] [address] 05/20/2025 9:00 AM EDT Office Visit [facility] [address] [address] Derian Garcia DO [address] [place] [address] documented as of this encounter Visit Diagnoses Not on filedocumented in this encounter
--- OUTSIDE RECORDS SUMMARY | 2024-10-20 22:07 | XMS_ITS | Clinical Summary ---
Author Organization [facility] Address [address] [place] [address] Care Team Providers Care Brand Advisor Name Role Phone Unavailable Primary Care Provider Unavailabl e Allergies No known active allergies Medications MV-Min-Fe Fum-FA-DHA ( 1 PO) Take 1 tablet by mouth Daily Active 27-1 MG tabletIndicatio ns:Second trimester ([facility]),25 weeks gestation of ([facility]) Take 1 tablet by mouth Daily 30 tablet 11 08/09/2024 Active omeprazole (PriLOSEC) [address] capsuleIndicati ons:Gastroesoph ageal Reflux Disease,Heartbu rn Take 1 capsule (20 mg) by mouth in the morning. Take before meals. Do not crush or chew. 30 capsule 3 08/30/2024 Active cephalexin (Keflex) 500 MG capsuleIndicati ons:Cystitis Take 1 capsule (500 mg) by mouth in the morning and 1 capsule (500 mg) in the evening and 1 capsule (500 mg) before bedtime. Do all this for 7 days. 21 capsule 10/15/2024 Active Active Problems Problem Noted Date Diagnosed Date HSV (herpes simplex virus) infection 04/25/2024 History of delivery affecting ([facility]) 04/25/2024 Hepatitis C test positive 04/25/2024 Estimated Date of Delivery Comme nts Yes 11/20/2024 Based on last me nstrual period of 02/14/2024 Encounters Date Type Department Care Team Description 10/16/2024 Travel 10/15/2024 1:00 PM EDT Routine [facility] [place] [facility] [address] [address] Ranulfo Garcia, Cystitis (Primary Dx); Third trimester ([facility]); 35 weeks gestation of ([facility]) 10/15/2024 Bamboo flowsheet [facility] [address] [address] Ranulfo Garcia, 10/12/2024 Travel 10/12/2024 Clinisync Result Encounter NOMS External Department Unsolicited Ranulfo Garcia, DO 10/12/2024 Clinisync Result Encounter NOMS External Department Unsolicited Ranulfo Garcia, DO 10/12/2024 Telephone [facility] [address] [address] Ana Lilia Mann MA 10/01/2024 2:50 PM EDT Routine [facility] [address] [address] Sydney Ayala PA Third trimester ([facility]) 10/01/2024 2:00 PM EDT Ancillary Procedure [facility] [address] [place] [address] 30 weeks gestation of ([facility]); Third trimester ([facility]); Hepatitis C test positive 09/24/2024 Travel 09/17/2024 1:50 PM EDT Routine [facility] [place] [facility] [address] [address] Ranulfo Garcia, 30 weeks gestation of ([facility]); Third trimester ([facility]); Hepatitis C test positive ; Gastroesophageal reflux in ([facility]) 09/17/2024 Bamboo flowsheet [facility] [address] [facility] [address] Ranulfo Garcia, DO 09/12/2024 Travel 08/30/2024 1:50 PM [place] [address] Sydney Ayala PA Third trimester ([facility]); 28 weeks gestation of ([facility]); Hepatitis C test positive ; Gastroesophageal reflux in ([facility]) 08/30/2024 Bamboo flowsheet [facility] [place] [address] Sydney Ayala PA 08/23/2024 Travel 08/16/2024 Abstract [facility] [address] [place] [address] Ana Lilia Mann [place] 08/13/2024 Clinisync Result Encounter NOMS External Department Unsolicited Ranulfo Garcia, 08/13/2024 [place] [address] Ana Lilia Mann [place] 08/11/2024 Clinisync Result Encounter NOMS External Department Unsolicited Ranulfo Garcia, 08/10/2024 Abstract [facility] [address] [place] [address] Ana Lilia Mann [place] 08/09/2024 9:20 AM [place] [address] Ranulfo Garcia, Second trimester ([facility]); 25 weeks gestation of ([facility]); with normal glucose tolerance test (GTT) ([facility]); Diabetes mellitus screening; Encounter for consultation for female sterilization 08/09/2024 Bamboo flowsheet [facility] [address] [place] [address] Ranulfo Garcia, 08/02/2024 Travel from Last 3 Months [...] 1:10 PM EDT Routine ROSIE GALVEZ [address] [address] Sydney Ayala PA [address] [address] 05/20/2025 9:00 AM EDT Office Visit ROSIE GALVEZ [address] [place] [address] Ranulfo Garcia DO [address] [place] [address] Procedures Procedure Name Priority Date/Time Associated Diagnosis Comments POCT URINALYSIS DIPSTICK Routine 10/15/2024 1:12 PM EDT Third trimester ([facility]) US OB BPP W NON-STRESS 10/12/2024 12:02 PM EDT US OB PLACENTA 10/12/2024 12:02 PM EDT POCT URINALYSIS DIPSTICK Routine 10/01/2024 2:34 PM [...] Routine 08/09/2024 9:56 AM EDT Second trimester ([facility]) 25 weeks gestation of ([facility]) from Last 3 Months Results * (ABNORMAL) POCT urinalysis dipstick manually resulted (10/15/2024 1:12 PM EDT) Only the most recent of5 resultswithin the time period is included. Color, UA Yellow Clarity, UA Clear Glucose, UA Negative Negative - 1999(110) ++++ mg/dL Bilirubin, UA Negative Negative - 4(70) +++ mg/dL Ketones, UA Negative Negative - 160(16) ++++ mg/dL Spec Grav, UA 1.025 1 - 1.03 Blood, UA Positive Negative - 50 Herb/mcL pH, UA 6.0 5 - 9 Protein, UA 1+ Negative - 1999(20) ++++ mg/dL Urobilinogen, UA 1.0 0.2 - 12 mg/dL Leukocytes, UA Negative Negative - 500+++ Bobby/mcL Nitrite, UA Negative Negative - Positive Urine 10/15/2024 1:12 PM EDT us Ranulfo Garcia DO POINT OF CARE TEST ENTER/EDIT OR DERABLES Final Result * US OB PLACENTA (10/12/2024 12:02 PM EDT) Anatomical Region Laterality Modality Other 10/12/2024 12:0 2 PM EDT Narrative 10/12/2024 12:04 [place] [address] Ultrasound Report Signed Patient: BIBIANA ANSARI MR#: [id number] : 1990 Acct:[id number] Age/Sex: 34 / F ADM Date: Loc: [facility] [address]: Ranulfo Garcia D.O. Ordering Physician: Ranulfo Garcia D.O. Date of Service: 10/12/24 Procedure(s): US OB placenta Accession Number(s): [id number] cc: Ranulfo Garcia D.O.; Physician,Non-Staff M.DThomas [address] [address] Patient Name: BIBIANA ANSARI MRN: [id number] date: 1990 Sex: F Assigned Patient Location: [facility] Current Patient Location: [facility] Accession/Order Number: [id number] Exam Date: 10/12/2024 11:51 Report Date: 10/12/2024 12:02 At the request of: RANULFO GARCIA DO Procedure: US OB BPP w non-stress CLINICAL DATA: Patient fell this morning and has had cramping since. BIOPHYSICAL PROFILE: COMPARISON: None There is a single live intrauterine gestation in cephalic presentation. The reported gestational age is 34 weeks 3 days. The heart rate [id number] beats per minutee. FINDINGS: TONE: 1 or more episodes of activity extension and flexion of extremity or opening and closing of the hand [Y] 2/2 GROSS BODY MOVEMENTS: 3 or more discrete body or limb movements [Y] 2/2 BREATHING MOVEMENTS: 1 or more episodes of breathing lasting at least 30 seconds [Y] 2/2 DEBBI: A sIngle deepest vertical pocket of amniotic fluid greater than 2 cm [Y] 2/2 DEBBI: 13.1 cm Total score: 10/12 US/US OB placenta IMPRESSION: NORMAL BIOPHYSICAL PROFILE. ULTRASOUND OB PLACENTA COMPARISON: none The placenta is posterior and within normal limits for appearance and position. There might be a tiny venous glass measuring 1 cm in size. No previa or suspected abruption is seen. IMPRESSION: NO SIGNIFICANT PLACENTAL ABNORMALITIES. Impression dictated by: Steffi Lopez M.D. 10/12/2024 12:02 PM [facility]ict[facility] Electron[facility] authenticated by: [id number] Y Date: 10/12/2024 12:02 Dictated By: Steffi Lopez M.D. Signed By: 10/12/24 1204 DD/ 1202 TD/TT: Store Coordinator: Procedure Note Radiology, Radiologist, MD - 10/12/2024 [place] [address] Ultrasound Report Signed Patient: BIBIANA ANSARI AMR#: [id number] : 1990Acct:[id number] Age/Sex: 34 / FADM Date: Loc: [facility] 254-[address]: Ranulfo Garcia D.O. Ordering Physician: Ranulfo Garcia D.O. Date of Service: 10/12/24 Procedure(s): US OB placenta Accession Number(s): [id number] cc: Ranulfo Garcia D.O.; Physician,Non-Staff [place] The [place] [id number] Patient Name: BIBIANA ANSARI MRN: [id number] date: 1990 Sex: F Assigned Patient Location: [facility] Current Patient Location: [facility] Accession/Order Number: [id number] Exam Date: 10/12/2024 11:51 Report Date: 10/12/2024 12:02 At the request of: RANULFO GARCIA DO Procedure: US OB BPP w non-stress CLINICAL DATA: Patient fell this morning and has had cramping since. BIOPHYSICAL PROFILE: COMPARISON: None There is a single live intrauterine gestation in cephalic presentation.The reported gestational age is 34 weeks 3 days. The heart [id number] beats per minutee. FINDINGS: TONE: 1 or more episodes of activity extension and flexion of extremity or opening and closing of the hand [Y] 2/2 GROSS BODY MOVEMENTS: 3 or more discrete body or limb movements [Y] 2/2 BREATHING MOVEMENTS: 1 or more episodes of breathing lastingat least 30 seconds [Y] 2/2 DEBBI: A sIngle deepest vertical pocket of amniotic fluid greater than 2 cm [Y] 2/2 DEBBI: 13.1 cm Total score: 10/12 US/US OB placenta IMPRESSION: NORMAL BIOPHYSICAL PROFILE. ULTRASOUND OB PLACENTA COMPARISON: none The placenta is posterior and within normal limits for appearance and position. There might be a tiny venous glass measuring 1 cm in size. No previa or suspected abruption is seen. IMPRESSION: NO SIGNIFICANT PLACENTAL ABNORMALITIES. Impression dictated by: Steffi Lopez M.D. 10/12/2024 12:02 PM Dictation Location: [place] [address] Electronically authenticated by: [id number] Y Date: 2:02 Dictated By: Steffi Lopez M.D. Signed By:10/12/24 1204 DD/ 1202 TD/TT: Store Coordinator: us Ranulfo Garcia DO [facility] Final Result * US OB BPP W NON-STRESS (10/12/2024 12:02 PM EDT) Anatomical Region Laterality Modality Other 10/12/2024 12:0 2 PM EDT Narrative 10/12/2024 12:05 PM EDT The [address] [address] Ultrasound Report Signed Patient: BIBIANA ANSARI MR#: [id number] : 1990 Acct:[id number] Age/Sex: 34 / F ADM Date: Loc: [facility] 254-[address]: Ranulfo Garcia D.O. Ordering Physician: Ranulfo Garcia D.O. Date of Service: 10/12/24 Procedure(s): US OB BPP w non-stress Accession Number(s): [id number] cc: Ranulfo Garcia D.O.; Physician,Non-Staff [place] [address] Patient Name: BIBIANA ANSARI MRN: [facility]:[id number] date: 1990 Sex: F Assigned Patient Location: [facility] Current Patient Location: [facility] Accession/Order Number: [id number] Exam Date: 10/12/2024 11:51 Report Date: 10/12/2024 12:02 At the request of: RANULFO GARCIA DO Procedure: US OB BPP w non-stress CLINICAL DATA: Patient fell this morning and has had cramping since. BIOPHYSICAL PROFILE: COMPARISON: None There is a single live intrauterine gestation in cephalic presentation. The reported gestational age is 34 weeks 3 days. The heart rate [id number] beats per minutee. FINDINGS: TONE: 1 or more episodes of activity extension and flexion of extremity or opening and closing of the hand [Y] 2/2 GROSS BODY MOVEMENTS: 3 or more discrete body or limb movements [Y] 2/2 BREATHING MOVEMENTS: 1 or more episodes of breathing lasting at least 30 seconds [Y] 2/2 DEBBI: A sIngle deepest vertical pocket of amniotic fluid greater than 2 cm [Y] 2/2 DEBBI: 13.1 cm Total score: 10/12 US/US OB BPP w non-stress IMPRESSION: NORMAL BIOPHYSICAL PROFILE. ULTRASOUND OB PLACENTA COMPARISON: none The placenta is posterior and within normal limits for appearance and position. There might be a tiny venous glass measuring 1 cm in size. No previa or suspected abruption is seen. IMPRESSION: NO SIGNIFICANT PLACENTAL ABNORMALITIES. Impression dictated by: Steffi Lopez M.D. 10/12/2024 12:02 PM Dictation Location: [place] [address] Electronically authenticated by: [id number] Y Date: 10/12/2024 12:02 Dictated By: Steffi Lopez M.D. Signed By: 10/12/24 1205 DD/ 120 TD/TT: Store Coordinator: Procedure Note Radiology, Radiologist, - 10/12/2024 [place] [address] Ultrasound Report Signed Patient: BIBIANA ANSARI AMR#: [id number] : 1990Acct:[id number] Age/Sex: 34 / FADM Date: Loc: [facility] 254-[address]: Ranulfo Gracia D.O. Ordering Physician: Ranulfo Garcia D.O. Date of Service: 10/12/24 Procedure(s): US OB BPP w non-stress Accession Number(s): [id number] cc: Ranulfo Garcia D.O.; Physician,Non-Staff [place] [facility] [place] [id number] Patient Name: BIBIANA ANSARI MRN: [id number] date: 1990 Sex: F Assigned Patient Location: [facility] Current Patient Location: [facility] Accession/Order Number: [id number] Exam Date: 10/12/2024 11:51 Report Date: 10/12/2024 12:02 At the request of: RANULFO GARCIA DO Procedure: US OB BPP w non-stress CLINICAL DATA: Patient fell this morning and has had cramping since. BIOPHYSICAL PROFILE: COMPARISON: None There is a single live intrauterine gestation in cephalic presentation.The reported gestational age is 34 weeks 3 days. The heart [id number] beats per minutee. FINDINGS: TONE: 1 or more episodes of activity extension and flexion of extremity or opening and closing of the hand [Y] 2/2 GROSS BODY MOVEMENTS: 3 or more discrete body or limb movements [Y] 2/2 BREATHING MOVEMENTS: 1 or more episodes of breathing lastingat least 30 seconds [Y] 2/2 DEBBI: A sIngle deepest vertical pocket of amniotic fluid greater than 2 cm [Y] 2/2 DEBBI: 13.1 cm Total score: 8/8 US/US OB BPP w non-stress IMPRESSION: NORMAL BIOPHYSICAL PROFILE. ULTRASOUND OB PLACENTA COMPARISON: none The placenta is posterior and within normal limits for appearance and position. There might be a tiny venous glass measuring 1 cm in size. No previa or suspected abruption is seen. IMPRESSION: NO SIGNIFICANT PLACENTAL ABNORMALITIES. Impression dictated by: Steffi Lopez M.D. 10/12/2024 12:02 PM Dictation Location: [place] Electronically authenticated by: [id number] Y Date: 2:02 Dictated By: Steffi Lopez M.D. Signed By:10/12/24 1205 DD/ 120 TD/TT: Store Coordinator: us Ranulfo Jose DO [facility] Final Result * US OB follow up [...] II, MD, PHD at 01-Oct-2024 11:42:55 PM [facility] Procedure Note Tyrell Nuno MD - [...] signed by TYRELL NUNO II, MD, PHD [id number] 11:42:55 PM [facility] us Ranulfo Jose DO [facility] OB US PROCEDURES Final Resul t * (ABNORMAL) GLUCOSE TOLERANCE 3 HOUR (08/13/2024 10:26 AM EDT) GLUCOSE TOLERANCE 3 HOUR (H) mg/dL [facility] Comment: GLU FAST 93 (<95) Col: 08/13/24 1026 GLU 1HR 132 (<180) Col: 08/13/24 1128 GLU 2HR 152 (<155) Col: 08/13/24 1228 GLU 3HR 143H (<140) Col: 08/13/24 1331 08/13/2024 10:2 6 AM EDT 08/13/2024 10:32 AM EDT [facility] SARABJITISYAZ - 08/13/2024 3:00 PM EDT Ranulfo Jose DO LAB BLOOD ORDERABLES Final Resul t Performing Organization Address City/[facility] Co de Phone Number [facility] * (ABNORMAL) GLUCOSE 1 HOUR (08/11/2024 12:42 PM EDT) Pathologist [facility] GLUCOSE 1 HOUR 174(H) <130 mg/dL [facility] 08/11/2024 12:4 2 PM EDT 08/11/2024 12:50 PM EDT [facility] - 08/11/2024 1:28 PM EDT [facility] DO LAB BLOOD ORDERABLES Final Resul t Performing Organization Address [facility] Co de Phone Number [facility] * (ABNORMAL) ALL CBC WITH AUTO DIFF (08/11/2024 12:42 PM EDT) Pathologist [facility] TB WBC 8.2 4.0 - 11.0 10 3/uL [facility] TBH RBC 3.74(L) 4.20 - 5.40 10 6/uL [facility] HGB 11.5(L) 12.0 - 16.0 g/dL [facility] TB HCT 33.0(L) 36.0 - 48.0 % [facility] [...] Narrative [facility] - 08/11/2024 12:58 PM EDT Ranulfo Garcia DO [facility] Final Result [facility] from Last 3 Months [address], [place] [address] BCBS
--- OUTSIDE RECORDS SUMMARY | 2024-10-20 22:07 | XMS_ITS | Encounter Summary ---
Author Organization [facility] Address [address] [place] [address] Care Team Providers Care Barrel Waterer Name Role Phone Unavailable Primary Care Provider Unavailabl e Encounter Details Date Type Department Care Team (Late st Contact Info) Description 04/27/2024 Abstract N[facility] GALVEZ [address] [place] [address] Derian Garcia DO [address] [place], [place] [address] Social History Tobacco Use Types Packs/Day Years [...] Info) Description 10/23/2024 1:10 PM EDT Routine NOMSaima GALVEZ [address] [place] [address] Sydney Ayala PA [address] [place], [facility]11 05/20/2025 9:00 AM EDT Office Visit ROSIE GALVEZ [address] [place] [address] Derian Garcia, [address] [place], [place] [address] documented as of this encounter Visit Diagnoses Not on filedocumented in this encounter
--- OUTSIDE RECORDS SUMMARY | 2024-10-20 22:07 | XMS_ITS | Encounter Summary ---
Author Organization [facility] Address [address] [place] [address] Care Team Providers Care Loader Unloader Name Role Phone Unavailable Primary Care Provider Unavailabl e Encounter Details Date Type Department Care Team (Late st Contact Info) Description 04/20/2024 Abstract NOM[facility]aima GALVEZ [address] [place] [address] Derian Garcia DO [address], [place] [address] Social History Tobacco Use Types Packs/Day Years [...] Description 10/23/2024 1:10 PM EDT Routine NOMSaima AGLVEZ [address] [place] [address] Sydney Ayala PA [address] [place], [facility] 05/20/2025 9:00 AM EDT Office Visit ROSIE GALVEZ [address] [place] [address] Derian Garcia, [address] [place], [place] [address] documented as of this encounter Visit Diagnoses Not on filedocumented in this encounter
--- OUTSIDE RECORDS SUMMARY | 2024-10-20 22:08 | XMS_ITS | Encounter Summary ---
Author Organization [facility] Address [address] [place] [address] Care Team Providers Care Supervisor Spring Up Name Role Phone Unavailable Primary Care Provider Unavailabl e Encounter Details Date Type Department Care Team (Latest Contact Info) Description 10/12/2024 Travel Social History Tobacco Use Types Packs/Day [...] 1:10 PM EDT Routine NOMSaima GALVEZ [address] [place] [address] Sydney Ayala PA [address] [place], [facility] 05/20/2025 9:00 AM EDT Office Visit ROSIE GALVEZ [address] [place] [address] Derian Garcia DO [address] [place], [facility] documented as of this encounter Visit Diagnoses Not on filedocumented in this encounter
--- OUTSIDE RECORDS SUMMARY | 2024-10-20 22:08 | XMS_ITS | Encounter Summary ---
Author Organization [facility] Address [address] [place] [address] Care Team Providers Care Liner Machine Operator Name Role Phone Unavailable Primary Care Provider Unavailabl e Encounter Details Date Type Department Care Team (Late st Contact Info) Description 05/21/2024 Orders Only NOM[facility]aima GALVEZ [address] [place] [address] Jackie Corea MA [address] [place] [address] Social History Tobacco Use Types Packs/Day Years [...] 1:10 PM EDT Routine NOM[facility]aima GALVEZ [address] [facility] [place] [address] Sydney Ayala PA [address] [place] [address] 05/20/2025 9:00 AM EDT Office Visit NOMSaima GALVEZ [address] [place] [address] Derian Garcia DO [address] [place] [address] [place] [address] documented as of this encounter Procedures Procedure Name Priority Date/Time Associated Diagnosis Comments PAP SMEAR Routine 05/10/2024 12:00 AM EST documented in this encounter Results * Pap Smear (05/10/2024 12:00 AM EST) Swab Cervical swab / Unknown us Derian Garcia DO LAB CYTOLOGY ORDERABLES Final Re sult EXTERNAL LAB documented in this encounter Visit Diagnoses Not on filedocumented in this encounter
--- OUTSIDE RECORDS SUMMARY | 2024-10-20 22:08 | XMS_ITS | Encounter Summary ---
Author Organization [facility] Address [address] [place] [address] Care Team Providers Care Industrial Insulator Name Role Phone Unavailable Primary Care Provider Unavailabl e Encounter Details Date Type Department Care Team (Late st Contact Info) Description 05/02/2024 Abstract NOMSaima GALVEZ [address] [place] [address] Derian Garcia DO [address], [place] [address] Social History Tobacco Use Types Packs/Day Years [...] EDT Routine NOMSaima GALVEZ [address] [place] [address] Sydney Ayala PA [address] [place], [facility] 05/20/2025 9:00 AM EDT Office Visit ROSIE GALVEZ [address] [place] [address] Derian Garcia, [address] [place], [place] [id number] documented as of this encounter Visit Diagnoses Not on filedocumented in this encounter
--- OUTSIDE RECORDS SUMMARY | 2024-10-20 22:08 | XMS_ITS | Encounter Summary ---
Author Organization [facility] Address [address] [place] [address] Care Team Providers Care Mill Operator Head Name Role Phone Unavailable Primary Care Provider Unavailabl e Encounter Details Date Type Department Care Team (Late st Contact Info) Description 10/12/2024 Clinisync Result Encounter [facility] External Department Unsolicited Ranulfo Garcia, DO [address], [facility] [address] Social History Tobacco Use Types Packs/Day Years [...] PM EDT Routine N[facility]S [place] GALVEZ [address] [place] [address] Sydney Ayala PA [address] [place], [facility] [address] 05/20/2025 9:00 AM EDT Office Visit NOMSaima GALVEZ [address] [place] [address] Ranulfo Garcia DO [address] [place] [id number] documented as of this encounter Procedures Procedure Name Priority Date/Time Associated Diagnosis Comments US OB BPP W NON-STRESS 10/12/2024 12:02 PM EDT documented in this encounter Results * US OB BPP W NON-STRESS (10/12/2024 12:02 PM EDT) Anatomical Region Laterality Modality Other 10/12/2024 12:0 2 PM EDT Narrative 10/12/2024 12:05 [place] [address] Ultrasound Report Signed Patient: MARY ANSARI MR#: [id number] : 1990 Acct:[id number] Age/Sex: 34 / F ADM Date: Loc: [facility] 254- Attending Dr: Ranulfo Garcia D.O. Ordering Physician: Ranulfo Garcia D.O. Date of Service: 10/12/24 Procedure(s): US OB BPP w non-stress Accession Number(s): [id number] cc: Ranulfo Garcia D.O.; Physician,Non-Staff Larry The [address] [address] Patient Name: MARY ANSARI MRN: [id number] date: 1990 Sex: F Assigned Patient Location: [facility] Current Patient Location: [facility] Accession/Order Number: [id number] Exam Date: 10/12/2024 11:51 Report Date: 10/12/2024 12:02 At the request of: RANULFO GARCIA DO Procedure: US OB BPP w non-stress CLINICAL DATA: Patient fell this morning and has had cramping since. BIOPHYSICAL PROFILE: COMPARISON: None There is a single live intrauterine gestation in cephalic presentation. The reported gestational age is 34 weeks 3 days. The heart rate [id number] beats per minutee. FINDINGS: TONE: 1 or [...] Lopez M.D. 10/12/2024 12:02 PM Dictation Location: [place] [address] Electronically authenticated by: [id number] Y Date: 10/12/2024 12:02 Dictated By: Steffi Lopez M.D. Signed By: 10/12/24 1205 DD/ 1202 TD/TT: Entry Level: Procedure Note Radiology, Radiologist, MD - 10/12/2024 [place] [address] Ultrasound Report Signed Patient: MARY ANSARI AMR#: [id number] : 1990Acct:[id number] Age/Sex: 34 / FADM Date: Loc: [facility] 254- Attending Dr: Ranulfo Garcia D.O. Ordering Physician: Ranulfo Garcia D.O. Date of Service: 10/12/24 Procedure(s): US OB BPP w non-stress Accession Number(s): [id number] cc: Ranulfo Garcia D.O.; Physician,Non-Staff Larry The [place] [id number] Patient Name: MARY ANSARI MRN: [id number] date: 1990 Sex: F Assigned Patient Location: [facility] Current Patient Location: [facility] Accession/Order Number: [id number] Exam Date: 10/12/2024 11:51 Report Date: 10/12/2024 12:02 At the request of: RANULFO GARCIA DO Procedure: US OB BPP w non-stress CLINICAL DATA: Patient fell this morning and has had cramping since. BIOPHYSICAL PROFILE: COMPARISON: None There is a single live intrauterine gestation in cephalic presentation.The reported gestational age is 34 weeks 3 days. The heart [id number] beats per minutee. FINDINGS: TONE: 1 or [...] Lopez M.D. 10/12/2024 12:02 PM Dictation Location: [place] [address] Electronically authenticated by: [id number] Y Date: 2:02 Dictated By: Steffi Lopez M.D. Signed By:10/12/24 1205 DD/ 1202 TD/TT: Entry Level: us Ranulfo Garcia DO [facility] Final Result documented in this encounter Visit Diagnoses Not on filedocumented in this encounter
--- OUTSIDE RECORDS SUMMARY | 2024-10-20 22:08 | XMS_ITS | Encounter Summary ---
Author Organization [facility] Address [address] [place] [address] Care Team Providers Care Harbor Police Launch Commander Name Role Phone Unavailable Primary Care Provider Unavailabl e Encounter Details Date Type Department Care Team (Late st Contact Info) Description 05/02/2024 Abstract NOMSaima GALVEZ [address] [place] [address] Derian Garcia DO [address], [place] [address] Social History Tobacco Use Types Packs/Day Years [...] EDT Routine NOMSaima GALVEZ [address] [place] [address] Sydney Ayala PA [address] [place], [facility]11 05/20/2025 9:00 AM EDT Office Visit ROSIE GALVEZ [address] [place] [address] Derian Garcia, [address] [place], [place] [id number] documented as of this encounter Visit Diagnoses Not on filedocumented in this encounter
--- OUTSIDE RECORDS SUMMARY | 2024-10-20 22:08 | XMS_ITS | Encounter Summary ---
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 Phone Unavailable Primary Care Provider Unavailabl e Encounter Details Date Type Department Care Team (Late st Contact Info) Description 10/12/2024 Clinisync Result Encounter NOMS External Department Unsolicited Ranulfo Garcia, DO [address], [facility]11 Social History Tobacco Use Types Packs/Day [...] Routine [facility]S [place] GALVEZ [address] [place] [address] Sydney Ayala PA [address] [place], [facility]11 05/20/2025 9:00 AM EDT Office Visit NOMSaima GALVEZ [address] [place] [address] Ranulfo Garcia DO [address] [place] [id number] documented as of this encounter Procedures Procedure Name Priority Date/Time Associated Diagnosis Comments US OB PLACENTA 10/12/2024 12:02 PM EDT documented in this encounter Results * US OB PLACENTA (10/12/2024 12:02 PM EDT) Anatomical Region Laterality Modality Other 10/12/2024 12:0 2 PM EDT Narrative 10/12/2024 12:04 PM EDT [address] [address] Ultrasound Report Signed Patient: MARY ANSARI MR#: [id number] : 1990 Acct:[id number] Age/Sex: 34 / F ADM Date: Loc: [facility] 254-[address]: Ranulfo Garcia D.O. Ordering Physician: Ranulfo Garcia D.O. Date of Service: 10/12/24 Procedure(s): US OB placenta Accession Number(s): [id number] cc: Ranulfo Garcia D.O.; Physician,Non-Staff Larry [address] [address] Patient Name: MARY ANSARI MRN: [id number] date: 1990 Sex: F Assigned Patient Location: [facility] Current Patient Location: [facility] Accession/Order Number: [id number] Exam Date: 10/12/2024 11:51 Report Date: 10/12/2024 12:02 At the request of: RANULFO GARCIA DO Procedure: US OB BPP w non-stress CLINICAL DATA: Patient fell this morning and has had cramping since. BIOPHYSICAL PROFILE: COMPARISON: None There is a single live intrauterine gestation in cephalic presentation. The reported gestational age is 34 weeks 3 days. The heart rate beats per minutee. FINDINGS: TONE: 1 or [...] Lopez M.D. 10/12/2024 12:02 PM Dictation Location: [facility] Electronically authenticated by: [id number] Y Date: 10/12/2024 12:02 Dictated By: Steffi Lopez M.D. Signed By: 10/12/24 1204 DD/ 1202 TD/TT: Grouter Helper: Procedure Note Radiology, Radiologist, MD - 10/12/2024 [place] [address] Ultrasound Report Signed Patient: MARY ANSARI AMR#: [id number] : 1990Acct:[id number] Age/Sex: 34 / FADM Date: Loc: [facility] 254-[address]: Ranulfo Garcia D.O. Ordering Physician: Ranulfo Garcia D.O. Date of Service: 10/12/24 Procedure(s): US OB placenta Accession Number(s): [id number] cc: Ranulfo Garcia D.O.; Physician,Non-Staff Larry The [address] [address] Patient Name: MARY ANSARI MRN: [id number] date: 1990 Sex: F Assigned Patient Location: [facility] Current Patient Location: [facility] Accession/Order Number: [id number] Exam Date: 10/12/2024 11:51 Report Date: 10/12/2024 12:02 At the request of: RANULFO GARCIA DO Procedure: US OB BPP w non-stress CLINICAL DATA: Patient fell this morning and has had cramping since. BIOPHYSICAL PROFILE: COMPARISON: None There is a single live intrauterine gestation in cephalic presentation.The reported gestational age is 34 weeks 3 days. The heart [id number] beats per minutee. FINDINGS: TONE: 1 or [...] Lopez M.D. 10/12/2024 12:02 PM Dictation Location: [place] [address] Electronically authenticated by: [id number] Y Date: 2:02 Dictated By: Steffi Lopez M.D. Signed By:10/12/24 1204 DD/ 1202 TD/TT: Grouter Helper: us Ranulfo Garcia DO [facility] Final Result documented in this encounter Visit Diagnoses Not on filedocumented in this encounter
--- OUTSIDE RECORDS SUMMARY | 2024-10-20 22:08 | XMS_ITS | CCD ---
Author Organization [facility] Care Team Providers Care Marketing Technology Specialist Name Role Phone AMANDEEP MORATAYA Admitting Unavailable AMANDEEP MORATAYA Attending Unavailable DIANNA, DR VINCENT Meza Primary Care Unavail able WEST, DR GURVINDER Corey Consulting Unavailable SAMAN JARA Consulting Unavailable Unavailable Primary Care Provider Unavailabl e Pcp, Not In System Primary Care Provider Unavail able Pcp, Not In System Primary Care Provider Unavail able Unavailable Primary Care Provider Unavailabl e JOSE, RANULFO R Referring Unavailable PCP, NOT IN SYSTEM Primary Care Unavailable JOSE, RANULFO R Referring Unavailable PCP, NOT IN SYSTEM Primary Care Unavailable SPENCER, KRISTINA E Attending Unavailable JOSE, RANULFO R Referring Unavailable DOCHEVA, NIKOLINA P Attending Unavailable JOSE, RANULFO R Referring Unavailable SPENCER, KRISTINA E Referring Unavailable PCP, NOT IN SYSTEM Primary Care Unavailable SPENCER, KRISTINA E Referring Unavailable SPENCER, KRISTINA E Referring Unavailable DOCHEVA, NIKOLINA P Referring Unavailable JOSE, RANULFO R Referring Unavailable JOSE, RANULFO Attending Unavailable JOSE, RANULFO Attending Unavailable CRISTY PULIDO Attending Unavailable JOSE, RANULFO Attending Unavailable ALIS, SYDNEY Attending Unavailable JOSE, RANULFO Attending Unavailable ALIS, SYDNEY Attending Unavailable JOSE, RANULFO Attending Unavailable Medications Current Medications Medication Drug Class(es) Dates Sig (Normalized) Sig (Original) cephalexin 500 mg oral capsule (2 sources) Cephalosporin Antibacterial Start: 10-15-2024 End: 10-22-2024 take 1 capsule by mouth in the morning, then take 1 capsule by mouth in the evening, then take 1 capsule by mouth at bedtime cephalexin (Keflex) 500 MG capsule Indications: Cystitis Take 1 capsule (500 mg) by mouth in the morning and 1 capsule (500 mg) in the evening and 1 capsule (500 mg) before bedtime. Do all this for 7 days. 21 capsule 10/15/2024 10/22/2024 Active omeprazole 20 mg delayed release oral capsule (12 sources) Proton Pump Inhibitor Start: 08-30-2024 End: 09-29-2024 take 1 capsule by mouth before mealtime omeprazole (PriLOSEC) [address] capsule Indications: Gastroesophageal Reflux Disease , Heartburn Take 1 capsule (20 mg) by mouth in the morning. Take before meals. Do not crush or chew. 30 capsule 3 08/30/2024 Active 27-1 MG tablet (17 sources) Start: 08-09-2024 End: 08-09-2025 take 1 tablet by mouth once daily 27-1 MG tablet Indications: Second trimester ([facility]) , 25 weeks gestation of ([facility]) Take 1 tablet by mouth Daily 30 tablet 11 08/09/2024 08/09/2025 Active Start: 08-09-2024 End: 08-09-2025 take 1 tablet by mouth once daily 27-1 MG tablet Indications: Second trimester , 25 weeks gestation of Take 1 tablet by mouth Daily 30 tablet 11 08/09/2024 08/09/2025 Active MV-Min-Fe Fum-FA-DH A ( 1 PO) (20 sources) MV-Min- Fe Fum-FA-DHA ( 1 PO) Take 1 tablet by mouth Daily Active MV-Min- Fe Fum-FA-DHA ( 1 PO) Take by mouth Active [id number] ac id ( 19) 29 mg iron- 1 mg tablet,chewable (10 sources) [id number] jacqui-folic acid ( 19) 29 mg iron- 1 mg tablet,chewable Chew 1 tablet and swallow in the morning. Active Completed/Discontinued Medications Medication Drug Class(es) Dates Sig (Normalized) Sig (Original) metoclopramide 10 mg oral tablet (20 sources) Dopamine-2 Receptor Antagonist Start: 05-10-2024 End: 09-17-2024 metoclopramide (Reglan) 10 MG tablet Indications: 12 weeks gestation of ([facility]) Take 1 tablet (10 mg) by mouth in the morning and 1 tablet (10 mg) at noon and 1 tablet (10 mg) in the evening. Take before meals. Take 1 tablet by mouth 30 minutes prior to meals 3 times daily as needed for nausea.. 90 tablet 3 05/10/2024 09/17/2024 Discontinued Problems Active Problems Problem Classification Problem Date Documented Date Episodic/Chronic Contraceptive and procreative management (2 sources) Patient encounter status; Translations: [Encounter for other general counseling and advice on contraception] 08-09-2024 Episodic Hemorrhage during ; abruptio placenta; placenta previa (6 sources) Low lying placenta; Translations: [Low lying placenta NOS or without hemorrhage, unspecified trimester] Onset: 08-09-2024 07-04-2024 Episodic Hepatitis (4 sources) Hepatitis Onset: 07-04-2024 07-04-2024 Immunizations and screening for infectious disease (4 sources) Exposure to sexually transmissible disorder; Translations: [Contact with and (suspected) exposure to infections with a predominantly sexual mode of transmission] Onset: 08-11-2024 05-10-2024 Episodic Menstrual disorders (1 source) Missed period; Translations: [Irregular menstruation, unspecified] 04-20-2024 Chronic Other complications of (8 sources) Viral hepatitis complicating , unspecified trimester; Translations: [Other viral diseases in the mother, unspecified as to episode of care or not applicable] Onset: 07-04-2024 07-04-2024 Episodic Other complications of (4 sources) Gastroesophageal reflux disease in ; Translations: [Diseases of the digestive system complicating , unspecified trimester] 08-30-2024 Episodic Other female genital disorders (2 sources) Vaginal discharge; Translations: [Other specified noninflammatory disorders of vagina] 05-10-2024 Episodic Other lower respiratory disease (4 sources) Cough; Translations: [COUGH] Onset: 11-26-2020 Episodic Other and delivery including normal (20 sources) ; Translations: [Encounter for supervision of normal , unspecified, unspecified trimester] 04-20-2024 Episodic Other screening for suspected conditions (not mental disorders or infectious disease) (3 sources) Encounter for other specified screening; Translations: [Patient encounter status] Onset: 07-04-2024 08-09-2024 Episodic Pneumonia (except that caused by tuberculosis [...] of ] 07-05-2024 Episodic Residual codes; unclassified (2 sources) 25 weeks gestation of ; Translations: [25 weeks gestation of ] Onset: 08-10-2024 Episodic Residual codes; unclassified (3 sources) Gestation period, 25 weeks; Translations: [25 weeks gestation of ] 08-10-2024 Episodic Residual codes; unclassified (2 sources) Gestation period, 28 weeks; Translations: [28 weeks gestation of ] 08-30-2024 Episodic Residual codes; unclassified (2 sources) Gestation period, 30 weeks; Translations: [30 weeks gestation of ] 09-17-2024 Episodic Residual codes; unclassified (2 sources) Gestation period, 35 weeks; Translations: [35 weeks gestation of ] 10-15-2024 Episodic Unclassified (1 source) Hx C/S Onset: 07-04-2024 Urinary tract infections (2 sources) Cystitis; Translations: [Cystitis, unspecified without hematuria] 10-15-2024 Episodic Viral infection (1 source) COVID-19; Translations: [COVID-19] Onset: 11-28-2020 Past or Other Problems Problem Classification Problem Date Documented Da te Episodic/Chronic Hepatitis (20 sources) Finding of Hepatitis C status; Translations: [Unspecified viral hepatitis C without hepatic coma] Onset: 04-25-2024 04-25-2024 Episodic Viral infection (20 sources) Herpes simplex; Translations: [Herpesviral infection, unspecified] Onset: 04-25-2024 04-25-2024 Episodic Results Test Name Value Interpretation Reference Range Facil ity Urinalysis macro (dipstick) panel (U)on 10-15-2024 Bilirubin, UA Negative Negative - 4(70) +++ mg/dL [facility] Blood, UA Positive Negative - 50 Herb/mcL [facility] Clarity, UA Clear [facility] Color, UA Yellow [facility] Glucose, UA Negative Negative - 1999(110) ++++ mg/dL [facility] Interpretation and review of laboratory results Abnormal [facility] Ketones, UA Negative Negative - 160(16) ++++ mg/dL [facility] Leukocytes, UA Negative Negative - 500+++ Bobby/mcL [facility] Nitrite, UA Negative Negative - Positive [facility] pH, UA 6 5 - 9 [facility] Protein, UA 1+ Negative - 2000(20) ++++ mg/dL [facility] Spec Grav, UA 1.025 1 - 1.03 [facility] Urobilinogen, UA 1.0 0.2 - 12 mg/dL [facility] No Panel Informationon 10-12 Radiology Study observation (narrative) [facility] US OB BPP W NON-STRESS on 10-12-2024 [place] [address] Ultrasound Report Signed Patient: BIBIANA ANSARI MR#: [id number] : 1990 Acct:[id number] Age/Sex: 34 / F ADM Date: Loc: [facility] 254-[address]: Raunlfo Garcia D.O. Ordering Physician: Ranulfo Garcia D.O. Date of Service: 10/12/24 Procedure(s): US OB BPP w non-stress Accession Number(s): [id number] cc: Ranulfo Garcia D.O.; Physician,Non-Staff M.Carol The [address] [address] Patient Name: BIBIANA ANSARI MRN: [id number] date: 1990 Sex: F Assigned Patient Location: [facility] Current Patient Location: [facility] Accession/Order Number: [id number] Exam Date: 10/12/2024 11:51 Report Date: 10/12/2024 12:02 At the request of: RANULFO GARCIA DO Procedure: US OB BPP w non-stress CLINICAL DATA: Patient fell this morning and has had cramping since. BIOPHYSICAL PROFILE: COMPARISON: None There is a single live intrauterine gestation in cephalic presentation. The reported gestational age is 34 weeks 3 days. The heart rate [id number] beats per minutee. FINDINGS: TONE: 1 or [...] 10/12/2024 12:02 PM Dictation Location: [place] [address] Electronically authenticated by: [id number] Y Date: 10/12/2024 12:02 Dictated By: Steffi Lopez M.D. Signed By: 10/12/24 1205 DD/ 1202 TD/TT: Tool [employer] Set Up Operator: [facility] Radiology, Radiologist, MD - 10/12/2024 [place] [address] Ultrasound Report Signed Patient: BIBIANA ANSARI MR#: [id number] : 1990 Acct:[id number] Age/Sex: 34 / F ADM Date: Loc: [facility] 254-[address]: Ranulfo Garcia D.O. Ordering Physician: Ranulfo Garcia D.O. Date of Service: 10/12/24 Procedure(s): US OB BPP w non-stress Accession Number(s): [id number] cc: Ranulfo Garcia D.O.; Physician,Non-Staff [place] [id number] Patient Name: BIBIANA ANSARI MRN: [facility]:[id number] date: 1990 Sex: F Assigned Patient Location: [facility] Current Patient Location: [facility] Accession/Order Number: [id number] Exam Date: 10/12/2024 11:51 Report Date: 10/12/2024 12:02 At the request of: RANULFO GARCIA DO Procedure: US OB BPP w non-stress CLINICAL DATA: Patient fell this morning and has had cramping since. BIOPHYSICAL PROFILE: COMPARISON: None There is a single live intrauterine gestation in cephalic presentation. The reported gestational age is 34 weeks 3 days. The heart rate [id number] beats per minutee. FINDINGS: TONE: 1 or [...] 10/12/2024 12:02 PM Dictation Location: [place] [address] Electronically authenticated by: [id number] Y Date: 10/12/2024 12:02 Dictated By: Steffi Lopez M.D. Signed By: 10/12/24 1205 DD/ 120 TD/TT: Tool Radial [employer]ill Press Set Up Operator: [facility] US OB BPP W NON-STRESS Ordered By: Radiologist Radiology on 10-12-2024 [facility] [employer] Work Phone: US OB PLACENTAon 10-12-2024 [place] [address] Ultrasound Report Signed Patient: BIBIANA ANSARI MR#: [id number] : 1990 Acct:[id number] Age/Sex: 34 / F ADM Date: Loc: [facility] 254-[address]: Ranulfo Garcia D.O. Ordering Physician: Ranulfo Garcia D.O. Date of Service: 10/12/24 Procedure(s): US OB placenta Accession Number(s): [id number] cc: Ranulfo Garcia D.O.; Physician,Non-Staff Larry [facility] [place] [address] Patient Name: BIBIANA ANSARI MRN: [id number] date: 1990 Sex: F Assigned Patient Location: [facility] Current Patient Location: [facility] Accession/Order Number: [id number] Exam Date: 10/12/2024 11:51 Report Date: 10/12/2024 [...] 10/12/2024 12:02 PM Dictation Location: [place] [address] Electronically authenticated by: [id number] Y Date: 10/12/2024 12:02 Dictated By: Steffi Lopez M.D. Signed By: 10/12/24 1204 DD/ 1202 TD/TT: Tool Radial [employer] Press Set Up Operator: [facility] Radiology, Radiologist, MD - 10/12/2024 [place] [address] Ultrasound Report Signed Patient: BIBIANA ANSARI MR#: [id number] : 1990 Acct:[id number] Age/Sex: 34 / F ADM Date: Loc: [facility] 254-[address]: Ranulfo Garcia D.O. Ordering Physician: Ranulfo Garcia D.O. Date of Service: 10/12/24 Procedure(s): US OB placenta Accession Number(s): [id number] cc: Ranulfo Garcia D.O.; Physician,Non-Staff Larry The [place] [id number] Patient Name: BIBIANA ANSARI MRN: [facility]:[id number] date: 1990 Sex: F Assigned Patient Location: [facility] Current Patient Location: [facility] Accession/Order Number: [id number] Exam Date: 10/12/2024 11:51 Report Date: 10/12/2024 12:02 At the request of: RANULFO GARCIA DO Procedure: US OB BPP w non-stress CLINICAL DATA: Patient fell this morning and has had cramping since. BIOPHYSICAL PROFILE: COMPARISON: None There is a single live intrauterine gestation in cephalic presentation. The reported gestational age is 34 weeks 3 days. The heart rate [id number] beats per minutee. FINDINGS: TONE: 1 or [...] 13.1 cm Total score: 8/8 US/US OB placenta IMPRESSION: NORMAL BIOPHYSICAL PROFILE. ULTRASOUND OB PLACENTA COMPARISON: none The placenta is posterior and within normal limits for appearance and position. There might be a tiny venous glass measuring 1 cm in size. No previa or suspected abruption is seen. IMPRESSION: NO SIGNIFICANT PLACENTAL ABNORMALITIES. Impression dictated by: Steffi Lopez M.D. 10/12/2024 12:02 PM Dictation Location: [facility] Electronically authenticated by: [id number] Y Date: 10/12/2024 12:02 Dictated By: Steffi Lopez M.D. Signed By: 10/12/24 1204 DD/ 1202 TD/TT: Tool Radial Drill Press Set Up Operator: [facility] US OB PLACENTAOrdered By: Ra ricoogleo Radiology on 10-12-2024 [email or web address] Work Phone: US OB FOLLOW UP TRANSABDOMIN AL APPROACHon 10-01-2024 US OB FOLLOW UP TRANSABDOMINAL APPROACH EXAM: US OB FOLLOW UP TRANSABDOMINAL APPROACH [...] II, MD, PHD at 01-Oct-2024 11:42:55 PM [facility] Normal Not Available Comment on above: Order Comment: US OB SCAN FOR GROWTH Estimated Date of Delivery: 11/20/24 Gestational Age as of 09/17/2024: 30w6d Urinalysis macro (dipstick) panel (U)on 10-01-2024 Bilirubin, UA Negative Negative - 4(70) +++ mg/dL [facility] Blood, UA Negative Negative - 50 Herb/mcL [facility] Clarity, UA Clear [facility] Color, UA Yellow [facility] Glucose, UA Negative Negative - 1999(110) ++++ mg/dL [facility] Interpretation and review of laboratory results Normal [facility] Ketones, UA Negative Negative - 160(16) ++++ mg/dL [facility] Leukocytes, UA Negative Negative - 500+++ Bobby/mcL [facility] Nitrite, UA Negative Negative - Positive [facility] pH, UA 6.5 5 - 9 [facility] Protein, UA Negative Negative - 1999(20) ++++ mg/dL [facility] Spec Grav, UA 1.015 1 - 1.03 [facility] Urobilinogen, UA 0.2 0.2 - 12 mg/dL [facility] Urinalysis macro (dipstick) panel (U)on 09-17-2024 Bilirubin, UA Negative Negative - 4(70) +++ mg/dL [facility] Blood, UA Negative Negative - 50 Herb/mcL [facility] Clarity, UA Clear [facility] Color, UA Yellow [facility] Glucose, UA Negative Negative - 1999(110) ++++ mg/dL [facility] Interpretation and review of laboratory results Abnormal [facility] Ketones, UA Negative Negative - 160(16) ++++ mg/dL [facility] Leukocytes, UA Negative Negative - 500+++ Bobby/mcL [facility] Nitrite, UA Negative Negative - Positive [facility] pH, UA 6 5 - 9 [facility] Protein, UA Trace Negative - 1999(20) ++++ mg/dL [facility] Spec Grav, UA 1.03 1 - 1.03 [facility] Urobilinogen, UA 0.2 0.2 - 12 mg/dL [facility] Urinalysis macro (dipstick) panel (U)on 08-30-2024 Bilirubin, UA Negative Negative - 4(70) +++ mg/dL [facility] Blood, UA Negative Negative - 50 Herb/mcL [facility] Clarity, UA Clear [facility] Color, UA Yellow [facility] Glucose, UA Negative Negative - 1999(110) ++++ mg/dL [facility] Interpretation and review of laboratory results Abnormal [facility] Ketones, UA Positive Negative - 160(16) ++++ mg/dL [facility] Comment on above: Trace Leukocytes, UA Trace Negative - 500+++ Bobby/mcL [facility] Nitrite, UA Negative Negative - Positive [facility] pH, UA 6 5 - 9 [facility] Protein, UA Trace Negative - 2000(20) ++++ mg/dL [facility] Spec Grav, UA 1.03 1 - 1.03 [facility] Urobilinogen, UA 0.2 0.2 - 12 mg/dL [facility] GLUCOSE TOLERANCE 3 HOURon 0 08-13-2024 GLUCOSE TOLERANCE 3 HOUR High mg/dL [facility] Comment on above: GLU FAST 93 (<95) Co l: 08/13/24 1026 GLU 1HR 132 (<180) Col: 08/13/24 1128 GLU 2HR 152 (<155) Col: 08/13/24 1228 GLU 3HR 143H (<140) Col: 08/13/24 1331 Interpretation and review of laboratory results Abnormal [facility] ALL CBC WITH AUTO DIFFon BASOPHILS ABSOLUTE AUTO 0 [facility] Basophils/100 WBC (Bld) 0.2 % 0.2 - 2.0 % [facility] Eosinophils/100 WBC (Bld) 1 % 0.9 - 7.0 % [facility] Erythrocyte distribution width (RBC) [Ratio] 12.9 % 11.0 - 15.0 % [facility] Hematocrit (Bld) [Volume fraction] 33 % Low 36.0 - 48.0 % [facility] Hemoglobin (Bld) [Mass/Vol] 11.5 g/dL Low 12.0 - 16.0 g/dL [facility] IMMATURE GRANULOCYTES ABS AUTO 0.03 [facility] Immature granulocytes/100 WBC (Bld) 0.4 % 0.0 - 0.5 % [facility] Interpretation and review of laboratory results Abnormal [facility] LYMPHOCYTES ABSOLUTE AUTO 1.6 [facility] Lymphocytes/100 WBC (Bld) 19.1 % Low 20.5 - 60.0 % [facility] MCH (RBC) [Entitic mass] 30.7 pg 26.7 - 34.0 pg [facility] MCHC (RBC) [Mass/Vol] 34.8 g/dL 29.9 - 35.2 g/dL [facility] MCV (RBC) [Entitic vol] 88.2 fL 81.0 - 99.0 fL [facility] MONOCYTES ABSOLUTE AUTO 0.4 [facility] Monocytes/100 WBC (Bld) 4.9 % 1.7 - 12.0 % [facility] NEUTROPHILS ABSOLUTE AUTO 6.1 [facility] Neutrophils/100 WBC (Bld) 74.4 % 43.0 - 75.0 % [facility] Platelet mean volume (Bld) [Entitic vol] 10.2 fL 9.5 - 13.5 fL [facility] TB EO # 0.1 [facility] TB PLT 247 [facility] RBC 3.74 Low [facility] TB WBC 8.2 [facility] COMPREHENSIVE METABOLIC PANE Maverick 08-11-2024 Albumin [Mass/Vol] 3.7 g/dL Normal 3.2-5.3 [facility] Comment on above: Performed By: #### C MP #### [facility] ([facility]) [address] [place] [address] VIR ALP [Catalytic activity/Vol] 52 U/L Normal 39-130 [facility] Comment on above: Performed By: #### C MP #### [facility] ([facility]) [address] [place] [address] VIR ALT [Catalytic activity/Vol] 36 U/L High <=31 [facility] Comment on above: Performed By: #### C MP #### [facility] ([facility]) [address] [place] [address] VIR Anion gap [Moles/Vol] 8 mmol/L Normal 5-15 [facility] Comment on above: Performed By: #### C MP #### [facility] ([facility]) [address] [place] [address] VIR AST [Catalytic activity/Vol] 26 U/L Normal <=41 [facility] Comment on above: Performed By: #### C MP #### [facility] ([facility]) [address] [place] [address] VIR Bilirubin [Mass/Vol] 0.5 mg/dL Normal 0.3-1.2 [facility] Comment on above: Performed By: #### C MP #### [facility] ([facility]) [address] [place] [address] VIR Calcium [Mass/Vol] 9.2 mg/dL Normal 8.5-10.5 [facility] Comment on above: Performed By: #### C MP #### [facility] ([facility]) [address] [place] [address] VIR Chloride [Moles/Vol] 106 mmol/L Normal 98-109 [facility] Comment on above: Performed By: #### C MP #### [facility] ([facility]) [address] [place] [address] VIR CO2 [Moles/Vol] 24 mmol/L Normal 22-32 [facility] Comment on above: Performed By: #### C MP #### [facility] ([facility]) [address] [place] [address] VIR Creatinine [Mass/Vol] 0.61 mg/dL Normal 0.40-1.00 [facility] Comment on above: Result Comment: METH OD TRACEABLE TO IDMS STANDARD Performed By: #### C MP #### [facility] ([facility]) [address] [place] [address] VIR EGFR (CKD-EPI) NON-RACE DEPENDENT >^90 Normal >=60 [facility] Comment on above: Result Comment: Repo rted eGFR is based on the CKD-EPI 2020 equation that does not use a race coefficient. Performed By: #### C MP #### [facility] ([facility]) [address] [place] [address] VIR Glucose [Mass/Vol] 84 mg/dL Normal 65-99 [facility] Comment on above: Performed By: #### C MP #### [facility] ([facility]) [address] [place] [address] VIR Potassium [Moles/Vol] 4.1 mmol/L Normal 3.5-5.0 [facility] Comment on above: Performed By: #### C MP #### [facility] ([facility]) [address] [place] [address] VIR Protein [Mass/Vol] 6.5 g/dL Normal 6.0-8.0 [facility] Comment on above: Performed By: #### C MP #### [facility] ([facility]) [address] [place] [address] VIR Sodium [Moles/Vol] 138 mmol/L Normal 134-146 [facility] Comment on above: Performed By: #### C MP #### [facility] ([facility]) [address] [place] [address] VIR Urea nitrogen [Mass/Vol] 7 mg/dL Normal 5-23 [facility] Comment on above: Performed By: #### C MP #### [facility] ([facility]) [address] [place] [address] VIR HCV GENOTYPE, Son 08-11-2024 HCV GENOTYPE, S 1a Abnormal Undetected [facility] Comment on above: Result Comment: ADDITIONAL INFORMATION This test was performed using the [employer] RealTime HCV Genotype II assay ([employer] [place], [place]). Test Performed by: [facility] [address] [place] [address] Ecological Technical Officer: Jovanna Ha Ph.D.; CLIA# [id number] Performed By: #### H CVG #### [facility] ([facility]) [address] [place] [address] VIR Urinalysis macro (dipstick) panel (U)on 08-09-2024 Bilirubin, UA Negative Negative - 4(70) +++ mg/dL [facility] Blood, UA Negative Negative - 50 Herb/mcL [facility] Clarity, UA Clear [facility] Color, UA Yellow [facility] Glucose, UA Negative Negative - 2000(110) ++++ mg/dL [facility] Interpretation and review of laboratory results Abnormal [facility] Ketones, UA Negative Negative - 160(16) ++++ mg/dL [facility] Leukocytes, UA Trace Negative - 500+++ Bobby/mcL [facility] Nitrite, UA Negative Negative - Positive [facility] pH, UA 8.5 5 - 9 [facility] Protein, UA Negative Negative - 2000(20) ++++ mg/dL [facility] Spec Grav, UA 1.02 1 - 1.03 [facility] Urobilinogen, UA 1.0 0.2 - 12 mg/dL [facility] US ABDOMEN LMTDon 07-12-2024 US ABDOMEN LMTD [...] Fink MD on 07/12/2024 8:08 PM Normal [facility] APTTon 07-11-2024 aPTT Coag (Bld) [Time] 29 s Normal 26-37 [facility] Comment on above: Performed By: #### P TT #### [facility] (COUNT INCLUDES THE [facility]) [address] [place] [id number] VIR PROTIME AND INRon 07-11-2024 INR 0.9 Normal 0.9-1.2 [facility] Comment on above: Performed By: #### P INR #### [facility] (COUNT INCLUDES THE [facility]) [address] [place] [address] VIR PT Coag (PPP) [Time] 10.5 s Normal 9.8-13.2 [facility] Comment on above: Performed By: #### P INR #### [facility] ([address] [address] VIR Urinalysis macro (dipstick) panel (U)on 07-05-2024 Bilirubin, UA Negative Negative - 4(70) +++ mg/dL [facility] Blood, UA Negative Negative - 50 Herb/mcL [facility] Clarity, UA Clear [facility] Color, UA Yellow [facility] Glucose, UA Negative Negative - 2000(110) ++++ mg/dL [facility] Interpretation and review of laboratory results Normal [facility] Ketones, UA Negative Negative - 160(16) ++++ mg/dL [facility] Leukocytes, UA Negative Negative - 500+++ Bobby/mcL [facility] Nitrite, UA Negative Negative - Positive [facility] pH, UA 6.5 5 - 9 [facility] Protein, UA Negative Negative - 2000(20) ++++ mg/dL [facility] Spec Grav, UA 1.02 1 - 1.03 [facility] Urobilinogen, UA 0.2 0.2 - 12 mg/dL [facility] COMPREHENSIVE METABOLIC PANE Maverick 07-04-2024 Albumin [Mass/Vol] 3.9 g/dL Normal 3.2-5.3 [facility] Comment on above: Performed By: #### C MP #### [facility] ([facility]) [address] [place] [address] VIR ALP [Catalytic activity/Vol] 45 U/L Normal 39-130 [facility] Comment on above: Performed By: #### C MP #### [facility] ([facility]) [address] [place] [address] VIR ALT [Catalytic activity/Vol] 55 U/L High <=31 [facility] Comment on above: Performed By: #### C MP #### [facility] ([facility]) [address] [place] [address] VIR Anion gap [Moles/Vol] 8 mmol/L Normal 5-15 [facility] Comment on above: Performed By: #### C MP #### [facility] ([facility]) [address] [place] [address] VIR AST [Catalytic activity/Vol] 31 U/L Normal <=41 [facility] Comment on above: Performed By: #### C MP #### [facility] ([facility]) [address] [place] [address] VIR Bilirubin [Mass/Vol] 0.4 mg/dL Normal 0.3-1.2 [facility] Comment on above: Performed By: #### C MP #### [facility] ([facility]) [address] [place] [address] VIR Calcium [Mass/Vol] 9.5 mg/dL Normal 8.5-10.5 [facility] Comment on above: Performed By: #### C MP #### [facility] ([facility]) [address] [place] [address] VIR Chloride [Moles/Vol] 105 mmol/L Normal 98-109 [facility] Comment on above: Performed By: #### C MP #### [facility] ([facility]) [address] [place] [address] VIR CO2 [Moles/Vol] 25 mmol/L Normal 22-32 [facility] Comment on above: Performed By: #### C MP #### [facility] ([facility]) [address] [place] [address] VIR Creatinine [Mass/Vol] 0.57 mg/dL Normal 0.40-1.00 [facility] Comment on above: Result Comment: METH OD TRACEABLE TO IDMS STANDARD Performed By: #### C MP #### [facility] ([facility]) [address] [place] [address] VIR EGFR (CKD-EPI) NON-RACE DEPENDENT >^90 Normal >=60 [facility] Comment on above: Result Comment: Repo rted eGFR is based on the CKD-EPI 2020 equation that does not use a race coefficient. Performed By: #### C MP #### [facility] ([facility]) [address] [place] [address] VIR Glucose [Mass/Vol] 92 mg/dL Normal 65-99 [facility] Comment on above: Performed By: #### C MP #### [facility] ([facility]) [address] [place] [address] VIR Potassium [Moles/Vol] 3.9 mmol/L Normal 3.5-5.0 [facility] Comment on above: Performed By: #### C MP #### [facility] ([facility]) [address] [place] [address] VIR Protein [Mass/Vol] 7.0 g/dL Normal 6.0-8.0 [facility] Comment on above: Performed By: #### C MP #### [facility] ([facility]) [address] [place] [address] VIR Sodium [Moles/Vol] 138 mmol/L Normal 134-146 [facility] Comment on above: Performed By: #### C MP #### [facility] ([facility]) [address] [place] [address] VIR Urea nitrogen [Mass/Vol] 10 mg/dL Normal 5-23 [facility] Comment on above: Performed By: #### C MP #### [facility] ([facility]) [address] [place] [address] VIR AFP, SERUM, OPEN SPINA BIFID Aon 06-10-2024 AFP MOM 1.07 . [facility] AFP VALUE 36.0 ng/mL . [facility] COMMENT: Comment . [facility] Comment on above: Erendira Lopez , Ph.D., [facility] Director References: Available Upon Request. Multiples Of Median Cutoffs For AFP Elevations Grier 2.5 Black 2.8 IDD 2.0 Twins 4.5 Abbreviation Definitions IDD - Insulin Dep Diabetes OSBR - Open Spina Bifida Risk For further inquiries contact [employer] [facility] at [phone]. This test was developed and its performance characteristics determined by [employer]. It has not been cleared or approved by the Food and Drug Administration. Performed at: [facility] [employer] [facility] [place], [place] [id number] Ecological Technical Officer: Nancy Pardo [facility], Phone: [phone] GEST. AGE ON COLLECTION DATE 16.9 . weeks [facility] GESTAT. AGE BASED ON LMP . [facility] Comment on above: Recalculations are n ot recommended when gestational dating by LMP and ultrasound are within 10 days. INSULIN DEP DIABETES No . [facility] INTERPRETATION Comment . [facility] Comment on above: Interpretation: Scre en Negative [...] Customer Services to discuss available options. The [employer] recommends amniocentesis be offered to women age 35 and older. [age] [facility] MULTIPLE GESTATION No . [facility] OSBR RISK 1 [place] 9861 . [facility] RACE . [facility] RESULTS Report . [facility] TEST RESULTS: Negative . [facility] WEIGHT 176 . lbs [facility] N N LMP [id number] [phone] 16 N 1 Y 176 N N N N N White/ [facility] Urinalysis macro (dipstick) panel (U)on 06-07-2024 Bilirubin, UA Negative Negative - 4(70) +++ mg/dL [facility] Blood, UA Negative Negative - 50 Herb/mcL [facility] Clarity, UA Clear [facility] Color, UA Yellow [facility] Glucose, UA Negative Negative - 1999(110) ++++ mg/dL [facility] Interpretation and review of laboratory results Abnormal [facility] Ketones, UA Negative Negative - 160(16) ++++ mg/dL [facility] Leukocytes, UA Trace Negative - 500+++ Bobby/mcL [facility] Nitrite, UA Negative Negative - Positive [facility] pH, UA 6.5 5 - 9 [facility] Protein, UA Negative Negative - 1999(20) ++++ mg/dL [facility] Spec Grav, UA 1.025 1 - 1.03 [facility] Urobilinogen, UA 0.2 0.2 - 12 mg/dL [facility] IGP,APTIMA HPV,AGE GDLNon AGE GDLN ACOG TESTING Note . [facility] Comment on above: TESTS RESULT FLAG UN ITS REF RANGE LAB Clinician Provided Cytology Information Source.............Cervix No. of containers..01 ThinPrep Vial Age Algo ACOG Liss... FLAG LEGEND: L-Low Normal,H-High Normal,LL-Alert Low,HH-Alert High <-Panic Low,>-Panic High,A-Abnormal,AA-Critical Abnormal Performed at: 01 =G [facility] [address] Serina Betancourt MD, HPV APTIMA Positive Abnormal Negative [facility] Comment on above: This nucleic acid am plification test detects fourteen high- risk HPV types (16,18,31,33,35,39,45,51,52,56,58,59,66,68) without differentiation. HPV GENOTYPE 16 Positive Abnormal Negative [facility] HPV GENOTYPE 18,45 Negative Negative [facility] Comment on above: Performed at: =G - L [address], [place] [id number] Ecological Technical Officer: Serina Betancourt MD, Phone: [phone] Performed at: [facility] [id number] Ecological Technical Officer: Serina Betancourt MD, Phone: [phone] IGP, APTIMA HPV, RFX 16/18,45 Note . [facility] Comment on above: TESTS RESULT FLAG UN ITS REF RANGE LAB DIAGNOSIS: 02 NEGATIVE FOR INTRAEPITHELIAL LESION OR MALIGNANCY. Specimen adequacy: 02 Satisfactory for evaluation. Endocervical and/or squamous metaplastic cells (endocervical component) are present. Performed by: Twyla Christina Field Service Technician (ASCP) . 02 Note: Note 02 The [...] Low,>-Panic High,A-Abnormal,AA-Critical Abnormal Performed at: 02 WB [facility] [address] [facility] [place] [address] Serina Betancourt MD, Interpretation and review of laboratory results Abnormal [facility] macro (dipstick) panel (U)on 05-10-2024 Bilirubin, UA Negative Negative - 4(70) +++ mg/dL [facility] Blood, UA Negative Negative - 50 Herb/mcL [facility] Clarity, UA Clear [facility] Color, UA Straw [facility] Glucose, UA Negative Negative - 1999(110) ++++ mg/dL [facility] Interpretation and review of laboratory results Abnormal [facility] Ketones, UA Negative Negative - 160(16) ++++ mg/dL [facility] Leukocytes, UA Positive Negative - 500+++ Bobby/mcL [facility] Comment on above: small Nitrite, UA Negative Negative - Positive [facility] pH, UA 7 5 - 9 [facility] Protein, UA Trace Negative - 1999(20) ++++ mg/dL [facility] Spec Grav, UA 1.02 1 - 1.03 [facility] Urobilinogen, UA 0.2 0.2 - 12 mg/dL [facility] Ultrasound - Officeon 2024 Radiology Study observation (narrative) [facility] AFP Single Marker ScrFroylan schumacher rnal, Serumon 04-20-2024 Ms Alpha-Fetoprotein 36 [facility] BOX TESTon 04-20-2024 BOX TEST SENT OUT [facility] BOX1 [facility] BOX2 04/20/2024 [facility] CBC without diffon Hematocrit (Bld) [Volume fraction] 38.7 % [facility] Hemoglobin (Bld) [Mass/Vol] 13.6 g/dL [facility] Platelets (Bld) [#/Vol] 298 10*3/uL [facility] Rbc Mcv (Fl) By Automated Count 86.6 [facility] Drug Screen, Urineon 025 Amphetamine/Methamph etamine Negative [facility] Barbiturates Negative [facility] Benzodiazepines Negative [facility] Cocaine Metabolite Negative [facility] Opiates Negative [facility] Oxycodone Negative [facility] Phencyclidine Negative [facility] Thc Marijuana, Urine Negative [facility] HBV surface Ag IA Qlon 04-20 Hepatitis B Surface Antigen Negative [facility] HCG ( test) Ql (U)o n 04-20-2024 Interpretation and review of laboratory results Abnormal [facility] Preg Test, Ur Positive Negative [facility] HCV Ab IA Qlon 04-20-2024 HCV Ab Ql (S) Reactive [facility] HIV 1+2 Ab+HIV1 p24 Ag IA Ql on 04-20-2024 HIV 1&2 AB/AG Non-Reactive [facility] Hemoglobin A1con 04-20-2024 HbA1c (Bld) [Mass fraction] 5 % 4.0 - 6.0 % [facility] High risk HPV w/genoon 04-20 Other High Risk Hpv Positive [facility] No Panel Informationon 04-20 [facility] Rubella IGG immune statuson 04-20-2024 Rubella immune IgG immune [facility] Syphilis Total(Unknown Syphi lis Status)on 04-20-2024 Syphilis Non-Reactive [facility] Type and screenon 04-20-2024 Abo/Rh(D) Positive [facility] US OB TRANSVAGINALon 025 US OB TRANSVAGINAL [...] within the gestational sac without evident abnormality. [facility] rump length is 2.9 to 3.0 cm. heart rate is 176 bpm. Small lenticular shaped hypoechoic lesion regional to the gestational sac not measured by the isotope technician, 1 to 2 cm. Cervical length 5.2 [...] No LMP recorded. Ultrasound - Officeon 2024 [facility] Urinalysis macro (dipstick) panel (U)on 04-20-2024 Bilirubin, UA Negative Negative - 4(70) +++ mg/dL [facility] Blood, UA Negative Negative - 50 Herb/mcL [facility] Clarity, UA Clear [facility] Color, UA Yellow [facility] Glucose, UA Negative Negative - 2000(110) ++++ mg/dL [facility] Interpretation and review of laboratory results Normal [facility] Ketones, UA Negative Negative - 160(16) ++++ mg/dL [facility] Leukocytes, UA Negative Negative - 500+++ Bobby/mcL [facility] Nitrite, UA Negative Negative - Positive [facility] pH, UA 5.5 5 - 9 [facility] Protein, UA Negative Negative - 2000(20) ++++ mg/dL [facility] Spec Grav, UA 1.02 1 - 1.03 [facility] Urobilinogen, UA 1.0 0.2 - 12 mg/dL [facility] PREG QUANT HCGon 025 HCG QUANTITATIVE 30351 mIU/mL [facility] Comment on above: 5-50 0.2-1 WEEK 50-500 1-2 WEEKS 100-5,000 2-3 WEEKS 500-10,000 3-4 WEEKS 1,000-50,000 4-5 WEEKS 10,000-100,000 5-6 WEEKS 15,000-200,000 6-8 WEEKS 10,000-100,000 [facility] 025 HCG QUANTITATIVE 8482 mIU/mL [facility] Comment on above: 5-50 0.2-1 WEEK 50-500 1-2 WEEKS 100-5,000 2-3 WEEKS 500-10,000 3-4 WEEKS 1,000-50,000 4-5 WEEKS 10,000-100,000 5-6 WEEKS 15,000-200,000 6-8 WEEKS 10,000-100,000 2-3 MONTHS [facility] XR CHEST 1 Von 11-26-2020 XR CHEST [...] by: GURVINDER GUAMAN Date: 2020-11-26 15:58 Normal [facility] Vital Signs Date Time Vital Sign Value Performing Clinician Geraldoi apolloy 10-15-2024 13:10-0400 Body weight 86.18 kg [employer] Work Phone: [facility] 10-15-2024 13:10-0400 Diastolic blood pressure 78 mm[Hg] [employer] Work Phone: [facility] 10-15-2024 13:10-0400 Systolic blood pressure 122 mm[Hg] [employer] Work Phone: [facility] 10-01-2024 14:31-0400 Body weight 85.73 kg Sydney Snell PA Work Phone: [facility] 10-01-2024 14:31-0400 Diastolic blood pressure 80 mm[Hg] Sydney Alis PA Work Phone: [facility] 10-01-2024 14:31-0400 Systolic blood pressure 124 mm[Hg] Sydney Alis PA Work Phone: [facility] 09-17-2024 13:59-0400 Body weight 85.33 kg Ranulfo Jose DO Work Phone: [facility] 09-17-2024 13:59-0400 Diastolic blood pressure 70 mm[Hg] Ranulfo Jose DO Work Phone: [facility] 09-17-2024 13:59-0400 Systolic blood pressure 120 mm[Hg] Ranulfo Jose DO Work Phone: [facility] 08-30-2024 14:01-0400 Body weight 84.14 kg Sydney Snell PA Work Phone: [facility] 08-30-2024 14:01-0400 Diastolic blood pressure 62 mm[Hg] Sydney Alis PA Work Phone: [facility] 08-30-2024 14:01-0400 Systolic blood pressure 128 mm[Hg] Sydney Snell PA Work Phone: [facility] 08-09-2024 09:50-0400 Body weight 83.06 kg Ranulfo Jose DO Work Phone: [facility] 08-09-2024 09:50-0400 Diastolic blood pressure 66 mm[Hg] Ranulfo Jose DO Work Phone: [facility] 08-09-2024 09:50-0400 Systolic blood pressure 122 mm[Hg] Ranulfo Jose DO Work Phone: [facility] 07-05-2024 09:23-0400 Body weight 81.65 kg Cristy Pulido NP Work Phone: [facility] 07-05-2024 09:23-0400 Diastolic blood pressure 62 mm[Hg] Cristy Pulido CLIENT EXPERIENCE SPECIALIST Work Phone: [facility] 07-05-2024 09:23-0400 Systolic blood pressure 110 mm[Hg] Cristy Pulido CLIENT EXPERIENCE SPECIALIST Work Phone: [facility] 07-04-2024 08:39-0400 Body height 157.5 cm Kristina Torres MD Work Phone: [facility] 07-04-2024 08:39-0400 Body mass index (BMI) [Ratio] 33.39 kg/m2 Kristina Torres MD Work Phone: [facility] 07-04-2024 08:39-0400 Body weight 82.83 kg Kristina Torres MD Work Phone: [facility] 07-04-2024 08:39-0400 Diastolic blood pressure 80 mm[Hg] Kristina Torres MD Work Phone: [facility] 07-04-2024 08:39-0400 Heart rate 80 /min Kristina Torres MD Work Phone: [facility] 07-04-2024 08:39-0400 Systolic blood pressure 125 mm[Hg] Kristina Torres MD Work Phone: [facility] 06-07-2024 09:40-0400 Body weight 80.2 kg Ranulfo Jose DO Work Phone: [facility] 06-07-2024 09:40-0400 Diastolic blood pressure 70 mm[Hg] Ranulfo Jose DO Work Phone: [facility] 06-07-2024 09:40-0400 Systolic blood pressure 120 mm[Hg] Ranulfo Jose DO Work Phone: [facility] 05-10-2024 12:13-0500 Body weight 79.74 kg Ranulfo Jose DO Work Phone: [facility] 05-10-2024 12:13-0500 Diastolic blood pressure 80 mm[Hg] Ranuflo Jose DO Work Phone: [facility] 05-10-2024 12:13-0500 Systolic blood pressure 130 mm[Hg] Ranulfo Jose DO Work Phone: [facility] 04-20-2024 09:47-0500 Body weight 80.2 kg Noms Nurse [facility] Encounters Encounter Date Encounter Type Care Provider Facility Start: 10-15-2024 End: 10-15-2024 Bamboo flowsheet Ranulfo Jose DO Work Phone: [facility] Start: 10-15-2024 End: 10-15-2024 Bamboo flowsheet Ranulfo Jose DO Work Phone: [facility] Start: 10-15-2024 End: 10-15-2024 flow sheet Ranulfo Jose DO Work Phone: [facility] Comment on above: Cystitis (Primary Dx ); Third trimester ([facility]); 35 weeks gestation of ([facility]) Start: 10-15-2024 End: 10-15-2024 ambulatory RANULFO JOSE Not Available Start: 10-12-2024 End: 10-12-2024 Clinisync Result Encounter Ranulfo Jose DO Work Phone: [facility] Unsolicited Start: 10-12-2024 End: 10-12-2024 Clinisync Result Encounter Ranulfo Jose DO Work Phone: [facility] Unsolicited Start: 10-01-2024 End: 10-01-2024 flow sheet Sydney Snell PA Work Phone: [facility] Comment on above: Third trimester preg calixto ([facility]) Start: 10-01-2024 End: 10-01-2024 ambulatory SYDNEY SNELL Not Available Start: 09-20-2024 End: 09-20-2024 ambulatory RANULFO R JOSE [facility] Start: 09-17-2024 End: 09-17-2024 Bamboo flowsheet Ranulfo Jose DO Work Phone: [facility] Start: 09-17-2024 End: 09-17-2024 Bamboo flowsheet Ranulfo Jose DO Work Phone: [facility] Start: 09-17-2024 End: 09-17-2024 ambulatory RANULFO JOSE Not Available Start: 09-17-2024 End: 09-17-2024 flow sheet Ranulfo Jose DO Work Phone: [facility] Comment on above: 30 weeks gestation o f ([facility]); Third trimester ([facility]); Hepatitis C test positive ; Gastroesophageal reflux in ([facility]) Start: 08-30-2024 End: 08-30-2024 Bamboo flowsheet Sydney DAVISON Work Phone: [facility] Start: 08-30-2024 End: 08-30-2024 Bamboo flowsheet Sydney DAVISON Work Phone: [facility] Start: 08-30-2024 End: 08-30-2024 flow sheet Sydney DAVISON Work Phone: [facility] Comment on above: Third trimester preg calixto ([facility]); 28 weeks gestation of ([facility]); Hepatitis C test positive ; Gastroesophageal reflux in ([facility]) Start: 08-30-2024 End: 08-30-2024 ambulatory SYDNEY SNELL Not Available Start: 08-13-2024 End: 08-13-2024 Clinisync Result Encounter Ranulfo Jose DO Work Phone: [facility] Unsolicited Start: 08-13-2024 End: 08-13-2024 Clinisync Result Encounter Ranulfo Jose DO Work Phone: [facility] Unsolicited Start: 08-11-2024 End: 08-11-2024 Clinisync Result Encounter Ranulfo Jose DO Work Phone: [facility] Unsolicited Start: 08-11-2024 End: 08-11-2024 Clinisync Result Encounter Ranulfo Yano DO Work Phone: [facility] Unsolicited Start: 08-11-2024 ambulatory [facility] Start: 08-10-2024 End: 08-10-2024 ambulatory [facility] Comment on above: Hepatitis C virus in fection in mother during (Primary Dx); Low-lying placenta Start: 08-10-2024 End: 08-10-2024 Office outpatient visit 15 minutes Jeni Caballero MD Work Phone: [facility] Comment on above: 25 weeks gestation o f (Primary Dx); Hepatitis C antibody positive Start: 08-09-2024 End: 08-09-2024 ambulatory [facility] Start: 08-09-2024 End: 08-09-2024 Bamboo flowsheet Ranulfo Jose DO Work Phone: [facility] Start: 08-09-2024 End: 08-09-2024 Bamboo flowsheet Ranulfo Jose DO Work Phone: [facility] Start: 08-09-2024 End: 08-09-2024 ambulatory RANULFO YANO Not Available Start: 08-09-2024 End: 08-09-2024 flow sheet Ranulfo Jose DO Work Phone: [facility] Comment on above: Second trimester pre gnancy; 25 weeks gestation of ; with normal glucose tolerance test (GTT); Diabetes mellitus screening; Encounter for consultation for female sterilization Start: 07-11-2024 End: 07-11-2024 ambulatory KRISTINA TORRES [facility] Start: 07-09-2024 End: 07-09-2024 Telephone encounter Jillian Hernandez [facility] Start: 07-06-2024 End: 07-06-2024 Orders Only Kristina Torres MD Work Phone: [facility] Comment on above: Hepatitis C virus in fection in mother during (Primary Dx) Start: 07-05-2024 End: 07-05-2024 Bamboo flowsheet Cristy Pulido CLIENT EXPERIENCE SPECIALIST Work Phone: [facility] Start: 07-05-2024 End: 07-05-2024 Bamboo flowsheet Cristy Pulido CLIENT EXPERIENCE SPECIALIST Work Phone: [facility] Start: 07-05-2024 End: 07-05-2024 ambulatory CRISTY ADAM Not Available Start: 07-05-2024 End: 07-05-2024 flow sheet Cristy Pulido CLIENT EXPERIENCE SPECIALIST Work Phone: [facility] Comment on above: Second trimester pre gnancy; 20 weeks gestation of Start: 07-04-2024 End: 07-04-2024 Office outpatient new 45 minutes Kathryn Awad MD Work Phone: [facility] Comment on above: Hepatitis C virus in fection in mother during (Primary Dx) Start: 07-04-2024 End: 07-04-2024 Orders Only Jillian Colin RN [facility] Comment on above: Hepatitis C virus in fection in mother during (Primary Dx); Low-lying placenta Start: 07-03-2024 End: 07-03-2024 Chart abstracting Kathryn Awad MD Work Phone: [facility] Start: 06-08-2024 End: 06-10-2024 Clinisync Result Encounter [...] encounter procedure Ranulfo Jose DO Work Phone: [facility] Start: 05-10-2024 End: 05-10-2024 flow sheet Ranulfo Jose DO Work Phone: [facility] Comment on above: 12 weeks gestation o f ; First trimester ; Well woman exam with routine gynecological exam; Exposure to STD; Vaginal discharge Start: 05-07-2024 End: 05-07-2024 Chart abstracting Kristina Torres MD Work Phone: [facility] Start: 04-20-2024 End: 04-20-2024 Clinisync Result Encounter [...] Date Procedure Procedure Detail Performing Clinician Start: 10-15-2024 Urnls dip stick/tabl et rgnt non-auto w/o micrscp Ranulfo Jose DO Work Phone: Start: 10-12-2024 US OB BPP W NON-STRESS Ranulfo Jose DO Work Phone: Start: 10-12-2024 US OB PLACENTA Ranulfo Fa zio DO Work Phone: Start: 10-01-2024 Urnls dip stick/tabl et rgnt non-auto w/o micrscp Sydney Snell PA Work Phone: Start: 09-17-2024 Urnls dip stick/tabl et rgnt non-auto w/o micrscp Ranulfo Jose DO Work Phone: Start: 08-30-2024 Urnls dip stick/tabl et rgnt non-auto w/o micrscp Sydney Snell PA Work Phone: Start: 08-13-2024 GLUCOSE TOLERANCE 3 HOUR Ranulfo Jose DO Work Phone: Start: 08-11-2024 ALL CBC WITH AUTO DIFF Ranulfo Jose DO Work Phone: Start: 08-09-2024 Urnls dip stick/tabl et rgnt non-auto w/o micrscp Ranulfo Jose DO Work Phone: Start: 07-05-2024 Urnls dip stick/tabl et rgnt non-auto w/o micrscp Cristy Pulido CLIENT EXPERIENCE SPECIALIST Work Phone: Start: 07-04-2024 H/O: section Previous [...] Td Vaccines (8 - Td or Tdap) [employer] [facility] Start: 05-11-2027 Screening for malign ant neoplasm of cervix Pap Smear [employer] Start: 08-10-2025 End: 08-10-2025 US MFM with or without consult US MFM with or without consult Imaging Routine Hepatitis C virus infection in mother during Low-lying placenta Expected: 08/10/2025 (Approximate), Expires: 08/10/2025 [employer] Work Phone: Comment on above: Expected: 08/10/2025 (Approximate), Expires: 08/10/2025 Start: 07-04-2025 Adult BMI Screening Adult BMI Screen ing [facility] Start: 07-04-2025 Tobacco Screening Tobacco Screening [facility] Start: 07-04-2025 End: 07-04-2025 US MFM with or without consult US MFM with or without consult Imaging Routine Hepatitis C virus infection in mother during Low-lying placenta Expected: 07/04/2025 (Approximate), Expires: 07/04/[facility] Comment on above: Expected: 07/04/2025 (Approximate), Expires: 07/04/2025 Start: 05-20-2025 End: 05-20-2025 Patient encounter procedure [facility] Start: 11-05-2024 Influenza vaccination Influenza Vacc ine [facility] Start: 10-23-2024 End: 10-23-2024 Patient encounter procedure 10/23/2024 1:10 PM EDT Routine [facility] [address] [place] [id number] Sydney Snell, PA [address] [place] [address] [facility] Start: 10-15-2024 End: 10-15-2024 Patient encounter procedure [facility] Comment on above: Arrived Start: 10-01-2024 End: 10-01-2024 Patient encounter procedure 10/01/2024 2:50 PM EDT Routine [facility] [address] [place] [id number] Sydney Snell, PA [address] [place] [address] [facility] Start: 10-01-2024 End: 10-01-2024 Professional / ancillary services management 10/01/2024 2:00 PM EDT Ancillary Procedure [facility] [address] [place] [phone] [facility] Start: 09-20-2024 End: 09-20-2024 Patient encounter procedure 09/20/2024 11:00 AM EDT Appointment [facility] [address] [place] [address] [facility] Start: 09-17-2024 End: 01-18-2025 US for US OB follow up transabdominal approach Imaging Routine 30 weeks gestation of ([facility]) Third trimester ([facility]) Hepatitis C test positive Expected: 09/17/2024, Expires: 01/18/2025 [facility] Work Phone: Comment on above: Expected: 09/17/2024 , Expires: 01/18/2025 Start: 09-17-2024 End: 09-17-2024 Patient encounter procedure 09/17/2024 1:50 PM EDT Routine [facility] [address] [place] [phone] Ranulfo aGrcia, [address] [place] [address] [facility] Start: 08-30-2024 End: 08-30-2024 Patient encounter procedure [facility] Comment on above: Arrived Start: 08-11-2024 End: 08-11-2024 ambulatory 08/11/2024 11:00 AM EDT Lab [facility] - Lab [address] [place] [address] [facility] - Lab Start: 08-10-2024 End: 08-10-2024 Telemedicine consultation with patient 08/10/2024 2:00 PM EDT Telemedicine M[facility]- Medicine at [facility] [address] [place] [phone] Jeni Caballero MD [address], [address] [place] [address] [facility] at [facility] Start: 08-09-2024 End: 08-09-2025 CBC panel - Blood by Automated count CBC Lab Routine Diabetes mellitus screening Expected: 08/09/2024 (Approximate), Expires: 08/09/2025 [facility] Work Phone: Comment on above: Expected: 08/09/2024 (Approximate), Expires: 08/09/2025 Start: 08-09-2024 End: 08-09-2025 Measurement of glucose 1 hour after glucose challenge for glucose tolerance test Glucose tolerance, 1 hour Lab Routine Diabetes mellitus screening Expected: 08/09/2024 (Approximate), Expires: 08/09/2025 [facility] Comment on above: Expected: 08/09/2024 (Approximate), Expires: 08/09/2025 Start: 08-09-2024 End: 08-09-2024 Patient encounter procedure [facility] US Imaging Start: 07-11-2024 End: 07-11-2024 Patient encounter procedure 07/11/2024 8:00 AM EDT Appointment [facility] - Ultrasound [address] [place] [id number] [facility] - Ultrasound Start: 07-06-2024 End: 07-06-2025 US Abdomen limited Ultrasound abdomen limited Imaging Routine Hepatitis C virus infection in mother during Expected: 07/06/2024, Expires: 07/06/2025 [facility] Work Phone: Comment on above: Expected: 07/06/2024 , Expires: 07/06/2025 Start: 07-05-2024 End: 07-05-2024 Patient encounter procedure 07/05/2024 8:30 AM EDT Routine [facility] [address] [place] [phone] Sydney Snell PA [address] [place] [address] [facility] Start: 07-04-2024 End: 07-04-2024 Patient encounter procedure [facility] US Imaging Start: 06-07-2024 End: 07-07-2024 Alpha fetoprotein, maternal Alpha fetoprotein, maternal Lab Routine 16 weeks gestation of Second trimester Expected: 06/07/2024 (Approximate), Expires: 07/07/2024 [facility] Work Phone: Comment on above: Expected: 06/07/2024 (Approximate), Expires: 07/07/2024 Start: 06-07-2024 End: 06-07-2024 Patient encounter procedure [facility] Comment on above: Arrived Start: 05-10-2024 End: 05-10-2024 Patient encounter procedure 05/10/2024 11:40 AM EST Office Visit [facility] [address] [place] [phone] Ranulfo Garcia, DO [address] [place] [address] [facility] Start: 04-20-2024 End: 04-20-2025 ABO/Rh ABO/Rh Lab Routine Missed menses , unspecified gestational age Expected: 04/20/2024 (Approximate), Expires: 04/20/2025 [facility] Comment on above: Expected: 04/20/2024 (Approximate), Expires: 04/20/2025 Start: 04-20-2024 End: 04-20-2025 Blood type and Indirect antibody screen panel - Blood Type and screen Lab Routine Missed menses , unspecified gestational age Expected: 04/20/2024 (Approximate), Expires: 04/20/2025 [facility] Comment on above: Expected: 04/20/2024 (Approximate), Expires: 04/20/2025 Start: 04-20-2024 End: 04-20-2025 Drugs of abuse panel - Urine by Screen method Rapid drug screen, urine Lab Routine , unspecified gestational age Encounter for supervision of normal first in first trimester Expected: 04/20/2024 (Approximate), Expires: 04/20/2025 [facility] Comment on above: Expected: 04/20/2024 (Approximate), Expires: 04/20/2025 Start: 04-20-2024 End: 04-20-2025 US Pelvis transvaginal [facility] Work Phone: Comment on above: Expected: 04/20/2024 , Expires: 04/20/2025 Start: 11-06-2023 Influenza vaccination Influenza Vacc ine [facility] Start: 10-07-2012 Screening for malign ant neoplasm of cervix Pap Smear [facility] Start: 10-07-2009 Adult BMI Follow Up Plan Adult BMI Follow Up Plan [facility] Start: 10-07-2009 Adult BMI Screening Adult BMI Screen ing [facility] Start: 2003 Depression Screening Depression Scre ening [facility] Start: 2003 Tobacco Screening Tobacco Screening [facility] End: 07-04-2025 aPTT in Blood by Coagulation assay APTT Lab Routine Hepatitis C virus infection in mother during 1 Occurrences starting 07/04/2024 until 07/04/2025 [facility] [email or web address] Comment on above: 1 Occurrences starti ng 07/04/2024 until 07/04/2025 Bacteria identified in Urine by Culture Urine culture Microbiology Routine Missed menses Ordered: 04/20/2024 [facility] Comment on above: Ordered: 04/20/2024 CBC W Auto Different ial panel - Blood CBC and differential Lab Routine Missed menses , unspecified gestational age Ordered: 04/20/2024 [facility] Comment on above: Ordered: 04/20/2024 CHLAMYDIA TRACHOMATI S (GENITO/STI) CHLAMYDIA TRACHOMATIS (GENITO/STI) Lab Routine Exposure to STD Ordered: 05/10/2024 [facility] Comment on above: Ordered: 05/10/2024 End: 07-04-2025 Comprehensive metabolic 2000 panel - Serum or Plasma Comprehensive metabolic panel Lab Routine Hepatitis C virus infection in mother during 1 Occurrences starting 07/04/2024 until 07/04/[facility] Comment on above: 1 Occurrences starti ng 07/04/2024 until 07/04/2025 Comprehensive metabo lic 2000 panel - Serum or Plasma Comprehensive metabolic panel Lab Routine Hepatitis C virus infection in mother during 07/04/2024 11:[address] [facility] [facility] End: 08-10-2025 Comprehensive metabolic 2000 panel - Serum or Plasma Comprehensive metabolic panel Lab Routine 25 weeks gestation of Hepatitis C antibody positive 1 Occurrences starting 08/10/2024 until 08/10/2025 [facility] Comment on above: 1 Occurrences starti ng 08/10/2024 until 08/10/2025 Cytology Cervical or vaginal smear or scraping study Pap Smear Pathology and Cytology Routine Well woman exam with routine gynecological exam Ordered: 05/10/2024 [facility] Comment on above: Ordered: 05/10/2024 End: 08-10-2025 HCV Genotype, S HCV Genotype, S Lab Routine 25 weeks gestation of Hepatitis C antibody positive 1 Occurrences starting 08/10/2024 until 08/10/20[facility]: 1 Occurrences starti ng 08/10/2024 until 08/10/2025 Hemoglobin A1c/Hemoglobin.total in Blood Hemoglobin A1c Lab [...] [facility] Comment on above: Ordered: 04/20/2024 End: 08-10-2025 Hepatitis C virus RNA [Units/volume] (viral load) in Serum or Plasma by JOSE MANUEL with probe detection Hepatitis C Virus Quantitative by NAAT Lab Routine 25 weeks gestation of Hepatitis C antibody positive 1 Occurrences starting 08/10/2024 until 08/10/2025 [employer] Phone: Comment on above: 1 Occurrences starti ng 08/10/2024 until 08/10/2025 HIV-1/HIV-2 antigen/antibody combination immunoassay HIV-1 and HIV-2 antibodies Lab Routine Missed menses , unspecified gestational age Ordered: 04/20/2024 [facility] Comment on above: Ordered: 04/20/2024 Human papilloma viru s DNA [Presence] in Unspecified specimen by Probe with amplification HPV DNA probe, amplified Microbiology Routine Well woman exam with routine gynecological exam Ordered: 05/10/2024 [facility] Comment on above: Ordered: 05/10/2024 Neisseria gonorrhoea e DNA [Presence] in Unspecified specimen by JOSE MANUEL with probe detection Neisseria gonorrhea DNA probe, direct Lab Routine Exposure to STD Ordered: 05/10/2024 [facility] Comment on above: Ordered: 05/10/2024 End: 07-04-2025 Protime & INR Protime & INR Lab Routine Hepatitis C virus infection in mother during 1 Occurrences starting 07/04/2024 until 07/04/2025 [facility] Comment on above: 1 Occurrences starti ng 07/04/2024 until 07/04/2025 Reagin Ab [Presence] in Serum by RPR RPR Lab Routine Missed menses , unspecified gestational age Ordered: 04/20/2024 [facility] Comment on above: Ordered: 04/20/2024 Rubella antibody, IgG Rubella an tibody, IgG Lab Routine Missed menses , unspecified gestational age Ordered: 04/20/2024 [facility] Comment on above: Ordered: 04/20/2024 SURESWAB(R) ADVANCED VAGINITIS PLUS, TMA SURESWAB(R) ADVANCED VAGINITIS PLUS, TMA Pathology and Cytology Routine Vaginal discharge Ordered: 05/10/2024 [facility] Work Phone: Comment on above: Ordered: 05/10/2024 Immunizations Immunization Date Immunization Notes Care Provider Fa [facility] 12-25-2019 influenza virus vaccine, unspecified formulation Kristina Torres MD Work Phone: [facility] 03-08-2018 tetanus toxoid, redu liza diphtheria toxoid, and acellular pertussis vaccine, adsorbed Kristina Torres MD Work Phone: [facility] Payers Date Payer Category Payer Medicaid [place]ICAID [place] [id number] 2024 Medicaid [id number] 2021 Blue Cross Blue Shield [id number] [id number] 2021 Blue Cross Blue Shie ld Managed Care - Other ANTHEM [id number] 2021 Unknown [id number] 2018 Worker's Comp, Other (unspecified) WORKER'S COMPENSATION [id number] 2016 Commercial Managed C are - POS [employer] [id number] [id number] 1991 Unknown [id number] 2.16.840.1.955147.3.579. 2.593 1991 Unknown [id number] 2.16840.1.360807.3.579. 2.1286 1991 Unknown [id number] 2.16840.1.297540.3.579. 2.1286 1991 Unknown [id number] 2.16840.1.014849.3.579. 2.128 1991 Unknown [id number] 2.16840.1.651384.3.579. 2.1286 1991 Unknown [id number] 2.16.840.1.044526.3.579. 2.1286 1991 Unknown [id number] 2.16840.1.109109.3.579. 2.1286 1991 Unknown [id number] 2.16840.1.222254.3.579. 2.1286 1991 Unknown [id number] 2.16840.1.417794.3.579. 2.1286 1991 Unknown [id number] 2.16.840.1.995935.3.579. 2.1286 1991 Unknown [id number] 2.16.840.1.332793.3.579. 2.1259 1991 Unknown [id number] 2.16.840.1.582854.3.579. 2.9 1991 Unknown [id number] 2.16.840.1.776086.3.579. 2.9 1991 Unknown [id number] 2.16.840.1.309318.3.579. 2.9 1991 Unknown [id number] 2.16.840.1.636597.3.579. 2.9 1991 Unknown [id number] 2.16.840.1.953302.3.579. 2.1258 1991 Unknown [id number] 2.16.840.1.590370.3.579. 2.1258 1991 Unknown [id number] 2.16.840.1.153839.3.579. 2.1258 1991 Unknown [id number] 2.16.840.1.368942.3.579. 2.9 1991 Unknown [id number] 2.16.840.1.833206.3.579. 2.1258 1991 Unknown [id number] 2.16.840.1.296648.3.579. 2.9 1959 Unknown [id number] Social History Date Type Detail Facility Tobacco smoking status ORIS Tobacco smoking consumption unknown [facility] Start: 1991 Sex assigned at Female [facility] Start: 08-16-2018 End: 04-17-2020 Gender identity Not on file [facility] Start: 02-28-2024 [facility] Start: 08-16-2018 End: 04-17-2020 History of Social function [facility] Childcare Unknown [facility] Start: 1991 Sex assigned at Not on file [facility] Start: 10-10-2014 Sex Female (finding) [facility] Start: 07-04-2024 Tobacco smoking status ORIS Never smoked tobacco [facility] Start: 07-04-2024 Tobacco use and exposure Smokeless tobacco non-user [facility] Start: 07-04-2024 End: 08-10-2024 Alcoholic beverage intake Ex-drinker (finding) [facility] NEGATED: Highlighted rowStart: KIKEF History of tobacco use Passive smoker [facility] Clinical Notes 04-20-2024 to 10-15-2024 Cristy Pulido NP - 10/15/2024 1:00 PM SAMAN Burt - 10/01/2024 2:50 PM Jessica LuzmaDENEEN sanders - 09/17/2024 1:50 PM EDTMontleonides Mann MA - 08/30/2024 1:50 PM EDT Note Date & Type Note Facility 10-15-2024 History of Presen t illness Narrative Reason for Appointment: Patient ID: Bibiana Ansari is a 34 y.o. female who presents [...] infection 04/25/2024 History of delivery affecting ([facility]) 04/25/2024 Hepatitis C test positive [...] nursing note reviewed. Exam conducted with a classification control clerk present. Vitals: There is no height or weight on file to calculate BMI. BP: 122/78 Patient's last menstrual period was 02/14/2024. ASSESSMENT & PLAN ICD-10-CM 1. Third trimester ([facility]) Z34.93 POCT urinalysis dipstick manually resulted 2. 35 weeks gestation of ([facility]) Z3A.35 Return OB: Patient presents today for [...] by Cristy Pulido NP on behalf of: Ranulfo Garcia DO documented in this encounter [facility] 10-01-2024 History of Presen t illness Narrative Reason [...] virus) infection 04/25/2024 History of delivery affecting ([facility]) 04/25/2024 Hepatitis C test positive 04/25/2024 Resolved [...] 02/14/2024. ASSESSMENT & PLAN (Z34.93) Third trimester ([facility]) Plan: POCT urinalysis dipstick manually resulted Documented by SAMAN Encarnacion on behalf of: SAMAN Encarnacion documented in this encounter [facility] 09-17-2024 History of Presen t illness Narrative Reason [...] infection 04/25/2024 History of delivery affecting ([facility]) 04/25/2024 Hepatitis C test positive [...] nursing note reviewed. Exam conducted with a classification control clerk present. Vitals: There is no height or weight on file to calculate BMI. BP: 120/70 Patient's last menstrual period was 02/14/2024. ASSESSMENT & PLAN ICD-10-CM 1. 30 weeks gestation of ([facility]) Z3A.30 POCT urinalysis dipstick manually resulted 2. Third trimester ([facility]) Z34.93 POCT urinalysis dipstick manually resulted 3. Hepatitis C test positive B19.20 POCT urinalysis dipstick manually resulted 4. Gastroesophageal reflux in ([facility]) O99.619 POCT urinalysis dipstick manually resulted K21.9 Patient presents today for a routine obstetrics appointment. Patient is currently 30w6d with a Estimated Date of Delivery: 11/20/24. Ordered growth scan for patient to schedule prior to next appointment. Patient to return to clinic in 2 weeks. Documented by Jessi Forrest LPN on behalf of: Ranulfo Garcia DO documented in this encounter [facility] 08-30-2024 History of Presen t illness Narrative Reason for Appointment: Patient ID: Bibiana Ansari is a 33 y.o. female who presents for Routine Visit Patient presents today for Return OB appointment. MEDICATIONS Current Outpatient Medications Medication Instructions metoclopramide (REGLAN) 10 mg, Oral, 3 times daily before meals, Take 1 tablet by mouth 30 minutes prior to meals 3 times daily as needed for nausea. omeprazole (PRILOSEC) 20 mg, Oral, Daily before breakfast, Do not crush or chew. 27-1 MG tablet 1 tablet, Oral, Daily MV-Min-Fe Fum-FA-DHA ( 1 PO) 1 tablet, Oral, Daily ALLERGIES No Known Allergies PROBLEMS Active Ambulatory Problems Diagnosis Date Noted HSV (herpes simplex virus) infection 04/25/2024 History of delivery affecting ([facility]) 04/25/2024 Hepatitis C test positive 04/25/2024 Resolved [...] SYSTEMS Review of Systems: Review of Systems OBJECTIVE Objective: OBGyn Exam Vitals: There is no height or weight on file to calculate BMI. BP: 128/62 Patient's last menstrual period was 02/14/2024. ASSESSMENT & PLAN Documented by Ana Lilia Mann MA on behalf of: SAMAN Encarnacion Reason for Appointment: Patient ID: Bibiana Ansari is a 33 y.o. female who presents for Routine Visit Patient presents today for Return OB appointment. MEDICATIONS Current Outpatient Medications Medication Instructions metoclopramide (REGLAN) 10 mg, Oral, 3 times daily before meals, Take 1 tablet by mouth 30 minutes prior to meals 3 times daily as needed for nausea. omeprazole (PRILOSEC) 20 mg, Oral, Daily before breakfast, Do not crush or chew. 27-1 MG tablet 1 tablet, Oral, Daily MV-Min-Fe Fum-FA-DHA ( 1 PO) 1 tablet, Oral, Daily ALLERGIES No Known Allergies PROBLEMS Active Ambulatory Problems Diagnosis Date Noted HSV (herpes simplex virus) infection 04/25/2024 History of delivery affecting ([facility]) 04/25/2024 Hepatitis C test positive [...] weight on file to calculate BMI. BP: 128/62 Patient's last menstrual period was 02/14/2024. ASSESSMENT & PLAN ICD-10-CM 1. Third trimester ([facility]) Z34.93 POCT urinalysis dipstick manually resulted 2. 28 weeks gestation of ([facility]) Z3A.28 3. Hepatitis C test positive B19.20 4. Gastroesophageal reflux in ([facility]) O99.619 omeprazole (PriLOSEC) [address] capsule K21.9 Return OB: Patient presents today for a routine obstetrics appointment. Patient is currently 28w2d . Patient states she is doing well but has complaints of being tired due to current . Patient has verbalizes frequent movement. labor precautions was discussed/given and patient was instructed to perform kick counts three times a day. Orders Placed This Encounter Procedures POCT urinalysis dipstick manually resulted Follow Up: Patient is to return to office in 2 week for routine OB appointment. Documented by SAMAN Encarnacion on behalf of: SAMAN Encarnacion documented in this encounter [facility] 08-10-2024 History of Presen t illness Narrative Video Visit via Real-time Synchronous Audiovisual Provider Location: [facility] AT [address] [address] Patient Location: Other Patient Location Recreation Program Specialist: None Video Visit Consent Statement: I discussed risks, benefits, and alternatives of a real-time synchronous audiovisual consultation with the patient (and any accompanying persons) including the risks that the patient's personal health details and medical records will be discussed over real-time, synchronous, interactive video/audio/telecommunication technology, the visit will not be recorded without the express consent of both the provider and the patient, and that there are some limitations compared to [id number] evaluations. We elected to proceed. REASON FOR OFFICE VISIT: follow up HISTORY OF PRESENT ILLNESS: Bibiana Ansari is a pleasant 33 y.o. at this [...] mg total) before bedtime., Disp: , Rfl: [id number] ( 19) 29 mg iron- 1 [...] the patient I also reviewed her recent MFM ultrasound Low-lying placenta has resolved I was [...] Jeni Caballero MD, FACOG (she/hers) Maternal- Medicine [address] [place] [address] documented in this encounter [facility] 08-09-2024 History of Presen t illness Narrative Reason for Appointment: Patient ID: Bibiana Ansari is a 33 y.o. female who presents for Routine Visit Patient presents today for Return OB appointment. MEDICATIONS Current Outpatient Medications Medication Instructions metoclopramide (REGLAN) 10 mg, Oral, 3 times daily before meals, Take 1 tablet by mouth 30 minutes prior to meals 3 times daily as needed for nausea. 27-1 MG tablet 1 tablet, Oral, Daily MV-Min-Fe Fum-FA-DHA ( 1 PO) 1 tablet, Oral, Daily ALLERGIES No Known Allergies PROBLEMS Active [...] nursing note reviewed. Exam conducted with a classification control clerk present. Vitals: There is no height or weight on file to calculate BMI. BP: 122/66 Patient's last menstrual period was 02/14/2024. ASSESSMENT & PLAN ICD-10-CM 1. Second trimester Z34.92 POCT urinalysis dipstick manually resulted 27-1 MG tablet 2. 25 weeks gestation of Z3A.25 POCT urinalysis dipstick manually resulted 27-1 MG tablet 3. with normal glucose tolerance test (GTT) Z34.90 4. Diabetes mellitus screening Z13.1 CBC Glucose tolerance, 1 hour CBC Glucose tolerance, 1 hour Patient presents today for a routine obstetrics appointment. Patient is currently 25w2d with a Estimated Date of Delivery: 11/20/24. Patient desires to have bilateral salpingectomy with repeat . Patient is schedule for follow up scans for heart. Patient to return to clinic in 3 weeks for routine OB appointment. Documented by Jessi Forrest LPN on behalf of: Ranulfo Garcia DO documented in this encounter [facility] 07-09-2024 Miscellaneous Notes Referral received from patients ORACLE PROGRAMMER ANALYST for Hepatitis C and mild elevated LFTs *Patient is * 04/20/2024 [facility] (care everywhere) HEPATITIS C QUANTITATION . IU/mL 699,000 Will send a mychart message to patient in regards to treatment plan documented in this encounter [facility] 07-09-2024 Telephone encounter Note Referral received from patients ORACLE PROGRAMMER ANALYST for Hepatitis C and mild elevated LFTs *Patient is * 04/20/2024 [facility] (care everywhere) HEPATITIS C QUANTITATION . IU/mL 699,000 Will send a mychart message to patient in regards to treatment plan [facility] 07-06-2024 History of Presen t illness Narrative Labs reviewed AST/ALT 31/55 Alt mildly elevated- Recommend ruq sonogram and gi consult . Repeat LFTs within one month documented in this encounter [facility] 07-05-2024 History of Presen t illness Narrative [...] delivery affecting 04/25/2024 Hepatitis C test positive ([facility]) 04/25/2024 Resolved Ambulatory Problems Diagnosis Date Noted [...] nursing note reviewed. Exam conducted with a classification control clerk present. Vitals: There is no height or [...] repeat anatomy scan in 4 weeks with [facility] and continues to follow with [facility] for Hepatitis C dx and serial Liver function testing Documented by Cristy Pulido NP on behalf of: Cristy Pulido NP documented in this encounter [facility] 07-04-2024 History of Presen t illness [...] risk Have you been seen here at [facility] in a previous ? No Recent ER visits or hospitalizations? No Bring blood sugar log or meter with you today? (Please bring them with you for every visit at [facility]) N/A Flu vaccine (Jan-May)? N/A Any concerns [...] mg total) before bedtime., Disp: , Rfl: [id number] acid ( 19) 29 mg iron- 1 [...] it affect 1-4% of women in the [facility]. I reviewed with the patient that Hepatitis [...] Hepatitis C infection has been associated with infant feeding difficulties and other adverse outcomes, including cephalohematoma, brachial plexus injury, distress, intraventricular hemorrhage, and seizures. The overall risk of Quovfogb-Wk-Stqjk-Transmission (MTCT) during is approximately 4-8%. If the [...] C infection until after 18 months. The [place] [employer] and CDC recommend screening [...] her HCV VL and LFTs per new [facility] guidelines not routinely recommended recommended laboratory tests for confirmed active HCV infection in Liver function tests (AST, ALT, bilirubin) Albumin Platelet count Prothrombin time Quantitative HCV RNA HCV genotype (if not previously obtained) STI screening (HIV, syphilis, gonorrhea, chlamydia, and HBV) third trimester growth ultrasound if no other indication for testing Hep A and Hep B vaccine if not immune refer to GI/senior software tester/ID avoid internal monitors and early artificial rupture [...] and counseling, coordination of care which was [id number]-ot-bwzf. documented in this encounter [facility] 06-07-2024 History of Presen t illness Narrative [...] delivery affecting 04/25/2024 Hepatitis C test positive ([facility]) 04/25/2024 Resolved Ambulatory Problems Diagnosis Date Noted [...] nursing note reviewed. Exam conducted with a classification control clerk present. Vitals: There is no height or [...] in 4 weeks for routine OB appointment. [place] Management Professor discussed [place] paperwork with patient and spouse. Patient to RTC in 4 weeks for routine OB care. Documented by Jessi Forrest LPN on behalf of: Ranulfo [place] DO documented in this encounter [facility] 05-10-2024 History of Presen t illness [...] delivery affecting 04/25/2024 Hepatitis C test positive ([facility]) 04/25/2024 Resolved Ambulatory Problems Diagnosis Date Noted [...] nursing note reviewed. Exam conducted with a classification control clerk present. Vitals: There is no height or [...] or undercooked meat, and stay away from [facility]. Patient has been consulted regarding any further [...] Ranulfo [place] DO documented in this encounter [facility] 04-20-2024 History of Presen t illness [...] or undercooked meat, and stay away from [facility]. Patient has also been advised to [...] Yessenia Flor LPN documented in this encounter [facility] Evaluation note Diagnosis Missed menses , unspecified gestational age Encounter for supervision of normal first in first trimester H/O: Other postprocedural status documented [facility] this [facility] Diagnosis 12 weeks gestation of First trimester state, incidental Well woman exam with routine gynecological exam Routine gynecological examination Exposure to STD Vaginal discharge Leukorrhea, not specified as infective documented [facility]* Diagnosis 16 weeks gestation of Second trimester state, incidental Other insomnia [facility]* Diagnosis Hepatitis C virus infection in mother during - Primary [facility]* Diagnosis Hepatitis C virus infection in mother during - Primary Low-lying placenta Hemorrhage from placenta previa, unspecified as to episode of care [facility] Diagnosis Second trimester state, incidental 20 weeks gestation of documented [facility]* Diagnosis Hepatitis C virus infection in mother during - Primary documented in [facility] encounter [facility]* Diagnosis Hepatitis C virus infection in mother during - Primary documented in this encounter [facility]* Diagnosis Hepatitis C virus infection in mother during - Primary Low-lying placenta Hemorrhage from placenta previa, unspecified as to episode of care documented [facility] encounter [facility]* Diagnosis 25 weeks gestation of - Primary Hepatitis C antibody positive documented [facility]* Diagnosis Second trimester state, incidental 25 weeks gestation of with normal glucose tolerance test (GTT) Diabetes mellitus screening Screening for diabetes mellitus Encounter for consultation for female sterilization [facility] Diagnosis Third trimester (HHS-HCC) state, incidental 28 weeks gestation of (HHS-HCC) Hepatitis C test positive Gastroesophageal reflux in (HHS-HCC) [facility] Diagnosis 30 weeks gestation of (HHS-HCC) Third trimester (HHS-HCC) state, incidental Hepatitis C test positive Gastroesophageal reflux in (HHS-HCC) [facility] Diagnosis Third trimester (HHS-HCC) state, incidental [facility] Diagnosis Cystitis- Primary Unspecified cystitis Third trimester (HHS-HCC) state, incidental 35 weeks gestation of (HHS-HCC) documented in this encounter [facility]InstructionsNot on filedocumented in this encounterProMedica Health SystemInstructionsNot on filedocumented in this encounterProMedica Health SystemInstructionsNot on filedocumented in this encounterProUc [facility] Centerca [facility] SystemInstructionsNot on filedocumented in this encounterCentral [facility] CenterMed[facility] InstructionsNot on filedocumented in this encounterC[facility] Summary Purpose Family History No Family [...] and content) DATE CREATED AUTHOR 11/29/2020 [facility] DATE CREATED AUTHOR AUTHOR'S ORGANIZ ATION 08/10/2024 [facility] DATE CREATED AUTHOR AUTHOR'S ORGANIZ ATION 08/17/2024 [facility] DATE CREATED AUTHOR AUTHOR'S ORGANIZ ATION 09/24/2024 [facility] DATE CREATED AUTHOR AUTHOR'S ORGANIZ ATION 10/16/2024 [facility] EPIC Reason for Visit (unrecogniz ed section and content) Reason Comments Amenorrhea Reason Comments Routine Visit Reason Comments Hepatitis C Hx C/S Care Teams (unrecognized sec tion and content) Marketing Technology Specialist Relationship Specialty Start Date End Date Pcp, [place] [address] PCP - General Family Medicine 03/08/18 Marketing Technology Specialist Relationship Specialty Start Date End [place], [place] [address] PCP - General Family Medicine 03/08/18 Marketing Technology Specialist Relationship Specialty Start Date End [place]cp, [place] [address] PCP - General Family Medicine 03/08/18 Marketing Technology Specialist Relationship Specialty Start Date End [place]cp, [place] [address] PCP - General Family Medicine 03/08/18 Marketing Technology Specialist Relationship Specialty Start Date End [place]cp, [place] [address] PCP - General Family Medicine 03/08/18 Marketing Technology Specialist Relationship Specialty Start Date End [place]cp, [place] [address] PCP - General Family Medicine 03/08/18 Marketing Technology Specialist Relationship Specialty Start Date End [place]cp, [place] [address] PCP - General Family Medicine 03/08/18 FOR [...] BE BASED ON THE PRIMARY CLINICAL RECORDS. [employer] provides no warranty or guarantee of the accuracy or completeness of information in this document.
--- OUTSIDE RECORDS SUMMARY | 2024-10-20 22:08 | XMS_ITS | Encounter Summary ---
Author Organization [facility] Address [address] [place] [address] [place] [address] Care Team Providers Care Vp Compliance Name Role Phone Unavailable Primary Care Provider Unavailabl e Encounter Details Date Type Department Care Team (Latest Contact Info) Description 10/16/2024 Travel Social History Tobacco Use Types Packs/Day [...] 1:10 PM EDT Routine N[facility]ALVE[facility] [address] [place] [address] Sydney Ayala PA [address] [place], [facility]11 05/20/2025 9:00 AM EDT Office Visit ROSIE GALVEZ [address] [place] [address] Derian [place] DO [address] [place], [facility]11 documented as of this encounter Visit Diagnoses Not on filedocumented in this encounter
--- OUTSIDE RECORDS SUMMARY | 2024-10-20 22:08 | XMS_ITS | Encounter Summary ---
Author Organization [facility] Address [address] [place] [address] Care Team Providers Care Audiology Doctor Name Role Phone Unavailable Primary Care Provider Unavailabl e Encounter Details Date Type Department Care Team (Late st Contact Info) Description 08/16/2024 Abstract [facility]ALVE[facility] [address] [place], [place] [...] 1:10 PM EDT Routine ROSIE GALVEZ [address] [place] [address] Sydney Ayala PA [address] [place] [address] 05/20/2025 9:00 AM EDT Office Visit ROSIE GALVEZ [address] [place] [address] Derian [place] DO [address] [place] [address] documented as of this encounter Visit Diagnoses Not on filedocumented in this encounter
--- OUTSIDE RECORDS SUMMARY | 2024-10-20 22:08 | XMS_ITS | Encounter Summary ---
Author Organization [facility] Address [address] [place] [address] Care Team Providers Care Restaurant Shift Leader Name Role Phone Unavailable Primary Care Provider Unavailabl e Encounter Details Date Type Department Care Team (Late st Contact Info) Description 10/15/2024 Bamboo flowsheet [facility]ALVEZ [address] [place] [address] Derian [place] DO [address] [place], [place] [address] Social History Tobacco Use Types Packs/Day Years [...] Routine [facility] Rafael GALVEZ [address] [place] [address] Sydeny Ayala PA [address] [place], [id number] 05/20/2025 9:00 AM EDT Office Visit [facility] GALVEZ [address] [place] [address] Derian [place], [address] [place] [address] documented as of this encounter Visit Diagnoses Not on filedocumented in this encounter
--- OUTSIDE RECORDS SUMMARY | 2024-10-20 22:08 | XMS_ITS | Clinical Summary ---
Author Organization [facility] Kimengi [facility] tem Address [id number] [address] [place] [address] Care Team Providers Care Mechanical Meter Tester Name Role Phone Unavailable Primary Care Provider Unavailabl e Allergies No known active allergies Medications [id number] c acid ( 19) 29 mg iron- [...] 2:00 PM EDT Telemedicine Maternal- Medicine at [place] [address] [place] [address] Jeni Caballero MD 25 weeks gestation of (Primary Dx); Hepatitis C antibody positive 08/10/2024 Travel 08/10/2024 Orders Only Maternal- Medicine at [facility] [address] [place] [id number] Blaise Armas CMA Hepatitis C virus infection in mother during (Primary Dx); Low-lying placenta 08/09/2024 2:36 PM EDT - 08/09/2024 11:59 PM EDT Hospital Encounter [facility] [address] [place] [address] Hepatitis C virus infection in [...] Relevant to Health Maintenance Results * US [facility] OB FOLLOW-UP, 1 FETUS (09/20/2024 11:29 AM EDT) Only the most recent of2 resultswithin the time period is included. Anatomical Region Laterality Modality OB-QUALITY CONTROLLER Ultrasound 09/20/2024 10:5 3 AM EDT Narrative 09/23/2024 7:32 PM EDT NAME: JACINTO MCCARTY : 1990 SEX: F Accession Number: [id number] ORDERING PHYSICIAN: KATHRYN AG REFERRING PHYSICIAN: RANULFO CARRASCO Coding ----- --------- Procedures [id number]: Follow-up Ultrasound, per fetus Indication ----- --------- Previous , Hepatitis C in , Obesity in , Screening for follow-up survey History ----- --------- OB History 3. Para 2 [id number] Current ----- --------- Cell free DNA Low [...] late gestational age and position ----- --------- Rgier . Number of fetuses: 1 Dating ----- [...] EFW (oz) 6 oz EFW by: Hadlock ([id number]) Extended Tibia 54.3 mm 32w 0d 76% Nolan Seed Cleaner Operator 3.1 mm CM 7.2 mm 52% Nicolaides [...] Cisterna magna. Parenchyma. Vermis. Heart/Thorax: 4-chamber view. 8-lcdueg-sytswja view. Situs. Interventricular septum. Great vessels. Cardiac [...] structural abnormalities. Recommendations ----- --------- Please see [facility] recommendations from prior clinical and/or ultrasound report documentation. Subsequent follow up or other follow up as clinically determined by primary OB provider unless otherwise specified by [facility]. Results forwarded to ordering provider so they can follow up with the patient as necessary. Procedure Note Kathryn Ag MD - 09/23/2024 NAME: JACINTO MCCARTY : 1990 SEX: F Accession Number: [id number] ORDERING PHYSICIAN: KATHRYN AG REFERRING PHYSICIAN: RANULFO CARRASCO Coding ----- --------- Procedures [id number]: Follow-up Ultrasound, per fetus Indication ----- --------- Previous , Hepatitis C in , Obesity in ,Screening for follow-up survey History ----- --------- OB History 3. Para 2 [id number] Current ----- --------- Cell free DNA Low [...] EFW (oz) 6 oz EFW by: Hadlock ([id number]) Extended Tibia 54.3 mm 32w 0d 76% Nolan Seed Cleaner Operator 3.1 mm CM 7.2 mm 52% Nicolaides [...] Cerebellum.Cisterna magna. Parenchyma. Vermis. Heart/Thorax: 4-chamber view. 7-qysdga-zaohobm view. Situs.Interventricular septum. Great vessels. Cardiac position. [...] grossstructural abnormalities. Recommendations ----- --------- Please see [facility] recommendations from prior clinical and/or ultrasoundreport documentation. Subsequent follow up or other follow up as clinically determined byprimary OB provider unless otherwise specified by [facility]. Results forwarded to ordering provider so they can follow up with thepatient as necessary. us Kathryn Ag MD [facility] ORDERABLES Final Result * (ABNORMAL) Hepatitis C Virus Quantitative by NAAT (08/11/2024 11:03 AM EDT) Pathologist [facility] HCV VIRAL LOAD 7,830,000 .00(H) 0 copies IU/mL IU/mL 08/13/2024 10:12 AM EDT [facility] HCV LOG VALUE 6.89(H) 0 copies Log IU/mL Log IU/mL 08/13/2024 10:12 AM EDT [facility] HCV Interpretation Detected( A) Not Detected 08/13/2024 10:12 AM EDT [facility] Blood Venous blood / Unknown Venipuncture / Unknown 08/11/2024 11:03 AM EDT 08/11/2024 11:03 AM EDT Jeni Caballero MD LAB BLOOD ORDERABLES Final Result [facility] [address] [place] [address], [place] [phone] * (ABNORMAL) HCV Genotype, S (08/11/2024 11:03 AM EDT) HCV GENOTYPE, S 1a(A) Undetected 11:19 PM EDT [facility] Comment: ADDITIONAL INFORMATION This test was performed using the Alfonso RealTime HCV Genotype II assay ([employer] [place], [place]). Test Performed by: [facility] [address] Body Straightener: Jovanna Ha Ph.D.; CLIA# [id number] Blood Venous blood / Unknown Venipuncture / Unknown 08/11/2024 11:03 AM EDT 08/11/2024 11:03 AM EDT us Jeni Caballero MD LAB BLOOD ORDERABLES Final Result [facility] [address] [place] [address], [place] * (ABNORMAL) Comprehensive metabolic panel (08/11/2024 11:03 AM EDT) Pathologist [facility] SODIUM 138 134 - 146 mmol/L 08/11/2024 3:42 PM [facility] POTASSIUM 4.1 3.5 - 5.0 mmol/L 08/11/2024 3:42 PM [facility] CHLORIDE 106 98 - 109 mmol/L 08/11/2024 3:42 PM [facility] CARBON DIOXIDE 24 22 - 32 mmol/L 08/11/2024 3:42 PM [facility] ANION GAP 8 5 - 15 mmol/L 08/11/2024 3:42 PM [facility] BLOOD UREA NITROGEN 7 5 - 23 mg/dL 08/11/2024 3:42 PM [facility] CREATININE 0.61 0.40 - 1.00 mg/dL 08/11/2024 3:42 PM [facility] Comment:METHOD TRACEABLE TO IDWV STANDARD GLUCOSE 84 65 - 99 mg/dL 08/11/2024 3:42 PM [facility] CALCIUM 9.2 8.5 - 10.5 mg/dL 08/11/2024 3:42 PM [facility] TOTAL PROTEIN 6.5 6.0 - 8.0 g/dL 08/11/2024 3:42 PM [facility] ALBUMIN 3.7 3.2 - 5.3 g/dL 08/11/2024 3:42 PM [facility] ALKALINE PHOSPHATASE 52 39 - 130 U/L 08/11/2024 3:42 PM [facility] AST 26 <=41 U/L 08/11/2024 3:42 PM [facility] ALT 36(H) <=31 U/L 08/11/2024 3:42 PM [facility] BILIRUBIN,TOTAL 0.5 0.3 - 1.2 mg/dL 08/11/2024 3:42 PM [facility] EGFR Non-Race Dependent >90 >=60 ml/min/1.7 3sq.m 08/11/2024 3:42 PM [facility] Comment: Reported eGFR is based on the CKD-EPI 2020 equation that does not use a race coefficient. Blood Venous blood / Unknown Venipuncture / Unknown 08/11/2024 11:03 AM EDT 08/11/2024 11:03 AM EDT us Jeni Caballero MD LAB BLOOD ORDERABLES Final Result [facility] [address] [place] [address], [place] [phone] * High risk HPV w/josie (04/20/2024) Other High Risk Hpv POSITIVE MANUALLY TRANSCRIBED RESULTS ThinPrep cytology technique (qualifier value) Cervix uteri structure / Unknown us Not In System Ref Prov LAB BLOOD ORDERABLES My l Result MANUALLY TRANSCRIBED RESULTS from Last 3 Months or Most Recently Relevant to Health Maintenance Insurance [address] [place] [address] WORKERS COMPENSATION
--- OUTSIDE RECORDS SUMMARY | 2024-10-20 22:08 | XMS_ITS | Encounter Summary ---
Author Organization [facility] Address [address] [place] [address] Care Team Providers Care See Wheeler Name Role Phone Unavailable Primary Care Provider Unavailabl e Encounter Details Date Type Department Care Team (Late st Contact Info) Description 08/10/2024 Abstract N[facility]aim[facility] GALVEZ [address] [place] [address] Ana Lilia Mann MA Social History [...] 1:10 PM EDT Routine ROSIE GALVEZ [address] [place] [address] Sydney Ayala PA [address] [place] [address] 05/20/2025 9:00 AM EDT Office Visit ROSIE GALVEZ [address] [place] [address] Derian [place] DO [address] [place] [address] documented as of this encounter Visit Diagnoses Not on filedocumented in this encounter
[2024-10-20 23:09] LABS: Glucose Urine UA NEGATIVE (NEGATIVE)
[2024-10-21 00:01] LABS: Hematocrit 34.0 % (36.0-48.0); Hemoglobin 11.9 g/dL (12.0-16.0); Immature Granulocytes Abs Auto 0.02 10^3/uL (0.00-0.03); Immature Granulocytes Pct Auto 0.2 % (0.0-0.5); Lymphocytes Absolute Auto 2.2 10^3/uL (1.2-3.8); Mean Corpuscular HGB Conc 35.0 g/dL (29.9-35.2); Mean Corpuscular Hemoglobin 29.8 pg (26.7-34.0); Mean Corpuscular Volume 85.0 fL (81.0-99.0); Platelet Count 264 10^3/uL (150-450); Red Blood Count 4.00 10^6/uL (4.20-5.40); White Blood Count 9.0 10^3/uL (4.0-11.0)
[2024-10-21 00:05] VITALS: BP 120/65; PULSE 75
[2024-10-21 00:19] VITALS: BP 125/66; PULSE 89
[2024-10-21 00:33] VITALS: BP 133/76; PULSE 81
[2024-10-21 00:33] LABS: Alanine Aminotransferase 68 U/L (14-59); Aspartate Amino Transferase 35 U/L (15-37); Blood Urea Nitrogen 8.0 mg/dL (7.0-18.0); Estimated GFR (African America >60 (>=60 mL/min/1.73m^2); Estimated GFR (Non-African Ame >60 (>=60 mL/min/1.73m^2); Uric Acid 5.2 mg/dL (2.6-6.0)
[2024-10-21 00:39] LABS: Protein Creatinine Ratio Urine 0.18; Total Protein Urine Random 22.0 mg/dL (<=11.9)
[2024-10-21 00:49] VITALS: BP 136/72; PULSE 67
[2024-10-21 00:53] LABS: Partial Thromboplastin Time 29.6 sec (22.3-36.2); Prothrombin Time 9.7 sec (9.0-11.6)
[2024-10-21 00:54] LABS: Fibrinogen 393 mg/dL (200-400); INR <0.93
== END 2024-10-21 01:05 | disposition home or self-care (01) ==
PROVIDERS: Admitting Provider Obstetrics & Gynecology; Visit Provider Obstetrics & Gynecology
DX: O26.893 Other specified pregnancy related conditions, third trimester (principal); R60.0 Localized edema; R20.2 Paresthesia of skin; Z3A.35 35 weeks gestation of pregnancy
CPT/HCPCS: 36415; 81003; 82565; 82570; 84156; 84450; 84460; 84520; 84550; 85025; 85384; 85610; 85730; G0378; G0379

== ENCOUNTER 2024-10-23 19:05 | Outpatient (REF) | payer BC, SELFPAY ==
--- OUTSIDE RECORDS SUMMARY | 2024-10-15 13:00 | XMS_ITS | Encounter Summary ---
Author Organization [facility] Address [address] [place] [address] Care Team Providers Care Skilled Nursing Facility Counselor Name Role Phone Unavailable Primary Care Provider Unavailabl e Reason for Visit * Reason Comments Routine Visit Encounter Details Date Type Department Care Team (Late st Contact Info) Description 10/15/2024 1:00 PM EDT Routine [facility] [address] [place] [phone] Derian Garcia DO [address] [place] [address] Cystitis (Primary Dx); Third trimester ([facility]); 35 weeks gestation of ([facility]) Social History Tobacco Use Types Packs/Day Years [...] Sign Reading Time Taken Comments Blood Pressure 122/78 10/15/2024 1:10 PM EDT Pulse - - Temperature - - Respiratory Rate - - Oxygen Saturation - - Inhaled Oxygen Concentration - - Weight 86.2 kg (190 lb) 10/15/2024 1:10 PM EDT Height - - Body Mass Index - - documented in this encounter Progress Notes * rCisty Pulido NP - 10/15/2024 1:00 PM EDT Reason for Appointment: Patient ID: Mary Casey is a 34 y.o. female who presents for Routine Visit [...] virus) infection 04/25/2024 History of delivery affecting ([facility]) 04/25/2024 Hepatitis C test positive 04/25/2024 Resolved [...] nursing note reviewed. Exam conducted with a aerospace physiological technician present. Vitals: There is no height or weight on file to calculate BMI. BP: 122/78 Patient's last menstrual period was 02/14/2024. ASSESSMENT & PLAN ICD-10-CM 1. Third trimester ([facility]) Z34.93 POCT urinalysis dipstick manually resulted 2. 35 weeks gestation of ([facility]) Z3A.35 Return OB: Patient presents today for a routine obstetrics appointment. Patient is currently 34w6d . Patient states she is doing well but has complaints of being tired due to current . Patient has verbalizes frequent movement. labor precautions was discussed/given and patient was instructed to perform kick counts three times a day. Orders Placed This Encounter Procedures POCT urinalysis dipstick manually resulted Follow Up: Patient is to return to office in 1 week for routine OB appointment. Patient with urinary symptoms and urine culture to be sent will begin Keflex 500mg TID Documented by Cristy Pulido NP on behalf of: Derian Garcia DO documented in this encounter Plan of Treatment Upcoming Encounters Date Type Department Care Team (Late st Contact Info) Description 10/30/2024 2:00 PM EDT Routine [facility] [place] [phone] Derian Garcia DO [address] [place] [address] 05/20/2025 9:00 AM EDT Office Visit [facility] [address] [place] [address] Derian Garcia DO [address] [place] [address] documented as of this encounter Procedures Procedure Name Priority Date/Time Associated Diagnosis Comments POCT URINALYSIS DIPSTICK Routine 10/15/2024 1:12 PM EDT Third trimester ([facility]) documented in this encounter Results * (ABNORMAL) POCT urinalysis dipstick manually resulted (10/15/2024 1:12 PM EDT) Color, UA Yellow Clarity, UA Clear Glucose, UA Negative Negative - 2000(110) ++++ mg/dL Bilirubin, UA Negative Negative - 4(70) +++ mg/dL Ketones, UA Negative Negative - 160(16) ++++ mg/dL Spec Grav, UA 1.025 1 - 1.03 Blood, UA Positive Negative - 50 Herb/mcL pH, UA 6.0 5 - 9 Protein, UA 1+ Negative - 2000(20) ++++ mg/dL Urobilinogen, UA 1.0 0.2 - 12 mg/dL Leukocytes, UA Negative Negative - 500+++ Bobby/mcL Nitrite, UA Negative Negative - Positive Urine 10/15/2024 1:12 PM EDT Derian Garcia DO POINT OF CARE TEST ENTER/EDIT OR DERABLES Final Result documented in this encounter Visit Diagnoses Diagnosis Cystitis- Primary Unspecified cystitis Third trimester ([facility]) state, incidental 35 weeks gestation of ([facility]) documented in this encounter
--- OUTSIDE RECORDS SUMMARY | 2024-10-23 13:10 | XMS_ITS | Encounter Summary ---
Author Organization [facility] Address [address] [place] [address] [place] [address] Care Team Providers Care Insulation Machine Operator Name Role Phone Unavailable Primary Care Provider Unavailabl e Reason for Visit * Reason Comments Routine Visit Encounter Details Date Type Department Care Team (Late st Contact Info) Description 10/23/2024 1:10 PM EDT Routine [facility] [address] [place] [phone] Sydney Ayala PA [address] [place] [address] 36 weeks gestation of ([facility]); Third trimester ([facility]); Hepatitis C test positive ; Gastroesophageal reflux in ([facility]) Social History Tobacco Use Types Packs/Day Years [...] Sign Reading Time Taken Comments Blood Pressure 140/80 10/23/2024 1:39 PM EDT Pulse - - Temperature - - Respiratory Rate - - Oxygen Saturation - - Inhaled Oxygen Concentration - - Weight 87.1 kg (192 lb) 10/23/2024 1:39 PM EDT Height 157.5 cm (5' 2 ) 10/23/2024 1:53 PM EDT Body Mass Index 35.12 10/23/2024 1:39 PM EDT documented in this encounter Progress Notes * SAMAN Encarnacion - 10/23/2024 1:10 PM EDT Reason for Appointment: Patient ID: Mary Casey is a 34 y.o. female who presents for Routine Visit Patient presents today for Return OB appointment. MEDICATIONS Current Outpatient Medications Medication Instructions cephalexin (KEFLEX) 500 mg, Oral, 3 times daily omeprazole (PRILOSEC) 20 mg, Oral, Daily before breakfast, Do not crush or chew. 27-1 MG tablet 1 tablet, Oral, Daily MV-Min-Fe Fum-FA-DHA ( 1 PO) 1 tablet, Daily ALLERGIES No Known Allergies PROBLEMS Active Ambulatory Problems Diagnosis Date Noted HSV (herpes simplex virus) infection 04/25/2024 History of delivery affecting ([facility]) 04/25/2024 Hepatitis C test positive 04/25/2024 Resolved Ambulatory Problems Diagnosis Date Noted No Resolved Ambulatory Problems Past Medical History: Diagnosis Date Hepatitis-C HISTORY PAST MEDICAL HISTORY SOCIAL HISTORY Past Medical History: Diagnosis Date Hepatitis-C Social History Tobacco Use Smoking status: Not [...] nursing note reviewed. Exam conducted with a boxing machine operator present. Vitals: There is no height or weight on file to calculate BMI. BP: 140/80 Patient's last menstrual period was 02/14/2024. ASSESSMENT & PLAN ICD-10-CM 1. 36 weeks gestation of ([facility]) Z3A.36 POCT urinalysis dipstick manually resulted US biophysical profile w non stress test 2. Third trimester ([facility]) Z34.93 POCT urinalysis dipstick manually resulted CULTURE, GROUP B STREP WITH SUSCEPTIBLITY CULTURE, GROUP B STREP WITH SUSCEPTIBLITY US biophysical profile w non stress test 3. Hepatitis C test positive B19.20 US biophysical profile w non stress test 4. Gastroesophageal reflux in ([facility]) O99.619 K21.9 Patient is doing well but has complaints of being tired and having maternal discomfort due to . Patient verbalized frequent movement and was instructed to perform kick counts three times per day. labor precautions were given, LARC consent was signed/declined, and GBS was obtained. Cervical check was performed and patient is 1cm dilated. Patient will be given NST/BPP orders to have completed. Orders Placed This Encounter Procedures US biophysical profile w non stress test CULTURE, GROUP B STREP WITH SUSCEPTIBLITY POCT urinalysis dipstick manually resulted Follow Up: Patient is to return to office in 1 week for routine OB appointment Documented by Irma Valdes LPN on behalf of: SAMAN Encarnacion documented in this encounter Plan of Treatment Upcoming Encounters Date Type Department Care Team (Late st Contact Info) Description 10/30/2024 2:00 PM EDT Routine [facility] GAL[facility] [address] [place] [phone] Derian Garcia, DO [address] [place] [address] 05/20/2025 9:00 AM EDT Office Visit ROSIE GALVEZ [address] [place] [address] Derian Garcia, DO [address] [place] [address] Scheduled Orders Name Type Priority Associated Diagnoses Orde r Schedule CULTURE, GROUP B STREP WITH SUSCEPTIBLITY Lab Routine Third trimester ([facility]) Expected: 10/23/2024, Expires: 10/23/2025 US biophysical profile w non stress test Imaging Routine 36 weeks gestation of ([facility]) Third trimester ([facility]) Hepatitis C test positive Expected: 10/23/2024 (Approximate), Expires: 04/25/2025 documented as of this encounter Procedures Procedure Name Priority Date/Time Associated Diagnosis Comments POCT URINALYSIS DIPSTICK Routine 10/23/2024 1:45 PM EDT 36 weeks gestation of ([facility]) Third trimester ([facility]) documented in this encounter Results * (ABNORMAL) POCT urinalysis dipstick manually resulted (10/23/2024 1:45 PM EDT) Color, UA Awa Clarity, UA Clear Glucose, UA Negative Negative - 2000(110) ++++ mg/dL Bilirubin, UA Negative Negative - 4(70) +++ mg/dL Ketones, UA Negative Negative - 160(16) ++++ mg/dL Spec Grav, UA 1.015 1 - 1.03 Blood, UA Negative Negative - 50 Herb/mcL pH, UA 6.0 5 - 9 Protein, UA Positive Negative - 2000(20) ++++ mg/dL Urobilinogen, UA 1.0 0.2 - 12 mg/dL Leukocytes, UA Negative Negative - 500+++ Bobby/mcL Nitrite, UA Negative Negative - Positive Urine 10/23/2024 1:45 PM EDT Sydney DAVISON POINT OF CARE TEST ENTER/EDIT OR DERABLES Final Result documented in this encounter Visit Diagnoses Diagnosis 36 weeks gestation of ([facility]) Third trimester ([facility]) state, incidental Hepatitis C test positive Gastroesophageal reflux in ([facility]) documented in this encounter
--- OUTSIDE RECORDS SUMMARY | 2024-10-23 19:11 | XMS_ITS | Encounter Summary ---
Author Organization [facility] Address [address] [place] [address] Care Team Providers Care Precipitator Name Role Phone Unavailable Primary Care Provider Unavailabl e Encounter Details Date Type Department Care Team (Late st Contact Info) Description 08/16/2024 Abstract [facility] [address] [place] [address] Ana Lilia Mann MA [...] EDT Routine ROSIE G[facility] [address] [place] [address] Derian Garcia, DO [address] [place] [address] 05/20/2025 9:00 AM EDT Office Visit ROSIE GALVEZ [address] [place] [address] Derian Garcia, DO [address] [place], [facility] documented as of this encounter Visit Diagnoses Not on filedocumented in this encounter
--- OUTSIDE RECORDS SUMMARY | 2024-10-23 19:11 | XMS_ITS | Encounter Summary ---
Author Organization [facility] Address [address] [place] [address] Care Team Providers Care Student Loan Counselor Name Role Phone Unavailable Primary Care Provider Unavailabl e Encounter Details Date Type Department Care Team (Late st Contact Info) Description 10/23/2024 Bamboo flowsheet [facility] [place] [phone] Sydney Ayala PA [address] [facility] [place], [place] [address] Social History Tobacco Use Types Packs/Day Years [...] Info) Description 10/30/2024 2:00 PM EDT Routine [facility] [place] [phone] Derian Garcia DO [facility] [address] [place], [facility] 05/20/2025 9:00 AM EDT Office Visit [facility] [place] [address] Derian Garcia, [address] [place] [address] documented as of this encounter Visit Diagnoses Not on filedocumented in this encounter
--- OUTSIDE RECORDS SUMMARY | 2024-10-23 19:11 | XMS_ITS | Clinical Summary ---
Author Organization [facility] tem Address [id number] [address] [place] [address] Care Team Providers Care Crisis Therapist Name Role Phone Unavailable Primary Care Provider Unavailabl e Allergies No known active allergies Medications [id number] c acid ( 19) 29 mg iron- [...] 2:00 PM EDT Telemedicine Maternal- Medicine at [place] [address] [place] [address] Jeni Caballero MD 25 weeks gestation of (Primary Dx); Hepatitis C antibody positive 08/10/2024 Travel 08/10/2024 Orders Only Maternal- Medicine at [facility] [address] [place] [phone] Blaise Armas CMA Hepatitis C virus infection in mother during (Primary Dx); Low-lying placenta 08/09/2024 2:36 PM EDT - 08/09/2024 11:59 PM EDT Hospital Encounter [facility] US Imaging [address] [place] [address] Hepatitis C virus infection in [...] Relevant to Health Maintenance Results * US [facility] OB FOLLOW-UP, 1 FETUS (09/20/2024 11:29 AM EDT) Only the most recent of2 resultswithin the time period is included. Anatomical Region Laterality Modality OB-OTR TANKER TRUCK DRIVER Ultrasound 09/20/2024 10:5 3 AM EDT Narrative 09/23/2024 7:32 PM EDT NAME: JACINTO MCCARTY : 1990 SEX: F Accession Number: [id number] ORDERING PHYSICIAN: KATHRYN AG REFERRING PHYSICIAN: RANULFO CARRASCO Coding ----- --------- Procedures 39715: Follow-up Ultrasound, per fetus Indication ----- --------- Previous , Hepatitis C in , Obesity in , Screening for follow-up survey History ----- --------- OB History 3. Para 2 [id number] Current ----- --------- Cell free DNA Low [...] EFW (oz) 6 oz EFW by: Hadlock (DHC-GF-[id number]-FL) Extended Tibia 54.3 mm 32w 0d 76% Nolan Cnc Operator 3.1 mm CM 7.2 mm 52% [...] Cisterna magna. Parenchyma. Vermis. Heart/Thorax: 4-chamber view. 4-pdwxqm-yjvnynm view. Situs. Interventricular septum. Great vessels. Cardiac [...] structural abnormalities. Recommendations ----- --------- Please see [facility] recommendations from prior clinical and/or ultrasound report documentation. Subsequent follow up or other follow up as clinically determined by primary OB provider unless otherwise specified by [facility]. Results forwarded to ordering provider so they can follow up with the patient as necessary. Procedure Note Kathryn Ag MD - 09/23/2024 NAME: JACINTO MCCARTY : 1990 SEX: F Accession Number: [id number] ORDERING PHYSICIAN: KATHRYN AG REFERRING PHYSICIAN: RANULFO CARRASCO Coding ----- --------- Procedures [id number]: Follow-up Ultrasound, per fetus Indication ----- --------- Previous , Hepatitis C in , Obesity in ,Screening for follow-up survey History ----- --------- OB History 3. Para 2 [id number] Current ----- --------- Cell free DNA Low [...] EFW (oz) 6 oz EFW by: Hadlock (IUT-GW-HE-FL) Extended Tibia 54.3 mm 32w 0d 76% Nolan Cnc Operator 3.1 mm CM 7.2 mm 52% [...] Cerebellum.Cisterna magna. Parenchyma. Vermis. Heart/Thorax: 4-chamber view. 8-hfedlk-zflrizf view. Situs.Interventricular septum. Great vessels. Cardiac position. [...] grossstructural abnormalities. Recommendations ----- --------- Please see [facility] recommendations from prior clinical and/or ultrasoundreport documentation. Subsequent follow up or other follow up as clinically determined byprimary OB provider unless otherwise specified by [facility]. Results forwarded to ordering provider so they can follow up with thepatient as necessary. us Kathryn Ag MD [facility] ORDERABLES Final Result * (ABNORMAL) Hepatitis C Virus Quantitative by NAAT (08/11/2024 11:03 AM EDT) Pathologist [facility] HCV VIRAL LOAD 7,830,000 .00(H) 0 copies IU/mL IU/mL 08/13/2024 10:12 AM EDT [facility] HCV LOG VALUE 6.89(H) 0 copies Log IU/mL Log IU/mL 08/13/2024 10:12 AM EDT [facility] HCV Interpretation Detected( A) Not Detected 08/13/2024 10:12 AM EDT [facility] Blood Venous blood / Unknown Venipuncture / Unknown 08/11/2024 11:03 AM EDT 08/11/2024 11:03 AM EDT Jeni Caballero MD LAB BLOOD ORDERABLES Final Result [facility] [address] [place] [address], [place] [phone] * (ABNORMAL) HCV Genotype, S (08/11/2024 11:03 AM EDT) HCV GENOTYPE, S 1a(A) Undetected 11:19 PM EDT [facility] Comment: ADDITIONAL INFORMATION This test was performed using the Alfonso RealTime HCV Genotype II assay ([employer] [place], [place]). Test Performed by: [facility] [place] [address] Brisket Puller: Jovanna Ha Ph.D.; CLIA# [id number] Blood Venous blood / Unknown Venipuncture / Unknown 08/11/2024 11:03 AM EDT 08/11/2024 11:03 AM EDT us Jeni Caballero MD LAB BLOOD ORDERABLES Final Result [facility] [address] [place] [address], [place] * (ABNORMAL) Comprehensive metabolic panel (08/11/2024 11:03 AM EDT) Pathologist [facility] SODIUM 138 134 - 146 mmol/L 08/11/2024 3:42 PM [facility] POTASSIUM 4.1 3.5 - 5.0 mmol/L 08/11/2024 3:42 PM [facility] CHLORIDE 106 98 - 109 mmol/L 08/11/2024 3:42 PM [facility] CARBON DIOXIDE 24 22 - 32 mmol/L 08/11/2024 3:42 PM [facility] ANION GAP 8 5 - 15 mmol/L 08/11/2024 3:42 PM [facility] BLOOD UREA NITROGEN 7 5 - 23 mg/dL 08/11/2024 3:42 PM [facility] CREATININE 0.61 0.40 - 1.00 mg/dL 08/11/2024 3:42 PM [facility] Comment:METHOD TRACEABLE TO IDMN STANDARD GLUCOSE 84 65 - 99 mg/dL 08/11/2024 3:42 PM [facility] CALCIUM 9.2 8.5 - 10.5 mg/dL 08/11/2024 3:42 PM [facility] TOTAL PROTEIN 6.5 6.0 - 8.0 g/dL 08/11/2024 3:42 PM [facility] ALBUMIN 3.7 3.2 - 5.3 g/dL 08/11/2024 3:42 PM [facility] ALKALINE PHOSPHATASE 52 39 - 130 U/L 08/11/2024 3:42 PM [facility] AST 26 <=41 U/L 08/11/2024 3:42 PM [facility] ALT 36(H) <=31 U/L 08/11/2024 3:42 PM [facility] BILIRUBIN,TOTAL 0.5 0.3 - 1.2 mg/dL 08/11/2024 3:42 PM [facility] EGFR Non-Race Dependent >90 >=60 ml/min/1.7 3sq.m 08/11/2024 3:42 PM [facility] Comment: Reported eGFR is based on the CKD-EPI 2020 equation that does not use a race coefficient. Blood Venous blood / Unknown Venipuncture / Unknown 08/11/2024 11:03 AM EDT 08/11/2024 11:03 AM EDT us Jeni Caballero MD LAB BLOOD ORDERABLES Final Result [facility] [address] [place] [address], [place] [phone] * High risk HPV w/josie (04/20/2024) Other High Risk Hpv POSITIVE MANUALLY TRANSCRIBED RESULTS ThinPrep cytology technique (qualifier value) Cervix uteri structure / Unknown us Not In System Ref Prov LAB BLOOD ORDERABLES My l Result MANUALLY TRANSCRIBED RESULTS from Last 3 Months or Most Recently Relevant to Health Maintenance Insurance [address] [place] [address] WORKERS COMPENSATION
--- OUTSIDE RECORDS SUMMARY | 2024-10-23 19:11 | XMS_ITS | Encounter Summary ---
Author Organization [facility] Address [address] [place] [address] Care Team Providers Care Overseer Kosher Kitchen Name Role Phone Unavailable Primary Care Provider Unavailabl e Encounter Details Date Type Department Care Team (Late st Contact Info) Description 04/20/2024 Abstract [facility]IE [facility] [address] [place] [phone] Derian Garcia DO [address] [place], [place] [address] Social History Tobacco Use Types Packs/Day Years [...] Info) Description 10/30/2024 2:00 PM EDT Routine NOM[facility]aima GAL[facility]Z [address] [place] [phone] Derian Garcia DO [address] [place] [address] 05/20/2025 9:00 [place] [phone] Derian Garcia, [address] [place] [address] documented as of this encounter Visit Diagnoses Not on filedocumented in this encounter
--- OUTSIDE RECORDS SUMMARY | 2024-10-23 19:11 | XMS_ITS | Encounter Summary ---
Author Organization [facility] Address [address] [place] [address] Care Team Providers Care Cane Splicer Name Role Phone Unavailable Primary Care Provider Unavailabl e Encounter Details Date Type Department Care Team (Late st Contact Info) Description 10/15/2024 Bamboo flowsheet N[facility]a [facility]AL[facility] [place] [address] Derian Garcia DO [facility] [address], [place] [address] Social History Tobacco Use Types Packs/Day Years [...] Routine NOM[facility]aima GALVEZ [address] [place] [address] Derian Garcia DO [address] [place], [facility] 05/20/2025 9:00 AM EDT [place] [address] Derian Garcia, [address] [place] [address] documented as of this encounter Visit Diagnoses Not on filedocumented in this encounter
--- OUTSIDE RECORDS SUMMARY | 2024-10-23 19:11 | XMS_ITS | Encounter Summary ---
Author Organization [facility] Address [address] [place] [address] Care Team Providers Care Drosser Name Role Phone Unavailable Primary Care Provider Unavailabl e Encounter Details Date Type Department Care Team (Late st Contact Info) Description 08/10/2024 Abstract NOM[facility]aima GALVE[facility] [address] [place] [address] Ana Lilia Mann MA Social History [...] EDT Routine ROSIE GALVEZ [address] [place] [address] Derian Garcia, DO [address] [place], [place] [id number] 05/20/2025 9:00 AM EDT Office Visit ROSIE GALVEZ [address] [place] [address] Derian Garcia, DO [address], [facility] documented as of this encounter Visit Diagnoses Not on filedocumented in this encounter
--- OUTSIDE RECORDS SUMMARY | 2024-10-23 19:11 | XMS_ITS | Clinical Summary ---
Author Organization [facility] Address [address] [place] [address] Care Team Providers Care Lithographic Camera Operator Name Role Phone Unavailable Primary Care Provider Unavailabl e Allergies No known active allergies Medications MV-Min-Fe Fum-FA-DHA ( 1 PO) Take 1 tablet by mouth Daily Active 27-1 MG tabletIndicatio ns:Second trimester ([facility]),25 weeks gestation of ([facility]) Take 1 tablet by mouth Daily 30 tablet 11 08/09/2024 6 Active omeprazole (PriLOSEC) [address] capsuleIndicati [...] virus) infection 04/25/2024 History of delivery affecting ([facility]) 04/25/2024 Hepatitis C test positive 04/25/2024 Estimated Date of Delivery Comme nts Yes 11/20/2024 Based on last me nstrual period of 02/14/2024 Encounters Date Type Department Care Team Description 10/23/2024 1:10 PM EDT Routine ROSIE GALVEZ [address] [facility] [place] [address] Sydney Ayala PA 36 weeks gestation of ([facility]); Third trimester ([facility]); Hepatitis C test positive ; Gastroesophageal reflux in ([facility]) 10/23/2024 Bamboo flowsheet [facility] Rafael Mcmullen [facility] [place] [address] Sydney Ayala PA 10/16/2024 Travel 10/15/2024 1:00 PM EDT Routine [facility] Rafael COOLEYGYN Kemi [place] [address] Ranulfo Garcia DO Cystitis (Primary Dx); Third trimester ([facility]); 35 weeks gestation of ([facility]) 10/15/2024 Bamboo flowsheet [facility]OM[facility] Rafael Mcmullen [facility] [place] [address] Ranulfo Garcia, 10/12/2024 Travel 10/12/2024 Clinisync Result Encounter NOMS External Department Unsolicited Ranulfo Garcia, 10/12/2024 Clinisync Result Encounter NOMS External Department Unsolicited Ranulfo Garcia, 10/12/2024 Telephone [facility] Rafael Mcmullen [address] [place] [address] Ana Lilia Mann MA 10/01/2024 2:50 PM EDT Routine [facility] Rafael Mcmullen [place] [address] Sydney Ayala PA Third trimester ([facility]) 10/01/2024 2:00 PM EDT Ancillary Procedure [facility] Rafael Mcmullen [place] [address] 30 weeks gestation of ([facility]); Third trimester ([facility]); Hepatitis C test positive 09/24/2024 Travel 09/17/2024 1:50 PM EDT Routine [facility] Rafael OBGYN [address] [facility] [place] [address] Ranulfo Garcia, DO 30 weeks gestation of ([facility]); Third trimester ([facility]); Hepatitis C test positive ; Gastroesophageal reflux in ([facility]) 09/17/2024 Bamboo flowsheet [facility] Rafael OBGYN [address] [facility] [place] [address] Ranulfo Garcia, 09/12/2024 Travel 08/30/2024 1:50 PM EDT Routine [facility] Rafael OBGYN Kemi [facility] [place] [address] Sydney Ayala PA Third trimester ([facility]); 28 weeks gestation of ([facility]); Hepatitis C test positive ; Gastroesophageal reflux in ([facility]) 08/30/2024 Bamboo flowsheet [facility] Rafael OBGYN [address] [facility] [place] [address] Sydney Ayala PA 08/23/2024 Travel 08/16/2024 Abstract [facility] Rafael COOLEYGYIsmael Mcmullen [place] [address] Ana Lilia Mann MA 08/13/2024 Clinisync Result Encounter NOMS External Department Unsolicited Ranulfo Garcia, DO 08/13/2024 Telephone NOMSaima COOLEYGYIsmael Mcmullen [place] [address] Ana Lilia Mann PR 08/11/2024 Clinisync Result Encounter NOMS External Department Unsolicited Ranulfo Garcia, DO 08/10/2024 Abstract NOMSaima COOLEYGYIsmael Mcmullen [facility] [place] [address] Ana Lilia Mann PR 08/09/2024 9:20 AM EDT Routine [facility] Rafael O[place] [address] Ranulfo Garcia DO Second trimester ([facility]); 25 weeks gestation of ([facility]); with normal glucose tolerance test (GTT) ([facility]); Diabetes mellitus screening; Encounter for consultation for female sterilization 08/09/2024 Bamboo flowsheet ROSIE GALVEZ [address] [place], [place] [address] [address] Ranulfo Garcia DO 08/02/2024 Travel from Last 3 Months Social [...] Mass Index 35.12 10/23/2024 1:39 PM EDT Plan of Treatment Upcoming Encounters Date Type Department Care Team (Late st Contact Info) Description 10/30/2024 2:00 PM EDT Routine ROSIE GALVEZ [facility] [place] [address] Ranulfo Garcia DO [address] [place], [place] [phone] 05/20/2025 9:00 AM EDT Office Visit ROSIE GALVEZ [facility] [place] [address] Ranulfo Garcia DO [address] [place] [address] Procedures Procedure Name Priority Date/Time Associated Diagnosis Comments POCT URINALYSIS DIPSTICK Routine 10/23/2024 1:45 PM EDT 36 weeks gestation of ([facility]) Third trimester ([facility]) POCT URINALYSIS DIPSTICK Routine 10/15/2024 1:12 PM EDT Third trimester ([facility]) US OB BPP W NON-STRESS 10/12/2024 12:02 [...] Second trimester ([facility]) 25 weeks gestation of ([facility]) from Last 3 Months Results * (ABNORMAL) POCT urinalysis dipstick manually resulted (10/23/2024 1:45 PM EDT) Only the most recent of6 resultswithin the time period is included. Color, UA Awa Clarity, UA Clear Glucose, [...] PM EDT Narrative 10/12/2024 12:04 [place] [address] Ultrasound Report Signed Patient: BIBIANA ANSARI MR#: [id number] : 1990 Acct:[id number] Age/Sex: 34 / F ADM Date: Loc: [facility] 254-[address]: Ranulfo Garcia D.O. Ordering Physician: Ranulfo Garcia D.O. Date of Service: 10/12/24 Procedure(s): US OB placenta Accession Number(s): [id number] cc: Jose,Ranulfo D.O.; Physician,Non-Staff Larry The [address] [address] Patient Name: BIBIANA ANSARI MRN: [facility]:[id number] date: 1990 Sex: F Assigned Patient Location: [facility] Current Patient Location: [facility] Accession/Order Number: [id number] Exam Date: 10/12/2024 11:51 Report Date: 10/12/2024 12:02 At the request of: RANULFO GARCIA DO Procedure: US OB BPP w non-stress CLINICAL DATA: Patient fell this morning and has had cramping since. BIOPHYSICAL PROFILE: COMPARISON: None There is a single live intrauterine gestation in cephalic presentation. The reported gestational age is 34 weeks 3 days. The heart rate cpmigyow201 beats per minutee. FINDINGS: TONE: 1 or [...] Lopez M.D. 10/12/2024 12:02 PM Dictation Location: [place] [address] Electronically authenticated by: [id number] Y Date: 10/12/2024 12:02 Dictated By: Steffi Lopez M.D. Signed By: 10/12/24 1204 DD/ 1202 TD/TT: Business Management Analyst: Procedure Note Radiology, Radiologist, - 10/12/2024 The [place] [id number] Ultrasound Report Signed Patient: BIBIANA ANSARI AMR#: [id number] : 1990Acct:[id number] Age/Sex: 34 / FADM Date: Loc: [facility] 254-[address]: Ranulfo Garcia D.O. Ordering Physician: Ranulfo Garcia D.O. Date of Service: 10/12/24 Procedure(s): US OB placenta Accession Number(s): [id number] cc: Ranulfo Garcia D.O.; Physician,Non-Staff Susana.Carol [address] [address] Patient Name: BIBIANA ANSARI MRN: [id number] date: 1990 Sex: F Assigned Patient Location: [facility] Current Patient Location: [facility] Accession/Order Number: [id number] Exam Date: 10/12/2024 11:51 Report Date: 10/12/2024 12:02 At the request of: RANULFO GARCIA DO Procedure: US OB BPP w non-stress CLINICAL DATA: Patient fell this morning and has had cramping since. BIOPHYSICAL PROFILE: COMPARISON: None There is a single live intrauterine gestation in cephalic presentation.The reported gestational age is 34 weeks 3 days. The heart ezsrxolstrun402 beats per minutee. FINDINGS: TONE: 1 or [...] Lopez M.D. 10/12/2024 12:02 PM Dictation Location: [place] [address] Electronically authenticated by: [id number] Y Date: 2:02 Dictated By: Steffi Lopez M.D. Signed By:10/12/24 1204 DD/ 01 TD/TT: Business Management Analyst: us Ranulfo Garcia DO [facility] Final Result * US OB BPP W NON-STRESS (10/12/2024 12:02 PM EDT) Anatomical Region Laterality Modality Other 10/12/2024 12:0 2 PM EDT Narrative 10/12/2024 12:05 [place] [address] Ultrasound Report Signed Patient: BIBIANA ANSARI MR#: [id number] : 1990 Acct:[id number] Age/Sex: 34 / F ADM Date: Loc: [facility] 254- Attending Dr: Ranulfo Garcia D.O. Ordering Physician: Ranulfo Garcia D.O. Date of Service: 10/12/24 Procedure(s): US OB BPP w non-stress Accession Number(s): [id number] cc: Ranulfo Garcia D.O.; Physician,Non-Staff Larry [place] [id number] Patient Name: BIBIANA ANSARI MRN: [facility]:[id number] date: 1990 Sex: F Assigned Patient Location: [facility] Current Patient Location: [facility] Accession/Order Number: [id number] Exam Date: 10/12/2024 11:51 Report Date: 10/12/2024 12:02 At the request of: RANULFO GARCIA DO Procedure: US OB BPP w non-stress CLINICAL DATA: Patient fell this morning and has had cramping since. BIOPHYSICAL PROFILE: COMPARISON: None There is a single live intrauterine gestation in cephalic presentation. The reported gestational age is 34 weeks 3 days. The heart rate kebzzfod543 beats per minutee. FINDINGS: TONE: 1 or [...] Lopez M.D. 10/12/2024 12:02 PM Dictation Location: [place] [address] Electronically authenticated by: [id number] Y Date: 10/12/2024 12:02 Dictated By: Steffi Lopez M.D. Signed By: 10/12/24 1205 DD/ 1202 TD/TT: Business Management Analyst: Procedure Note Radiology, Radiologist, MD - 10/12/2024 [place] [address] Ultrasound Report Signed Patient: BIBIANA ANSARI AMR#: [id number] : 1990Acct:[id number] Age/Sex: 34 / FADM Date: Loc: [facility] 254-[address]: Ranulfo Garcia D.O. Ordering Physician: Ranulfo Garcia D.O. Date of Service: 10/12/24 Procedure(s): US OB BPP w non-stress Accession Number(s): [id number] cc: Ranulfo Garcia D.O.; Physician,Non-Staff Larry The [place] [address] Patient Name: BIBIANA ANSARI MRN: [id number] date: 1990 Sex: F Assigned Patient Location: [facility] Current Patient Location: [facility] Accession/Order Number: [id number] Exam Date: 10/12/2024 11:51 Report Date: 10/12/2024 12:02 At the request of: RANULFO GARCIA DO Procedure: US OB BPP w non-stress CLINICAL DATA: Patient fell this morning and has had cramping since. BIOPHYSICAL PROFILE: COMPARISON: None There is a single live intrauterine gestation in cephalic presentation.The reported gestational age is 34 weeks 3 days. The heart vorhayggywgy999 beats per minutee. FINDINGS: TONE: 1 or [...] Lopez M.D. 10/12/2024 12:02 PM Dictation Location: [place] [address] Electronically authenticated by: [id number] Y Date: 2:02 Dictated By: Steffi Lopez M.D. Signed By:10/12/24 1205 DD/ 1202 TD/TT: Business Management Analyst: us Ranulfo Garcia DO [facility] Final [...] II, MD, PHD at 01-Oct-2024 11:42:55 PM [facility] Procedure Note Tyrell Nuno MD - [...] TYRELL NUNO II, MD, PHD 11:42:55 PM [facility] us Ranulfo Jose DO IMG OB US PROCEDURES Final [...] AM EDT 08/13/2024 10:32 AM EDT Narrative [facility] - 08/13/2024 3:00 PM EDT us Ranulfo Jose DO LAB BLOOD ORDERABLES Final Resul t Performing Organization Address [facility] Co de Phone Number [facility] * (ABNORMAL) GLUCOSE 1 HOUR (08/11/2024 12:42 PM EDT) GLUCOSE 1 HOUR 174(H) <130 mg/dL [facility] 08/11/2024 12:4 2 PM EDT 08/11/2024 12:50 PM EDT Narrative [facility] - 08/11/2024 1:28 PM EDT us Ranulfo Jose DO LAB BLOOD ORDERABLES Final Resul t [facility] TB * (ABNORMAL) ALL CBC WITH AUTO DIFF (08/11/2024 12:42 PM EDT) [facility] TB WBC 8.2 4.0 - 11.0 10 [...] [facility] - 08/11/2024 12:58 PM EDT us Ranulfo Garcia DO [facility] Final Result [facility] from Last 3 Months Insurance
--- OUTSIDE RECORDS SUMMARY | 2024-10-23 19:11 | XMS_ITS | Encounter Summary ---
Author Organization [facility] Address [address] [place] [address] Care Team Providers Care Mica Spreader Name Role Phone Unavailable Primary Care Provider [...] the fall. Advised pt to head to [facility] for evaluation, PVU documented in this encounter Plan of Treatment Upcoming Encounters Date Type Department Care Team (Late st Contact Info) Description 10/30/2024 2:00 PM EDT Routine [facility] Rafael GALVEZ [address] [place] [address] Derian Garcia, DO [address] [facility] [address] [place], [place] [phone] 05/20/2025 9:00 AM EDT Office Visit [facility] Rafael GALVEZ [address] [facility] [place] [phone] Derian Garcia, DO [address] [facility] [address] [place], [place] [address] documented as of this encounter Visit Diagnoses Not on filedocumented in this encounter
--- OUTSIDE RECORDS SUMMARY | 2024-10-23 19:11 | XMS_ITS | Encounter Summary ---
Author Organization [facility] Address [address] [place] [address] Care Team Providers Care Grinder Dresser Name Role Phone Unavailable Primary Care Provider Unavailabl e Encounter Details Date Type Department Care Team (Late st Contact Info) Description 04/27/2024 Abstract ROSIE GALVEZ [address] [place] [address] Derian Garcia DO [address] [place], [place] [address] Social History Tobacco Use Types Packs/Day Years [...] EDT Routine NOMSaima GALVEZ [address] [place] [address] Derian Garcia DO [address] [place] [address] 05/20/2025 9:00 [place] [address] Derian Garcia, [address] [place] [address] documented as of this encounter Visit Diagnoses Not on filedocumented in this encounter
--- OUTSIDE RECORDS SUMMARY | 2024-10-23 19:11 | XMS_ITS | Encounter Summary ---
Author Organization [facility] Address [address] [place] [address] Care Team Providers Care Steam Pan Sponger Name Role Phone Unavailable Primary Care Provider Unavailabl e Encounter Details Date Type Department Care Team (Late st Contact Info) Description 10/12/2024 Clinisync Result Encounter NOMS External Department Unsolicited Ranulfo Garcia, DO [address] [place], [facility] Social History Tobacco Use Types [...] Routine [facility] Rafael GALVEZ [address] [place] [address] Ranulfo Garcia DO [address] [place] [place], [place] [phone] 05/20/2025 9:00 AM EDT Office Visit NOMSaima GALVEZ [address] [place] [address] Ranulfo Garcia DO [address] [facility] [place] [address] documented as of this encounter Procedures Procedure Name Priority Date/Time Associated Diagnosis Comments US OB PLACENTA 10/12/2024 12:02 PM EDT documented in this encounter Results * US OB PLACENTA (10/12/2024 12:02 PM EDT) Anatomical Region Laterality Modality Other 10/12/2024 12:0 2 PM EDT Narrative 10/12/2024 12:04 PM EDT [address] [address] Ultrasound Report Signed Patient: MARY ANSARI MR#: [id number] : 1990 Acct:[id number] Age/Sex: 34 / F ADM Date: Loc: [facility] 254-[address]: Ranulfo Garcia D.O. Ordering Physician: Ranulfo Garcia D.O. Date of Service: 10/12/24 Procedure(s): US OB placenta Accession Number(s): [id number] cc: Ranulfo Garcia D.O.; Physician,Non-Staff M.Carol [address] [address] Patient Name: MARY ANSARI MRN: [id number] date: 1990 Sex: F Assigned Patient Location: [facility] Current Patient Location: [facility] Accession/Order Number: [id number] Exam Date: 10/12/2024 11:51 Report Date: 10/12/2024 12:02 At the request of: RANULFO GARCIA DO Procedure: US OB BPP w non-stress CLINICAL DATA: Patient fell this morning and has had cramping since. BIOPHYSICAL PROFILE: COMPARISON: None There is a single live intrauterine gestation in cephalic presentation. The reported gestational age is 34 weeks 3 days. The heart rate dukatkgl366 beats per minutee. FINDINGS: TONE: 1 or [...] Lopez M.D. 10/12/2024 12:02 PM Dictation Location: [place] [address] Electronically authenticated by: [id number] Y Date: 10/12/2024 12:02 Dictated By: Steffi Lopez M.D. Signed By: 10/12/24 1204 DD/ 1202 TD/TT: Corporate Compliance Manager: Procedure Note Radiology, Radiologist, MD - 10/12/2024 [place] [address] Ultrasound Report Signed Patient: MARY ANSARI AMR#: [id number] : 1990Acct:[id number] Age/Sex: 34 / FADM Date: Loc: [facility] 254-[address]: Ranulfo Garcia D.O. Ordering Physician: Ranulfo Garcia D.O. Date of Service: 10/12/24 Procedure(s): US OB placenta Accession Number(s): [id number] cc: Ranulfo Garcia D.O.; Physician,Non-Staff Larry The [place] [id number] Patient Name: MARY ANSARI MRN: [id number] date: 1990 Sex: F Assigned Patient Location: [facility] Current Patient Location: [facility] Accession/Order Number: [id number] Exam Date: 10/12/2024 11:51 Report Date: 10/12/2024 12:02 At the request of: RANULFO GARCIA DO Procedure: US OB BPP w non-stress CLINICAL DATA: Patient fell this morning and has had cramping since. BIOPHYSICAL PROFILE: COMPARISON: None There is a single live intrauterine gestation in cephalic presentation.The reported gestational age is 34 weeks 3 days. The heart fwipqmgchtyn442 beats per minutee. FINDINGS: TONE: 1 or [...] Lopez M.D. 10/12/2024 12:02 PM Dictation Location: [place] [address] Electronically authenticated by: [id number] Y Date: 2:02 Dictated By: Steffi Lopez M.D. Signed By:10/12/24 1204 DD/ 1202 TD/TT: Corporate Compliance Manager: us Ranulfo Garcia DO [facility] Final Result documented in this encounter Visit Diagnoses Not on filedocumented in this encounter
--- OUTSIDE RECORDS SUMMARY | 2024-10-23 19:11 | XMS_ITS | Encounter Summary ---
Author Organization [facility] Address [address] [place] [address] [place] [address] Care Team Providers Care Welfare Centre Manager Name Role Phone Unavailable Primary Care [...] 2:00 PM EDT Routine ROSIE GALVEZ [address] [facility] [place] [address] Derian Garcia, DO [address] [facility] [address] [place], [facility]11 05/20/2025 9:00 AM EDT Office Visit ROSIE GALVEZ [address] [place] [address] Derian Garcia, [address] [place], [place] [phone] documented as of this encounter Visit Diagnoses Not on filedocumented in this encounter
--- OUTSIDE RECORDS SUMMARY | 2024-10-23 19:11 | XMS_ITS | Encounter Summary ---
Author Organization [facility] Address [address] [place] [address] Care Team Providers Care Torpedo Specialist Name Role Phone Unavailable Primary Care Provider Unavailabl e Encounter Details Date Type Department Care Team (Late st Contact Info) Description 05/02/2024 Abstract ROSIE GALVEZ [address] [place] [address] Derian Garcia DO [address], [place] [address] Social History Tobacco Use Types Packs/Day Years [...] EDT Routine NOMSaima GALVEZ [address] [place] [address] Derian Garcia DO [address], [facility] 05/20/2025 9:00 [place] [address] Derian Garcia, [address] [place] [address] documented as of this encounter Visit Diagnoses Not on filedocumented in this encounter
--- OUTSIDE RECORDS SUMMARY | 2024-10-23 19:11 | XMS_ITS | Encounter Summary ---
Author Organization [facility] tem Address [id number] [address] [place] [address] Care Team Providers Care Pen Tender Name Role Phone Pcp, Not In System Primary Care Provider Unavail able Encounter Details Date Type Department Care Team (Late st Contact Info) Description 07/03/2024 Orders Only Maternal- Medicine at [facility] [address] [place] [address] [place], [place] [address] Social History Tobacco Use Types Packs/Day Years [...] on filedocumented in this encounter Care Teams Pen Tender Relationship Specialty Start Date End Date Pcp, [place] [address] PCP - General Family Medicine 03/08/18 07/08/24 documented as of this encounter
--- OUTSIDE RECORDS SUMMARY | 2024-10-23 19:11 | XMS_ITS | Encounter Summary ---
Author Organization [facility] Address [address] [place] [address] Care Team Providers Care Dry Goods Clerk Name Role Phone Unavailable Primary Care Provider Unavailabl e Encounter Details Date Type Department Care Team (Late st Contact Info) Description 10/12/2024 Clinisync Result Encounter [facility] External Department Unsolicited Ranulfo Garcia, DO [address], [facility] Social History Tobacco Use Types [...] Routine [facility] Rafael GALVEZ [address] [place] [address] Ranulfo Garcia DO [address], [place] [id number] 05/20/2025 9:00 AM EDT Office Visit NOMSaima GALVEZ [address] [place] [address] Ranulfo Garcia DO [address] Shweta Ricci [place] [id number] documented as of this encounter Procedures Procedure Name Priority Date/Time Associated Diagnosis Comments US OB BPP W NON-STRESS 10/12/2024 12:02 PM EDT documented in this encounter Results * US OB BPP W NON-STRESS (10/12/2024 12:02 PM EDT) Anatomical Region Laterality Modality Other 10/12/2024 12:0 2 PM EDT Narrative 10/12/2024 12:05 [place] [address] Ultrasound Report Signed Patient: MARY ANSARI MR#: [id number] : 1990 Acct:[id number] Age/Sex: 34 / F ADM Date: Loc: [facility] 254- Attending Dr: Ranulfo Garcia D.O. Ordering Physician: Ranulfo Garcia D.O. Date of Service: 10/12/24 Procedure(s): US OB BPP w non-stress Accession Number(s): [id number] cc: Ranulfo Garcia D.O.; Physician,Non-Staff Larry The [address] [address] Patient Name: MARY ANSARI MRN: [facility]:[id number] date: 1990 Sex: F Assigned Patient Location: [facility] Current Patient Location: [facility] Accession/Order Number: [id number] Exam Date: 10/12/2024 11:51 Report Date: 10/12/2024 12:02 At the request of: RANULFO GARCIA DO Procedure: US OB BPP w non-stress CLINICAL DATA: Patient fell this morning and has had cramping since. BIOPHYSICAL PROFILE: COMPARISON: None There is a single live intrauterine gestation in cephalic presentation. The reported gestational age is 34 weeks 3 days. The heart rate [id number] beats per minutee. FINDINGS: TONE: 1 or [...] Lopez M.D. 10/12/2024 12:02 PM [facility] Electronically authenticated by: [id number] Y Date: 10/12/2024 12:02 Dictated By: Steffi Lopez M.D. Signed By: 10/12/24 1205 DD/ 1202 TD/TT: Agriculture Research Director: Procedure Note Radiology, Radiologist, MD - 10/12/2024 [place] [address] Ultrasound Report Signed Patient: MARY ANSARI AMR#: [id number] : 1990Acct:[id number] Age/Sex: 34 / FADM Date: Loc: [facility] 254-[address]: Ranulfo Garcia D.O. Ordering Physician: Ranulfo Garcia D.O. Date of Service: 10/12/24 Procedure(s): US OB BPP w non-stress Accession Number(s): [id number] cc: Ranulfo Garcia D.O.; Physician,Non-Staff Larry The [place] [id number] Patient Name: MARY ANSARI MRN: [id number] date: 1990 Sex: F Assigned Patient Location: [facility] Current Patient Location: [facility] Accession/Order Number: [id number] Exam Date: 10/12/2024 11:51 Report Date: 10/12/2024 12:02 At the request of: RANULFO GARCIA DO Procedure: US OB BPP w non-stress CLINICAL DATA: Patient fell this morning and has had cramping since. BIOPHYSICAL PROFILE: COMPARISON: None There is a single live intrauterine gestation in cephalic presentation.The reported gestational age is 34 weeks 3 days. The heart [id number] beats per minutee. FINDINGS: TONE: 1 or [...] Lopez M.D. 10/12/2024 12:02 PM Dictation Location: [place] [address] Electronically authenticated by: [id number] Y Date: 2:02 Dictated By: Steffi Lopez M.D. Signed By:10/12/24 1205 DD/ 1202 TD/TT: Agriculture Research Director: us Ranulfo Garcia DO [facility] Final Result documented in this encounter Visit Diagnoses Not on filedocumented in this encounter
--- OUTSIDE RECORDS SUMMARY | 2024-10-23 19:11 | XMS_ITS | Encounter Summary ---
Author Organization [facility] Address [address] [place] [address] Care Team Providers Care Pony Ride Operator Name Role Phone Unavailable Primary Care Provider Unavailabl e Encounter Details Date Type Department Care Team (Late st Contact Info) Description 05/02/2024 Abstract ROSIE GALVEZ [address] [place] [phone] Derian Garcia DO [address], [place] [address] Social History Tobacco Use Types Packs/Day Years [...] EDT Routine NOMSaima GALVEZ [address] [place] [phone] Derian Garcia DO [address], [facility] 05/20/2025 9:00 [place] [phone] Derian Garcia, [address] [place] [address] documented as of this encounter Visit Diagnoses Not on filedocumented in this encounter
--- OUTSIDE RECORDS SUMMARY | 2024-10-23 19:11 | XMS_ITS | Encounter Summary ---
Author Organization [facility] Address [address] [place] [address] Care Team Providers Care Spanish Language Lecturer Name Role Phone Unavailable Primary Care Provider Unavailabl e Encounter Details Date Type Department Care Team (Late st Contact Info) Description 05/21/2024 Orders Only NOMSaima GALVEZ [address] [place] [address] Jackie Corea MA [address] [place] [address] Social History Tobacco Use Types Packs/Day Years [...] EDT Routine NOMSaima GALVEZ [address] [place] [address] Derian Garcia DO [address], [place] [phone] 05/20/2025 9:00 AM EDT Office Visit NOMSaima GALVEZ [address] [place] [address] Derian Garcia DO [address] [place] [address] Dr [place] [phone] documented as of this encounter Procedures Procedure [...]
--- OUTSIDE RECORDS SUMMARY | 2024-10-23 19:11 | XMS_ITS | Encounter Summary ---
Author Organization [facility] Address [address] [place] [address] Care Team Providers Care Color Card Maker Name Role Phone Unavailable Primary Care Provider [...] 2:00 PM EDT Routine ROSIE GALVEZ [address] [place] [address] Derian Garcia, DO [address] [place], [facility] 05/20/2025 9:00 AM EDT Office Visit ROSIE GALVEZ [address] [place] [address] Derian Garcia, [address] [place], [place] [phone] documented as of this encounter Visit Diagnoses Not on filedocumented in this encounter
--- OUTSIDE RECORDS SUMMARY | 2024-10-23 19:14 | XMS_ITS | CCD ---
Author Organization [facility] Care Team Providers Care Supervisor Front Name Role Phone AMANDEEP MORATAYA Admitting Unavailable [...] Attending Unavailable JOSE, RANULFO Attending Unavailable ALIS, SYDNYE Attending Unavailable JOSE, RANULFO Attending Unavailable ALIS, SYDNEY Attending Unavailable JOSE, RANULFO Attending Unavailable Medications Current Medications Medication Drug Class(es) Dates Sig (Normalized) Sig (Original) cephalexin 500 mg oral capsule (4 sources) Cephalosporin Antibacterial Start: 10-15-2024 End: 10-23-2024 take 1 capsule by mouth in the [...] this for 7 days. 21 capsule 10/15/2024 10/23/2024 Active omeprazole 20 mg delayed release oral capsule (15 sources) Proton Pump Inhibitor Start: 08-30-2024 End: 09-29-2024 take 1 capsule by mouth before mealtime omeprazole (PriLOSEC) [address] capsule Indications: Gastroesophageal Reflux Disease , Heartburn Take 1 capsule (20 mg) by mouth in the morning. Take before meals. Do not crush or chew. 30 capsule 3 08/30/2024 Active 27-1 MG tablet (20 sources) Start: 08-09-2024 End: 08-09-2025 take 1 tablet by mouth once daily 27-1 MG tablet Indications: Second trimester ([facility]) , 25 weeks gestation of ([facility]) Take 1 tablet by mouth Daily [...] ( 1 PO) Take by mouth Active [id number] ac id ( 19) 29 mg iron- 1 mg tablet,chewable (10 sources) [id number] jacqui-folic acid ( 19) 29 mg iron- 1 mg tablet,chewable Chew 1 tablet and swallow in the morning. Active Completed/Discontinued Medications Medication Drug Class(es) Dates Sig (Normalized) Sig (Original) metoclopramide 10 mg oral tablet (20 sources) Dopamine-2 Receptor Antagonist Start: 05-10-2024 End: 09-17-2024 metoclopramide (Reglan) 10 MG tablet Indications: 12 weeks gestation of ([facility]) Take 1 tablet (10 mg) by mouth [...] unspecified trimester] Onset: 08-09-2024 07-04-2024 Episodic Hepatitis (20 sources) Finding of Hepatitis C [...] Onset: 07-04-2024 07-04-2024 Episodic Other complications of (6 sources) Gastroesophageal reflux disease in ; Translations: [...] [35 weeks gestation of ] 10-15-2024 Episodic Residual codes; unclassified (2 sources) Gestation period, 36 weeks; Translations: [36 weeks gestation of ] 10-23-2024 Episodic Unclassified (1 source) Hx C/S Onset: 07-04-2024 Urinary tract infections (2 sources) Cystitis; Translations: [Cystitis, unspecified without hematuria] 10-15-2024 Episodic Viral infection (1 source) COVID-19; Translations: [COVID-19] Onset: 11-28-2020 Past or Other Problems Problem Classification Problem Date Documented Da te Episodic/Chronic Viral infection (20 sources) Herpes simplex; Translations: [Herpesviral infection, unspecified] Onset: 04-25-2024 04-25-2024 Episodic Results Test Name Value Interpretation Reference Range Facil ity Urinalysis macro (dipstick) panel (U)on 10-23-2024 Bilirubin, UA Negative Negative - 4(70) +++ mg/dL [facility] Blood, UA Negative Negative - 50 Herb/mcL [facility] Clarity, UA Clear [facility] Color, UA Awa [facility] Glucose, UA Negative Negative - 2000(110) ++++ mg/dL [facility] Interpretation and review of laboratory results Abnormal [facility] Ketones, UA Negative Negative - 160(16) ++++ mg/dL [facility] Leukocytes, UA Negative Negative - 500+++ Bobby/mcL [facility] Nitrite, UA Negative Negative - Positive [facility] pH, UA 6 5 - 9 [facility] Protein, UA Positive Negative - 1999(20) ++++ mg/dL [facility] Spec Grav, UA 1.015 1 - 1.03 [facility] Urobilinogen, UA 1.0 0.2 - 12 mg/dL [facility] Urinalysis macro (dipstick) panel (U)on 10-15-2024 Bilirubin, UA Negative Negative - 4(70) +++ mg/dL [facility] Blood, UA Positive Negative - 50 Herb/mcL [facility] Clarity, UA Clear [facility] Color, UA Yellow [facility] Glucose, UA Negative Negative - 2000(110) ++++ mg/dL [facility] Interpretation and review of laboratory results Abnormal [facility] Ketones, UA Negative Negative - 160(16) ++++ mg/dL [facility] Leukocytes, UA Negative Negative - 500+++ Bobby/mcL [facility] Nitrite, UA Negative Negative - Positive [facility] pH, UA 6 5 - 9 [facility] Protein, UA 1+ Negative - 1999(20) ++++ mg/dL [facility] Spec Grav, UA 1.025 1 - 1.03 [facility] Urobilinogen, UA 1.0 0.2 - 12 mg/dL [facility] No Panel Informationon 10-12 Radiology Study observation (narrative) [facility] US OB BPP W NON-STRESS on 10-12-[address] [address] Ultrasound Report Signed Patient: BIBIANA ANSARI MR#: [id number] : 1990 Acct:[id number] Age/Sex: 34 / F ADM Date: Loc: [facility] 254-[address]: Ranulfo Garcia D.O. Ordering Physician: Ranulfo Garcia D.O. Date of Service: 10/12/24 Procedure(s): US OB BPP w non-stress Accession Number(s): [id number] cc: Ranulfo Garcia D.O.; Physician,Non-Staff [place] [address] Patient Name: BIBIANA ANSARI MRN: [id number] date: 1990 Sex: F Assigned Patient Location: [facility] Current Patient Location: [facility] Accession/Order Number: [id number] Exam Date: 10/12/2024 11:51 Report Date: 10/12/2024 [...] Lopez M.D. 10/12/2024 12:02 PM Dictation Location: [place] [address] Electronically authenticated by: [id number] Y Date: 10/12/2024 12:02 Dictated By: Steffi Lopez M.D. Signed By: 10/12/245 DD/ 120 TD/TT: Summer Clerk: [facility] Radiology, Radiologist, - 10/12/2024 [place] [address] Ultrasound Report Signed Patient: BIBIANA ANSARI MR#: [id number] : 1990 Acct:[id number] Age/Sex: 34 / F ADM Date: Loc: [facility] [address]: Ranulfo Garcia D.O. Ordering Physician: Ranulfo Garcia D.O. Date of Service: 10/12/24 Procedure(s): US OB BPP w non-stress Accession Number(s): [id number] cc: Ranulfo Garcia D.O.; Physician,Non-Staff Larry The [address] [address] Patient Name: BIBIANA ANSARI MRN: [facility]:[id number] date: 1990 Sex: F Assigned Patient Location: [facility] Current Patient Location: [facility] Accession/Order Number: [id number] Exam Date: 10/12/2024 11:51 Report Date: 10/12/2024 [...] amniotic fluid greater than 2 cm [Y] 04/08 DEBBI: 13.1 cm Total score: 10/12 US/US [...] Lopez M.D. 10/12/2024 12:02 PM Dictation Location: [employer] Electronically authenticated by: [id number] Y Date: 10/12/2024 12:02 Dictated By: Steffi Lopez M.D. Signed By: 10/12/24 1205 DD/ 1202 TD/TT: Summer Clerk: [employer] US OB BPP W NON-STRESS Ordered By: Radiologist [facility] OB PLACENTAon 10-12-2024 [place] [address] Ultrasound Report Signed Patient: BIBIANA ANSARI MR#: [id number] : 1990 Acct:[id number] Age/Sex: 34 / F ADM Date: Loc: [facility] 254-[address]: Ranulfo Garcia D.O. Ordering Physician: Ranulfo Garcia D.O. Date of Service: 10/12/24 Procedure(s): US OB placenta Accession Number(s): [id number] cc: Ranulfo Garcia D.O.; Physician,Non-Staff Larry The [address] [address] Patient Name: BIBIANA ANSARI MRN: [id number] date: 1990 Sex: F Assigned Patient Location: [facility] Current Patient Location: [facility] Accession/Order Number: [id number] Exam Date: 10/12/2024 11:51 Report Date: 10/12/2024 12:02 At the request of: RANULFO GARCIA DO Procedure: US OB BPP w non-stress CLINICAL DATA: Patient fell this morning and has had cramping since. BIOPHYSICAL PROFILE: COMPARISON: None There is a single live intrauterine gestation in cephalic presentation. The reported gestational age is 34 weeks 3 days. The heart rate [id number] beats per minutee. FINDINGS: TONE: 1 or [...] Lopez M.D. 10/12/2024 12:02 PM Dictation Location: [email or web address] Electronically authenticated by: [id number] Y Date: 10/12/2024 12:02 Dictated By: Steffi Lopez M.D. Signed By: 10/12/24 1204 DD/ 1202 TD/TT: Summer Clerk: [facility] Radiology, Radiologist, - 10/12/2024 [place] [address] Ultrasound Report Signed Patient: BIBIANA ANSARI MR#: [id number] : 1990 Acct:[id number] Age/Sex: 34 / F ADM Date: Loc: [facility] 254-[address]: Ranulfo Garcia D.O. Ordering Physician: Ranulfo Garcia D.O. Date of Service: 10/12/24 Procedure(s): US OB placenta Accession Number(s): [id number] cc: Ranulfo Garcia D.O.; Physician,Non-Staff Larry The [place] [address] Patient Name: BIBIANA ANSARI MRN: [facility]:[id number] date: 1990 Sex: F Assigned Patient Location: [facility] Current Patient Location: [facility] Accession/Order Number: [id number] Exam Date: 10/12/2024 11:51 Report Date: 10/12/2024 12:02 At the request of: RANULFO GARCIA DO Procedure: US OB BPP w non-stress CLINICAL DATA: Patient fell this morning and has had cramping since. BIOPHYSICAL PROFILE: COMPARISON: None There is a single live intrauterine gestation in cephalic presentation. The reported gestational age is 34 weeks 3 days. The heart rate [id number] beats per minutee. FINDINGS: TONE: 1 or [...] Lopez M.D. 10/12/2024 12:02 PM Dictation Location: [place] [address] Electronically authenticated by: [id number] Y Date: 10/12/2024 12:02 Dictated By: Steffi Lopez M.D. Signed By: 10/12/24 1204 DD/ 1202 TD/TT: Summer Clerk: [employer] OB PLACENTAOrdered By: diologist Radiology on 10-12-2024 [facility] [employer] Work Phone: US OB FOLLOW UP TRANSABDOMIN [...] II, MD, PHD at 01-Oct-2024 11:42:55 PM [facility] Normal Not Available Comment on above: Order Comment: US OB SCAN FOR GROWTH Estimated Date of Delivery: 11/20/24 Gestational Age as of 09/17/2024: 30w6d Urinalysis macro (dipstick) panel (U)on 10-01-2024 Bilirubin, UA Negative Negative - 4(70) +++ mg/dL [facility] Blood, UA Negative Negative - 50 Herb/mcL [facility] Clarity, UA Clear [facility] Color, UA Yellow [facility] Glucose, UA Negative Negative - 2000(110) ++++ mg/dL [facility] Interpretation and review of laboratory results Normal [facility] Ketones, UA Negative Negative - 160(16) ++++ mg/dL [facility] Leukocytes, UA Negative Negative - 500+++ Bobby/mcL [facility] Nitrite, UA Negative Negative - Positive [facility] pH, UA 6.5 5 - 9 [facility] Protein, UA Negative Negative - 1999(20) ++++ mg/dL [facility] Spec Grav, UA 1.015 1 - 1.03 [facility] Urobilinogen, UA 0.2 0.2 - 12 mg/dL [facility] Urinalysis macro (dipstick) panel (U)on 09-17-2024 Bilirubin, UA Negative Negative - 4(70) +++ mg/dL [facility] Blood, UA Negative Negative - 50 Herb/mcL [facility] Clarity, UA Clear [facility] Color, UA Yellow [facility] Glucose, UA Negative Negative - 1999(110) ++++ mg/dL [facility] Interpretation and review of laboratory results Abnormal [facility] Ketones, UA Negative Negative - 160(16) ++++ mg/dL [facility] Leukocytes, UA Negative Negative - 500+++ Bobby/mcL [facility] Nitrite, UA Negative Negative - Positive [facility] pH, UA 6 5 - 9 [facility] Protein, UA Trace Negative - 1999(20) ++++ mg/dL [facility] Spec Grav, UA 1.03 1 - 1.03 [facility] Urobilinogen, UA 0.2 0.2 - 12 mg/dL [facility] Urinalysis macro (dipstick) panel (U)on 08-30-2024 Bilirubin, UA Negative Negative - 4(70) +++ mg/dL [facility] Blood, UA Negative Negative - 50 Herb/mcL [facility] Clarity, UA Clear [facility] Color, UA Yellow [facility] Glucose, UA Negative Negative - 1999(110) ++++ mg/dL [facility] Interpretation and review of laboratory results Abnormal [facility] Ketones, UA Positive Negative - 160(16) ++++ mg/dL [facility] Comment on above: Trace Leukocytes, UA Trace Negative - 500+++ Bobby/mcL [facility] Nitrite, UA Negative Negative - Positive [facility] pH, UA 6 5 - 9 [facility] Protein, UA Trace Negative - 1999(20) ++++ mg/dL [facility] Spec Grav, UA 1.03 1 - 1.03 [facility] Urobilinogen, UA 0.2 0.2 - 12 mg/dL [facility] GLUCOSE TOLERANCE 3 HOURon 0 6-09-2025 GLUCOSE TOLERANCE 3 HOUR High mg/dL [facility] Comment on above: GLU FAST 93 (<95) Co l: 08/13/24 1026 GLU 1HR 132 (<180) Col: 08/13/24 1128 GLU 2HR 152 (<155) Col: 08/13/24 1228 GLU 3HR 143H (<140) Col: 08/13/24 1331 Interpretation and review of laboratory results Abnormal [facility] ALL CBC WITH AUTO DIFFon BASOPHILS ABSOLUTE AUTO 0 [facility] Basophils/100 WBC (Bld) 0.2 % 0.2 - 2.0 % [facility] Eosinophils/100 WBC (Bld) 1 % 0.9 - 7.0 % [facility] Erythrocyte distribution width (RBC) [Ratio] 12.9 % 11.0 - 15.0 % [facility] Hematocrit (Bld) [Volume fraction] 33 % Low 36.0 - 48.0 % [facility] Hemoglobin (Bld) [Mass/Vol] 11.5 g/dL Low 12.0 - 16.0 g/dL [facility] IMMATURE GRANULOCYTES ABS AUTO 0.03 [facility] Immature granulocytes/100 WBC (Bld) 0.4 % 0.0 - 0.5 % [facility] Interpretation and review of laboratory results Abnormal [facility] LYMPHOCYTES ABSOLUTE AUTO 1.6 [facility] Lymphocytes/100 WBC (Bld) 19.1 % Low 20.5 - 60.0 % [facility] MCH (RBC) [Entitic mass] 30.7 pg 26.7 - 34.0 pg [facility] MCHC (RBC) [Mass/Vol] 34.8 g/dL 29.9 - 35.2 g/dL [facility] MCV (RBC) [Entitic vol] 88.2 fL 81.0 - 99.0 fL [facility] MONOCYTES ABSOLUTE AUTO 0.4 [facility] Monocytes/100 WBC (Bld) 4.9 % 1.7 - 12.0 % [facility] NEUTROPHILS ABSOLUTE AUTO 6.1 [facility] Neutrophils/100 WBC (Bld) 74.4 % 43.0 - 75.0 % [facility] Platelet mean volume (Bld) [Entitic vol] 10.2 fL 9.5 - 13.5 fL [facility] TBH EO # 0.1 [facility] PLT 247 [facility] TB RBC 3.74 Low [facility] TB WBC 8.2 [facility] COMPREHENSIVE METABOLIC PANE Maverick 08-11-2024 Albumin [Mass/Vol] 3.7 g/dL Normal 3.2-5.3 [facility] Comment on above: Performed By: #### C MP #### [facility] ([facility]) [address] [place] [address] VIR ALP [Catalytic activity/Vol] 52 U/L Normal 39-130 [facility] Comment on above: Performed By: #### C MP #### [facility] ([facility]) [address] [place] [address] VIR ALT [Catalytic activity/Vol] 36 U/L High <=31 [facility] Comment on above: Performed By: #### C MP #### [facility] ([facility]) [address] [place] [address] VIR Anion gap [Moles/Vol] 8 mmol/L Normal 5-15 [facility] Comment on above: Performed By: #### C MP #### [facility] ([facility]) [address] [place] [address] VIR AST [Catalytic activity/Vol] 26 U/L Normal <=41 [facility] Comment on above: Performed By: #### C MP #### [facility] ([facility]) [address] [place] [address] VIR Bilirubin [Mass/Vol] 0.5 mg/dL Normal 0.3-1.2 [facility] Comment on above: Performed By: #### C MP #### [facility] ([facility]) [address] [place] [address] VIR Calcium [Mass/Vol] 9.2 mg/dL Normal 8.5-10.5 [facility] Comment on above: Performed By: #### C MP #### [facility] ([facility]) [address] [place] [address] VIR Chloride [Moles/Vol] 106 mmol/L Normal 98-109 [facility] Comment on above: Performed By: #### C MP #### [facility] ([facility]) [address] [place] [address] VIR CO2 [Moles/Vol] 24 mmol/L Normal 22-32 [facility] Comment on above: Performed By: #### C MP #### [facility] ([facility]) [address] [place] [address] VIR Creatinine [Mass/Vol] 0.61 mg/dL Normal 0.40-1.00 [facility] Comment on above: Result Comment: METH OD TRACEABLE TO IDMS STANDARD Performed By: #### C MP #### [facility] ([facility]) [address] [place] [address] VIR EGFR (CKD-EPI) NON-RACE DEPENDENT >^90 Normal >=60 [facility] Comment on above: Result Comment: Repo rted eGFR is based on the CKD-EPI 2020 equation that does not use a race coefficient. Performed By: #### C MP #### [facility] ([facility]) [address] [place] [address] VIR Glucose [Mass/Vol] 84 mg/dL Normal 65-99 [facility] Comment on above: Performed By: #### C MP #### [facility] ([facility]) [address] [place] [address] VIR Potassium [Moles/Vol] 4.1 mmol/L Normal 3.5-5.0 [facility] Comment on above: Performed By: #### C MP #### [facility] ([facility]) [address] [place] [address] VIR Protein [Mass/Vol] 6.5 g/dL Normal 6.0-8.0 [facility] Comment on above: Performed By: #### C MP #### [facility] ([facility]) [address] [place] [address] VIR Sodium [Moles/Vol] 138 mmol/L Normal 134-146 [facility] Comment on above: Performed By: #### C MP #### [facility] ([facility]) [address] [place] [address] VIR Urea nitrogen [Mass/Vol] 7 mg/dL Normal 5-23 [facility] Comment on above: Performed By: #### C MP #### [facility] ([facility]) [address] [place] [address] VIR HCV GENOTYPE, Son 08-11-2024 HCV GENOTYPE, S 1a Abnormal Undetected [facility] Comment on above: Result Comment: ADDITIONAL INFORMATION This test was performed using the [employer] RealTime HCV Genotype II assay ([employer] [place], [place]). Test Performed by: [facility] [address] [place] [address] Dermatologist Managing Partner: Jovanna Ha Ph.D.; CLIA# [id number] Performed By: #### H CVG #### [facility] ([facility]) [address] [place] [id number] VIR Urinalysis macro (dipstick) panel (U)on 08-09-2024 Bilirubin, UA Negative Negative - 4(70) +++ mg/dL [facility] Blood, UA Negative Negative - 50 Herb/mcL [facility] Clarity, UA Clear [facility] Color, UA Yellow [facility] Glucose, UA Negative Negative - 1999(110) ++++ mg/dL [facility] Interpretation and review of laboratory results Abnormal [facility] Ketones, UA Negative Negative - 160(16) ++++ mg/dL [facility] Leukocytes, UA Trace Negative - 500+++ Bobby/mcL [facility] Nitrite, UA Negative Negative - Positive [facility] pH, UA 8.5 5 - 9 [facility] Protein, UA Negative Negative - 1999(20) ++++ mg/dL [facility] Spec Grav, UA 1.02 1 - 1.03 [facility] Urobilinogen, UA 1.0 0.2 - 12 mg/dL [facility] US ABDOMEN LMTDon 07-12-2024 US ABDOMEN LMTD [...] Fink MD on 07/12/2024 8:08 PM Normal [facility] APTTon 07-11-2024 aPTT Coag (Bld) [Time] 29 s Normal 26-37 [facility] Comment on above: Performed By: #### P TT #### [address] [address] VIR PROTIME AND INRon 07-11-2024 INR 0.9 Normal 0.9-1.2 [facility] Comment on above: Performed By: #### P INR #### [address] [address] VIR PT Coag (PPP) [Time] 10.5 s Normal 9.8-13.2 [facility] Comment on above: Performed By: #### P INR #### [address] [address] VIR Urinalysis macro (dipstick) panel (U)on 07-05-2024 Bilirubin, UA Negative Negative - 4(70) +++ mg/dL [facility] Blood, UA Negative Negative - 50 Herb/mcL [facility] Clarity, UA Clear [facility] Color, UA Yellow [facility] Glucose, UA Negative Negative - 1999(110) ++++ mg/dL [facility] Interpretation and review of laboratory results Normal [facility] Ketones, UA Negative Negative - 160(16) ++++ mg/dL [facility] Leukocytes, UA Negative Negative - 500+++ Bobby/mcL [facility] Nitrite, UA Negative Negative - Positive [facility] pH, UA 6.5 5 - 9 [facility] Protein, UA Negative Negative - 1999(20) ++++ mg/dL [facility] Spec Grav, UA 1.02 1 - 1.03 [facility] Urobilinogen, UA 0.2 0.2 - 12 mg/dL [facility] COMPREHENSIVE METABOLIC PANE Maverick 07-04-2024 Albumin [Mass/Vol] 3.9 g/dL Normal 3.2-5.3 [facility] Comment on above: Performed By: #### C MP #### [facility] ([facility]) [address] [place] [address] VIR ALP [Catalytic activity/Vol] 45 U/L Normal 39-130 [facility] Comment on above: Performed By: #### C MP #### [facility] ([facility]) [address] [place] [address] VIR ALT [Catalytic activity/Vol] 55 U/L High <=31 [facility] Comment on above: Performed By: #### C MP #### [facility] ([facility]) [address] [place] [address] VIR Anion gap [Moles/Vol] 8 mmol/L Normal 5-15 [facility] Comment on above: Performed By: #### C MP #### [facility] ([facility]) [address] [place] [address] VIR AST [Catalytic activity/Vol] 31 U/L Normal <=41 [facility] Comment on above: Performed By: #### C MP #### [facility] ([facility]) [address] [place] [address] VIR Bilirubin [Mass/Vol] 0.4 mg/dL Normal 0.3-1.2 [facility] Comment on above: Performed By: #### C MP #### [facility] ([facility]) [address] [place] [address] VIR Calcium [Mass/Vol] 9.5 mg/dL Normal 8.5-10.5 [facility] Comment on above: Performed By: #### C MP #### [facility] ([facility]) [address] [place] [address] VIR Chloride [Moles/Vol] 105 mmol/L Normal 98-109 [facility] Comment on above: Performed By: #### C MP #### [facility] ([facility]) [address] [place] [address] VIR CO2 [Moles/Vol] 25 mmol/L Normal 22-32 [facility] Comment on above: Performed By: #### C MP #### [facility] ([facility]) [address] [place] [address] VIR Creatinine [Mass/Vol] 0.57 mg/dL Normal 0.40-1.00 [facility] Comment on above: Result Comment: METH OD TRACEABLE TO IDMS STANDARD Performed By: #### C MP #### [facility] ([facility]) [address] [place] [address] VIR EGFR (CKD-EPI) NON-RACE DEPENDENT >^90 Normal >=60 [facility] Comment on above: Result Comment: Repo rted eGFR is based on the CKD-EPI 2020 equation that does not use a race coefficient. Performed By: #### C MP #### [facility] ([facility]) [address] [place] [address] VIR Glucose [Mass/Vol] 92 mg/dL Normal 65-99 [facility] Comment on above: Performed By: #### C MP #### [facility] ([facility]) [address] [place] [address] VIR Potassium [Moles/Vol] 3.9 mmol/L Normal 3.5-5.0 [facility] Comment on above: Performed By: #### C MP #### [facility] ([facility]) [address] [place] [address] VIR Protein [Mass/Vol] 7.0 g/dL Normal 6.0-8.0 [facility] Comment on above: Performed By: #### C MP #### [facility] ([facility]) [address] [place] [address] VIR Sodium [Moles/Vol] 138 mmol/L Normal 134-146 [facility] Comment on above: Performed By: #### C MP #### [facility] ([facility]) [address] [place] [address] VIR Urea nitrogen [Mass/Vol] 10 mg/dL Normal 5-23 [facility] Comment on above: Performed By: #### C MP #### [facility] ([facility]) [address] [place] [address] VIR AFP, SERUM, OPEN SPINA BIFID Aon 06-10-2024 AFP MOM 1.07 . [facility] AFP VALUE 36.0 ng/mL . [facility] COMMENT: Comment . [facility] Comment on above: Erendira Lopez , Ph.D., [facility] Director References: Available Upon Request. Multiples Of Median Cutoffs For AFP Elevations Grier 2.5 Black 2.8 IDD 2.0 Twins 4.5 Abbreviation Definitions IDD - Insulin Dep Diabetes OSBR - Open Spina Bifida Risk For further inquiries contact [facility] at [phone]. This test was developed and its performance characteristics determined by [facility]. It has not been cleared or approved by the Food and Drug Administration. Performed at: [facility] [address] [place], [place] [id number] Dermatologist Managing Partner: Nancy Pardo [facility], Phone: [phone] GEST. AGE ON COLLECTION DATE 16.9 . weeks [facility] GESTAT. AGE BASED ON LMP . [facility] Comment on above: Recalculations are n ot recommended when gestational dating by LMP and ultrasound are within 10 days. INSULIN DEP DIABETES No . [facility] INTERPRETATION Comment . [facility] Comment on above: Interpretation: Scre en Negative [...] Customer Services to discuss available options. The [employer] recommends amniocentesis be offered to women age 35 and older. [age] [facility] MULTIPLE GESTATION No . [facility] OSBR RISK 1 [place] 9861 . [facility] RACE . [facility] RESULTS Report . [facility] TEST RESULTS: Negative . [facility] WEIGHT 176 . lbs [facility] N N LMP [id number] 5 16 N 1 Y 176 N N N N N White/ [facility] Urinalysis macro (dipstick) panel (U)on 06-07-2024 Bilirubin, UA Negative Negative - 4(70) +++ mg/dL [facility] Blood, UA Negative Negative - 50 Herb/mcL [facility] Clarity, UA Clear [facility] Color, UA Yellow [facility] Glucose, UA Negative Negative - 2000(110) ++++ mg/dL [facility] Interpretation and review of laboratory results Abnormal [facility] Ketones, UA Negative Negative - 160(16) ++++ mg/dL [facility] Leukocytes, UA Trace Negative - 500+++ Bobby/mcL [facility] Nitrite, UA Negative Negative - Positive [facility] pH, UA 6.5 5 - 9 [facility] Protein, UA Negative Negative - 2000(20) ++++ mg/dL [facility] Spec Grav, UA 1.025 1 - 1.03 [facility] Urobilinogen, UA 0.2 0.2 - 12 mg/dL [facility] IGP,APTIMA HPV,AGE GDLNon AGE GDLN ACOG TESTING Note . [facility] Comment on above: TESTS RESULT FLAG UN ITS REF RANGE LAB Clinician Provided Cytology Information Source.............Cervix No. of containers..01 ThinPrep Vial Age Lavello ACOG Liss... 3065 01 FLAG LEGEND: L-Low Normal,H-High Normal,LL-Alert Low,HH-Alert High <-Panic Low,>-Panic High,A-Abnormal,AA-Critical Abnormal Performed at: 01 =G [address] [address] Serina Betancourt MD, HPV APTIMA Positive Abnormal Negative [facility] Comment on above: This nucleic acid am plification test detects fourteen high- risk HPV types (16,18,31,33,35,39,45,51,52,56,58,59,66,68) without differentiation. HPV GENOTYPE 16 Positive Abnormal Negative [facility] HPV GENOTYPE 18,45 Negative Negative [facility] Comment on above: Performed at: =G - L [facility] [address] [id number] Dermatologist Managing Partner: Serina Betancourt MD, Phone: [phone] Performed at: [address] [id number] Dermatologist Managing Partner: Serina Betancourt MD, Phone: [phone] IGP, APTIMA HPV, RFX 16/18,45 Note . [facility] Comment on above: TESTS RESULT FLAG UN ITS REF RANGE LAB DIAGNOSIS: 02 NEGATIVE FOR INTRAEPITHELIAL LESION OR MALIGNANCY. Specimen adequacy: 02 Satisfactory for evaluation. Endocervical and/or squamous metaplastic cells (endocervical component) are present. Performed by: 02 Susannah Christina Chain Machine Operator (ASCP) . 02 Note: Note 02 [...] High,A-Abnormal,AA-Critical Abnormal Performed at: 02 [address] [facility] [address] [address] Serina Betancourt MD, Interpretation and review of laboratory results Abnormal [facility] SPATULA-ALONE CERVIX [facility] Urinalysis macro (dipstick) panel (U)on 05-10-2024 Bilirubin, UA Negative Negative - 4(70) +++ mg/dL [facility] Blood, UA Negative Negative - 50 Herb/mcL [facility] Clarity, UA Clear [facility] Color, UA Straw [facility] Glucose, UA Negative Negative - 1999(110) ++++ mg/dL [facility] Interpretation and review of laboratory results Abnormal [facility] Ketones, UA Negative Negative - 160(16) ++++ mg/dL [facility] Leukocytes, UA Positive Negative - 500+++ Bobby/mcL [facility] Comment on above: small Nitrite, UA Negative Negative - Positive [facility] pH, UA 7 5 - 9 [facility] Protein, UA Trace Negative - 1999(20) ++++ mg/dL [facility] Spec Grav, UA 1.02 1 - 1.03 [facility] Urobilinogen, UA 0.2 0.2 - 12 mg/dL [facility] Ultrasound - Officeon 2024 Radiology Study observation (narrative) [facility] AFP Single Marker Scrn, Froylan rnal, Serumon 04-20-2024 Ms Alpha-Fetoprotein 36 [facility] BOX TESTon 04-20-2024 [facility]24 [facility] CBC without diffon Hematocrit (Bld) [Volume fraction] 38.7 % [facility] Hemoglobin (Bld) [Mass/Vol] 13.6 g/dL [facility] Platelets (Bld) [#/Vol] 298 10*3/uL [facility] Rbc Mcv (Fl) By Automated Count 86.6 [facility] Drug Screen, Urineon 025 Amphetamine/Methamph etamine Negative [facility] Barbiturates Negative [facility] Benzodiazepines Negative [facility] Cocaine Metabolite Negative [facility] Opiates Negative [facility] Oxycodone Negative [facility] Phencyclidine Negative [facility] Thc Marijuana, Urine Negative [facility] HBV surface Ag IA Qlon 04-20 Hepatitis B Surface Antigen Negative [facility] HCG ( test) Ql (U)o n 04-20-2024 Interpretation and review of laboratory results Abnormal [facility] Preg Test, Ur Positive Negative [facility] HCV Ab IA Qlon 04-20-2024 HCV Ab Ql (S) Reactive [facility] HIV 1+2 Ab+HIV1 p24 Ag IA Ql on 04-20-2024 HIV 1&2 AB/AG Non-Reactive [facility] Hemoglobin A1con 04-20-2024 HbA1c (Bld) [Mass fraction] 5 % 4.0 - 6.0 % [facility] High risk HPV w/genoon 04-20 Other High Risk Hpv Positive [facility] No Panel Informationon 04-20 [facility] Rubella IGG immune statuson 04-20-2024 Rubella immune IgG immune [facility] Syphilis Total(Unknown Syphi lis Status)on 04-20-2024 Syphilis Non-Reactive [facility] Type and screenon 04-20-2024 Abo/Rh(D) Positive [facility] US OB TRANSVAGINALon 025 US OB [...] within the gestational sac without evident abnormality. Zap rump length is 2.9 to 3.0 cm. heart rate is 176 bpm. Small lenticular shaped hypoechoic lesion regional to the gestational sac not measured by the truck mechanic, 1 to 2 cm. Cervical length 5.2 [...] No LMP recorded. Ultrasound - Officeon 2024 [facility] Urinalysis macro (dipstick) panel (U)on 04-20-2024 Bilirubin, UA Negative Negative - 4(70) +++ mg/dL [facility] Blood, UA Negative Negative - 50 Herb/mcL [facility] Clarity, UA Clear [facility] Color, UA Yellow [facility] Glucose, UA Negative Negative - 2000(110) ++++ mg/dL [facility] Interpretation and review of laboratory results Normal [facility] Ketones, UA Negative Negative - 160(16) ++++ mg/dL [facility] Leukocytes, UA Negative Negative - 500+++ Bobby/mcL [facility] Nitrite, UA Negative Negative - Positive [facility] pH, UA 5.5 5 - 9 [facility] Protein, UA Negative Negative - 2000(20) ++++ mg/dL [facility] Spec Grav, UA 1.02 1 - 1.03 [facility] Urobilinogen, UA 1.0 0.2 - 12 mg/dL [facility] TB PREG QUANT HCGon 025 HCG QUANTITATIVE 13729 mIU/mL [facility] Comment on above: 5-50 0.2-1 WEEK 50-500 1-2 WEEKS 100-5,000 2-3 WEEKS 500-10,000 3-4 WEEKS 1,000-50,000 4-5 WEEKS 10,000-100,000 5-6 WEEKS 15,000-200,000 6-8 WEEKS 10,000-100,000 2-3 [facility] PREG QUANT HCGon 025 HCG QUANTITATIVE 8482 mIU/mL [facility] Comment on above: 5-50 0.2-1 WEEK 50-500 1-2 WEEKS 100-5,000 2-3 WEEKS 500-10,000 3-4 WEEKS 1,000-50,000 4-5 WEEKS 10,000-100,000 5-6 WEEKS 15,000-200,000 6-8 WEEKS 10,000-100,000 2-[facility]ST 1 Von 11-26-2020 XR CHEST [...] GUAMAN Date: 2020-11-26 15:58 Normal [facility] Vital Signs Date Time Vital Sign Value Performing Clinician Faci lity 10-23-2024 13:53-0400 Body height 157.5 cm Sydney DAVISON Work Phone: [facility] 10-23-2024 13:39-0400 Body mass index (BMI) [Ratio] 35.12 kg/m2 Sydney DAVISON Work Phone: [facility] 10-23-2024 13:39-0400 Body weight 87.09 kg Sydney Snell PA Work Phone: [facility] 10-23-2024 13:39-0400 Diastolic blood pressure 80 mm[Hg] Sydney Snell PA Work Phone: [facility] 10-23-2024 13:39-0400 Systolic blood pressure 140 mm[Hg] Sydney Snell PA Work Phone: [facility] 10-15-2024 13:10-0400 Body weight 86.18 kg Ranulfo Jose DO Work Phone: [facility] 10-15-2024 13:10-0400 Diastolic blood pressure 78 mm[Hg] Ranulfo Jose DO Work Phone: [facility] 10-15-2024 13:10-0400 Systolic blood pressure 122 mm[Hg] Ranulfo Jose DO Work Phone: [facility] 10-01-2024 14:31-0400 Body weight 85.73 kg Sydney Snell PA Work Phone: [facility] 10-01-2024 14:31-0400 Diastolic blood pressure 80 mm[Hg] Sydney DAVISON Work Phone: [facility] 10-01-2024 14:31-0400 Systolic blood pressure 124 mm[Hg] Sydney Snell PA Work Phone: [facility] 09-17-2024 13:59-0400 Body weight 85.33 kg Ranulfo Jose DO Work Phone: [facility] 09-17-2024 13:59-0400 Diastolic blood pressure 70 mm[Hg] Ranulfo Jose DO Work Phone: [facility] 09-17-2024 13:59-0400 Systolic blood pressure 120 mm[Hg] Ranulfo Jose DO Work Phone: [facility] 08-30-2024 14:01-0400 Body weight 84.14 kg Sydney DAVISON Work Phone: [facility] 08-30-2024 14:01-0400 Diastolic blood pressure 62 mm[Hg] Sydney DAVISON Work Phone: [facility] 08-30-2024 14:01-0400 Systolic blood pressure 128 mm[Hg] Syndey DAVISON Work Phone: [facility] 08-09-2024 09:50-0400 Body weight 83.06 kg Ranulfo Jose DO Work Phone: [facility] 08-09-2024 09:50-0400 Diastolic blood pressure 66 mm[Hg] Ranulfo Jose DO Work Phone: [facility] 08-09-2024 09:50-0400 Systolic blood pressure 122 mm[Hg] Ranulfo Jose DO Work Phone: [facility] 07-05-2024 09:23-0400 Body weight 81.65 kg Cristy Pulido NP Work Phone: [facility] 07-05-2024 09:23-0400 Diastolic blood pressure 62 mm[Hg] Cristy Pulido NP Work Phone: [facility] 07-05-2024 09:23-0400 Systolic blood pressure 110 mm[Hg] Cristy Pulido NP Work Phone: [facility] 07-04-2024 08:39-0400 Body height 157.5 cm Kristina Torres MD Work Phone: [facility] 07-04-2024 08:39-0400 Body mass index (BMI) [Ratio] 33.39 kg/m2 Kristina Torres MD Work Phone: [facility] 07-04-2024 08:39-0400 Body weight 82.83 kg Kristina Torres MD Work Phone: [facility] 07-04-2024 08:39-0400 Diastolic blood pressure 80 mm[Hg] Kristina Torres MD Work Phone: [facility] 07-04-2024 08:39-0400 Heart rate 80 /min Kristina Torres MD Work Phone: [facility] 07-04-2024 08:39-0400 Systolic blood pressure 125 mm[Hg] Kristina Torres MD Work Phone: [facility] 06-07-2024 09:40-0400 Body weight 80.2 kg Ranulfo Jose DO Work Phone: [facility] 06-07-2024 09:40-0400 Diastolic blood pressure 70 mm[Hg] Ranulfo Jose DO Work Phone: [facility] 06-07-2024 09:40-0400 Systolic blood pressure 120 mm[Hg] Ranulfo Jose DO Work Phone: [facility] 05-10-2024 12:13-0500 Body weight 79.74 kg Ranulfo Jose DO Work Phone: [facility] 05-10-2024 12:13-0500 Diastolic blood pressure 80 mm[Hg] Ranulfo Jose DO Work Phone: [facility] 05-10-2024 12:13-0500 Systolic blood pressure 130 mm[Hg] Ranulfo Jose DO Work Phone: [facility] 04-20-2024 09:47-0500 Body weight 80.2 kg Noms Nurse [facility] Encounters Encounter Date Encounter Type Care Provider Facility Start: 10-23-2024 End: 10-23-2024 Bamboo flowsheet Sydney DAVISON Work Phone: [facility] Start: 10-23-2024 End: 10-23-2024 Bamboo flowsheet Sydney DAVISON Work Phone: [facility] Start: 10-23-2024 End: 10-23-2024 flow sheet Sydney DAVISON Work Phone: [facility] Comment on above: 36 weeks gestation o f ([facility]); Third trimester ([facility]); Hepatitis C test positive ; Gastroesophageal reflux in ([facility]) Start: 10-15-2024 End: 10-15-2024 Bamboo flowsheet Ranulfo Jose DO Work Phone: [facility] Start: 10-15-2024 End: 10-15-2024 Bamboo flowsheet Ranulfo Jose DO Work Phone: [facility] Start: 10-15-2024 End: 10-15-2024 flow sheet Ranulfo Jose DO Work Phone: [facility] Comment on above: Cystitis (Primary Dx ); Third trimester ([facility]); 35 weeks gestation of ([facility]) Start: 10-15-2024 End: 10-15-2024 ambulatory RANULFO JOSE Not Available Start: 10-12-2024 End: 10-12-2024 Clinisync Result Encounter Ranulfo Jose DO Work Phone: [facility] Unsolicited Start: 10-12-2024 End: 10-12-2024 Clinisync Result Encounter Ranulfo Jose DO Work Phone: [facility] Start: 10-01-2024 End: 10-01-2024 flow sheet Sydney DAVISON Work Phone: [facility] GALVEZ Comment on above: Third trimester preg calixto ([facility]) Start: 10-01-2024 End: 10-01-2024 ambulatory SYDNEY SNELL Not Available Start: 09-20-2024 End: 09-20-2024 [facility] Start: 09-17-2024 End: 09-17-2024 Bamboo flowsheet Ranulfo Jose DO Work Phone: [facility] Start: 09-17-2024 End: 09-17-2024 Bamboo flowsheet Ranulfo Jose DO Work Phone: [facility] Start: 09-17-2024 End: 09-17-2024 ambulatory RANULFO JOSE Not Available Start: 09-17-2024 End: 09-17-2024 flow sheet Ranulfo Jose DO Work Phone: [facility] Comment on above: 30 weeks gestation o f ([facility]); Third trimester ([facility]); Hepatitis C test positive ; Gastroesophageal reflux in ([facility]) Start: 08-30-2024 End: 08-30-2024 Bamboo flowsheet Sydney DAVISON Work Phone: [facility] Start: 08-30-2024 End: 08-30-2024 Bamboo flowsheet Sydney DAVISON Work Phone: [facility] Start: 08-30-2024 End: 08-30-2024 flow sheet Sydney DAVISON Work Phone: [facility] Comment on above: Third trimester preg calixto ([facility]); 28 weeks gestation of ([facility]); Hepatitis C test positive ; Gastroesophageal reflux in ([facility]) Start: 08-30-2024 End: 08-30-2024 ambulatory SYDNEY SNELL [...] [facility] Unsolicited Start: 08-11-2024 [facility]AL[facility] Start: 08-10-2024 End: 08-10-2024 ambulatory [facility] TORRES [facility] Comment on above: Hepatitis C virus in fection in mother during (Primary Dx); Low-lying placenta Start: 08-10-2024 End: 08-10-2024 Office outpatient visit 15 minutes Jeni Macdonald MD Work Phone: [facility] Comment on above: 25 weeks gestation o f (Primary Dx); Hepatitis C antibody positive Start: 08-09-2024 End: 08-09-2024 ambulatory RANULFO R [facility] Start: 08-09-2024 End: 08-09-2024 Bamboo flowsheet Ranulfo Jose DO Work Phone: [facility] Start: 08-09-2024 End: 08-09-2024 Bamboo flowsheet Ranulfo Jose DO Work Phone: [facility] Start: 08-09-2024 End: 08-09-2024 ambulatory RANULFO JOSE Not Available Start: 08-09-2024 End: 08-09-2024 flow sheet Ranulfo Jose DO Work Phone: [facility] Comment on above: Second trimester pre gnancy; 25 weeks gestation of ; with normal glucose tolerance test (GTT); Diabetes mellitus screening; Encounter for consultation for female sterilization Start: 07-11-2024 End: 07-11-2024 ambulatory KRISTINA TORRES [facility] Start: 07-09-2024 End: 07-09-2024 Telephone encounter Jillian Hernandez CMA [facility] Start: 07-06-2024 End: 07-06-2024 Orders Only Kristina Torres MD Work Phone: [facility] Comment on above: Hepatitis C virus in fection in mother during (Primary Dx) Start: 07-05-2024 End: 07-05-2024 Bamboo flowsheet Cristy Pulido ABORIGINAL LIAISON OFFICER Work Phone: [facility] Start: 07-05-2024 End: 07-05-2024 Bamboo flowsheet Cristy Pulido ABORIGINAL LIAISON OFFICER Work Phone: [facility] Start: 07-05-2024 End: 07-05-2024 ambulatory CRISTY PULIDO Not Available Start: 07-05-2024 End: 07-05-2024 flow sheet Cristy Pulido ABORIGINAL LIAISON OFFICER Work Phone: [facility] Comment on above: Second trimester pre gnancy; 20 weeks gestation of Start: 07-04-2024 End: 07-04-2024 Office outpatient new 45 minutes Kathryn Awad MD Work Phone: [facility] Comment on above: Hepatitis C virus in fection in mother during (Primary Dx) Start: 07-04-2024 End: 07-04-2024 Orders Only Jillian Colin RN [facility] Comment on above: Hepatitis C virus in fection in mother during (Primary Dx); Low-lying placenta Start: 07-03-2024 End: 07-03-2024 Chart abstracting Kathryn Awad MD Work Phone: [facility] Start: 06-08-2024 End: 06-10-2024 Clinisync Result [...] Torres MD Work Phone: [facility] Start: 04-20-2024 End: 04-20-2024 Clinisync Result [...] Date Procedure Procedure Detail Performing Clinician Start: 10-23-2024 Urnls dip stick/tabl et rgnt non-auto w/o micrscp Sydney DAVISON Work Phone: Start: 10-15-2024 Urnls dip stick/tabl et rgnt non-auto w/o micrscp Ranulfo Jose DO Work Phone: Start: 10-12-2024 US OB BPP W NON-STRESS Ranulfo Jose DO Work Phone: Start: 10-12-2024 US OB PLACENTA Ranulfo Fa zio DO Work Phone: Start: 10-01-2024 Urnls dip stick/tabl et rgnt non-auto w/o micrscp Sydney DAVISON Work Phone: Start: 09-17-2024 Urnls dip stick/tabl et rgnt non-auto w/o micrscp Ranulfo Jose DO Work Phone: Start: 08-30-2024 Urnls dip stick/tabl et rgnt non-auto w/o micrscp Sydney DAVISON Work Phone: Start: 08-13-2024 GLUCOSE TOLERANCE 3 [...] Td Vaccines (8 - Td or Tdap) [facility] Start: 05-11-2027 Screening for malign ant neoplasm of cervix Pap Smear [facility] Start: 08-10-2025 End: 08-10-2025 US MFM with or without consult US MFM with or without consult Imaging Routine Hepatitis C virus infection in mother during Low-lying placenta Expected: 08/10/2025 (Approximate), Expires: 08/10/2025 [email or web address] Work Phone: Comment on above: Expected: 08/10/2025 (Approximate), Expires: 08/10/2025 Start: 07-04-2025 Adult BMI Screening Adult BMI Screen ing [facility] Start: 07-04-2025 Tobacco Screening Tobacco Screening [facility] Start: 07-04-2025 End: 07-04-2025 US MFM with or without consult US MFM with or without consult Imaging Routine Hepatitis C virus infection in mother during Low-lying placenta Expected: 07/04/2025 (Approximate), Expires: 07/04/2025 [email or web address] Work Phone: Comment on above: Expected: 07/04/2025 (Approximate), Expires: 07/04/2025 Start: 05-20-2025 End: 05-20-2025 Patient encounter procedure [facility] Start: 11-05-2024 Influenza vaccination Influenza Vacc ine [facility] Start: 10-30-2024 End: 10-30-2024 Patient encounter procedure 10/30/2024 2:00 PM EDT Routine [facility] [address] [place] [address] Ranulfo Garcia DO [address] [place], [place] [id number] [facility] Start: 10-23-2024 End: 10-23-2025 CULTURE, GROUP B STREP WITH SUSCEPTIBLITY CULTURE, GROUP B STREP WITH SUSCEPTIBLITY Lab Routine Third trimester ([facility]) Expected: 10/23/2024, Expires: 10/23/2025 [facility] Work Phone: Comment on above: Expected: 10/23/2024 , Expires: 10/23/2025 Start: 10-23-2024 End: 04-25-2025 US biophysical profile w non stress test US biophysical profile w non stress test Imaging Routine 36 weeks gestation of ([facility]) Third trimester ([facility]) Hepatitis C test positive Expected: 10/23/2024 (Approximate), Expires: 04/25/2025 [facility] Comment on above: Expected: 10/23/2024 (Approximate), Expires: 04/25/2025 Start: 10-23-2024 End: 10-23-2024 Patient encounter procedure ROSIE GALVEZ Comment on above: Arrived Start: 10-15-2024 End: 10-15-2024 Patient encounter procedure ROSIE GALVEZ Comment on above: Arrived Start: 10-01-2024 End: 10-01-2024 Patient encounter procedure 10/01/2024 2:50 PM EDT Routine [facility] [address] [place] [id number] Sydney Snell PA [address] [place] [address] [facility] Start: 10-01-2024 End: 10-01-2024 Professional / ancillary services management 10/01/2024 2:00 PM EDT Ancillary Procedure [facility] [address] [place] [id number] [facility] Start: 09-20-2024 End: 09-20-2024 Patient encounter procedure 09/20/2024 11:00 AM EDT Appointment Maternal Medicine [place] [address] [facility] [address] [place] [address] Maternal Medicine [place] Start: 09-17-2024 End: 01-18-2025 US for US OB follow up transabdominal approach Imaging Routine 30 weeks gestation of ([facility]) Third trimester ([facility] Hepatitis C test positive Expected: 09/17/2024, Expires: 01/18/2025 [facility] Work Phone: Comment on above: Expected: 09/17/2024 , Expires: 01/18/2025 Start: 09-17-2024 End: 09-17-2024 Patient encounter procedure 09/17/2024 1:50 PM EDT Routine [facility] [address] [place] [address] Ranulfo Garcia DO [address] [place] [address] [facility] Start: 08-30-2024 End: 08-30-2024 Patient encounter procedure [facility] Comment on above: Arrived Start: 08-11-2024 End: 08-11-2024 ambulatory 08/11/2024 11:00 AM EDT Lab [facility] [address] [place] [id number] [facility] Lab Start: 08-10-2024 End: 08-10-2024 Telemedicine consultation with patient 08/10/2024 2:00 PM EDT Telemedicine Maternal- Medicine at [facility] [address] [place] [phone] Jeni Macdonald MD [address], [address] [place] [id number] Maternal- Medicine at [facility] Start: 08-09-2024 End: 08-09-2025 CBC panel - Blood by Automated count CBC Lab Routine Diabetes mellitus screening Expected: 08/09/2024 (Approximate), Expires: 08/09/2025 [facility] Work Phone: Comment on above: Expected: 08/09/2024 (Approximate), Expires: 08/09/2025 Start: 08-09-2024 End: 08-09-2025 Measurement of glucose 1 hour after glucose challenge for glucose tolerance test Glucose tolerance, 1 hour Lab Routine Diabetes mellitus screening Expected: 08/09/2024 (Approximate), Expires: 08/09/2025 [facility] Comment on above: Expected: 08/09/2024 (Approximate), Expires: 08/09/2025 Start: 08-09-2024 End: 08-09-2024 Patient encounter procedure [facility] US Imaging Start: 07-11-2024 End: 07-11-2024 Patient encounter procedure 07/11/2024 8:00 AM EDT Appointment [facility] - Ultrasound [address] [place] [phone] [facility] - Ultrasound Start: 07-06-2024 End: 07-06-2025 US Abdomen limited Ultrasound abdomen limited Imaging Routine Hepatitis C virus infection in mother during Expected: 07/06/2024, Expires: 07/06/2025 [facility] Work Phone: Comment on above: Expected: 07/06/2024 , Expires: 07/06/2025 Start: 07-05-2024 End: 07-05-2024 Patient encounter procedure 07/05/2024 8:30 AM EDT Routine [facility] [address] [place] [phone] Sydney Snell PA [address] [place], [place] [id number] [facility] Start: 07-04-2024 End: 07-04-2024 Patient encounter procedure [facility] US Imaging Start: 06-07-2024 End: 07-07-2024 Alpha fetoprotein, maternal Alpha fetoprotein, maternal Lab Routine 16 weeks gestation of Second trimester Expected: 06/07/2024 (Approximate), Expires: 07/07/2024 [facility] Work Phone: Comment on above: Expected: 06/07/2024 (Approximate), Expires: 07/07/2024 Start: 06-07-2024 End: 06-07-2024 Patient encounter procedure [facility] OB Comment on above: Arrived Start: 05-10-2024 End: 05-10-2024 Patient encounter procedure 05/10/2024 11:40 AM EST Office Visit [facility] OB [address] [place] [phone] Ranulfo Garcia DO [address] [place] [address] [facility] OB Start: 04-20-2024 End: 04-20-2025 ABO/Rh ABO/Rh Lab Routine Missed menses , unspecified gestational age Expected: 04/20/2024 (Approximate), Expires: 04/20/2025 [facility] Comment on above: Expected: 04/20/2024 (Approximate), Expires: 04/20/2025 Start: 04-20-2024 End: 04-20-2025 Blood type and Indirect antibody screen panel - Blood Type and screen Lab Routine Missed menses , unspecified gestational age Expected: 04/20/2024 (Approximate), Expires: 04/20/2025 [facility] Comment on above: Expected: 04/20/2024 (Approximate), Expires: 04/20/2025 Start: 04-20-2024 End: 04-20-2025 Drugs of abuse panel - Urine by Screen method Rapid drug screen, urine Lab Routine , unspecified gestational age Encounter for supervision of normal first in first trimester Expected: 04/20/2024 (Approximate), Expires: 04/20/2025 [facility] Comment on above: Expected: 04/20/2024 (Approximate), Expires: 04/20/2025 Start: 04-20-2024 End: 04-20-2025 US Pelvis transvaginal [facility] Work Phone: Comment on above: Expected: 04/20/2024 , Expires: 04/20/2025 Start: 11-06-2023 Influenza vaccination Influenza Vacc ine [facility] Start: 10-07-2012 Screening for malign ant neoplasm of cervix Pap Smear [facility] Start: 10-07-2009 Adult BMI Follow Up Plan Adult [facility] Start: 10-07-2009 Adult BMI Screening Adult BMI Screen ing [facility] Start: 2003 Depression Screening Depression Scre ening [facility] Start: 2003 Tobacco Screening Tobacco Screening [facility] End: 07-04-2025 aPTT in Blood by Coagulation assay APTT Lab Routine Hepatitis C virus infection in mother during 1 Occurrences starting 07/04/2024 until 07/04/2025 [facility] Comment on above: 1 Occurrences starti ng 07/04/2024 until 07/04/2025 Bacteria identified in Urine by Culture Urine culture Microbiology Routine Missed menses Ordered: 04/20/2024 [facility] Comment on above: Ordered: 04/20/2024 CBC W Auto Different ial panel - Blood CBC and differential Lab Routine Missed menses , unspecified gestational age Ordered: 04/20/2024 [facility] Comment on above: Ordered: 04/20/2024 CHLAMYDIA TRACHOMATI S (GENITO/STI) CHLAMYDIA TRACHOMATIS (GENITO/STI) Lab Routine Exposure to STD Ordered: 05/10/2024 [facility] Comment on above: Ordered: 05/10/2024 End: 07-04-2025 Comprehensive metabolic 2000 panel - Serum or Plasma Comprehensive metabolic panel Lab Routine Hepatitis C virus infection in mother during 1 Occurrences starting 07/04/2024 until 07/04/2025 [employer] Phone: Comment on above: 1 Occurrences starti ng 07/04/2024 until 07/04/2025 Comprehensive metabo lic 2000 panel - Serum or Plasma Comprehensive metabolic panel Lab Routine Hepatitis C virus infection in mother during 07/04/2024 11:48 AM EDT [facility] End: 08-10-2025 Comprehensive metabolic 2000 panel - Serum or Plasma Comprehensive metabolic panel Lab Routine 25 weeks gestation of Hepatitis C antibody positive 1 Occurrences starting 08/10/2024 until 08/10/2025 [facility] Comment on above: 1 Occurrences starti ng 08/10/2024 until 08/10/2025 Cytology Cervical or vaginal smear or scraping study Pap Smear Pathology and Cytology Routine Well woman exam with routine gynecological exam Ordered: 05/10/2024 [facility] Comment on above: Ordered: 05/10/2024 End: 08-10-2025 HCV Genotype, S HCV Genotype, S Lab Routine 25 weeks gestation of Hepatitis C antibody positive 1 Occurrences starting 08/10/2024 until 08/10/2025 [facility] Comment on above: 1 Occurrences starti ng 08/10/2024 until 08/10/2025 Hemoglobin A1c/Hemoglobin.total in Blood Hemoglobin A1c Lab Routine Missed menses , unspecified gestational age Ordered: 04/20/2024 [facility] Comment on above: Ordered: 04/20/2024 Hepatitis B virus surface Ag [Presence] in Serum or Plasma by Immunoassay Hepatitis B surface antigen Lab Routine Missed menses , unspecified gestational age Ordered: 04/20/2024 [facility] Comment on above: Ordered: 04/20/2024 Hepatitis C virus Ab [Presence] in Serum or Plasma by Immunoassay Hepatitis C antibody Lab Routine Missed menses , unspecified gestational age Ordered: 04/20/2024 [facility] Comment on above: Ordered: 04/20/2024 End: 08-10-2025 Hepatitis C virus RNA [Units/volume] (viral load) in Serum or Plasma by JOSE MANUEL with probe detection Hepatitis C Virus Quantitative by NAAT Lab Routine 25 weeks gestation of Hepatitis C antibody positive 1 Occurrences starting 08/10/2024 until 08/10/2025 [employer] Phone: Comment on above: 1 Occurrences starti ng 08/10/2024 until 08/10/2025 HIV-1/HIV-2 antigen/antibody combination immunoassay HIV-1 and HIV-2 antibodies Lab Routine Missed menses , unspecified gestational age Ordered: 04/20/2024 [facility] Comment on above: Ordered: 04/20/2024 Human papilloma viru s DNA [Presence] in Unspecified specimen by Probe with amplification HPV DNA probe, amplified Microbiology Routine Well woman exam with routine gynecological exam Ordered: 05/10/2024 [facility] Comment on above: Ordered: 05/10/2024 Neisseria gonorrhoea e DNA [Presence] in Unspecified specimen by JOSE MANUEL with probe detection Neisseria gonorrhea DNA probe, direct Lab Routine Exposure to STD Ordered: 05/10/2024 [facility] Comment on above: Ordered: 05/10/2024 End: 07-04-2025 Protime & INR Protime & INR Lab Routine Hepatitis C virus infection in mother during 1 Occurrences starting 07/04/2024 until 07/04/2025 [facility] Comment on above: 1 Occurrences starti ng 07/04/2024 until 07/04/2025 Reagin Ab [Presence] in Serum by RPR RPR Lab Routine Missed menses , unspecified gestational age Ordered: 04/20/2024 [facility] Comment on above: Ordered: 04/20/2024 Rubella antibody, IgG Rubella an tibody, IgG Lab Routine Missed menses , unspecified gestational age Ordered: 04/20/2024 [facility] Comment on above: Ordered: 04/20/2024 SURESWAB(R) ADVANCED VAGINITIS PLUS, TMA SURESWAB(R) ADVANCED VAGINITIS PLUS, TMA Pathology and Cytology Routine Vaginal discharge Ordered: 05/10/2024 [facility] Work Phone: Comment on above: Ordered: 05/10/2024 Immunizations Immunization Date Immunization Notes Care Provider [facility] 12-25-2019 influenza virus vaccine, unspecified formulation Kristina Torres MD Work Phone: [facility] 03-08-2018 tetanus toxoid, redu liza diphtheria toxoid, and acellular pertussis vaccine, adsorbed Kristina Torres MD Work Phone: [facility] Payers Date Payer Category Payer Medicaid [place]ICAID [place] [id number] 2024 Medicaid [id number] 2021 [facility] Blue Shield 1.2.8 [id number] 2021 Blue Cross Blue Shie ld Managed Care - Other ANTHEM [id number] 2021 Unknown [id number] 2018 Worker's Comp, Other (unspecified) WORKER'S COMPENSATION [id number] 2016 Commercial Managed C are - POS [employer] [id number]. [id number] 1991 Unknown [id number] 2.16.840.1.008730.3.579. 2.593 1991 Unknown [id number] 2.16.840.1.930751.3.579. 2.1286 1991 Unknown [id number] 2.16.840.1.231081.3.579. 2.1286 1991 Unknown [id number] 2.16.840.1.954414.3.579. 2.128 1991 Unknown [id number] 2.16.840.1.889001.3.579. 2.128 1991 Unknown [id number] 2.16.840.1.250158.3.579. 2.128 1991 Unknown [id number] 2.16.840.1.699104.3.579. 2.128 1991 Unknown [id number] 2.16840.1.748222.3.579. 2.1285 1991 Unknown [id number] 2.16.840.1.465630.3.579. 2.128 1991 Unknown [id number] 2.16.840.1.801814.3.579. 2.1285 1991 Unknown [id number] 2.16.840.1.851460.3.579. 2.9 1991 Unknown [id number] 2.16.840.1.690050.3.579. 2.9 1991 Unknown [id number] 2.16.840.1.595544.3.579. 2.1259 1991 Unknown [id number] 2.16.840.1.628825.3.579. 2.9 1991 Unknown [id number] 2.16.840.1.835351.3.579. 2.9 1991 Unknown [id number] 2.16.840.1.722195.3.579. 2.9 1991 Unknown [id number] 2.16.840.1.432028.3.579. 2.9 1991 Unknown [id number] 2.16.840.1.487550.3.579. 2.9 1991 Unknown [id number] 2.16.840.1.891100.3.579. 2.9 1991 Unknown [id number] 2.16.840.1.967475.3.579. 2.9 1991 Unknown [id number] 2.16.840.1.878277.3.579. 2.1259 1959 Unknown [id number] Social History Date Type Detail Facility Tobacco smoking status NHIS Tobacco smoking consumption unknown [facility] Start: 1991 Sex assigned at Female [facility] Start: 08-16-2018 End: 04-17-2020 Gender identity Not on file [facility] Start: 02-28-2024 [facility] Start: 08-16-2018 End: 04-17-2020 History of Social function [facility] Childcare Unknown [facility] Start: 1991 Sex assigned at Not on file [facility] Start: 10-10-2014 Sex Female (finding) [facility] Start: 07-04-2024 Tobacco smoking status NHIS Never smoked tobacco [facility] Start: 07-04-2024 Tobacco use and exposure Smokeless tobacco non-user [facility] Start: 07-04-2024 End: 08-10-2024 Alcoholic beverage intake Ex-drinker (finding) [facility] NEGATED: Highlighted rowStart: NINF History of tobacco use Passive smoker [facility] Clinical Notes 04-20-2024 to 10-23-2024 SAMAN Encarnacion - 10/23/2024 1:10 PM EDTCristy Pulido NP - 10/15/2024 1:00 PM SAMAN Burt - 10/01/2024 2:50 PM EDTSjosette Forrest LPN - 09/17/2024 1:50 PM EDT Note Date & Type Note Facility 10-23-2024 History of Presen t illness Narrative Reason [...] virus) infection 04/25/2024 History of delivery affecting ([facility] 04/25/2024 Hepatitis C test positive 04/25/2024 [...] nursing note reviewed. Exam conducted with a hardware designer present. Vitals: There is no height or weight on file to calculate BMI. BP: 140/80 Patient's last menstrual period was 02/14/2024. ASSESSMENT & PLAN ICD-10-CM 1. 36 weeks gestation of ([facility]) Z3A.36 POCT urinalysis dipstick manually resulted US biophysical profile w non stress test 2. Third trimester ([facility]) Z34.93 POCT urinalysis dipstick manually resulted CULTURE, GROUP B STREP WITH SUSCEPTIBLITY CULTURE, GROUP B STREP WITH SUSCEPTIBLITY US biophysical profile w non stress test 3. Hepatitis C test positive B19.20 US biophysical profile w non stress test 4. Gastroesophageal reflux in ([facility]) O99.619 K21.9 Patient is doing well but [...] of: SAMAN Encarnacion documented in this encounter [facility] 10-15-2024 History of Presen t illness Narrative [...] virus) infection 04/25/2024 History of delivery affecting ([facility]) 04/25/2024 Hepatitis C test positive [...] nursing note reviewed. Exam conducted with a hardware designer present. Vitals: There is no height or weight on file to calculate BMI. BP: 122/78 Patient's last menstrual period was 02/14/2024. ASSESSMENT & PLAN ICD-10-CM 1. Third trimester ([facility]) Z34.93 POCT urinalysis dipstick manually resulted 2. 35 weeks gestation of ([facility]) Z3A.35 Return OB: Patient presents today for [...] Ranulfo Garcia DO documented in this encounter [facility] 10-01-2024 History of Presen t illness Narrative [...] virus) infection 04/25/2024 History of delivery affecting ([facility] 04/25/2024 Hepatitis C test positive 04/25/2024 [...] 02/14/2024. ASSESSMENT & PLAN (Z34.93) Third trimester ([facility]) Plan: POCT urinalysis dipstick manually resulted Documented by SAMAN Encarnacion on behalf of: SAMAN Encarnacion documented in this encounter [facility] 09-17-2024 History of Presen t illness Narrative [...] virus) infection 04/25/2024 History of delivery affecting ([facility]) 04/25/2024 Hepatitis C test positive [...] nursing note reviewed. Exam conducted with a hardware designer present. Vitals: There is no height or weight on file to calculate BMI. BP: 120/70 Patient's last menstrual period was 02/14/2024. ASSESSMENT & PLAN ICD-10-CM 1. 30 weeks gestation of ([facility]) Z3A.30 POCT urinalysis dipstick manually resulted 2. Third trimester ([facility]) Z34.93 POCT urinalysis dipstick manually resulted 3. Hepatitis C test positive B19.20 POCT urinalysis dipstick manually resulted 4. Gastroesophageal reflux in ([facility]) O99.619 POCT urinalysis dipstick manually resulted K21.9 Patient presents today for a routine obstetrics appointment. Patient is currently 30w6d with a Estimated Date of Delivery: 11/20/24. Ordered growth scan for patient to schedule prior to next appointment. Patient to return to clinic in 2 weeks. Documented by Jessi Forrest LPN on behalf of: Ranulfo Garcia DO documented in this encounter [facility] 08-30-2024 History of Presen t illness Narrative [...] virus) infection 04/25/2024 History of delivery affecting ([facility]) 04/25/2024 Hepatitis C test positive 04/25/2024 [...] virus) infection 04/25/2024 History of delivery affecting ([facility]) 04/25/2024 Hepatitis C test positive 04/25/2024 [...] ASSESSMENT & PLAN ICD-10-CM 1. Third trimester ([facility]) Z34.93 POCT urinalysis dipstick manually resulted 2. 28 weeks gestation of ([facility]) Z3A.28 3. Hepatitis C test positive B19.20 4. Gastroesophageal reflux in ([facility]) O99.619 omeprazole (PriLOSEC) [address] capsule [...] of: SAMAN Encarnacion documented in this encounter [facility] 08-10-2024 History of Presen t illness Narrative Video Visit via Real-time Synchronous Audiovisual Provider Location: [facility] AT [address] [phone] Patient Location: Other Patient Location Optical Glass Inspector: None Video Visit Consent Statement: I discussed [...] that there are some limitations compared to [id number]-[id number] evaluations. We elected to proceed. REASON FOR [...] mg total) before bedtime., Disp: , Rfl: [id number] acid ( 19) 29 mg iron- 1 [...] the patient I also reviewed her recent [facility] ultrasound Low-lying placenta has resolved I was [...] me to participate in her care Jeni Macdonald MD, FACOG (she/hers) Maternal- Medicine [place] [id number] [facility] [address] [place] [address] documented in this encounter [facility] 06-05-2025 History of Presen t illness Narrative Reason [...] delivery affecting 04/25/2024 Hepatitis C test positive ([facility]) 04/25/2024 Resolved Ambulatory Problems Diagnosis Date Noted [...] nursing note reviewed. Exam conducted with a hardware designer present. Vitals: There is no height or [...] Ranulfo Garcia DO documented in this encounter [facility] 07-09-2024 Miscellaneous Notes Referral received from patients HANDBAG FINISHER for Hepatitis C and mild elevated LFTs *Patient is * 04/20/2024 [facility] (care everywhere) HEPATITIS C QUANTITATION . IU/mL 699,000 Will send a mychart message to patient in regards to treatment plan documented in this encounter [facility] 07-09-2024 Telephone encounter Note Referral received from patients HANDBAG FINISHER for Hepatitis C and mild elevated LFTs *Patient is * 04/20/2024 [facility] (care everywhere) HEPATITIS C QUANTITATION . IU/mL 699,000 Will send a mychart message to patient in regards to treatment plan [facility] 07-06-2024 History of Presen t illness Narrative Labs reviewed AST/ALT Alt mildly elevated- Recommend ruq sonogram and gi consult . Repeat LFTs within one month documented in this encounter [facility] 07-05-2024 History of Presen t illness Narrative [...] delivery affecting 04/25/2024 Hepatitis C test positive ([facility]) 04/25/2024 Resolved Ambulatory Problems Diagnosis Date Noted [...] nursing note reviewed. Exam conducted with a hardware designer present. Vitals: There is no height or [...] repeat anatomy scan in 4 weeks with [facility] and continues to follow with [facility] for Hepatitis C dx and serial Liver function testing Documented by Cristy Pulido NP on behalf of: Cristy Pulido NP documented in this encounter [facility] 07-04-2024 History of Presen t illness Narrative [...] risk Have you been seen here at [facility] in a previous ? No Recent ER visits or hospitalizations? No Bring blood sugar log or meter with you today? (Please bring them with you for every visit at [facility]) N/A Flu vaccine (Jan-May)? N/A [...] mg total) before bedtime., Disp: , Rfl: [id number]-hfizj acid ( 19) 29 mg iron- 1 [...] it affect 1-4% of women in the [facility]. I reviewed with the patient that [...] hemorrhage, and seizures. The overall risk of Yhsvrdlf-Wm-Oeoxg-Transmission (MTCT) during is approximately 4-8%. If the [...] C infection until after 18 months. The [place] [employer] and CDC recommend screening [...] her HCV VL and LFTs per new [facility] guidelines not routinely recommended recommended laboratory tests for confirmed active HCV infection in Liver function tests (AST, ALT, bilirubin) Albumin Platelet count Prothrombin time Quantitative HCV RNA HCV genotype (if not previously obtained) STI screening (HIV, syphilis, gonorrhea, chlamydia, and HBV) third trimester growth ultrasound if no other indication for testing Hep A and Hep B vaccine if not immune refer to GI/digital campaign manager/ID avoid internal monitors and early artificial rupture [...] and counseling, coordination of care which was hsqt-ni-gwmy. documented in this encounter [facility] 06-07-2024 History of Presen t illness Narrative [...] delivery affecting 04/25/2024 Hepatitis C test positive ([facility]) 04/25/2024 Resolved Ambulatory Problems Diagnosis Date Noted [...] nursing note reviewed. Exam conducted with a hardware designer present. Vitals: There is no height or [...] in 4 weeks for routine OB appointment. Employee Development Director discussed [place] paperwork with patient and spouse. Patient to RTC in 4 weeks for routine OB care. Documented by Jessi Forrest LPN on behalf of: Ranulfo Garcia DO documented in this encounter [facility] 05-10-2024 History of Presen t illness Narrative [...] delivery affecting 04/25/2024 Hepatitis C test positive ([facility]) 04/25/2024 Resolved Ambulatory Problems Diagnosis Date Noted [...] nursing note reviewed. Exam conducted with a hardware designer present. Vitals: There is no height or [...] undercooked meat, and stay away from [facility]. Patient has been consulted regarding any further [...] Ranulfo Garcia DO documented in this encounter [facility] 04-20-2024 History of Presen t illness Narrative [...] undercooked meat, and stay away from [facility]. Patient has also been advised to not [...] Yessenia Flor LPN documented in this encounter [facility] Evaluation note Diagnosis Missed menses , unspecified gestational age Encounter for supervision of normal first in first trimester H/O: Other postprocedural status documented in this encounter [facility]* Diagnosis 12 weeks gestation of [...] during - Primary [facility] Diagnosis Hepatitis C virus infection in mother during - Primary Low-lying placenta Hemorrhage from placenta previa, unspecified as to episode of care [facility] Diagnosis Second trimester state, incidental 20 weeks gestation of [facility] Diagnosis Hepatitis C virus infection in mother during - Primary [facility] Diagnosis Hepatitis C virus infection in mother during - Primary [facility] Diagnosis Hepatitis C virus infection in mother during - Primary Low-lying placenta Hemorrhage from placenta previa, unspecified as to episode of care documented in this encounter [facility] Diagnosis 25 weeks gestation of - Primary Hepatitis C antibody positive documented in this encounter [facility]* Diagnosis Second trimester state, [...] of (HHS-HCC) [facility] encounter [facility] Diagnosis 36 weeks gestation of (HHS-HCC) Third trimester (HHS-HCC) state, incidental Hepatitis C test positive Gastroesophageal reflux in (HHS-HCC) documented in this encounter [facility]InstructionsNot on filedocumented in this encounterPro[facility] SystemInstructionsNot on filedocumented in this encounterProMedica Health SystemInstructionsNot on filedocumented in this encounterProMedica Health SystemInstructionsNot on filedocumented in this encounterPro[facility] InstructionsNot on filedocumented in this encounterProMedica Health System Summary Purpose Family History No [...] pital DATE CREATED AUTHOR AUTHOR'S ORGANIZ ATION 08/10/2024 [facility] DATE CREATED AUTHOR AUTHOR'S ORGANIZ ATION 08/17/2024 [facility] DATE CREATED AUTHOR AUTHOR'S ORGANIZ ATION 09/24/2024 [facility] DATE CREATED AUTHOR AUTHOR'S ORGANIZ ATION 10/16/2024 [facility] EPIC Reason for Visit (unrecogniz ed section and content) Reason Comments Amenorrhea Reason Comments Routine Visit Reason Comments Hepatitis C Hx C/S Care Teams (unrecognized sec tion and content) Supervisor Front Relationship Specialty Start Date End Date Pcp, [place] [address] PCP - General Family Medicine 03/08/18 Supervisor Front Relationship Specialty Start Date End Date [place]cp, [place] [address] PCP - General Family Medicine 03/08/18 Supervisor Front Relationship Specialty Start Date End Date Pcp, [place] [address] PCP - General Family Medicine 03/08/18 Supervisor Front Relationship Specialty Start Date End Date Pcp, [place] [address] PCP - General Family Medicine 03/08/18 Supervisor Front Relationship Specialty Start Date End Date Pcp, [place] [address] PCP - General Family Medicine 03/08/18 Supervisor Front Relationship Specialty Start Date End Date Pcp, [place] [address] PCP - General Family Medicine 03/08/18 Supervisor Front Relationship Specialty Start Date End Date Pcp, [place] [address] PCP - General Family Medicine 03/08/18 FOR [...] BE BASED ON THE PRIMARY CLINICAL RECORDS. [facility] ARE [employer] [facility]. provides no warranty or guarantee of the accuracy or completeness of information in this document.
== END 2024-10-23 19:06 | disposition home or self-care (01) ==
LOC: LAB 19:05
PROVIDERS: Visit Provider Physician Assistant
DX: Z34.93 Encounter for supervision of normal pregnancy, unspecified, third trimester (principal); Z3A.36 36 weeks gestation of pregnancy
CPT/HCPCS: 87081

== ENCOUNTER 2024-10-25 17:08 | Inpatient (IN) | payer BC, SELFPAY ==
[2024-10-25] VITALS (67 sets, daily range): BP systolic 116–179; BP diastolic 57–112; PULSE 60–95; TEMP 36.5–37; O2SAT 95–100
--- NOTE | 2024-10-25 15:06 | US_ITS ---
[address] [address] Patient Name: BIBIANA ANSARI MRN: [id number] date: 1990 Sex: F Assigned Patient Location: [facility] Current Patient Location: [facility] Accession/Order Number: [id number] Exam Date: 10/25/2024 15:08 Report Date: 10/25/2024 16:15 At the request of: RANULFO CARRASCO DO Procedure: US OB BPP w non-stress Ultrasound biophysical profile HISTORY: Positive test for hepatitis C Adequate breathing movement, gross body movement, tone and amniotic fluid volume for total score of 8 out of 8. The amniotic fluid index is 13.0cm within normal limits. The heart rate 148 bpm. US/US OB BPP w non-stress IMPRESSION: Adequate ultrasound biophysical profile Impression dictated by: Pineda Bond M.D. 10/25/2024 4:15 PM Dictation [facility] Electron[facility] authenticated by: [id number] Y Date: 10/25/2024 16:15
--- OUTSIDE RECORDS SUMMARY | 2024-10-25 15:53 | XMS_ITS | CCD ---
Author Organization [facility] Care Team Providers Care Mop Man Name Role Phone AMANDEEP MORATAYA Admitting Unavailable [...] Attending Unavailable JOSE, RANULFO R Referring Unavailable SPENCRE, KRISTINA E Referring Unavailable PCP, NOT IN [...] RANULFO Attending Unavailable ALIS, SYDNEY Attending Unavailable Medications Current Medications Medication Drug [...] ( 1 PO) Take by mouth Active [id number] ac id ( 19) 29 mg iron- 1 mg tablet,chewable (10 sources) sw396-d jacqui-folic acid ( 19) 29 mg iron- [...] simplex; Translations: [Herpesviral infection, unspecified] Onset: 04-25-2024 5 Episodic Results Test Name Value Interpretation Reference Range Facil ity Urinalysis macro (dipstick) panel (U)on 10-23-2024 Bilirubin, UA Negative Negative - 4(70) +++ mg/dL [facility] Blood, UA Negative Negative - 50 Herb/mcL [facility] Clarity, UA Clear [facility] Color, UA Awa [facility] Glucose, UA Negative Negative - 2000(110) ++++ mg/dL [facility] Interpretation and review of laboratory results Abnormal [facility] Ketones, UA Negative Negative - 160(16) ++++ mg/dL [facility] Leukocytes, UA Negative Negative - 500+++ Bobby/mcL [facility] Nitrite, UA Negative Negative - Positive [facility] pH, UA 6 5 - 9 [facility] Protein, UA Positive Negative - 1999(20) ++++ mg/dL [facility] Spec Grav, UA 1.015 1 - 1.03 [facility] Urobilinogen, UA 1.0 0.2 - 12 mg/dL [facility] Urinalysis macro (dipstick) panel (U)on 10-15-2024 Bilirubin, UA Negative Negative - 4(70) +++ mg/dL [facility] Blood, UA Positive Negative - 50 Herb/mcL [facility] Healthcare Clarity, UA Clear [facility] Color, UA Yellow [facility] Glucose, UA Negative Negative - 2000(110) ++++ mg/dL [facility] Interpretation and review of laboratory results Abnormal [facility] Ketones, UA Negative Negative - 160(16) ++++ mg/dL [facility] Leukocytes, UA Negative Negative - 500+++ Bobby/mcL [facility] Nitrite, UA Negative Negative - Positive [facility] pH, UA 6 5 - 9 [facility] Protein, UA 1+ Negative - 1999(20) ++++ mg/dL [facility] Spec Grav, UA 1.025 1 - 1.03 [facility] Urobilinogen, UA 1.0 0.2 - 12 mg/dL [facility] No Panel Informationon 10-12 Radiology Study observation (narrative) [facility] US OB BPP W NON-STRESS on 10-12-[address] [address] Ultrasound Report Signed Patient: BIBIANA ANSARI MR#: [id number] : 1990 Acct:[id number] Age/Sex: 34 / F ADM Date: Loc: [facility] 254-[address]: Ranulfo Garcia D.O. Ordering Physician: Ranulfo Garcia D.O. Date of Service: 10/12/24 Procedure(s): US OB BPP w non-stress Accession Number(s): [id number] cc: Ranulfo Garcia D.O.; Physician,Non-Staff [place] [address] Patient Name: BIBIANA ANSARI MRN: [facility]:[id number] date: 1990 Sex: F Assigned Patient Location: [facility] Current Patient Location: [facility] Accession/Order Number: [id number] Exam Date: 10/12/2024 11:51 Report Date: 10/12/2024 12:02 At the request of: RANULFO GARCIA DO Procedure: US OB BPP w non-stress CLINICAL DATA: Patient fell this morning and has had cramping since. BIOPHYSICAL PROFILE: COMPARISON: None There is a single live intrauterine gestation in cephalic presentation. The reported gestational age is 34 weeks 3 days. The heart rate [id number] beats per minutee. FINDINGS: TONE: 1 or [...] Lopez M.D. 10/12/2024 12:02 PM Dictation Location: [place] [address] Electronically authenticated by: [id number] Y Date: 10/12/2024 12:02 Dictated By: Steffi Lopez M.D. Signed By: 10/12/24 1205 DD/ 120 TD/TT: Manager Financial: [facility] Radiology, Radiologist, - 10/12/2024 [place] [address] Ultrasound Report Signed Patient: BIBIANA ANSARI MR#: [id number] : 1990 Acct:[id number] Age/Sex: 34 / F ADM Date: Loc: [facility] 254-[address]: Ranulfo Garcia D.O. Ordering Physician: Ranulfo Garcia D.O. Date of Service: 10/12/24 Procedure(s): US OB BPP w non-stress Accession Number(s): [id number] cc: Ranulfo Garcia D.O.; Physician,Non-Staff [place] [address] Patient Name: BIBIANA ANSARI MRN: [facility]:[id number] date: 1990 Sex: F Assigned Patient Location: [facility] Current Patient Location: [facility] Accession/Order Number: [id number] Exam Date: 10/12/2024 11:51 Report Date: 10/12/2024 12:02 At the request of: RANUFLO GARCIA DO Procedure: US OB BPP w non-stress CLINICAL DATA: Patient fell this morning and has had cramping since. BIOPHYSICAL PROFILE: COMPARISON: None There is a single live intrauterine gestation in cephalic presentation. The reported gestational age is 34 weeks 3 days. The heart rate [id number] beats per minutee. FINDINGS: TONE: 1 or [...] Lopez M.D. 10/12/2024 12:02 PM Dictation Location: [place] [address] Electronically authenticated by: [id number] Y Date: 10/12/2024 12:02 Dictated By: Steffi Lopez M.D. Signed By: 10/12/24 1205 DD/ 1202 TD/TT: Manager Financial[facility] W NON-STRESS Ordered By: Radiologist Radiology on 10-12-2024 [facility] [employer] Work Phone: US OB PLACENTAon 10-12-2024 [place] [address] Ultrasound Report Signed Patient: BIBIANA ANSARI MR#: [id number] : 1990 Acct:[id number] Age/Sex: 34 / F ADM Date: Loc: [facility] 254-[address]: Ranulfo Garcia D.O. Ordering Physician: Ranulfo Garcia D.O. Date of Service: 10/12/24 Procedure(s): US OB placenta Accession Number(s): [id number] cc: Ranulfo Garcia D.O.; Physician,Non-Staff Larry The [place] [id number] Patient Name: BIBIANA ANSARI MRN: [id number] date: 1990 Sex: F Assigned Patient Location: [facility] Current Patient Location: [facility] Accession/Order Number: [id number] Exam Date: 10/12/2024 11:51 Report Date: 10/12/2024 12:02 At the request of: RANULFO GARCIA DO Procedure: US OB BPP w non-stress CLINICAL DATA: Patient fell this morning and has had cramping since. BIOPHYSICAL PROFILE: COMPARISON: None There is a single live intrauterine gestation in cephalic presentation. The reported gestational age is 34 weeks 3 days. The heart rate [id number] beats per minutee. FINDINGS: TONE: 1 or [...] Lopez M.D. 10/12/2024 12:02 PM Dictation Location: [place] [address] Electronically authenticated by: [id number] Y Date: 10/12/2024 12:02 Dictated By: Steffi Lopez M.D. Signed By: 10/12/24 1204 DD/ 1202 TD/TT: Manager Financial: [facility] Radiology, Radiologist, MD - 10/12/2024 [place] [address] Ultrasound Report Signed Patient: BIBIANA ANSARI MR#: [id number] : 1990 Acct:[id number] Age/Sex: 34 / F ADM Date: Loc: [facility] 254- Attending Dr: Ranulfo Garcia D.O. Ordering Physician: Ranulfo Garcia D.O. Date of Service: 10/12/24 Procedure(s): US OB placenta Accession Number(s): [id number] cc: Ranulfo Garcia D.O.; Physician,Non-Staff [place] The [place] [id number] Patient Name: BIBIANA ANSARI MRN: [id number] date: 1990 Sex: F Assigned Patient Location: [facility] Current Patient Location: [facility] Accession/Order Number: [id number] Exam Date: 10/12/2024 11:51 Report Date: 10/12/2024 12:02 At the request of: RANULFO GARCIA DO Procedure: US OB BPP w non-stress CLINICAL DATA: Patient fell this morning and has had cramping since. BIOPHYSICAL PROFILE: COMPARISON: None There is a single live intrauterine gestation in cephalic presentation. The reported gestational age is 34 weeks 3 days. The heart rate [id number] beats per minutee. FINDINGS: TONE: 1 or [...] Lopez M.D. 10/12/2024 12:02 PM Dictation Location: [place] [address] Electronically authenticated by: [id number] Y Date: 10/12/2024 12:02 Dictated By: Steffi Lopez M.D. Signed By: 10/12/24 1204 DD/ 1202 TD/TT: Manager Financial: [employer] US OB PLACENTAOrdered By: diologist Radiology on 10-12-2024 [facility] [employer] Work Phone: US OB FOLLOW UP TRANSABDOMIN [...] II, MD, PHD at 01-Oct-2024 11:42:55 PM [facility] Normal Not Available Comment on above: Order Comment: US OB SCAN FOR GROWTH Estimated Date of Delivery: 11/20/24 Gestational Age as of 09/17/2024: 30w6d Urinalysis macro (dipstick) panel (U)on 10-01-2024 Bilirubin, UA Negative Negative - 4(70) +++ mg/dL [facility] Blood, UA Negative Negative - 50 Herb/mcL [facility] Clarity, UA Clear [facility] Color, UA Yellow [facility] Glucose, UA Negative Negative - 2000(110) ++++ mg/dL [facility] Interpretation and review of laboratory results Normal [facility] Ketones, UA Negative Negative - 160(16) ++++ mg/dL [facility] Leukocytes, UA Negative Negative - 500+++ Bobby/mcL [facility] Nitrite, UA Negative Negative - Positive [facility] pH, UA 6.5 5 - 9 [facility] Protein, UA Negative Negative - 1999(20) ++++ mg/dL [facility] Spec Grav, UA 1.015 1 - 1.03 [facility] Urobilinogen, UA 0.2 0.2 - 12 mg/dL [facility] Urinalysis macro (dipstick) panel (U)on 09-17-2024 Bilirubin, UA Negative Negative - 4(70) +++ mg/dL [facility] Blood, UA Negative Negative - 50 Herb/mcL [facility] Clarity, UA Clear [facility] Color, UA Yellow [facility] Glucose, UA Negative Negative - 1999(110) ++++ mg/dL [facility] Interpretation and review of laboratory results Abnormal [facility] Ketones, UA Negative Negative - 160(16) ++++ mg/dL [facility] Leukocytes, UA Negative Negative - 500+++ Bobby/mcL [facility] Nitrite, UA Negative Negative - Positive [facility] pH, UA 6 5 - 9 [facility] Protein, UA Trace Negative - 1999(20) ++++ mg/dL [facility] Spec Grav, UA 1.03 1 - 1.03 [facility] Urobilinogen, UA 0.2 0.2 - 12 mg/dL [facility] Urinalysis macro (dipstick) panel (U)on 08-30-2024 Bilirubin, UA Negative Negative - 4(70) +++ mg/dL [facility] Blood, UA Negative Negative - 50 Herb/mcL [facility] Clarity, UA Clear [facility] Color, UA Yellow [facility] Glucose, UA Negative Negative - 1999(110) ++++ mg/dL [facility] Interpretation and review of laboratory results Abnormal [facility] Ketones, UA Positive Negative - 160(16) ++++ mg/dL [facility] Comment on above: Trace Leukocytes, UA Trace Negative - 500+++ Bobby/mcL [facility] Nitrite, UA Negative Negative - Positive [facility] pH, UA 6 5 - 9 [facility] Protein, UA Trace Negative - 1999(20) ++++ mg/dL [facility] Spec Grav, UA 1.03 1 - 1.03 [facility] Urobilinogen, UA 0.2 0.2 - 12 mg/dL [facility] GLUCOSE TOLERANCE 3 HOURon 0 08-13-2024 GLUCOSE TOLERANCE 3 HOUR High mg/dL [facility] Comment on above: GLU FAST 93 (<95) Co l: 08/13/24 1026 GLU 1HR 132 (<180) Col: 08/13/24 1128 GLU 2HR 152 (<155) Col: 08/13/24 1228 GLU 3HR 143H (<140) Col: 08/13/24 1331 Interpretation and review of laboratory results Abnormal [facility] ALL CBC WITH AUTO DIFFon BASOPHILS ABSOLUTE AUTO 0 [facility] Basophils/100 WBC (Bld) 0.2 % 0.2 - 2.0 % [facility] Eosinophils/100 WBC (Bld) 1 % 0.9 - 7.0 % [facility] Erythrocyte distribution width (RBC) [Ratio] 12.9 % 11.0 - 15.0 % [facility] Hematocrit (Bld) [Volume fraction] 33 % Low 36.0 - 48.0 % [facility] Hemoglobin (Bld) [Mass/Vol] 11.5 g/dL Low 12.0 - 16.0 g/dL [facility] IMMATURE GRANULOCYTES ABS AUTO 0.03 [facility] Immature granulocytes/100 WBC (Bld) 0.4 % 0.0 - 0.5 % [facility] Interpretation and review of laboratory results Abnormal [facility] LYMPHOCYTES ABSOLUTE AUTO 1.6 [facility] Lymphocytes/100 WBC (Bld) 19.1 % Low 20.5 - 60.0 % [facility] MCH (RBC) [Entitic mass] 30.7 pg 26.7 - 34.0 pg [facility] MCHC (RBC) [Mass/Vol] 34.8 g/dL 29.9 - 35.2 g/dL [facility] MCV (RBC) [Entitic vol] 88.2 fL 81.0 - 99.0 fL [facility] MONOCYTES ABSOLUTE AUTO 0.4 [facility] Monocytes/100 WBC (Bld) 4.9 % 1.7 - 12.0 % [facility] NEUTROPHILS ABSOLUTE AUTO 6.1 [facility] Neutrophils/100 WBC (Bld) 74.4 % 43.0 - 75.0 % [facility] Platelet mean volume (Bld) [Entitic vol] 10.2 fL 9.5 - 13.5 fL [facility] TBH EO # 0.1 [facility] TB PLT 247 [facility] TB RBC 3.[address] [facility] WBC 8.2 [facility] COMPREHENSIVE METABOLIC PANE Maverick 08-11-2024 Albumin [Mass/Vol] 3.7 g/dL Normal 3.2-5.3 [facility] Comment on above: Performed By: #### C MP #### [facility] ([facility]) [address] [place] [address] VIR ALP [Catalytic activity/Vol] 52 U/L Normal 39-130 [facility] Comment on above: Performed By: #### C MP #### [facility] ([facility]) [address] [place] [address] VIR ALT [Catalytic activity/Vol] 36 U/L High <=31 [facility] Comment on above: Performed By: #### C MP #### [facility] ([facility]) [address] [place] [address] VIR Anion gap [Moles/Vol] 8 mmol/L Normal 5-15 [facility] Comment on above: Performed By: #### C MP #### [facility] ([facility]) [address] [place] [address] VIR AST [Catalytic activity/Vol] 26 U/L Normal <=41 [facility] Comment on above: Performed By: #### C MP #### [facility] ([facility]) [address] [place] [address] VIR Bilirubin [Mass/Vol] 0.5 mg/dL Normal 0.3-1.2 [facility] Comment on above: Performed By: #### C MP #### [facility] ([facility]) [address] [place] [address] VIR Calcium [Mass/Vol] 9.2 mg/dL Normal 8.5-10.5 [facility] Comment on above: Performed By: #### C MP #### [facility] ([facility]) [address] [place] [address] VIR Chloride [Moles/Vol] 106 mmol/L Normal 98-109 [facility] Comment on above: Performed By: #### C MP #### [facility] ([facility]) [address] [place] [address] VIR CO2 [Moles/Vol] 24 mmol/L Normal 22-32 [facility] Comment on above: Performed By: #### C MP #### [facility] ([facility]) [address] [place] [address] VIR Creatinine [Mass/Vol] 0.61 mg/dL Normal 0.40-1.00 [facility] Comment on above: Result Comment: METH OD TRACEABLE TO IDMS STANDARD Performed By: #### C MP #### [facility] ([facility]) [address] [place] [address] VIR EGFR (CKD-EPI) NON-RACE DEPENDENT >^90 Normal >=60 [facility] Comment on above: Result Comment: Repo rted eGFR is based on the CKD-EPI 2020 equation that does not use a race coefficient. Performed By: #### C MP #### [facility] ([facility]) [address] [place] [address] VIR Glucose [Mass/Vol] 84 mg/dL Normal 65-99 [facility] Comment on above: Performed By: #### C MP #### [facility] ([facility]) [address] [place] [address] VIR Potassium [Moles/Vol] 4.1 mmol/L Normal 3.5-5.0 [facility] Comment on above: Performed By: #### C MP #### [facility] ([facility]) [address] [place] [address] VIR Protein [Mass/Vol] 6.5 g/dL Normal 6.0-8.0 [facility] Comment on above: Performed By: #### C MP #### [facility] ([facility]) [address] [place] [address] VIR Sodium [Moles/Vol] 138 mmol/L Normal 134-146 [facility] Comment on above: Performed By: #### C MP #### [facility] ([facility]) [address] [place] [address] VIR Urea nitrogen [Mass/Vol] 7 mg/dL Normal 5-23 [facility] Comment on above: Performed By: #### C MP #### [facility] ([facility]) [address] [place] [address] VIR HCV GENOTYPE, Son 08-11-2024 HCV GENOTYPE, S 1a Abnormal Undetected [facility] Comment on above: Result Comment: ADDITIONAL INFORMATION This test was performed using the [employer] RealTime HCV Genotype II assay ([employer] [place], [place]). Test Performed by: [facility] [address] [place] [address] Die Cutting Machine Operator: Jovanna Ha Ph.D.; CLIA# [id number] Performed By: #### H CVG #### [facility] ([facility]) [address] [place] [id number] VIR Urinalysis macro (dipstick) panel (U)on 08-09-2024 Bilirubin, UA Negative Negative - 4(70) +++ mg/dL [facility] Blood, UA Negative Negative - 50 Herb/mcL [facility] Clarity, UA Clear [facility] Color, UA Yellow [facility] Glucose, UA Negative Negative - 2000(110) ++++ mg/dL [facility] Interpretation and review of laboratory results Abnormal [facility] Ketones, UA Negative Negative - 160(16) ++++ mg/dL [facility] Leukocytes, UA Trace Negative - 500+++ Bobby/mcL [facility] Nitrite, UA Negative Negative - Positive [facility] pH, UA 8.5 5 - 9 [facility] Protein, UA Negative Negative - 2000(20) ++++ mg/dL [facility] Spec Grav, UA 1.02 1 - 1.03 [facility] Urobilinogen, UA 1.0 0.2 - 12 mg/dL [facility] US ABDOMEN LMTDon 07-12-2024 US ABDOMEN LMTD [...] Fink MD on 07/12/2024 8:08 PM Normal [facility] APTTon 07-11-2024 aPTT Coag (Bld) [Time] 29 s Normal 26-37 [facility] Comment on above: Performed By: #### P TT #### [address] [address] VIR PROTIME AND INRon 07-11-2024 INR 0.9 Normal 0.9-1.2 [facility] Comment on above: Performed By: #### P INR #### [address] [address] VIR PT Coag (PPP) [Time] 10.5 s Normal 9.8-13.2 [facility] Comment on above: Performed By: #### P INR #### [address] [address] VIR Urinalysis macro (dipstick) panel (U)on 07-05-2024 Bilirubin, UA Negative Negative - 4(70) +++ mg/dL [facility] Blood, UA Negative Negative - 50 Herb/mcL [facility] Clarity, UA Clear [facility] Color, UA Yellow [facility] Glucose, UA Negative Negative - 2000(110) ++++ mg/dL [facility] Interpretation and review of laboratory results Normal [facility] Ketones, UA Negative Negative - 160(16) ++++ mg/dL [facility] Leukocytes, UA Negative Negative - 500+++ Bobby/mcL [facility] Nitrite, UA Negative Negative - Positive [facility] pH, UA 6.5 5 - 9 [facility] Protein, UA Negative Negative - 1999(20) ++++ mg/dL [facility] Spec Grav, UA 1.02 1 - 1.03 [facility] Urobilinogen, UA 0.2 0.2 - 12 mg/dL [facility] COMPREHENSIVE METABOLIC PANE Maverick 07-04-2024 Albumin [Mass/Vol] 3.9 g/dL Normal 3.2-5.3 [facility] Comment on above: Performed By: #### C MP #### [facility] ([facility]) [address] [place] [address] VIR ALP [Catalytic activity/Vol] 45 U/L Normal 39-130 [facility] Comment on above: Performed By: #### C MP #### [facility] ([facility]) [address] [place] [address] VIR ALT [Catalytic activity/Vol] 55 U/L High <=31 [facility] Comment on above: Performed By: #### C MP #### [facility] ([facility]) [address] [place] [address] VIR Anion gap [Moles/Vol] 8 mmol/L Normal 5-15 [facility] Comment on above: Performed By: #### C MP #### [facility] ([facility]) [address] [place] [address] VIR AST [Catalytic activity/Vol] 31 U/L Normal <=41 [facility] Comment on above: Performed By: #### C MP #### [facility] ([facility]) [address] [place] [address] VIR Bilirubin [Mass/Vol] 0.4 mg/dL Normal 0.3-1.2 [facility] Comment on above: Performed By: #### C MP #### [facility] ([facility]) [address] [place] [address] VIR Calcium [Mass/Vol] 9.5 mg/dL Normal 8.5-10.5 [facility] Comment on above: Performed By: #### C MP #### [facility] ([facility]) [address] [place] [address] VIR Chloride [Moles/Vol] 105 mmol/L Normal 98-109 [facility] Comment on above: Performed By: #### C MP #### [facility] ([facility]) [address] [place] [address] VIR CO2 [Moles/Vol] 25 mmol/L Normal 22-32 [facility] Comment on above: Performed By: #### C MP #### [facility] ([facility]) [address] [place] [address] VIR Creatinine [Mass/Vol] 0.57 mg/dL Normal 0.40-1.00 [facility] Comment on above: Result Comment: METH OD TRACEABLE TO IDMS STANDARD Performed By: #### C MP #### [facility] CENTER) [address] [place] [address] VIR EGFR (CKD-EPI) NON-RACE DEPENDENT >^90 Normal >=60 [facility] Comment on above: Result Comment: Repo rted eGFR is based on the CKD-EPI 2020 equation that does not use a race coefficient. Performed By: #### C MP #### [facility] ([facility]) [address] [place] [address] VIR Glucose [Mass/Vol] 92 mg/dL Normal 65-99 [facility] Comment on above: Performed By: #### C MP #### [facility] ([facility]) [address] [place] [address] VIR Potassium [Moles/Vol] 3.9 mmol/L Normal 3.5-5.0 [facility] Comment on above: Performed By: #### C MP #### [facility] ([facility]) [address] [place] [address] VIR Protein [Mass/Vol] 7.0 g/dL Normal 6.0-8.0 [facility] Comment on above: Performed By: #### C MP #### [facility] ([facility]) [address] [place] [address] VIR Sodium [Moles/Vol] 138 mmol/L Normal 134-146 [facility] Comment on above: Performed By: #### C MP #### [facility] ([facility]) [address] [place] [address] VIR Urea nitrogen [Mass/Vol] 10 mg/dL Normal 5-23 [facility] Comment on above: Performed By: #### C MP #### [facility] ([facility]) [address] [place] [address] VIR AFP, SERUM, OPEN SPINA BIFID Aon 06-10-2024 AFP MOM 1.07 . [facility] AFP VALUE 36.0 ng/mL . [facility] COMMENT: Comment . [facility] Comment on above: Erendira Lopez , Ph.D., [facility] Director References: Available Upon Request. Multiples Of Median Cutoffs For AFP Elevations Grier 2.5 Black 2.8 IDD 2.0 Twins 4.5 Abbreviation Definitions IDD - Insulin Dep Diabetes OSBR - Open Spina Bifida Risk For further inquiries contact [employer] at [phone]. This test was developed and its performance characteristics determined by [employer]. It has not been cleared or approved by the Food and Drug Administration. Performed at: [facility] [address] [place], [place] [id number] Die Cutting Machine Operator: Nancy Pardo [facility], Phone: [phone] GEST. AGE ON COLLECTION DATE 16.9 . weeks [facility] GESTAT. AGE BASED ON LMP . [facility] Comment on above: Recalculations are n ot recommended when gestational dating by LMP and ultrasound are within 10 days. INSULIN DEP DIABETES No . [facility] INTERPRETATION Comment . [facility] Comment on above: Interpretation: Scre en Negative [...] Customer Services to discuss available options. The [employer] recommends amniocentesis be offered to women age 35 and older. [age] [facility] MULTIPLE GESTATION No . [facility] OSBR RISK 1 IN 62 . [facility] RACE . [facility] RESULTS Report . [facility] TEST RESULTS: Negative . [facility] WEIGHT 176 . lbs [facility] N N LMP [id number] [phone] 16 N 1 Y 176 N N N N N White/ [facility] Urinalysis macro (dipstick) panel (U)on 06-07-2024 Bilirubin, UA Negative Negative - 4(70) +++ mg/dL [facility] Blood, UA Negative Negative - 50 Herb/mcL [facility] Clarity, UA Clear [facility] Color, UA Yellow [facility] Glucose, UA Negative Negative - 2000(110) ++++ mg/dL [facility] Interpretation and review of laboratory results Abnormal [facility] Ketones, UA Negative Negative - 160(16) ++++ mg/dL [facility] Leukocytes, UA Trace Negative - 500+++ Bobby/mcL [facility] Nitrite, UA Negative Negative - Positive [facility] pH, UA 6.5 5 - 9 [facility] Protein, UA Negative Negative - 2000(20) ++++ mg/dL [facility] Spec Grav, UA 1.025 1 - 1.03 [facility] Urobilinogen, UA 0.2 0.2 - 12 mg/dL [facility] IGP,APTIMA HPV,AGE GDLNon AGE GDLN ACOG TESTING Note . [facility] Comment on above: TESTS RESULT FLAG UN ITS REF RANGE LAB Clinician Provided Cytology Information Source.............Cervix No. of containers..01 ThinPrep Vial Age Algo ACOG Liss... FLAG LEGEND: L-Low Normal,H-High Normal,LL-Alert Low,HH-Alert High <-Panic Low,>-Panic High,A-Abnormal,AA-Critical Abnormal Performed at: 01 =G [address] [address] Serina Betancourt MD, HPV APTIMA Positive Abnormal Negative [facility] Comment on above: This nucleic acid am plification test detects fourteen high- risk HPV types (16,18,31,33,35,39,45,51,52,56,58,59,66,68) without differentiation. HPV GENOTYPE 16 Positive Abnormal Negative [facility] HPV GENOTYPE 18,45 Negative Negative [facility] Comment on above: Performed at: =G - L [facility] [address] [id number] Die Cutting Machine Operator: Serina Betancourt MD, Phone: [phone] Performed at: - [address] [id number] Die Cutting Machine Operator: Serina Betancourt MD, Phone: [phone] IGP, APTIMA HPV, RFX 16/18,45 Note . [facility] Comment on above: TESTS RESULT FLAG UN ITS REF RANGE LAB DIAGNOSIS: 02 NEGATIVE FOR INTRAEPITHELIAL LESION OR MALIGNANCY. Specimen adequacy: 02 Satisfactory for evaluation. Endocervical and/or squamous metaplastic cells (endocervical component) are present. Performed by: 02 Susannah Christina Admitting Supervisor (ASCP) . 02 Note: Note 02 The [...] High,A-Abnormal,AA-Critical Abnormal Performed at: 02 WB [facility] [address] [place] [address] Serina Betancourt MD, Interpretation and review of laboratory results Abnormal [facility] SPATULA-ALONE CERVIX [facility] Urinalysis macro (dipstick) panel (U)on 05-10-2024 Bilirubin, UA Negative Negative - 4(70) +++ mg/dL [facility] Blood, UA Negative Negative - 50 Herb/mcL [facility] Clarity, UA Clear [facility] Color, UA Straw [facility] Glucose, UA Negative Negative - 1999(110) ++++ mg/dL [facility] Interpretation and review of laboratory results Abnormal [facility] Ketones, UA Negative Negative - 160(16) ++++ mg/dL [facility] Leukocytes, UA Positive Negative - 500+++ Bobby/mcL [facility] Comment on above: small Nitrite, UA Negative Negative - Positive [facility] pH, UA 7 5 - 9 [facility] Protein, UA Trace Negative - 1999(20) ++++ mg/dL [facility] Spec Grav, UA 1.02 1 - 1.03 [facility] Urobilinogen, UA 0.2 0.2 - 12 mg/dL [facility] Ultrasound - Officeon 2024 Radiology Study observation (narrative) [facility] AFP Single Marker Scrn, Mate rnal, Serumon 04-20-2024 Ms Alpha-Fetoprotein 36 [facility] BOX TESTon 04-20-2024 BOX TEST SENT OUT [facility] BOX1 [facility] BOX2 04/20/2024 [facility] CBC without diffon Hematocrit (Bld) [Volume fraction] 38.7 % [facility] Hemoglobin (Bld) [Mass/Vol] 13.6 g/dL [facility] Platelets (Bld) [#/Vol] 298 10*3/uL [facility] Rbc Mcv (Fl) By Automated Count 86.6 [facility] Drug Screen, Urineon 025 Amphetamine/Methamph etamine Negative [facility] Barbiturates Negative [facility] Benzodiazepines Negative [facility] Cocaine Metabolite Negative [facility] Opiates Negative [facility] Oxycodone Negative [facility] Phencyclidine Negative [facility] Thc Marijuana, Urine Negative [facility] HBV surface Ag IA Qlon 04-20 Hepatitis B Surface Antigen Negative [facility] HCG ( test) Ql (U)o n 04-20-2024 Interpretation and review of laboratory results Abnormal [facility] Preg Test, Ur Positive Negative [facility] HCV Ab IA Qlon 04-20-2024 HCV Ab Ql (S) Reactive [facility] HIV 1+2 Ab+HIV1 p24 Ag IA Ql on 04-20-2024 HIV 1&2 AB/AG Non-Reactive [facility] Hemoglobin A1con 04-20-2024 HbA1c (Bld) [Mass fraction] 5 % 4.0 - 6.0 % [facility] High risk HPV w/genoon 04-20 Other High Risk Hpv Positive [facility] No Panel Informationon 04-20 [facility] Rubella IGG immune statuson 04-20-2024 Rubella immune IgG immune [facility] Syphilis Total(Unknown Syphi lis Status)on 04-20-2024 Syphilis Non-Reactive [facility] System Type and screenon 04-20-2024 Abo/Rh(D) Positive [facility] US OB TRANSVAGINALon 025 US OB TRANSVAGINAL [...] within the gestational sac without evident abnormality. [place] rump length is 2.9 to 3.0 cm. heart rate is 176 bpm. 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 Cervical length 5.2 [...] No LMP recorded. Ultrasound - Officeon 2024 [facility] Urinalysis macro (dipstick) panel (U)on 04-20-2024 Bilirubin, UA Negative Negative - 4(70) +++ mg/dL [facility] Blood, UA Negative Negative - 50 Herb/mcL [facility] Clarity, UA Clear [facility] Color, UA Yellow [facility] Glucose, UA Negative Negative - 2000(110) ++++ mg/dL [facility] Interpretation and review of laboratory results Normal [facility] Ketones, UA Negative Negative - 160(16) ++++ mg/dL [facility] Leukocytes, UA Negative Negative - 500+++ Bobby/mcL [facility] Nitrite, UA Negative Negative - Positive [facility] pH, UA 5.5 5 - 9 [facility] Protein, UA Negative Negative - 2000(20) ++++ mg/dL [facility] Spec Grav, UA 1.02 1 - 1.03 [facility] Urobilinogen, UA 1.0 0.2 - 12 mg/dL [facility] TB PREG QUANT HCGon 025 HCG QUANTITATIVE 60187 mIU/mL [facility] Comment on above: 5-50 0.2-1 WEEK 50-500 1-2 WEEKS 100-5,000 2-3 WEEKS 500-10,000 3-4 WEEKS 1,000-50,000 4-5 WEEKS 10,000-100,000 5-6 WEEKS 15,000-200,000 6-8 WEEKS 10,000-100,000 2[facility] 025 HCG QUANTITATIVE 8482 mIU/mL [facility] Comment on above: 5-50 0.2-1 WEEK 50-500 1-2 WEEKS 100-5,000 2-3 WEEKS 500-10,000 3-4 WEEKS 1,000-50,000 4-5 WEEKS 10,000-100,000 5-6 WEEKS 15,000-200,000 6-8 WEEKS 10,000-100,000 2[facility] Von 11-26-2020 XR [...] by: GURVINDER GUAMAN Date: 2020-11-26 15:58 Normal [facility] Vital Signs Date Time Vital Sign Value Performing Clinician Faci lity 10-23-2024 13:53-0400 Body height 157.5 cm Sydney DAVISON Work Phone: [facility] 10-23-2024 13:39-0400 Body mass index (BMI) [Ratio] 35.12 kg/m2 Sydney Snell PA Work Phone: [facility] 10-23-2024 13:39-0400 Body weight 87.09 kg Sydney Snell PA Work Phone: [facility] 10-23-2024 13:39-0400 Diastolic blood pressure 80 mm[Hg] Sydney Snell PA Work Phone: [facility] 10-23-2024 13:39-0400 Systolic blood pressure 140 mm[Hg] Sydney Snell PA Work Phone: [facility] 10-15-2024 13:10-0400 Body weight 86.18 kg Ranulfo Jose DO Work Phone: [facility] 10-15-2024 13:10-0400 Diastolic blood pressure 78 mm[Hg] Ranulfo Jose DO Work Phone: [facility] 10-15-2024 13:10-0400 Systolic blood pressure 122 mm[Hg] Ranulfo Jose DO Work Phone: [facility] 10-01-2024 14:31-0400 Body weight 85.73 kg Sydney Snell PA Work Phone: [facility] 10-01-2024 14:31-0400 Diastolic blood pressure 80 mm[Hg] Sydney DAIVSON Work Phone: [facility] 10-01-2024 14:31-0400 Systolic blood pressure 124 mm[Hg] Sydney Snell PA Work Phone: [facility] 09-17-2024 13:59-0400 Body weight 85.33 kg Ranulfo Jose DO Work Phone: [facility] 09-17-2024 13:59-0400 Diastolic blood pressure 70 mm[Hg] Ranulfo Jose DO Work Phone: [facility] 09-17-2024 13:59-0400 Systolic blood pressure 120 mm[Hg] Ranulfo Jose DO Work Phone: [facility] 08-30-2024 14:01-0400 Body weight 84.14 kg Sydney DAVISON Work Phone: [facility] 08-30-2024 14:01-0400 Diastolic blood pressure 62 mm[Hg] Sydney Snell PA Work Phone: [facility] 08-30-2024 14:01-0400 Systolic blood pressure 128 mm[Hg] Sydney Snell PA Work Phone: [facility] 08-09-2024 09:50-0400 Body weight 83.06 kg Ranulfo Jose DO Work Phone: [facility] 08-09-2024 09:50-0400 Diastolic blood pressure 66 mm[Hg] Ranulfo Jose DO Work Phone: [facility] 08-09-2024 09:50-0400 Systolic blood pressure 122 mm[Hg] Ranulfo Jose DO Work Phone: [facility] 07-05-2024 09:23-0400 Body weight 81.65 kg Cristy Pulido NP Work Phone: [facility] 07-05-2024 09:23-0400 Diastolic blood pressure 62 mm[Hg] Cristy Pulido NP Work Phone: [facility] 07-05-2024 09:23-0400 Systolic blood pressure 110 mm[Hg] Cristy Pulido LINH Work Phone: [facility] 07-04-2024 08:39-0400 Body height 157.5 cm Kristina Torres MD Work Phone: [facility] 07-04-2024 08:39-0400 Body mass index (BMI) [Ratio] 33.39 kg/m2 Kristina Torres MD Work Phone: [facility] 07-04-2024 08:39-0400 Body weight 82.83 kg Kristina Torres MD Work Phone: [facility] 07-04-2024 08:39-0400 Diastolic blood pressure 80 mm[Hg] Kristina Torres MD Work Phone: [facility] 07-04-2024 08:39-0400 Heart rate 80 /min Kristina Torres MD Work Phone: [facility] 07-04-2024 08:39-0400 Systolic blood pressure 125 mm[Hg] Kristina Torres MD Work Phone: [facility] 06-07-2024 09:40-0400 Body weight 80.2 kg Ranulfo Jose DO Work Phone: [facility] 06-07-2024 09:40-0400 Diastolic blood pressure 70 mm[Hg] Ranulfo Jose DO Work Phone: [facility] 06-07-2024 09:40-0400 Systolic blood pressure 120 mm[Hg] Ranulfo Jose DO Work Phone: [facility] 05-10-2024 12:13-0500 Body weight 79.74 kg Ranulfo Jose DO Work Phone: [facility] 05-10-2024 12:13-0500 Diastolic blood pressure 80 mm[Hg] Ranulfo Jose DO Work Phone: [facility] 05-10-2024 12:13-0500 Systolic blood pressure 130 mm[Hg] Ranulfo Jose DO Work Phone: [facility] 04-20-2024 09:47-0500 Body weight 80.2 kg Noms Nurse [facility] Encounters Encounter Date Encounter Type Care Provider Facility Start: 10-23-2024 End: 10-23-2024 Bamboo flowsheet Sydney DAVISON Work Phone: [facility] Start: 10-23-2024 End: 10-23-2024 Bamboo flowsheet Sydney DAVISON Work Phone: [facility] Start: 10-23-2024 End: 10-23-2024 flow sheet Sydney DAVISON Work Phone: [facility] Comment on above: 36 weeks gestation o f ([facility]); Third trimester ([facility]); Hepatitis C test positive ; Gastroesophageal reflux in ([facility]) Start: 10-23-2024 End: 10-23-2024 ambulatory SYDNEY SNELL Not Available Start: 10-15-2024 End: 10-15-2024 Bamboo flowsheet Ranulfo Jose DO Work Phone: [facility] Start: 10-15-2024 End: 10-15-2024 Bamboo flowsheet Ranulfo Jose DO Work Phone: [facility] Start: 10-15-2024 End: 10-15-2024 flow sheet Ranulfo Jose DO Work Phone: [facility] Comment on above: Cystitis (Primary Dx ); Third trimester ([facility]); 35 weeks gestation of ([facility]) Start: 10-15-2024 End: 10-15-2024 ambulatory RANULFO JOSE Not Available Start: 10-12-2024 End: 10-12-2024 Clinisync Result Encounter Ranulfo Jose DO Work Phone: [facility] Unsolicited Start: 10-12-2024 End: 10-12-2024 Clinisync Result Encounter Ranulfo Jose DO Work Phone: [facility] External Department Unsolicited Start: 10-01-2024 End: 10-01-2024 flow sheet Sydney DAVISON Work Phone: [facility] Comment on above: Third trimester preg calixto ([facility]) Start: 10-01-2024 End: 10-01-2024 ambulatory SYDNEY SNELL Not Available Start: 09-20-2024 End: 09-20-2024 ambulatory RANULFO R [facility] Start: 09-17-2024 End: 09-17-2024 Bamboo flowsheet Ranulfo Jose DO Work Phone: [facility] Start: 09-17-2024 End: 09-17-2024 Bamboo flowsheet Ranulfo Jose DO Work Phone: [facility] Start: 09-17-2024 End: 09-17-2024 ambulatory RANULFO JOSE Not Available Start: 09-17-2024 End: 09-17-2024 flow sheet Ranulfo Jose DO Work Phone: [facility] Comment on above: 30 weeks gestation o f ([facility]); Third trimester ([facility]); Hepatitis C test positive ; Gastroesophageal reflux in ([facility]) Start: 08-30-2024 End: 08-30-2024 Bamboo flowsheet Sydney DAVISON Work Phone: [facility] Start: 08-30-2024 End: 08-30-2024 Bamboo flowsheet Sydney DAVISON Work Phone: [facility] Start: 08-30-2024 End: 08-30-2024 flow sheet Sydney DAVISON Work Phone: [facility] Comment on above: Third trimester preg calixto ([facility]); 28 weeks gestation of ([facility]); Hepatitis C test positive ; Gastroesophageal reflux in ([facility]) Start: 08-30-2024 End: 08-30-2024 ambulatory SYDNEY SNELL [...] [facility] Unsolicited Start: 08-11-2024 ambulatory [facility] Radha MACDONALD [facility] Start: 08-10-2024 End: 08-10-2024 ambulatory [facility] Radha [facility] Comment on above: Hepatitis C virus in fection in mother during (Primary Dx); Low-lying placenta Start: 08-10-2024 End: 08-10-2024 Office outpatient visit 15 minutes Jeni Macdonald MD Work Phone: [facility] Comment on above: 25 weeks gestation o f (Primary Dx); Hepatitis C antibody positive Start: 08-09-2024 End: 08-09-2024 ambulatory RANULFO R JOSE [facility] Start: 08-09-2024 End: 08-09-2024 Bamboo flowsheet Ranulfo [...] Start: 07-11-2024 End: 07-11-2024 ambulatory KRISTINA TORRES [facility] Start: 07-09-2024 End: 07-09-2024 Telephone encounter Jillian Hernandez CMA [facility] Start: 07-06-2024 End: 07-06-2024 Orders Only Kristina Torres MD Work Phone: [facility] Comment on above: Hepatitis C virus in fection in mother during (Primary Dx) Start: 07-05-2024 End: 07-05-2024 Bamboo flowsheet Cristy Pulido SEARCH SPECIALIST Work Phone: [facility] Start: 07-05-2024 End: 07-05-2024 Bamboo flowsheet Cristy Pulido SEARCH SPECIALIST Work Phone: [facility] Start: 07-05-2024 End: 07-05-2024 ambulatory CRISTY PULIDO Not Available Start: 07-05-2024 End: 07-05-2024 flow sheet Cristy Pulido SEARCH SPECIALIST Work Phone: [facility] Comment on above: Second trimester pre gnancy; 20 weeks gestation of Start: 07-04-2024 End: 07-04-2024 Office outpatient new 45 minutes Kathryn Awad MD Work Phone: [facility] Comment on above: Hepatitis C virus in fection in mother during (Primary Dx) Start: 07-04-2024 End: 07-04-2024 Orders Only Jillian Colin RN [facility] Comment on above: Hepatitis C virus in fection in mother during (Primary Dx); Low-lying placenta Start: 07-03-2024 End: 07-03-2024 Chart abstracting Kathryn Awad MD Work Phone: [facility] Start: 06-08-2024 End: 06-10-2024 Clinisync Result Encounter [...] Torres MD Work Phone: [facility] Start: 04-20-2024 End: 04-20-2024 Clinisync Result Encounter [...] Phone: Start: 05-10-2024 IGP,APTIMA HPV,AGE GDLN Ranulfo Quarleso DO Work Phone: Start: 05-10-2024 Microscopic observat ion [Identifier] in Cervix by Cyto stain Kristina Torres MD Work Phone: Start: 04-25-2024 H/O: section History of delivery affecting Ranulfo Garcia DO Work Phone: Start: 04-20-2024 Antibody screen [...] Ref Prov Start: 04-20-2024 BOX TEST Ranulfo Quarles o DO Work Phone: Start: 04-20-2024 Urnls dip stick/tabl et rgnt non-auto w/o micrscp Ranulfo Quarleso DO Work Phone: Start: 04-20-2024 Microscopic observat [...] Td Vaccines (8 - Td or Tdap) [facility] Start: 05-11-2027 Screening for malign ant neoplasm of cervix Pap Smear [facility] Start: 08-10-2025 End: 08-10-2025 US MFM with or without consult US MFM with or without consult Imaging Routine Hepatitis C virus infection in mother during Low-lying placenta Expected: 08/10/2025 (Approximate), Expires: 08/10/2025 [facility] Work Phone: Comment on above: Expected: 08/10/2025 (Approximate), Expires: 08/10/2025 Start: 07-04-2025 Adult BMI Screening Adult BMI Screen ing [facility] Start: 07-04-2025 Tobacco Screening Tobacco Screening [facility] Start: 07-04-2025 End: 07-04-2025 US MFM with or without consult US MFM with or without consult Imaging Routine Hepatitis C virus infection in mother during Low-lying placenta Expected: 07/04/2025 (Approximate), Expires: 07/04/2025 [facility] Work Phone: Comment on above: Expected: 07/04/2025 (Approximate), Expires: 07/04/2025 Start: 05-20-2025 End: 05-20-2025 Patient encounter procedure [facility] Start: 11-05-2024 Influenza vaccination Influenza Vacc ine [facility] Start: 10-30-2024 End: 10-30-2024 Patient encounter procedure 10/30/2024 2:00 PM EDT Routine [facility] [address] [place] [id number] Ranulfo Garcia DO [address] [place] [address] [facility] Start: 10-23-2024 End: 10-23-2025 CULTURE, GROUP B STREP WITH SUSCEPTIBLITY CULTURE, GROUP B STREP WITH SUSCEPTIBLITY Lab Routine Third trimester ([facility]) Expected: 10/23/2024, Expires: 10/23/2025 [facility] [...] End: 10-15-2024 Patient encounter procedure [facility] Comment on above: Arrived Start: 10-01-2024 End: 10-01-2024 Patient encounter procedure 10/01/2024 2:50 PM EDT Routine [facility] [address] [place] [id number] Sydney Snell PA [address] [place] [address] [facility] Start: 10-01-2024 End: 10-01-2024 Professional / ancillary services management 10/01/2024 2:00 PM EDT Ancillary Procedure [facility] [address] [place] [phone] [facility] Start: 09-20-2024 End: 09-20-2024 Patient encounter procedure 09/20/2024 11:00 AM EDT Appointment [facility] [address] [facility] [address] [place] [address] [facility] Start: 09-17-2024 End: 01-18-2025 US for US OB follow up transabdominal approach Imaging Routine 30 weeks gestation of ([facility]-HCC) Third trimester ([facility]) Hepatitis C test positive Expected: 09/17/2024, Expires: 01/18/2025 [facility] Work Phone: Comment on above: Expected: 09/17/2024 , Expires: 01/18/2025 Start: 09-17-2024 End: 09-17-2024 Patient encounter procedure 09/17/2024 1:50 PM EDT Routine [facility] [address] [place] [address] Ranulfo Garcia DO [address] [place] [address] [facility] Start: 08-30-2024 End: 08-30-2024 Patient encounter procedure [facility] Comment on above: Arrived Start: 08-11-2024 End: 08-11-2024 ambulatory 08/11/2024 11:00 AM EDT Lab [facility] [address] [place] [id number] [facility] Start: 08-10-2024 End: 08-10-2024 Telemedicine consultation with patient 08/10/2024 2:00 PM EDT Telemedicine Maternal- Medicine at [facility] [address] [place] [phone] Jeni Macdonald MD [address], [address] [place] [address] Maternal- Medicine at [facility] Start: 08-09-2024 End: 08-09-2025 CBC panel - [...] Expected: 08/09/2024 (Approximate), Expires: 08/09/2025 [facility] Comment on above: Expected: 08/09/2024 (Approximate), Expires: 08/09/2025 Start: 08-09-2024 End: 08-09-2024 Patient encounter procedure [facility] US Imaging Start: 07-11-2024 End: 07-11-2024 Patient encounter procedure 07/11/2024 8:00 AM EDT Appointment [facility] [address] [place] [address] [facility] Start: 07-06-2024 End: 07-06-2025 US Abdomen limited Ultrasound abdomen limited Imaging Routine Hepatitis C virus infection in mother during Expected: 07/06/2024, Expires: 07/06/2025 [facility] Work Phone: Comment on above: Expected: 07/06/2024 , Expires: 07/06/2025 Start: 07-05-2024 End: 07-05-2024 Patient encounter procedure 07/05/2024 8:30 AM EDT Routine [facility] [address] [place] [phone] Sydney Snell PA [address] [place] [address] [facility] Start: 07-04-2024 End: 07-04-2024 Patient encounter procedure [facility] US Imaging Start: 06-07-2024 End: 07-07-2024 Alpha fetoprotein, maternal Alpha fetoprotein, maternal Lab Routine 16 weeks gestation of Second trimester Expected: 06/07/2024 (Approximate), Expires: 07/07/2024 [facility] Work Phone: Comment on above: Expected: 06/07/2024 (Approximate), Expires: 07/07/2024 Start: 06-07-2024 End: 06-07-2024 Patient encounter procedure [facility] OB Comment on above: Arrived Start: 05-10-2024 End: 05-10-2024 Patient encounter procedure 05/10/2024 11:40 AM EST Office Visit [facility] OB [address] [place] [phone] Ranulfo Garcia, [address] [place] [address] [facility] OB Start: 04-20-2024 End: 04-20-2025 ABO/Rh ABO/Rh Lab Routine Missed menses , unspecified gestational age Expected: 04/20/2024 (Approximate), Expires: 04/20/2025 [facility] Comment on above: Expected: 04/20/2024 (Approximate), Expires: 04/20/2025 Start: 04-20-2024 End: 04-20-2025 Blood type and Indirect antibody screen panel - Blood Type and screen Lab Routine Missed menses , unspecified gestational age Expected: 04/20/2024 (Approximate), Expires: 04/20/2025 [facility] Comment on above: Expected: 04/20/2024 (Approximate), Expires: 04/20/2025 Start: 04-20-2024 End: 04-20-2025 Drugs of abuse panel - Urine by Screen method Rapid drug screen, urine Lab Routine , unspecified gestational age Encounter for supervision of normal first in first trimester Expected: 04/20/2024 (Approximate), Expires: 04/20/2025 [facility] Comment on above: Expected: 04/20/2024 (Approximate), Expires: 04/20/2025 Start: 04-20-2024 End: 04-20-2025 US Pelvis transvaginal [facility] Work Phone: Comment on above: Expected: 04/20/2024 , Expires: 04/20/2025 Start: 11-06-2023 Influenza vaccination Influenza Vacc ine [facility] Start: 10-07-2012 Screening for malign ant neoplasm of cervix [facility] Start: 10-07-2009 Adult BMI Follow Up Plan Adult BMI Follow Up Plan [facility] Start: 10-07-2009 Adult BMI Screening Adult BMI Screen ing [facility] Start: 2003 Depression [facility]ening [facility] Start: 2003 Tobacco [facility]ening [facility] End: 07-04-2025 aPTT in Blood by Coagulation assay APTT Lab Routine Hepatitis C virus infection in mother during 1 Occurrences starting 07/04/2024 until 07/04/2025 [facility] Comment on above: 1 Occurrences starti ng 07/04/2024 until 07/04/2025 Bacteria identified in Urine by Culture Urine culture Microbiology Routine Missed menses Ordered: 04/20/2024 [facility] Comment on above: Ordered: 04/20/2024 CBC W Auto Different ial panel - Blood CBC and differential Lab Routine Missed menses , unspecified gestational age Ordered: 04/20/2024 [facility] Comment on above: Ordered: 04/20/2024 CHLAMYDIA TRACHOMATI S (GENITO/STI) CHLAMYDIA TRACHOMATIS (GENITO/STI) Lab Routine Exposure to STD Ordered: 05/10/2024 [facility] Comment on above: Ordered: 05/10/2024 End: 07-04-2025 Comprehensive metabolic 2000 panel - Serum or Plasma Comprehensive metabolic panel Lab Routine Hepatitis C virus infection in mother during 1 Occurrences starting 07/04/2024 until 07/04/2025 [employer] Work Phone: Comment on above: 1 Occurrences starti ng 07/04/2024 until 07/04/2025 Comprehensive metabo lic 2000 panel - Serum or Plasma Comprehensive metabolic panel Lab Routine Hepatitis C virus infection in mother during 07/04/2024 11:[address] [facility] End: 08-10-2025 Comprehensive metabolic 2000 panel - Serum or Plasma Comprehensive metabolic panel Lab Routine 25 weeks gestation of Hepatitis C antibody positive 1 Occurrences starting 08/10/2024 until 08/10/20[facility] Comment on above: 1 Occurrences starti ng 08/10/2024 until 08/10/2025 Cytology Cervical or vaginal smear or scraping study Pap Smear Pathology and Cytology Routine Well woman exam with routine gynecological exam Ordered: 05/10/2024 [facility] Comment on above: Ordered: 05/10/2024 End: 08-10-2025 HCV Genotype, S HCV Genotype, S Lab Routine 25 weeks gestation of Hepatitis C antibody positive 1 Occurrences starting 08/10/2024 until 08/10/2025 [facility] Comment on above: 1 Occurrences starti ng 08/10/2024 until 08/10/2025 Hemoglobin A1c/Hemoglobin.total in Blood Hemoglobin A1c Lab Routine Missed menses , unspecified gestational age Ordered: 04/20/2024 [facility] Comment on above: Ordered: 04/20/2024 Hepatitis B virus surface Ag [Presence] in Serum or Plasma by Immunoassay Hepatitis B surface antigen Lab Routine Missed menses , unspecified gestational age Ordered: 04/20/2024 [facility] Comment on above: Ordered: 04/20/2024 Hepatitis C virus Ab [Presence] in Serum or Plasma by Immunoassay Hepatitis C antibody Lab Routine Missed menses , unspecified gestational age Ordered: 04/20/2024 [facility] Comment on above: Ordered: 04/20/2024 End: 08-10-2025 Hepatitis C virus RNA [Units/volume] (viral load) in Serum or Plasma by JOSE MANUEL with probe detection Hepatitis C Virus Quantitative by NAAT Lab Routine 25 weeks gestation of Hepatitis C antibody positive 1 Occurrences starting 08/10/2024 until 08/10/2025 [employer] Phone: Comment on above: 1 Occurrences starti ng 08/10/2024 until 08/10/2025 HIV-1/HIV-2 antigen/antibody combination immunoassay HIV-1 and HIV-2 antibodies Lab Routine Missed menses , unspecified gestational age Ordered: 04/20/2024 [facility] Comment on above: Ordered: 04/20/2024 Human papilloma viru s DNA [Presence] in Unspecified specimen by Probe with amplification HPV DNA probe, amplified Microbiology Routine Well woman exam with routine gynecological exam Ordered: 05/10/2024 [facility] Comment on above: Ordered: 05/10/2024 Neisseria gonorrhoea e DNA [Presence] in Unspecified specimen by JOSE MANUEL with probe detection Neisseria gonorrhea DNA probe, direct Lab Routine Exposure to STD Ordered: 05/10/2024 [facility] Comment on above: Ordered: 05/10/2024 End: 07-04-2025 Protime & INR Protime & INR Lab Routine Hepatitis C virus infection in mother during 1 Occurrences starting 07/04/2024 until 07/04/2025 [facility] Comment on above: 1 Occurrences starti ng 07/04/2024 until 07/04/2025 Reagin Ab [Presence] in Serum by RPR RPR Lab Routine Missed menses , unspecified gestational age Ordered: 04/20/2024 [facility] Comment on above: Ordered: 04/20/2024 Rubella antibody, IgG Rubella an tibody, IgG Lab Routine Missed menses , unspecified gestational age Ordered: 04/20/2024 [facility] Comment on above: Ordered: 04/20/2024 SURESWAB(R) ADVANCED VAGINITIS PLUS, TMA SURESWAB(R) ADVANCED VAGINITIS PLUS, TMA Pathology and Cytology Routine Vaginal discharge Ordered: 05/10/2024 [facility] Work Phone: Comment on above: Ordered: 05/10/2024 Immunizations Immunization Date Immunization Notes Care Provider [facility] 12-25-2019 influenza virus vaccine, unspecified formulation Kristina Torres MD Work Phone: [facility] 03-08-2018 tetanus toxoid, redu liza diphtheria toxoid, and acellular pertussis vaccine, adsorbed Kristina Torres MD Work Phone: [facility] Payers Date Payer Category Payer Medicaid [place]ICA[place] [id number] 2024 Medicaid [id number] 2021 Blue Cross Blue Shield [id number] 2021 Blue Cross Blue Shie ld Managed Care - Other ANTHEM [id number] 2021 Unknown [id number] 2018 Worker's Comp, Other (unspecified) WORKER'S COMPENSATION [id number] 2016 Commercial Managed C are - POS [employer] [id number] 1991 Unknown [id number] 2.16.840.1.471846.3.579. 2.593 1991 Unknown [id number] 2.16.840.1.752079.3.579. 2.1286 1991 Unknown [id number] 2.16.840.1.053633.3.579. 2.1286 1991 Unknown [id number] 2.16.840.1.615953.3.579. 2.1286 1991 Unknown [id number] 2.16.840.1.490090.3.579. 2.128 1991 Unknown [id number] 2.16.840.1.625513.3.579. 2.1286 1991 Unknown [id number] 2.16.840.1.806095.3.579. 2.128 1991 Unknown [id number] 2.16.840.1.631500.3.579. 2.1286 1991 Unknown [id number] 2.16.840.1.228058.3.579. 2.6 1991 Unknown [id number] 2.16.840.1.596684.3.579. 2.1286 1991 Unknown [id number] 2.16.840.1.394232.3.579. 2.1259 1991 Unknown [id number] 2.16.840.1.473532.3.579. 2.1259 1991 Unknown [id number] 2.16.840.1.440090.3.579. 2.9 1991 Unknown [id number] 2.16.840.1.344767.3.579. 2.9 1991 Unknown [id number] 2.16.840.1.361608.3.579. 2.9 1991 Unknown [id number] 2.16.840.1.521173.3.579. 2.9 1991 Unknown [id number] 2.16.840.1.259059.3.579. 2.9 1991 Unknown [id number] 2.16.840.1.430163.3.579. 2.9 1991 Unknown [id number] 2.16.840.1.336371.3.579. 2.9 1991 Unknown [id number] 2.16.840.1.753061.3.579. 2.9 1991 Unknown [id number] 2.16.840.1.023277.3.579. 2.9 1991 Unknown [id number] 2.16.840.1.820101.3.579. 2.1259 1959 Unknown [id number] Social History Date Type Detail Facility Tobacco smoking status HIIS Tobacco smoking consumption unknown [facility] Start: 1990 Sex assigned at Female [facility] Start: 08-16-2018 End: 04-17-2020 Gender identity Not on file [facility] Start: 02-28-2024 [facility] Start: 08-16-2018 End: 04-17-2020 History of Social function [facility] Childcare Unknown [facility] Start: 1991 Sex assigned at Not on file [facility] Start: 10-10-2014 Sex Female (finding) [facility] Start: 07-04-2024 Tobacco smoking status HIIS Never smoked tobacco [facility] Start: 07-04-2024 Tobacco use and exposure Smokeless tobacco non-user [facility] Start: 07-04-2024 End: 08-10-2024 Alcoholic beverage intake Ex-drinker (finding) [facility] NEGATED: Highlighted rowStart: NINF History of tobacco use Passive smoker [facility] Clinical Notes 04-20-2024 to 10-23-2024 SAMAN Encarnacion - 10/23/2024 1:10 PM Zander Pulido NP - 10/15/2024 1:00 PM SAMAN [...] virus) infection 04/25/2024 History of delivery affecting ([facility]) 04/25/2024 Hepatitis C test positive 04/25/2024 Resolved [...] nursing note reviewed. Exam conducted with a electron gun assembler present. Vitals: There is no height or [...] of: SAMAN Encarnacion documented in this encounter [facility] 10-15-2024 History of Presen t illness Narrative [...] virus) infection 04/25/2024 History of delivery affecting ([facility]) 04/25/2024 Hepatitis C test positive 04/25/2024 Resolved [...] nursing note reviewed. Exam conducted with a electron gun assembler present. Vitals: There is no height or [...] Ranulfo Garcia DO documented in this encounter [facility] 10-01-2024 History of Presen t illness Narrative [...] virus) infection 04/25/2024 History of delivery affecting ([facility]) 04/25/2024 Hepatitis C test positive 04/25/2024 Resolved [...] of: SAMAN Encarnacion documented in this encounter [facility] 09-17-2024 History of Presen t illness Narrative [...] nursing note reviewed. Exam conducted with a electron gun assembler present. Vitals: There is no height or [...] Ranulfo Garcia DO documented in this encounter [facility] 08-30-2024 History of Presen t illness Narrative [...] virus) infection 04/25/2024 History of delivery affecting ([facility]) 04/25/2024 Hepatitis C test positive 04/25/2024 Resolved [...] of: SAMAN Encarnacion documented in this encounter [facility] 08-10-2024 History of Presen t illness Narrative Video Visit via Real-time Synchronous Audiovisual Provider Location: [facility] MATERNAL- MEDICINE AT [address] [address] Patient Location: Other Patient Location Surveillance Director: None Video Visit Consent Statement: I discussed [...] that there are some limitations compared to [id number] evaluations. We elected to proceed. REASON FOR [...] mg total) before bedtime., Disp: , Rfl: [id number] acid ( 19) 29 mg iron- 1 [...] the patient I also reviewed her recent [facility] ultrasound Low-lying placenta has resolved I was [...] Jeni Macdonald MD, FACOG (she/hers) Maternal- Medicine [facility] [address] [place] [address] [facility] History of Presen t illness Narrative [...] delivery affecting 04/25/2024 Hepatitis C test positive ([facility]) 04/25/2024 Resolved Ambulatory Problems Diagnosis Date Noted [...] nursing note reviewed. Exam conducted with a electron gun assembler present. Vitals: There is no height or [...] Ranulfo Garcia DO documented in this encounter [facility] 07-09-2024 Miscellaneous Notes Referral received from patients [employer] for Hepatitis C and mild elevated LFTs *Patient is * 04/20/2024 [facility] (care everywhere) HEPATITIS C QUANTITATION . IU/mL 699,000 Will send a Qintit message to patient in regards to treatment plan [facility] Telephone encounter Note Referral received from patients [employer] for Hepatitis C and mild elevated LFTs *Patient is * 04/20/2024 [facility] (care everywhere) HEPATITIS C QUANTITATION . IU/mL 699,000 Will send a mychart message to patient in regards to treatment plan [facility] 07-06-2024 History of Presen t illness Narrative Labs reviewed AST/ALT Alt mildly elevated- Recommend ruq sonogram and gi consult . Repeat LFTs within one month documented in this encounter [facility] 07-05-2024 History of Presen t illness Narrative [...] delivery affecting 04/25/2024 Hepatitis C test positive ([facility]) 04/25/2024 Resolved Ambulatory Problems Diagnosis Date Noted [...] nursing note reviewed. Exam conducted with a electron gun assembler present. Vitals: There is no height or [...] with M and continues to follow with [facility] for Hepatitis C dx and serial Liver function testing Documented by Cristy Pulido NP on behalf of: Cristy Pulido NP documented in this encounter [facility] 07-04-2024 History of Presen t illness Narrative [...] risk Have you been seen here at [facility] in a previous ? No Recent ER visits or hospitalizations? No Bring blood sugar log or meter with you today? (Please bring them with you for every visit at [facility]) N/A Flu vaccine (Jan-May)? N/A Any [...] mg total) before bedtime., Disp: , Rfl: [id number] acid ( 19) 29 mg iron- 1 [...] it affect 1-4% of women in the [facility]. I reviewed with the patient that [...] hemorrhage, and seizures. The overall risk of Wtgcbnzd-Cj-Qinkz-Transmission (MTCT) during is approximately 4-8%. If the [...] C infection until after 18 months. The [place] [employer] and CDC recommend screening [...] her HCV VL and LFTs per new [facility] guidelines not routinely recommended recommended [...] B vaccine if not immune refer to GI/donkey doctor/ID avoid internal monitors and early artificial rupture [...] and counseling, coordination of care which was [id number]. documented in this encounter [facility] 06-07-2024 History of Presen t illness Narrative [...] delivery affecting 04/25/2024 Hepatitis C test positive ([facility]) 04/25/2024 Resolved Ambulatory Problems Diagnosis Date Noted [...] nursing note reviewed. Exam conducted with a electron gun assembler present. Vitals: There is no height or [...] in 4 weeks for routine OB appointment. Coin Box Inspector discussed [place] paperwork with patient and spouse. Patient to RTC in 4 weeks for routine OB care. Documented by Jessi Forrest LPN on behalf of: Ranulfo Garcia DO documented in this encounter [facility] 05-10-2024 History of Presen t illness Narrative [...] delivery affecting 04/25/2024 Hepatitis C test positive ([facility]) 04/25/2024 Resolved Ambulatory Problems Diagnosis Date Noted [...] nursing note reviewed. Exam conducted with a electron gun assembler present. Vitals: There is no height or [...] or undercooked meat, and stay away from [facility]. Patient has been consulted regarding any [...] Ranulfo Garcia DO documented in this encounter [facility] 04-20-2024 History of Presen t illness Narrative [...] or undercooked meat, and stay away from [facility]. Patient has also been advised to [...] in this encounter [facility] Evaluation note Diagnosis Missed menses , [...] during - Primary [facility] Diagnosis Hepatitis C virus infection in mother during - Primary Low-lying placenta Hemorrhage from placenta previa, unspecified as to episode of care [facility] Diagnosis Second trimester state, incidental 20 weeks gestation of [facility] Diagnosis Hepatitis C virus infection in mother during - Primary [facility] Diagnosis Hepatitis C virus infection in mother during - Primary documented in this [facility]* Diagnosis Hepatitis C virus infection in mother during - Primary Low-lying placenta Hemorrhage from placenta previa, unspecified as to episode of care documented in this encounter [facility]* Diagnosis 25 weeks gestation of - Primary Hepatitis C antibody positive [facility] Diagnosis Second trimester state, incidental [...] [facility] System[facility]ructionsNot on filedocumented in [facility] InstructionsNot on filedocumented in this [facility]Tr[facility] Summary Purpose Family History No [...] and content) DATE CREATED AUTHOR 11/29/2020 [facility] DATE CREATED AUTHOR AUTHOR'S ORGANIZ ATION 08/10/2024 [facility] DATE CREATED AUTHOR AUTHOR'S ORGANIZ ATION 08/17/2024 [facility] DATE CREATED AUTHOR AUTHOR'S ORGANIZ ATION 09/24/2024 [facility] DATE CREATED AUTHOR AUTHOR'S ORGANIZ ATION 10/25/[address] [facility] Special[facility] EPIC Reason for Visit (unrecogniz ed section and content) Reason Comments Amenorrhea Reason Comments Routine Visit Reason Comments Hepatitis C Hx C/S Care Teams (unrecognized sec tion and content) Mop Man Relationship Specialty Start Date End Date [place], [place] [address] PCP - General Family Medicine 03/08/18 Mop Man Relationship Specialty Start Date End [place], [place] [address] PCP - General Family Medicine 03/08/18 Mop Man Relationship Specialty Start Date End Date [place]cp, [place] [address] PCP - General Family Medicine 03/08/18 Mop Man Relationship Specialty Start Date End Date [place]cp, [place] [address] PCP - General Family Medicine 03/08/18 Mop Man Relationship Specialty Start Date End Date [place], [place] [address] PCP - General Family Medicine 03/08/18 Mop Man Relationship Specialty Start Date End Date [place], [place] [address] PCP - General Family Medicine 03/08/18 Mop Man Relationship Specialty Start Date End Date [place]cp, [place] [address] PCP - General Family Medicine 03/08/18 FOR [...] BE BASED ON THE PRIMARY CLINICAL RECORDS. [facility]. provides no warranty or guarantee of the accuracy or completeness of information in this document.
[2024-10-25 16:54] LABS: Hematocrit 36.7 % (36.0-48.0); Hemoglobin 12.9 g/dL (12.0-16.0); Immature Granulocytes Abs Auto 0.03 10^3/uL (0.00-0.03); Immature Granulocytes Pct Auto 0.3 % (0.0-0.5); Lymphocytes Absolute Auto 2.1 10^3/uL (1.2-3.8); Mean Corpuscular HGB Conc 35.1 g/dL (29.9-35.2); Mean Corpuscular Hemoglobin 29.9 pg (26.7-34.0); Mean Corpuscular Volume 85.0 fL (81.0-99.0); Platelet Count 263 10^3/uL (150-450); Red Blood Count 4.32 10^6/uL (4.20-5.40); White Blood Count 9.7 10^3/uL (4.0-11.0)
[2024-10-25 17:10] LABS: Protein Creatinine Ratio Urine 0.24; Total Protein Urine Random 9.5 mg/dL (<=11.9)
[2024-10-25 17:14] LABS: Alanine Aminotransferase 60 U/L (14-59); Aspartate Amino Transferase 34 U/L (15-37); Blood Urea Nitrogen 5.0 mg/dL (7.0-18.0); Estimated GFR (African America >60 (>=60 mL/min/1.73m^2); Estimated GFR (Non-African Ame >60 (>=60 mL/min/1.73m^2); Uric Acid 4.2 mg/dL (2.6-6.0)
--- OUTSIDE RECORDS SUMMARY | 2024-10-25 17:24 | XMS_ITS | CCD ---
Author Organization [facility] Care Team Providers Care Stitchdown Thread Laster Name Role Phone AMANDEEP MORATAYA Admitting Unavailable [...] Care Unavailable SPENCER, KRISTINA E Attending Unavailable JOES, RANULFO R Referring Unavailable DOCHEVA, NIKOLINA P [...] omeprazole 20 mg delayed release oral capsule (16 sources) Proton Pump Inhibitor Start: 08-30-2024 End: [...] daily 27-1 MG tablet Indications: Second trimester ([facility]) , 25 weeks gestation of ([facility]) Take 1 tablet by mouth Daily 30 [...] ( 1 PO) Take by mouth Active [id number] ac id ( 19) 29 mg iron- 1 mg tablet,chewable (10 sources) [id number] jacqui-folic acid ( 19) 29 mg iron- 1 mg tablet,chewable Chew 1 tablet and swallow in the morning. Active Completed/Discontinued Medications Medication Drug Class(es) Dates Sig (Normalized) Sig (Original) metoclopramide 10 mg oral tablet (20 sources) Dopamine-2 Receptor Antagonist Start: 05-10-2024 End: 09-17-2024 metoclopramide (Reglan) 10 MG tablet Indications: 12 weeks gestation of ([facility]) Take 1 tablet (10 mg) by mouth [...] Name Value Interpretation Reference Range Facil ity US OB BPP W NON-STRESS on 10-25-2024 [place] [address] Ultrasound Report Signed Patient: BIBIANA ANSARI MR#: [id number] : 1990 Acct:[id number] Age/Sex: 34 / F ADM Date: 10/25/24 Loc: [facility] 250-[address]: Ranulfo Garcia D.O. Ordering Physician: Ranulfo Garcia D.O. Date of Service: 10/25/24 Procedure(s): US OB BPP w non-stress Accession Number(s): [id number] cc: Ranulfo Garcia D.O.; Physician,Non-Staff [place] [id number] Patient Name: BIBIANA ANSARI MRN: [facility]:[id number] date: 1990 Sex: F Assigned Patient Location: [facility] Current Patient Location: [facility] Accession/Order Number: [id number] Exam Date: 10/25/2024 15:08 Report Date: 10/25/2024 16:15 At the request of: RANULFO [place] DO Procedure: US OB BPP w non-stress Ultrasound biophysical profile HISTORY: Positive test for hepatitis C Adequate breathing movement, gross body movement, tone and amniotic fluid volume for total score of 8 out of 8. The amniotic fluid index is 13.0cm within normal limits. The heart rate 148 bpm. US/US OB BPP w non-stress IMPRESSION: Adequate ultrasound biophysical profile Impression dictated by: Pineda Bond M.D. 10/25/2024 4:15 PM Dictation Location: [place] [address] Electronically authenticated by: [id number] Y Date: 10/25/2024 16:15 Dictated By: Pineda Bond D.O. Signed By: 10/25/241616 DD/ 14 TD/TT: Airborne Operations Superintendent: [facility] Radiology, Radiologist, - 10/25/[address] [address] Ultrasound Report Signed Patient: BIBIANA ANSARI MR#: [id number] : 1990 Acct:[id number] Age/Sex: 34 / F ADM Date: 10/25/24 Loc: [facility] 250-[address]: Ranulfo Garcia D.O. Ordering Physician: Ranulfo Garcia D.O. Date of Service: 10/25/24 Procedure(s): US OB BPP w non-stress Accession Number(s): [id number] cc: Ranulfo Garcia D.O.; Physician,Non-Staff [place] [facility] [place] [id number] Patient Name: BIBIANA ANSARI MRN: [id number] date: 1990 Sex: F Assigned Patient Location: [facility] Current Patient Location: [facility] Accession/Order Number: [id number] Exam Date: 10/25/2024 15:08 Report Date: 10/25/2024 16:15 At the request of: RANULFO [place] DO Procedure: US OB BPP w non-stress Ultrasound biophysical profile HISTORY: Positive test for hepatitis C Adequate breathing movement, gross body movement, tone and amniotic fluid volume for total score of 8 out of 8. The amniotic fluid index is 13.0cm within normal limits. The heart rate 148 bpm. US/US OB BPP w non-stress IMPRESSION: Adequate ultrasound biophysical profile Impression dictated by: Pineda Bond M.D. 10/25/2024 4:15 PM [facility]ictation [facility] Electronically authenticated by: [id number] Y Date: 10/25/2024 16:15 Dictated By: Pineda Bond D.O. Signed By: 10/25/241616 DD/ 14 TD/TT: Airborne Operations Superintendent: [facility] Radiology Study observation (narrative) [facility] US OB BPP W NON-STRESS Ordered By: Radiologist Radiology on 10-25-2024 [facility] Work Phone: Urinalysis macro (dipstick) panel (U)on 10-23-2024 Bilirubin, UA Negative Negative - 4(70) +++ mg/dL [facility] Blood, UA Negative Negative - 50 Herb/mcL [facility] Clarity, UA Clear [facility] Color, UA Awa [facility] Glucose, UA Negative Negative - 1999(110) ++++ mg/dL [facility] Interpretation and review of laboratory results Abnormal [facility] Ketones, UA Negative Negative - 160(16) ++++ mg/dL [facility] Leukocytes, UA Negative Negative - 500+++ Bobby/mcL [facility] Nitrite, UA Negative Negative - Positive [facility] pH, UA 6 5 - 9 [facility] Protein, UA Positive Negative - 1999(20) ++++ mg/dL [facility] Spec Grav, UA 1.015 1 - 1.03 [facility] Urobilinogen, UA 1.0 0.2 - 12 mg/dL [facility] Urinalysis macro (dipstick) panel (U)on 10-15-2024 Bilirubin, UA Negative Negative - 4(70) +++ mg/dL [facility] Blood, UA Positive Negative - 50 Herb/mcL [facility] Clarity, UA Clear [facility] Color, UA Yellow [facility] Glucose, UA Negative Negative - 1999(110) ++++ mg/dL [facility] Interpretation and review of laboratory results Abnormal [facility] Ketones, UA Negative Negative - 160(16) ++++ mg/dL [facility] Leukocytes, UA Negative Negative - 500+++ Bobby/mcL [facility] Nitrite, UA Negative Negative - Positive [facility] pH, UA 6 5 - 9 [facility] Protein, UA 1+ Negative - 1999(20) ++++ mg/dL [facility] Spec Grav, UA 1.025 1 - 1.03 [facility] Urobilinogen, UA 1.0 0.2 - 12 mg/dL [facility] No Panel Informationon 10-12 Radiology Study observation (narrative) [facility] US OB BPP W NON-STRESS on 10-12-[address] [address] Ultrasound Report Signed Patient: BIBIANA ANSARI MR#: [id number] : 1990 Acct:[id number] Age/Sex: 34 / F ADM Date: Loc: [facility] 254-[address]: Ranulfo Garcia D.O. Ordering Physician: Ranulfo Garcia D.O. Date of Service: 10/12/24 Procedure(s): US OB BPP w non-stress Accession Number(s): [id number] cc: Ranulfo Garcia D.O.; Physician,Non-Staff [place] [address] Patient Name: BIBIANA ANSARI MRN: [id number] date: 1990 Sex: F Assigned Patient Location: [facility] Current Patient Location: [facility] Accession/Order Number: [id number] Exam Date: 10/12/2024 11:51 Report Date: 10/12/2024 12:02 At the request of: RANULFO [place] DO Procedure: US OB BPP w non-stress CLINICAL DATA: Patient fell this morning and has had cramping since. BIOPHYSICAL PROFILE: COMPARISON: None There is a single live intrauterine gestation in cephalic presentation. The reported gestational age is 34 weeks 3 days. The heart rate [id number] beats per minutee. FINDINGS: TONE: 1 or [...] Lopez M.D. 10/12/2024 12:02 PM Dictation Location: [place] [address] Electronically authenticated by: [id number] Y Date: 10/12/2024 12:02 Dictated By: Steffi Lopez M.D. Signed By: 10/12/245 DD/ 01 TD/TT: Airborne Operations Superintendent: [facility] Radiology, Radiologist, MD - 10/12/2024 [place] [address] Ultrasound Report Signed Patient: BIBIANA ANSARI MR#: [id number] : 1990 Acct:[id number] Age/Sex: 34 / F ADM Date: Loc: [facility] 254-[address]: Ranulfo Garcia D.O. Ordering Physician: Ranulfo Garcia D.O. Date of Service: 10/12/24 Procedure(s): US OB BPP w non-stress Accession Number(s): [id number] cc: Ranulfo Garcia D.O.; Physician,Non-Staff [place] The [place] [id number] Patient Name: BIBIANA ANSARI MRN: [facility]:[id number] date: 1990 Sex: F Assigned Patient Location: [facility] Current Patient Location: [facility] Accession/Order Number: [id number] Exam Date: 10/12/2024 11:51 Report Date: 10/12/2024 [...] Lopez M.D. 10/12/2024 12:02 PM Dictation Location: [employer] Electronically authenticated by: [id number] Y Date: 10/12/2024 12:02 Dictated By: Steffi Lopez M.D. Signed By: 10/12/24 1205 DD/ 1202 TD/TT: Airborne Operations Superintendent: tic US OB BPP W NON-STRESS Ordered By: Radiologist Radiology on 10-12-2024 [facility] Work Phone: US OB PLACENTAon 10-12-2024 [place] [address] Ultrasound Report Signed Patient: BIBIANA ANSARI MR#: [id number] : 1990 Acct:[id number] Age/Sex: 34 / F ADM Date: Loc: [facility] 254-[address]: Ranulfo Garcia D.O. Ordering Physician: Ranulfo Garcia D.O. Date of Service: 10/12/24 Procedure(s): US OB placenta Accession Number(s): [id number] cc: Ranulfo Garcia D.O.; Physician,Non-Staff Larry The [address] [address] Patient Name: BIBIANA ANASRI MRN: [id number] date: 1990 Sex: F Assigned Patient Location: [facility] Current Patient Location: [facility] Accession/Order Number: [id number] Exam Date: 10/12/2024 11:51 Report Date: 10/12/2024 12:02 At the request of: RANULFO GARCIA DO Procedure: US OB BPP w non-stress CLINICAL DATA: Patient fell this morning and has had cramping since. BIOPHYSICAL PROFILE: COMPARISON: None There is a single live intrauterine gestation in cephalic presentation. The reported gestational age is 34 weeks 3 days. The heart rate [id number] beats per minutee. FINDINGS: TONE: 1 or [...] Lopez M.D. 10/12/2024 12:02 PM Dictation Location: [email or web address] Electronically authenticated by: [id number] Y Date: 10/12/2024 12:02 Dictated By: Steffi Lopez M.D. Signed By: 10/12/24 1204 DD/ 1202 TD/TT: Airborne Operations Superintendent: [facility] Radiology, Radiologist, - 10/12/2024 [place] [address] Ultrasound Report Signed Patient: BIBIANA ANSARI MR#: [id number] : 1990 Acct:[id number] Age/Sex: 34 / F ADM Date: Loc: [facility] 254-[address]: Ranulfo Garcia D.O. Ordering Physician: Ranulfo Garcia D.O. Date of Service: 10/12/24 Procedure(s): US OB placenta Accession Number(s): [id number] cc: Ranulfo Garcia D.O.; Physician,Non-Staff Larry The [place] [address] Patient Name: BIBIANA ANSARI MRN: [facility]:[id number] date: 1990 Sex: F Assigned Patient Location: [facility] Current Patient Location: [facility] Accession/Order Number: [id number] Exam Date: 10/12/2024 11:51 Report Date: 10/12/2024 12:02 At the request of: RANULFO GARCIA DO Procedure: US OB BPP w non-stress CLINICAL DATA: Patient fell this morning and has had cramping since. BIOPHYSICAL PROFILE: COMPARISON: None There is a single live intrauterine gestation in cephalic presentation. The reported gestational age is 34 weeks 3 days. The heart rate [id number] beats per minutee. FINDINGS: TONE: 1 or [...] Lopez M.D. 10/12/2024 12:02 PM Dictation Location: [place] [address] Electronically authenticated by: [id number] Y Date: 10/12/2024 12:02 Dictated By: Steffi Lopez M.D. Signed By: 10/12/24 1204 DD/ 1202 TD/TT: Airborne Operations Superintendent: tic US OB PLACENTAOrdered By: diologleo Radiology on 10-12-2024 [facility] [employer] Work Phone: US OB FOLLOW UP TRANSABDOMIN [...] II, MD, PHD at 01-Oct-2024 11:42:55 PM [facility] Normal Not Available Comment on above: Order Comment: US OB SCAN FOR GROWTH Estimated Date of Delivery: 11/20/24 Gestational Age as of 09/17/2024: 30w6d Urinalysis macro (dipstick) panel (U)on 10-01-2024 Bilirubin, UA Negative Negative - 4(70) +++ mg/dL [facility] Blood, UA Negative Negative - 50 Herb/mcL [facility] Clarity, UA Clear [facility] Color, UA Yellow [facility] Glucose, UA Negative Negative - 2000(110) ++++ mg/dL [facility] Interpretation and review of laboratory results Normal [facility] Ketones, UA Negative Negative - 160(16) ++++ mg/dL [facility] Leukocytes, UA Negative Negative - 500+++ Bobby/mcL [facility] Nitrite, UA Negative Negative - Positive [facility] pH, UA 6.5 5 - 9 [facility] Protein, UA Negative Negative - 1999(20) ++++ mg/dL [facility] Spec Grav, UA 1.015 1 - 1.03 [facility] Urobilinogen, UA 0.2 0.2 - 12 mg/dL [facility] Urinalysis macro (dipstick) panel (U)on 09-17-2024 Bilirubin, UA Negative Negative - 4(70) +++ mg/dL [facility] Blood, UA Negative Negative - 50 Herb/mcL [facility] Clarity, UA Clear [facility] Color, UA Yellow [facility] Glucose, UA Negative Negative - 1999(110) ++++ mg/dL [facility] Interpretation and review of laboratory results Abnormal [facility] Ketones, UA Negative Negative - 160(16) ++++ mg/dL [facility] Leukocytes, UA Negative Negative - 500+++ Bobby/mcL [facility] Nitrite, UA Negative Negative - Positive [facility] pH, UA 6 5 - 9 [facility] Protein, UA Trace Negative - 1999(20) ++++ mg/dL [facility] Spec Grav, UA 1.03 1 - 1.03 [facility] Urobilinogen, UA 0.2 0.2 - 12 mg/dL [facility] Urinalysis macro (dipstick) panel (U)on 08-30-2024 Bilirubin, UA Negative Negative - 4(70) +++ mg/dL [facility] Blood, UA Negative Negative - 50 Herb/mcL [facility] Clarity, UA Clear [facility] Color, UA Yellow [facility] Glucose, UA Negative Negative - 1999(110) ++++ mg/dL [facility] Interpretation and review of laboratory results Abnormal [facility] Ketones, UA Positive Negative - 160(16) ++++ mg/dL [facility] Comment on above: Trace Leukocytes, UA Trace Negative - 500+++ Bobby/mcL [facility] Nitrite, UA Negative Negative - Positive [facility] pH, UA 6 5 - 9 [facility] Protein, UA Trace Negative - 1999(20) ++++ mg/dL [facility] Spec Grav, UA 1.03 1 - 1.03 [facility] Urobilinogen, UA 0.2 0.2 - 12 mg/dL [facility] GLUCOSE TOLERANCE 3 HOURon 0 6-09-2025 GLUCOSE TOLERANCE 3 HOUR High mg/dL [facility] Comment on above: GLU FAST 93 (<95) Co l: 08/13/24 1026 GLU 1HR 132 (<180) Col: 08/13/24 1128 GLU 2HR 152 (<155) Col: 08/13/24 1228 GLU 3HR 143H (<140) Col: 08/13/24 1331 Interpretation and review of laboratory results Abnormal [facility] ALL CBC WITH AUTO DIFFon BASOPHILS ABSOLUTE AUTO 0 [facility] Basophils/100 WBC (Bld) 0.2 % 0.2 - 2.0 % [facility] Eosinophils/100 WBC (Bld) 1 % 0.9 - 7.0 % [facility] Erythrocyte distribution width (RBC) [Ratio] 12.9 % 11.0 - 15.0 % [facility] Hematocrit (Bld) [Volume fraction] 33 % Low 36.0 - 48.0 % [facility] Hemoglobin (Bld) [Mass/Vol] 11.5 g/dL Low 12.0 - 16.0 g/dL [facility] IMMATURE GRANULOCYTES ABS AUTO 0.03 [facility] Immature granulocytes/100 WBC (Bld) 0.4 % 0.0 - 0.5 % [facility] Interpretation and review of laboratory results Abnormal [facility] LYMPHOCYTES ABSOLUTE AUTO 1.6 [facility] Lymphocytes/100 WBC (Bld) 19.1 % Low 20.5 - 60.0 % [facility] MCH (RBC) [Entitic mass] 30.7 pg 26.7 - 34.0 pg [facility] MCHC (RBC) [Mass/Vol] 34.8 g/dL 29.9 - 35.2 g/dL [facility] MCV (RBC) [Entitic vol] 88.2 fL 81.0 - 99.0 fL [facility] MONOCYTES ABSOLUTE AUTO 0.4 [facility] Monocytes/100 WBC (Bld) 4.9 % 1.7 - 12.0 % [facility] NEUTROPHILS ABSOLUTE AUTO 6.1 [facility] Neutrophils/100 WBC (Bld) 74.4 % 43.0 - 75.0 % [facility] Platelet mean volume (Bld) [Entitic vol] 10.2 fL 9.5 - 13.5 fL [facility] TBH EO # 0.1 [facility] PLT 247 [facility] TB RBC 3.74 Low [facility] TB WBC 8.2 [facility] COMPREHENSIVE METABOLIC PANE Maverick 08-11-2024 Albumin [Mass/Vol] 3.7 g/dL Normal 3.2-5.3 [facility] Comment on above: Performed By: #### C MP #### [facility] ([facility]) [address] [place] [address] VIR ALP [Catalytic activity/Vol] 52 U/L Normal 39-130 [facility] Comment on above: Performed By: #### C MP #### [facility] ([facility]) [address] [place] [address] VIR ALT [Catalytic activity/Vol] 36 U/L High <=31 [facility] Comment on above: Performed By: #### C MP #### [facility] ([facility]) [address] [place] [address] VIR Anion gap [Moles/Vol] 8 mmol/L Normal 5-15 [facility] Comment on above: Performed By: #### C MP #### [facility] ([facility]) [address] [place] [address] VIR AST [Catalytic activity/Vol] 26 U/L Normal <=41 [facility] Comment on above: Performed By: #### C MP #### [facility] ([facility]) [address] [place] [address] VIR Bilirubin [Mass/Vol] 0.5 mg/dL Normal 0.3-1.2 [facility] Comment on above: Performed By: #### C MP #### [facility] ([facility]) [address] [place] [address] VIR Calcium [Mass/Vol] 9.2 mg/dL Normal 8.5-10.5 [facility] Comment on above: Performed By: #### C MP #### [facility] ([facility]) [address] [place] [address] VIR Chloride [Moles/Vol] 106 mmol/L Normal 98-109 [facility] Comment on above: Performed By: #### C MP #### [facility] ([facility]) [address] [place] [address] VIR CO2 [Moles/Vol] 24 mmol/L Normal 22-32 [facility] Comment on above: Performed By: #### C MP #### [facility] ([facility]) [address] [place] [address] VIR Creatinine [Mass/Vol] 0.61 mg/dL Normal 0.40-1.00 [facility] Comment on above: Result Comment: METH OD TRACEABLE TO IDMS STANDARD Performed By: #### C MP #### [facility] ([facility]) [address] [place] [address] VIR EGFR (CKD-EPI) NON-RACE DEPENDENT >^90 Normal >=60 [facility] Comment on above: Result Comment: Repo rted eGFR is based on the CKD-EPI 2020 equation that does not use a race coefficient. Performed By: #### C MP #### [facility] ([facility]) [address] [place] [address] VIR Glucose [Mass/Vol] 84 mg/dL Normal 65-99 [facility] Comment on above: Performed By: #### C MP #### [facility] ([facility]) [address] [place] [address] VIR Potassium [Moles/Vol] 4.1 mmol/L Normal 3.5-5.0 [facility] Comment on above: Performed By: #### C MP #### [facility] ([facility]) [address] [place] [address] VIR Protein [Mass/Vol] 6.5 g/dL Normal 6.0-8.0 [facility] Comment on above: Performed By: #### C MP #### [facility] ([facility]) [address] [place] [address] VIR Sodium [Moles/Vol] 138 mmol/L Normal 134-146 [facility] Comment on above: Performed By: #### C MP #### [facility] ([facility]) [address] [place] [address] VIR Urea nitrogen [Mass/Vol] 7 mg/dL Normal 5-23 [facility] Comment on above: Performed By: #### C MP #### [facility] ([facility]) [address] [place] [address] VIR HCV GENOTYPE, Son 08-11-2024 HCV GENOTYPE, S 1a Abnormal Undetected [facility] Comment on above: Result Comment: ADDITIONAL INFORMATION This test was performed using the [employer] RealTime HCV Genotype II assay ([employer] [place], [place]). Test Performed by: [facility] [address] [place] [address] Doughnut Maker: Jovanna Ha Ph.D.; CLIA# [id number] Performed By: #### H CVG #### [facility] ([facility]) [address] [place] [id number] VIR Urinalysis macro (dipstick) panel (U)on 08-09-2024 Bilirubin, UA Negative Negative - 4(70) +++ mg/dL [facility] Blood, UA Negative Negative - 50 Herb/mcL [facility] Clarity, UA Clear [facility] Color, UA Yellow [facility] Glucose, UA Negative Negative - 2000(110) ++++ mg/dL [facility] Interpretation and review of laboratory results Abnormal [facility] Ketones, UA Negative Negative - 160(16) ++++ mg/dL [facility] Leukocytes, UA Trace Negative - 500+++ Bobby/mcL [facility] Nitrite, UA Negative Negative - Positive [facility] pH, UA 8.5 5 - 9 [facility] Protein, UA Negative Negative - 1999(20) ++++ mg/dL [facility] Spec Grav, UA 1.02 1 - 1.03 [facility] Urobilinogen, UA 1.0 0.2 - 12 mg/dL [facility] US ABDOMEN LMTDon 07-12-2024 US ABDOMEN [...] Fink MD on 07/12/2024 8:08 PM Normal [facility] APTTon 07-11-2024 aPTT Coag (Bld) [Time] 29 s Normal 26-37 [facility] Comment on above: Performed By: #### P TT #### [address] [address] VIR PROTIME AND INRon 07-11-2024 INR 0.9 Normal 0.9-1.2 [facility] Comment on above: Performed By: #### P INR #### [address] [address] VIR PT Coag (PPP) [Time] 10.5 s Normal 9.8-13.2 [facility] Comment on above: Performed By: #### P INR #### [address] [address] VIR Urinalysis macro (dipstick) panel (U)on 07-05-2024 Bilirubin, UA Negative Negative - 4(70) +++ mg/dL [facility] Blood, UA Negative Negative - 50 Herb/mcL [facility] Clarity, UA Clear [facility] Color, UA Yellow [facility] Glucose, UA Negative Negative - 1999(110) ++++ mg/dL [facility] Interpretation and review of laboratory results Normal [facility] Ketones, UA Negative Negative - 160(16) ++++ mg/dL [facility] Leukocytes, UA Negative Negative - 500+++ Bobby/mcL [facility] Nitrite, UA Negative Negative - Positive [facility] pH, UA 6.5 5 - 9 [facility] Protein, UA Negative Negative - 1999(20) ++++ mg/dL [facility] Spec Grav, UA 1.02 1 - 1.03 [facility] Urobilinogen, UA 0.2 0.2 - 12 mg/dL [facility] COMPREHENSIVE METABOLIC PANE Maverick 07-04-2024 Albumin [Mass/Vol] 3.9 g/dL Normal 3.2-5.3 [facility] Comment on above: Performed By: #### C MP #### [facility] ([facility]) [address] [place] [address] VIR ALP [Catalytic activity/Vol] 45 U/L Normal 39-130 [facility] Comment on above: Performed By: #### C MP #### [facility] ([facility]) [address] [place] [address] VIR ALT [Catalytic activity/Vol] 55 U/L High <=31 [facility] Comment on above: Performed By: #### C MP #### [facility] ([facility]) [address] [place] [address] VIR Anion gap [Moles/Vol] 8 mmol/L Normal 5-15 [facility] Comment on above: Performed By: #### C MP #### [facility] ([facility]) [address] [place] [address] VIR AST [Catalytic activity/Vol] 31 U/L Normal <=41 [facility] Comment on above: Performed By: #### C MP #### [facility] ([facility]) [address] [place] [address] VIR Bilirubin [Mass/Vol] 0.4 mg/dL Normal 0.3-1.2 [facility] Comment on above: Performed By: #### C MP #### [facility] ([facility]) [address] [place] [address] VIR Calcium [Mass/Vol] 9.5 mg/dL Normal 8.5-10.5 [facility] Comment on above: Performed By: #### C MP #### [facility] ([facility]) [address] [place] [address] VIR Chloride [Moles/Vol] 105 mmol/L Normal 98-109 [facility] Comment on above: Performed By: #### C MP #### [facility] ([facility]) [address] [place] [address] VIR CO2 [Moles/Vol] 25 mmol/L Normal 22-32 [facility] Comment on above: Performed By: #### C MP #### [facility] ([facility]) [address] [place] [address] VIR Creatinine [Mass/Vol] 0.57 mg/dL Normal 0.40-1.00 [facility] Comment on above: Result Comment: METH OD TRACEABLE TO IDMS STANDARD Performed By: #### C MP #### [facility] ([facility]) [address] [place] [address] VIR EGFR (CKD-EPI) NON-RACE DEPENDENT >^90 Normal >=60 [facility] Comment on above: Result Comment: Repo rted eGFR is based on the CKD-EPI 2020 equation that does not use a race coefficient. Performed By: #### C MP #### [facility] ([facility]) [address] [place] [address] VIR Glucose [Mass/Vol] 92 mg/dL Normal 65-99 [facility] Comment on above: Performed By: #### C MP #### [facility] ([facility]) [address] [place] [address] VIR Potassium [Moles/Vol] 3.9 mmol/L Normal 3.5-5.0 [facility] Comment on above: Performed By: #### C MP #### [facility] ([facility]) [address] [place] [address] VIR Protein [Mass/Vol] 7.0 g/dL Normal 6.0-8.0 [facility] Comment on above: Performed By: #### C MP #### [facility] ([facility]) [address] [place] [address] VIR Sodium [Moles/Vol] 138 mmol/L Normal 134-146 [facility] Comment on above: Performed By: #### C MP #### [facility] ([facility]) [address] [place] [address] VIR Urea nitrogen [Mass/Vol] 10 mg/dL Normal 5-23 [facility] Comment on above: Performed By: #### C MP #### [facility] ([facility]) [address] [place] [address] VIR AFP, SERUM, OPEN SPINA BIFID Aon 06-10-2024 AFP MOM 1.07 . [facility] AFP VALUE 36.0 ng/mL . [facility] COMMENT: Comment . [facility] Comment on above: Erendira Lopez , Ph.D., [facility] Director References: Available Upon Request. Multiples Of Median Cutoffs For AFP Elevations Grier 2.5 Black 2.8 IDD 2.0 Twins 4.5 Abbreviation Definitions IDD - Insulin Dep Diabetes OSBR - Open Spina Bifida Risk For further inquiries contact [employer] at [phone]. This test was developed and its performance characteristics determined by [employer]. It has not been cleared or approved by the Food and Drug Administration. Performed at: [facility] [address] [place], [place] [id number] Doughnut Maker: Nancy Pardo [facility], Phone: [phone] GEST. AGE ON COLLECTION DATE 16.9 . weeks [facility] GESTAT. AGE BASED ON LMP . [facility] Comment on above: Recalculations are n ot recommended when gestational dating by LMP and ultrasound are within 10 days. INSULIN DEP DIABETES No . [facility] INTERPRETATION Comment . [facility] Comment on above: Interpretation: Scre [...] Customer Services to discuss available options. The [employer] recommends amniocentesis be offered to women age 35 and older. [age] [facility] MULTIPLE GESTATION No . [facility] OSBR RISK 1 [place] 9861 . [facility] RACE . [facility] RESULTS Report . [facility] TEST RESULTS: Negative . [facility] WEIGHT 176 . lbs [facility] N N LMP [id number] 5 16 N 1 Y 176 N N N N N White/ [facility] Urinalysis macro (dipstick) panel (U)on 06-07-2024 Bilirubin, UA Negative Negative - 4(70) +++ mg/dL [facility] Blood, UA Negative Negative - 50 Herb/mcL [facility] Clarity, UA Clear [facility] Color, UA Yellow [facility] Glucose, UA Negative Negative - 2000(110) ++++ mg/dL [facility] Interpretation and review of laboratory results Abnormal [facility] Ketones, UA Negative Negative - 160(16) ++++ mg/dL [facility] Leukocytes, UA Trace Negative - 500+++ Bobby/mcL [facility] Nitrite, UA Negative Negative - Positive [facility] pH, UA 6.5 5 - 9 [facility] Protein, UA Negative Negative - 2000(20) ++++ mg/dL [facility] Spec Grav, UA 1.025 1 - 1.03 [facility] Urobilinogen, UA 0.2 0.2 - 12 mg/dL [facility] IGP,APTIMA HPV,AGE GDLNon AGE GDLN ACOG TESTING Note . [facility] Comment on above: TESTS RESULT FLAG UN ITS REF RANGE LAB Clinician Provided Cytology Information Source.............Cervix No. of containers..01 ThinPrep Vial Age Lavello PROMISEOG Liss... 30 01 FLAG LEGEND: L-Low Normal,H-High Normal,LL-Alert Low,HH-Alert High <-Panic Low,>-Panic High,A-Abnormal,AA-Critical Abnormal Performed at: 01 =G [facility] [address] Serina Betancourt MD, HPV APTIMA Positive Abnormal Negative [facility] Comment on above: This nucleic acid am plification test detects fourteen high- risk HPV types (16,18,31,33,35,39,45,51,52,56,58,59,66,68) without differentiation. HPV GENOTYPE 16 Positive Abnormal Negative [facility] HPV GENOTYPE 18,45 Negative Negative [facility] Comment on above: Performed at: =G - L [facility] [address] [id number] Doughnut Maker: Serina Betancourt MD, Phone: [phone] Performed at: [address] [id number] Doughnut Maker: Serina Betancourt MD, Phone: [phone] IGP, APTIMA HPV, RFX 16/18,45 Note . [facility] Comment on above: TESTS RESULT FLAG UN ITS REF RANGE LAB DIAGNOSIS: 02 NEGATIVE FOR INTRAEPITHELIAL LESION OR MALIGNANCY. Specimen adequacy: 02 Satisfactory for evaluation. Endocervical and/or squamous metaplastic cells (endocervical component) are present. Performed by: 02 Susannah Christina Fondant Cooker (ASCP) . 02 Note: Note 02 The [...] Low,>-Panic High,A-Abnormal,AA-Critical Abnormal Performed at: [address] [address] Serina Betancourt MD, Interpretation and review of laboratory results Abnormal [facility] Urinalysis macro (dipstick) panel (U)on 05-10-2024 Bilirubin, UA Negative Negative - 4(70) +++ mg/dL [facility] Blood, UA Negative Negative - 50 Herb/mcL [facility] Clarity, UA Clear [facility] Color, UA [facility] Glucose, UA Negative Negative - 1999(110) ++++ mg/dL [facility] Interpretation and review of laboratory results Abnormal [facility] Ketones, UA Negative Negative - 160(16) ++++ mg/dL [facility] Leukocytes, UA Positive Negative - 500+++ Bobby/mcL [facility] Comment on above: small Nitrite, UA Negative Negative - Positive [facility] pH, UA 7 5 - 9 [facility] Protein, UA Trace Negative - 1999(20) ++++ mg/dL [facility] Spec Grav, UA 1.02 1 - 1.03 [facility] Urobilinogen, UA 0.2 0.2 - 12 mg/dL [facility] Ultrasound - Officeon 2024 Radiology Study observation (narrative) [facility] AFP Single Marker Scrn, Froylan rnal, Serumon 04-20-2024 Ms Alpha-Fetoprotein 36 [facility] BOX TESTon 04-20-2024 BOX TEST SENT OUT [facility] BOX1 [facility] BOX2 04/20/2024 [facility] BOX [facility] CBC without diffon Hematocrit (Bld) [Volume fraction] 38.7 % [facility] Hemoglobin (Bld) [Mass/Vol] 13.6 g/dL [facility] Platelets (Bld) [#/Vol] 298 10*3/uL [facility] Rbc Mcv (Fl) By Automated Count 86.6 [facility] Drug Screen, Urineon 025 Amphetamine/Methamph etamine Negative [facility] Barbiturates Negative [facility] Benzodiazepines Negative [facility] Cocaine Metabolite Negative [facility] Opiates Negative [facility] Oxycodone Negative [facility] Phencyclidine Negative [facility] Thc Marijuana, Urine Negative [facility] HBV surface Ag IA Qlon 04-20 Hepatitis B Surface Antigen Negative [facility] HCG ( test) Ql (U)o n 04-20-2024 Interpretation and review of laboratory results Abnormal [facility] Preg Test, Ur Positive Negative [facility] HCV Ab IA Qlon 04-20-2024 HCV Ab Ql (S) Reactive [facility] HIV 1+2 Ab+HIV1 p24 Ag IA Ql on 04-20-2024 HIV 1&2 AB/AG Non-Reactive [facility] Hemoglobin A1con 04-20-2024 HbA1c (Bld) [Mass fraction] 5 % 4.0 - 6.0 % [facility] High risk HPV w/genoon 04-20 Other High Risk Hpv Positive [facility] No Panel Informationon 04-20 [facility] Rubella IGG immune statuson 04-20-2024 Rubella immune IgG immune [facility] Syphilis Total(Unknown Syphi lis Status)on 04-20-2024 Syphilis Non-Reactive [facility] Type and screenon 04-20-2024 Abo/Rh(D) Positive [facility] US OB TRANSVAGINALon 025 US OB TRANSVAGINAL [...] within the gestational sac without evident abnormality. [place] rump length is 2.9 to 3.0 cm. heart rate is 176 bpm. Small lenticular shaped hypoechoic lesion regional to the gestational sac not measured by the historic interpreter, 1 to 2 cm. Cervical length 5.2 [...] No LMP recorded. Ultrasound - Officeon 2024 [facility] Urinalysis macro (dipstick) panel (U)on 04-20-2024 Bilirubin, UA Negative Negative - 4(70) +++ mg/dL [facility] Blood, UA Negative Negative - 50 Herb/mcL [facility] Clarity, UA Clear [facility] Color, UA Yellow [facility] Glucose, UA Negative Negative - 2000(110) ++++ mg/dL [facility] Interpretation and review of laboratory results Normal [facility] Ketones, UA Negative Negative - 160(16) ++++ mg/dL [facility] Leukocytes, UA Negative Negative - 500+++ Bobby/mcL [facility] Nitrite, UA Negative Negative - Positive [facility] pH, UA 5.5 5 - 9 [facility] Protein, UA Negative Negative - 2000(20) ++++ mg/dL [facility] Spec Grav, UA 1.02 1 - 1.03 [facility] Urobilinogen, UA 1.0 0.2 - 12 mg/dL [facility] PREG QUANT HCGon 025 HCG QUANTITATIVE [address]175 mIU/mL [facility] Comment on above: 5-50 0.2-1 WEEK 50-500 1-2 WEEKS 100-5,000 2-3 WEEKS 500-10,000 3-4 WEEKS 1,000-50,000 4-5 WEEKS 10,000-100,000 5-6 WEEKS 15,000-200,000 6-8 WEEKS 10,000-100,000 2-[facility] HCGon 025 HCG QUANTITATIVE 8482 mIU/mL [facility] Comment on above: 5-50 0.2-1 WEEK 50-500 1-2 WEEKS 100-5,000 2-3 WEEKS 500-10,000 3-4 WEEKS 1,000-50,000 4-5 WEEKS 10,000-100,000 5-6 WEEKS 15,000-200,000 6-8 WEEKS 10,000-100,000 2-[facility] 1 Von 11-26-2020 XR CHEST [...] by: GURVINDER GUAMAN Date: 2020-11-26 15:58 Normal [facility] Vital Signs Date Time Vital Sign Value Performing Clinician Faci lity 10-23-2024 13:53-0400 Body height 157.5 cm Sydney Snell PA Work Phone: [facility] 10-23-2024 13:39-0400 Body mass index (BMI) [Ratio] 35.12 kg/m2 Sydney Snell PA Work Phone: [facility] 10-23-2024 13:39-0400 Body weight 87.09 kg Sydney Snell PA Work Phone: [facility] 10-23-2024 13:39-0400 Diastolic blood pressure 80 mm[Hg] Sydney Alis PA Work Phone: [facility] 10-23-2024 13:39-0400 Systolic blood pressure 140 mm[Hg] Sydney Snell PA Work Phone: [facility] 10-15-2024 13:10-0400 Body weight 86.18 kg Ranulfo Jose DO Work Phone: [facility] 10-15-2024 13:10-0400 Diastolic blood pressure 78 mm[Hg] Ranulfo Jose DO Work Phone: [facility] 10-15-2024 13:10-0400 Systolic blood pressure 122 mm[Hg] Ranulfo Jose DO Work Phone: [facility] 10-01-2024 14:31-0400 Body weight 85.73 kg Sydney Snell PA Work Phone: [facility] 10-01-2024 14:31-0400 Diastolic blood pressure 80 mm[Hg] Sydney DAVISON Work Phone: [facility] 10-01-2024 14:31-0400 Systolic blood pressure 124 mm[Hg] Sydney Snell PA Work Phone: [facility] 09-17-2024 13:59-0400 Body weight 85.33 kg Ranulfo Jose DO Work Phone: [facility] 09-17-2024 13:59-0400 Diastolic blood pressure 70 mm[Hg] Ranulfo Jose DO Work Phone: [facility] 09-17-2024 13:59-0400 Systolic blood pressure 120 mm[Hg] Ranulfo Jose DO Work Phone: [facility] 08-30-2024 14:01-0400 Body weight 84.14 kg Sydney DAVISON Work Phone: [facility] 08-30-2024 14:01-0400 Diastolic blood pressure 62 mm[Hg] Sydney DAVISON Work Phone: [facility] 08-30-2024 14:01-0400 Systolic blood pressure 128 mm[Hg] Sydney DAVISON Work Phone: [facility] 08-09-2024 09:50-0400 Body weight 83.06 kg Ranulfo Jose DO Work Phone: [facility] 08-09-2024 09:50-0400 Diastolic blood pressure 66 mm[Hg] Ranulfo Jose DO Work Phone: [facility] 08-09-2024 09:50-0400 Systolic blood pressure 122 mm[Hg] Ranulfo Jose DO Work Phone: [facility] 07-05-2024 09:23-0400 Body weight 81.65 kg Cristy Pulido NP Work Phone: [facility] 07-05-2024 09:23-0400 Diastolic blood pressure 62 mm[Hg] Cristy Pulido NP Work Phone: [facility] 07-05-2024 09:23-0400 Systolic blood pressure 110 mm[Hg] Cristy Pulido NP Work Phone: [facility] 07-04-2024 08:39-0400 Body height 157.5 cm Kristina Torres MD Work Phone: [facility] 07-04-2024 08:39-0400 Body mass index (BMI) [Ratio] 33.39 kg/m2 Kristina Torres MD Work Phone: [facility] 07-04-2024 08:39-0400 Body weight 82.83 kg Kristina Torres MD Work Phone: [facility] 07-04-2024 08:39-0400 Diastolic blood pressure 80 mm[Hg] Kristina Torres MD Work Phone: [facility] 07-04-2024 08:39-0400 Heart rate 80 /min Kristina Torres MD Work Phone: [facility] 07-04-2024 08:39-0400 Systolic blood pressure 125 mm[Hg] Kristina Torres MD Work Phone: [facility] 06-07-2024 09:40-0400 Body weight 80.2 kg Ranulfo Jose DO Work Phone: [facility] 06-07-2024 09:40-0400 Diastolic blood pressure 70 mm[Hg] Ranulfo Jose DO Work Phone: [facility] 06-07-2024 09:40-0400 Systolic blood pressure 120 mm[Hg] Ranulfo Jose DO Work Phone: [facility] 05-10-2024 12:13-0500 Body weight 79.74 kg Ranulfo Jose DO Work Phone: [facility] 05-10-2024 12:13-0500 Diastolic blood pressure 80 mm[Hg] Ranulfo Jose DO Work Phone: [facility] 05-10-2024 12:13-0500 Systolic blood pressure 130 mm[Hg] Ranulfo Jose DO Work Phone: [facility] 04-20-2024 09:47-0500 Body weight 80.2 kg Noms Nurse [facility] Encounters Encounter Date Encounter Type Care Provider Facility Start: 10-25-2024 End: 10-25-2024 Clinisync Result Encounter Ranulfo Jose DO Work Phone: [facility] Unsolic[facility] Start: 10-25-2024 End: 10-25-2024 Clinisync Result Encounter Ranulfo Jose DO Work Phone: [facility]solic[facility] Start: 10-23-2024 End: 10-23-2024 Bamboo flowsheet Sydney DAVISON Work Phone: [facility] Start: 10-23-2024 End: 10-23-2024 Bamboo flowsheet Sydney DAVISON Work Phone: [facility] Start: 10-23-2024 End: 10-23-2024 flow sheet Sydney DAVISON Work Phone: [facility] Comment on above: 36 weeks gestation o f ([facility]); Third trimester ([facility]); Hepatitis C test positive ; Gastroesophageal reflux in ([facility]) Start: 10-23-2024 End: 10-23-2024 ambulatory SYDNEY SNELL Not Available Start: 10-15-2024 End: 10-15-2024 Bamboo flowsheet Ranulfo Jose DO Work Phone: [facility] Start: 10-15-2024 End: 10-15-2024 Bamboo flowsheet Ranulfo Jose DO Work Phone: [facility] Start: 10-15-2024 End: 10-15-2024 flow sheet Ranulfo Jose DO Work Phone: [facility] Comment on above: Cystitis (Primary Dx ); Third trimester ([facility]); 35 weeks gestation of ([facility]) Start: 10-15-2024 End: 10-15-2024 ambulatory RANULFO JOSE Not Available Start: 10-12-2024 End: 10-12-2024 Clinisync Result Encounter Ranulfo Jose DO Work Phone: [facility] Unsolicited Start: 10-12-2024 End: 10-12-2024 Clinisync Result Encounter Ranulfo Jose DO Work Phone: [facility] Unsolicited Start: 10-01-2024 End: 10-01-2024 flow sheet Sydney DAVISON Work Phone: [facility] Comment on above: Third trimester preg calixto ([facility]) Start: 10-01-2024 End: 10-01-2024 ambulatory SYDNEY SNELL Not Available Start: 09-20-2024 End: 09-20-2024 ambulatory RANULFO R [facility] Start: 09-17-2024 End: 09-17-2024 Bamboo flowsheet Ranulfo Jose DO Work Phone: [facility] Start: 09-17-2024 End: 09-17-2024 Bamboo flowsheet Ranulfo Jose DO Work Phone: [facility] Start: 09-17-2024 End: 09-17-2024 ambulatory RANULFO JOSE Not Available Start: 09-17-2024 End: 09-17-2024 flow sheet Ranulfo Jose DO Work Phone: [facility] Comment on above: 30 weeks gestation o f ([facility]); Third trimester ([facility]); Hepatitis C test positive ; Gastroesophageal reflux in ([facility]) Start: 08-30-2024 End: 08-30-2024 Bamboo flowsheet Sydney DAVISON Work Phone: [facility] Start: 08-30-2024 End: 08-30-2024 Bamboo flowsheet Sydney DAVISON Work Phone: [facility] Start: 08-30-2024 End: 08-30-2024 flow sheet Sydney DAVISON Work Phone: [facility] Comment on above: Third trimester preg calixto ([facility] 28 weeks gestation of ([facility]); Hepatitis C test positive ; Gastroesophageal reflux in ([facility]) Start: 08-30-2024 End: 08-30-2024 ambulatory SYDNEY [...] [facility] Un[facility]olic[facility] Start: 08-11-2024 ambulatory [facility] Start: 08-10-2024 End: 08-10-2024 ambulatory [facility] Comment on above: Hepatitis C virus in fection in mother during (Primary Dx); Low-lying placenta Start: 08-10-2024 End: 08-10-2024 Office outpatient visit 15 minutes Jeni Caballero MD Work Phone: [facility] Comment on above: 25 weeks gestation o f (Primary Dx); Hepatitis C antibody positive Start: 08-09-2024 End: 08-09-2024 ambulatory [facility] Start: 08-09-2024 End: 08-09-2024 Bamboo flowsheet [...] Start: 07-11-2024 End: 07-11-2024 ambulatory KRISTINA TORRES [facility] Start: 07-09-2024 End: 07-09-2024 Telephone encounter Jillian Hernandez [facility] Department of [facility] Start: 07-06-2024 End: 07-06-2024 Orders Only Kristina Torres MD Work Phone: Maternal- Medicine at [facility] Comment on above: Hepatitis C virus in fection in mother during (Primary Dx) Start: 07-05-2024 End: 07-05-2024 Bamboo flowsheet Cristy Pulido [employer] Work Phone: [facility] Start: 07-05-2024 End: 07-05-2024 Bamboo flowsheet Cristy Tess [employer] Work Phone: [facility] Start: 07-05-2024 End: 07-05-2024 ambulatory CRISTY SPRINGLY Not Available Start: 07-05-2024 End: 07-05-2024 flow sheet Cristy Tess [employer] Work Phone: [facility] Comment on above: Second trimester pre gnancy; 20 weeks gestation of Start: 07-04-2024 End: 07-04-2024 Office outpatient new 45 minutes Kathryn Awad MD Work Phone: [facility]- Medicine at [facility] Comment on above: Hepatitis C virus in fection in mother during (Primary Dx) Start: 07-04-2024 End: 07-04-2024 Orders Only Jillian Colin RN [facility] at [facility] Comment on above: Hepatitis C virus in fection in mother during (Primary Dx); Low-lying placenta Start: 07-03-2024 End: 07-03-2024 Chart abstracting Kathryn Awad MD Work Phone: [facility]- Medicine at [facility] Start: 06-08-2024 End: 06-10-2024 Clinisync Result [...] Healthcare Start: 05-10-2024 End: 05-10-2024 flow sheet Ranuflo Jose DO Work Phone: [facility] Comment on above: 12 weeks gestation o f ; First trimester ; Well woman exam with routine gynecological exam; Exposure to STD; Vaginal discharge Start: 05-07-2024 End: 05-07-2024 Chart abstracting Kristina Torres MD Work Phone: [facility]- Medicine at [facility] Start: 04-20-2024 End: 04-20-2024 Clinisync Result [...] Date Procedure Procedure Detail Performing Clinician Start: 10-25-2024 US OB BPP W NON-STRESS Ranulfo Jose DO Work Phone: Start: 10-23-2024 Urnls dip stick/tabl et rgnt non-auto w/o micrscp Sydney DAVISON Work Phone: Start: 10-15-2024 Urnls dip stick/tabl et rgnt non-auto w/o micrscp Ranulfo Jose DO Work Phone: Start: 10-12-2024 OB BPP W NON-STRESS Ranulfo Jose DO Work Phone: Start: 10-12-2024 OB PLACENTA Ranulfo Fa zio DO Work [...] Work Phone: Start: 05-10-2024 IGP,APTIMA HPV,[facility] Work Phone: Start: 05-10-2024 Microscopic observat ion [Identifier] in Cervix by Cyto stain Kristina Torres MD Work Phone: Start: 04-25-2024 H/O: section History of delivery affecting [facility] DO Work Phone: Start: 04-20-2024 Antibody screen [...] Td Vaccines (8 - Td or Tdap) [facility] Start: 05-11-2027 Screening for malign ant neoplasm of cervix Pap Smear [facility] Start: 08-10-2025 End: 08-10-2025 US MFM with or without consult US MFM with or without consult Imaging Routine Hepatitis C virus infection in mother during Low-lying placenta Expected: 08/10/2025 (Approximate), Expires: 08/10/2025 [employer] Work Phone: Comment on above: Expected: 08/10/2025 (Approximate), Expires: 08/10/2025 Start: 07-04-2025 Adult BMI Screening Adult BMI Screen ing [facility] Start: 07-04-2025 Tobacco Screening Tobacco Screening [facility] Start: 07-04-2025 End: 07-04-2025 US MFM with or without consult US MFM with or without consult Imaging Routine Hepatitis C virus infection in mother during Low-lying placenta Expected: 07/04/2025 (Approximate), Expires: 07/04/2025 [employer] Work Phone: Comment on above: Expected: 07/04/2025 (Approximate), Expires: 07/04/2025 Start: 05-20-2025 End: 05-20-2025 Patient encounter procedure [facility] Start: 11-05-2024 Influenza vaccination Influenza Vacc ine [facility] Start: 10-30-2024 End: 10-30-2024 Patient encounter procedure 10/30/2024 2:00 PM EDT Routine [facility] [address] [phone] Ranulfo Garcia DO [address] [place] [address] [facility] Start: 10-23-2024 End: 10-23-2025 CULTURE, GROUP B STREP WITH SUSCEPTIBLITY CULTURE, GROUP B STREP WITH SUSCEPTIBLITY Lab Routine Third trimester ([facility]) Expected: 10/23/2024, Expires: 10/23/2025 [facility] Work Phone: Comment on above: Expected: 10/23/2024 , Expires: 10/23/2025 Start: 10-23-2024 End: 04-25-2025 US biophysical profile w non stress test US biophysical profile w non stress test Imaging Routine 36 weeks gestation of ([facility]) Third trimester ([facility]) Hepatitis C test positive Expected: 10/23/2024 (Approximate), Expires: 04/25/2025 [facility] Comment on above: Expected: 10/23/2024 (Approximate), Expires: 04/25/2025 Start: 10-23-2024 End: 10-23-2024 Patient encounter procedure [facility] Comment on above: Arrived Start: 10-15-2024 End: 10-15-2024 Patient encounter procedure [facility] Comment on above: Arrived Start: 10-01-2024 End: 10-01-2024 Patient encounter procedure 10/01/2024 2:50 PM EDT Routine [facility] [address] [phone] Sydney Snell PA [address] [place] [address] [facility] Start: 10-01-2024 End: 10-01-2024 Professional / ancillary services management 10/01/2024 2:00 PM EDT Ancillary Procedure [facility] [address] [place] [phone] [facility] Start: 09-20-2024 End: 09-20-2024 Patient encounter procedure 09/20/2024 11:00 AM EDT Appointment [facility] [address] [place] [phone] [facility] Start: 09-17-2024 End: 01-18-2025 US for US OB follow up transabdominal approach Imaging Routine 30 weeks gestation of ([facility]) Third trimester ([facility]) Hepatitis C test positive Expected: 09/17/2024, Expires: 01/18/2025 [facility] Work Phone: Comment on above: Expected: 09/17/2024 , Expires: 01/18/2025 Start: 09-17-2024 End: 09-17-2024 Patient encounter procedure 09/17/2024 1:50 PM EDT Routine [facility] [address] [place] [phone] Ranulfo Garcia DO [address] [place] [address] [facility] Start: 08-30-2024 End: 08-30-2024 Patient encounter procedure [facility] Comment on above: Arrived Start: 08-11-2024 End: 08-11-2024 ambulatory 08/11/2024 11:00 AM EDT Lab [facility] - Lab [address] [facility] [place] [phone] [facility] - Lab Start: 08-10-2024 End: 08-10-2024 Telemedicine consultation with patient 08/10/2024 2:00 PM EDT Telemedicine [facility] at [facility] [address] [place] [address] Jeni Caballero MD [address] [facility], [address] [place] [address] [facility] Start: 08-09-2024 End: 08-09-2025 CBC panel - Blood by Automated count CBC Lab Routine Diabetes mellitus screening Expected: 08/09/2024 (Approximate), Expires: 08/09/2025 [facility] Work Phone: Comment on above: Expected: 08/09/2024 (Approximate), Expires: 08/09/2025 Start: 08-09-2024 End: 08-09-2025 Measurement of glucose 1 hour after glucose challenge for glucose tolerance test Glucose tolerance, 1 hour Lab Routine Diabetes mellitus screening Expected: 08/09/2024 (Approximate), Expires: 08/09/2025 [facility] Comment on above: Expected: 08/09/2024 (Approximate), Expires: 08/09/2025 Start: 08-09-2024 End: 08-09-2024 Patient encounter procedure [facility] US Imaging Start: 07-11-2024 End: 07-11-2024 Patient encounter procedure 07/11/2024 8:00 AM EDT Appointment [facility] - Ultrasound [address] [place] [address] [facility] - Ultrasound Start: 07-06-2024 End: 07-06-2025 US Abdomen limited Ultrasound abdomen limited Imaging Routine Hepatitis C virus infection in mother during Expected: 07/06/2024, Expires: 07/06/2025 [facility] Work Phone: Comment on above: Expected: 07/06/2024 , Expires: 07/06/2025 Start: 07-05-2024 End: 07-05-2024 Patient encounter procedure 07/05/2024 8:30 AM EDT Routine [facility] [address] [place] [address] Sydney Snell PA [address] [place] [address] [facility] Start: 07-04-2024 End: 07-04-2024 Patient encounter procedure [facility] US Imaging Start: 06-07-2024 End: 07-07-2024 Alpha fetoprotein, maternal Alpha fetoprotein, maternal Lab Routine 16 weeks gestation of Second trimester Expected: 06/07/2024 (Approximate), Expires: 07/07/2024 [facility] Work Phone: Comment on above: Expected: 06/07/2024 (Approximate), Expires: 07/07/2024 Start: 06-07-2024 End: 06-07-[address] [facility] Comment on above: Arrived Start: 05-10-2024 End: 05-10-2024 Patient encounter procedure 05/10/2024 11:40 AM EST Office Visit [facility] [address] [place] [phone] Ranulfo Garcia, [address] [place] [address] [facility] Start: 04-20-2024 End: 04-20-2025 ABO/Rh ABO/Rh Lab Routine Missed menses , unspecified gestational age Expected: 04/20/2024 (Approximate), Expires: 04/20/2025 [facility] Comment on above: Expected: 04/20/2024 (Approximate), Expires: 04/20/2025 Start: 04-20-2024 End: 04-20-2025 Blood type and Indirect antibody screen panel - Blood Type and screen Lab Routine Missed menses , unspecified gestational age Expected: 04/20/2024 (Approximate), Expires: 04/20/2025 [facility] Comment on above: Expected: 04/20/2024 (Approximate), Expires: 04/20/2025 Start: 04-20-2024 End: 04-20-2025 Drugs of abuse panel - Urine by Screen method Rapid drug screen, urine Lab Routine , unspecified gestational age Encounter for supervision of normal first in first trimester Expected: 04/20/2024 (Approximate), Expires: 04/20/2025 [facility] Comment on above: Expected: 04/20/2024 (Approximate), Expires: 04/20/2025 Start: 04-20-2024 End: 04-20-2025 US Pelvis transvaginal [facility] Work Phone: Comment on above: Expected: 04/20/2024 , Expires: 04/20/2025 Start: 11-06-2023 Influenza vaccination Influenza Vacc ine [facility] Start: 10-07-2012 Screening for malign ant neoplasm of cervix Pap Smear [facility] Start: 10-07-2009 Adult BMI Follow Up Plan Adult BMI Follow Up Plan [facility] Start: 10-07-2009 Adult BMI Screening Adult BMI Screen ing [facility] Start: 2003 Depression Screening Depression Scre ening [facility] Start: 2003 Tobacco Screening Tobacco Screening [facility] End: 07-04-2025 aPTT in Blood by Coagulation assay APTT Lab Routine Hepatitis C virus infection in mother during 1 Occurrences starting 07/04/2024 until 07/04/2025 [facility] Comment on above: 1 Occurrences starti ng 07/04/2024 until 07/04/2025 Bacteria identified in Urine by Culture Urine culture Microbiology Routine Missed menses Ordered: 04/20/2024 [facility] Comment on above: Ordered: 04/20/2024 CBC W Auto Different ial panel - Blood CBC and differential Lab Routine Missed menses , unspecified gestational age Ordered: 04/20/2024 [facility] Comment on above: Ordered: 04/20/2024 CHLAMYDIA TRACHOMATI S (GENITO/STI) CHLAMYDIA TRACHOMATIS (GENITO/STI) Lab Routine Exposure to STD Ordered: 05/10/2024 [facility] Comment on above: Ordered: 05/10/2024 End: 07-04-2025 Comprehensive metabolic 2000 panel - Serum or Plasma Comprehensive metabolic panel Lab Routine Hepatitis C virus infection in mother during 1 Occurrences starting 07/04/2024 until 07/04/2025 [facility] [employer] Work Phone: Comment on above: 1 Occurrences starti ng 07/04/2024 until 07/04/2025 Comprehensive metabo lic 2000 panel - Serum or Plasma Comprehensive metabolic panel Lab Routine Hepatitis C virus infection in mother during 07/04/2024 11:48 AM EDT [facility] End: 08-10-2025 Comprehensive metabolic 2000 panel - Serum or Plasma Comprehensive metabolic panel Lab Routine 25 weeks gestation of Hepatitis C antibody positive 1 Occurrences starting 08/10/2024 until 08/10/2025 [facility] Comment on above: 1 Occurrences starti ng 08/10/2024 until 08/10/2025 Cytology Cervical or vaginal smear or scraping study Pap Smear Pathology and Cytology Routine Well woman exam with routine gynecological exam Ordered: 05/10/2024 [facility] Comment on above: Ordered: 05/10/2024 End: 08-10-2025 HCV Genotype, S HCV Genotype, S Lab Routine 25 weeks gestation of Hepatitis C antibody positive 1 Occurrences starting 08/10/2024 until 08/10/2025 [facility] Comment on above: 1 Occurrences starti ng 08/10/2024 until 08/10/2025 Hemoglobin A1c/Hemoglobin.total in Blood Hemoglobin A1c Lab Routine Missed menses , unspecified gestational age Ordered: 04/20/2024 [facility] Comment on above: Ordered: 04/20/2024 Hepatitis B virus surface Ag [Presence] in Serum or Plasma by Immunoassay Hepatitis B surface antigen Lab Routine Missed menses , unspecified gestational age Ordered: 04/20/2024 [facility] Comment on above: Ordered: 04/20/2024 Hepatitis C virus Ab [Presence] in Serum or Plasma by Immunoassay Hepatitis C antibody Lab Routine Missed menses , unspecified gestational age Ordered: 04/20/2024 [facility] Comment on above: Ordered: 04/20/2024 End: 08-10-2025 Hepatitis C virus RNA [Units/volume] (viral load) in Serum or Plasma by JOSE MANUEL with probe detection Hepatitis C Virus Quantitative by NAAT Lab Routine 25 weeks gestation of Hepatitis C antibody positive 1 Occurrences starting 08/10/2024 until 08/10/2025 [employer] Phone: Comment on above: 1 Occurrences starti ng 08/10/2024 until 08/10/2025 HIV-1/HIV-2 antigen/antibody combination immunoassay HIV-1 and HIV-2 antibodies Lab Routine Missed menses , unspecified gestational age Ordered: 04/20/2024 [facility] Comment on above: Ordered: 04/20/2024 Human papilloma viru s DNA [Presence] in Unspecified specimen by Probe with amplification HPV DNA probe, amplified Microbiology Routine Well woman exam with routine gynecological exam Ordered: 05/10/2024 [facility] Comment on above: Ordered: 05/10/2024 Neisseria gonorrhoea e DNA [Presence] in Unspecified specimen by JOSE MANUEL with probe detection Neisseria gonorrhea DNA probe, direct Lab Routine Exposure to STD Ordered: 05/10/2024 [facility] Comment on above: Ordered: 05/10/2024 End: 07-04-2025 Protime & INR Protime & INR Lab Routine Hepatitis C virus infection in mother during 1 Occurrences starting 07/04/2024 until 07/04/2025 [facility] Comment on above: 1 Occurrences starti ng 07/04/2024 until 07/04/2025 Reagin Ab [Presence] in Serum by RPR RPR Lab Routine Missed menses , unspecified gestational age Ordered: 04/20/2024 [facility] Comment on above: Ordered: 04/20/2024 Rubella antibody, IgG Rubella an tibody, IgG Lab Routine Missed menses , unspecified gestational age Ordered: 04/20/2024 [facility] Comment on above: Ordered: 04/20/2024 SURESWAB(R) ADVANCED VAGINITIS PLUS, TMA SURESWAB(R) ADVANCED VAGINITIS PLUS, TMA Pathology and Cytology Routine Vaginal discharge Ordered: 05/10/2024 [facility] Work Phone: Comment on above: Ordered: 05/10/2024 Immunizations Immunization Date Immunization Notes Care Provider Fa cili 12-25-2019 influenza virus vaccine, unspecified formulation Kristina Torres MD Work Phone: [facility] 03-08-2018 tetanus toxoid, redu liza diphtheria toxoid, and acellular pertussis vaccine, adsorbed Kristina Torres MD Work Phone: [facility] Payers Date Payer Category Payer Medicaid MEDICAID [place] [id number] 2024 Medicaid [id number] 2021 Blue Cross Blue Shield [id number] 2021 Blue Cross Blue Shie ld Managed Care - Other ANTHEM [id number] 2021 Unknown [id number] 2018 Worker's Comp, Other (unspecified) WORKER'S COMPENSATION [id number] 2016 Commercial Managed C are - POS [employer] [id number] 1991 Unknown [id number] 2.16.840.1.030118.3.579. 2.593 1991 Unknown [id number] 2.16.840.1.891081.3.579. 2.1286 1991 Unknown [id number] 2.16840.1.381395.3.579. 2.128 1991 Unknown [id number] 2.16.840.1.856847.3.579. 2.1286 1991 Unknown [id number] 2.16.840.1.183789.3.579. 2.1286 1991 Unknown [id number] 2.16.840.1.017012.3.579. 2.1286 1991 Unknown [id number] 2.16.840.1.245956.3.579. 2.1286 1991 Unknown [id number] 2.16.840.1.166462.3.579. 2.1286 1991 Unknown [id number] 2.16.840.1.324233.3.579. 2.1286 1991 Unknown [id number] 2.16.840.1.598659.3.579. 2.1286 1991 Unknown [id number] 2.16.840.1.915120.3.579. 2.1259 1991 Unknown [id number] 2.16.840.1.267690.3.579. 2.9 1991 Unknown [id number] 2.16.840.1.188794.3.579. 2.1258 1991 Unknown [id number] 2.16.840.1.866034.3.579. 2.9 1991 Unknown [id number] 2.16.840.1.732345.3.579. 2.1258 1991 Unknown [id number] 2.16.840.1.523115.3.579. 2.1258 1991 Unknown [id number] 2.16.840.1.101862.3.579. 2.1258 1991 Unknown [id number] 2.16.840.1.380577.3.579. 2.1258 1991 Unknown [id number] 2.16.840.1.200327.3.579. 2.1258 1991 Unknown [id number] 2.16.840.1.564446.3.579. 2.1258 1991 Unknown [id number] 2.16.840.1.187226.3.579. 2.1258 1991 Unknown [id number] 2.16.840.1.429865.3.579. 2.9 1959 Unknown [id number] Social History Date Type Detail Facility Tobacco smoking status NYIS Tobacco smoking consumption unknown [facility] Start: 1991 Sex assigned at Female [facility] Start: 08-16-2018 End: 04-17-2020 Gender identity Not on file [facility] Start: 02-28-2024 [facility] Start: 08-16-2018 End: 04-17-2020 History of Social function [facility] Childcare Unknown [facility] Start: 1990 Sex assigned at Not on file [facility] Start: 10-10-2014 Sex Female (finding) [facility] Start: 07-04-2024 Tobacco smoking status NHIS Never smoked tobacco [facility] Start: 07-04-2024 Tobacco use and exposure Smokeless tobacco non-user [facility] Start: 07-04-2024 End: 08-10-2024 Alcoholic beverage intake Ex-drinker (finding) [facility] NEGATED: Highlighted rowStart: BRICE History of tobacco use Passive smoker [facility] Clinical Notes 04-20-2024 to 10-23-2024 SAMAN Encarnacion [...] virus) infection 04/25/2024 History of delivery affecting ([facility]) 04/25/2024 Hepatitis C test positive 04/25/2024 [...] nursing note reviewed. Exam conducted with a battery parts assembler present. Vitals: There is no height or weight on file to calculate BMI. BP: 140/80 Patient's last menstrual period was 02/14/2024. ASSESSMENT & PLAN ICD-10-CM 1. 36 weeks gestation of ([facility]) Z3A.36 POCT urinalysis dipstick manually resulted US biophysical profile w non stress test 2. Third trimester ([facility]) Z34.93 POCT urinalysis dipstick manually resulted CULTURE, GROUP B STREP WITH SUSCEPTIBLITY CULTURE, GROUP B STREP WITH SUSCEPTIBLITY US biophysical profile w non stress test 3. Hepatitis C test positive B19.20 US biophysical profile w non stress test 4. Gastroesophageal reflux in ([facility]) O99.619 K21.9 Patient is doing well but [...] of: SAMAN Encarnacion documented in this encounter [facility] 10-15-2024 History of Presen t [...] virus) infection 04/25/2024 History of delivery affecting ([facility] 04/25/2024 Hepatitis C test positive 04/25/2024 Resolved [...] nursing note reviewed. Exam conducted with a battery parts assembler present. Vitals: There is no height or weight on file to calculate BMI. BP: 122/78 Patient's last menstrual period was 02/14/2024. ASSESSMENT & PLAN ICD-10-CM 1. Third trimester ([facility]) Z34.93 POCT urinalysis dipstick manually resulted 2. 35 weeks gestation of ([facility]) Z3A.35 Return OB: Patient presents today for [...] Ranulfo Garcia DO documented in this encounter [facility] 10-01-2024 History of Presen t [...] of delivery affecting ([facility]) 04/25/2024 Hepatitis C test positive 04/25/2024 Resolved [...] 02/14/2024. ASSESSMENT & PLAN (Z34.93) Third trimester ([facility]) Plan: POCT urinalysis dipstick manually resulted Documented by SAMAN Encarnacion on behalf of: SAMAN Encarnacion documented in this encounter [facility] 09-17-2024 History of Presen t [...] of delivery affecting ([facility]) 04/25/2024 Hepatitis C test positive 04/25/2024 Resolved [...] nursing note reviewed. Exam conducted with a battery parts assembler present. Vitals: There is no height or weight on file to calculate BMI. BP: 120/70 Patient's last menstrual period was 02/14/2024. ASSESSMENT & PLAN ICD-10-CM 1. 30 weeks gestation of ([facility]) Z3A.30 POCT urinalysis dipstick manually resulted 2. Third trimester ([facility]) Z34.93 POCT urinalysis dipstick manually resulted 3. Hepatitis C test positive B19.20 POCT urinalysis dipstick manually resulted 4. Gastroesophageal reflux in ([facility]) O99.619 POCT urinalysis dipstick manually resulted K21.9 Patient presents today for a routine obstetrics appointment. Patient is currently 30w6d with a Estimated Date of Delivery: 11/20/24. Ordered growth scan for patient to schedule prior to next appointment. Patient to return to clinic in 2 weeks. Documented by Jessi Forrest LPN on behalf of: Ranulfo Garcia DO documented in this encounter [facility] 08-30-2024 History of Presen t [...] virus) infection 04/25/2024 History of delivery affecting ([facility]) 04/25/2024 Hepatitis C test positive 04/25/2024 Resolved [...] virus) infection 04/25/2024 History of delivery affecting ([facility]) 04/25/2024 Hepatitis C test positive 04/25/2024 Resolved [...] ASSESSMENT & PLAN ICD-10-CM 1. Third trimester ([facility]) Z34.93 POCT urinalysis dipstick manually resulted 2. 28 weeks gestation of ([facility]) Z3A.28 3. Hepatitis C test positive B19.20 4. Gastroesophageal reflux in ([facility]) O99.619 omeprazole (PriLOSEC) [address] capsule [...] of: SAMAN Encarnacion documented in this encounter [facility] 08-10-2024 History of Presen t illness Narrative Video Visit via Real-time Synchronous Audiovisual Provider Location: [facility]- MEDICINE AT [address] [address] Patient Location: Other Patient Location Machine Rigger: None Video Visit Consent Statement: I discussed [...] that there are some limitations compared to [id number] evaluations. We elected to proceed. REASON FOR [...] mg total) before bedtime., Disp: , Rfl: [id number] acid ( 19) 29 mg iron- 1 [...] the patient I also reviewed her recent [facility] ultrasound Low-lying placenta has resolved [...] Jeni Caballero MD, FACOG (she/hers) Maternal- Medicine [facility] [address] [facility] 1st [place] [address] documented in this encounter [facility] 08-09-2024 History of Presen t illness Narrative [...] delivery affecting 04/25/2024 Hepatitis C test positive ([facility]) 04/25/2024 Resolved Ambulatory Problems Diagnosis Date Noted [...] nursing note reviewed. Exam conducted with a battery parts assembler present. Vitals: There is no height [...] Ranulfo Garcia DO documented in this encounter [facility] 07-09-2024 Miscellaneous Notes Referral received from patients TELEPHONIC CASE MANAGER for Hepatitis C and mild elevated LFTs *Patient is * 04/20/2024 [facility] (care everywhere) HEPATITIS C QUANTITATION . IU/mL 699,000 Will send a mychart message to patient in regards to treatment plan documented in this encounter [facility] 07-09-2024 Telephone encounter Note Referral received from patients TELEPHONIC CASE MANAGER for Hepatitis C and mild elevated LFTs *Patient is * 04/20/2024 [facility] (care everywhere) HEPATITIS C QUANTITATION . IU/mL 699,000 Will send a mychart message to patient in regards to treatment plan [facility] 07-06-2024 History of Presen t illness Narrative Labs reviewed AST/ALT Alt mildly elevated- Recommend ruq sonogram and gi consult . Repeat LFTs within one month documented in this encounter [facility] 07-05-2024 History of Presen t illness Narrative [...] nursing note reviewed. Exam conducted with a battery parts assembler present. Vitals: There is no height [...] repeat anatomy scan in 4 weeks with [facility] and continues to follow with [facility] for Hepatitis C dx and serial Liver function testing Documented by Cristy Pulido NP on behalf of: Cristy Pulido NP documented in this encounter [facility] 07-04-2024 History of Presen t [...] risk Have you been seen here at [facility] in a previous ? No Recent ER visits or hospitalizations? No Bring blood sugar log or meter with you today? (Please bring them with you for every visit at [facility]) N/A Flu vaccine (Jan-May)? N/A [...] mg total) before bedtime., Disp: , Rfl: [id number] acid ( 19) 29 mg iron- 1 [...] it affect 1-4% of women in the [facility]. I reviewed with the patient [...] hemorrhage, and seizures. The overall risk of Mxebliaw-Cv-Pjajf-Transmission (MTCT) during is approximately 4-8%. If the [...] C infection until after 18 months. The [place] [employer] and CDC recommend screening [...] her HCV VL and LFTs per new [facility] guidelines not routinely recommended recommended laboratory tests for confirmed active HCV infection in Liver function tests (AST, ALT, bilirubin) Albumin Platelet count Prothrombin time Quantitative HCV RNA HCV genotype (if not previously obtained) STI screening (HIV, syphilis, gonorrhea, chlamydia, and HBV) third trimester growth ultrasound if no other indication for testing Hep A and Hep B vaccine if not immune refer to GI/public health teacher/ID avoid internal monitors and early artificial rupture [...] and counseling, coordination of care which was [id number]. [facility] History of Presen t illness Narrative [...] nursing note reviewed. Exam conducted with a battery parts assembler present. Vitals: There is no height [...] in 4 weeks for routine OB appointment. Senior Premium Auditor discussed [place] paperwork with patient and spouse. Patient to RTC in 4 weeks for routine OB care. Documented by Jessi Forrest LPN on behalf of: Ranulfo Garcia DO documented in this encounter [facility] 05-10-2024 History of Presen t [...] delivery affecting 04/25/2024 Hepatitis C test positive ([facility]) 04/25/2024 Resolved Ambulatory Problems Diagnosis Date Noted [...] nursing note reviewed. Exam conducted with a battery parts assembler present. Vitals: There is no height [...] or undercooked meat, and stay away from [facility]. Patient has been consulted regarding any [...] Ranulfo Garcia DO documented in this encounter [facility] 04-20-2024 History of Presen t [...] or undercooked meat, and stay away from [facility]. Patient has also been advised to [...] Other postprocedural status documented in this encounter [facility]* Diagnosis 12 weeks gestation of First trimester state, incidental Well woman exam with routine gynecological exam Routine gynecological examination Exposure to STD Vaginal discharge Leukorrhea, not specified as infective documented in this encounter [facility]* Diagnosis 16 weeks gestation of Second trimester state, incidental Other insomnia documented in this encounter [facility]* Diagnosis Hepatitis C virus infection in mother during - Primary documented in this encounter [facility]* Diagnosis Hepatitis C virus infection in mother during - Primary Low-lying placenta Hemorrhage from placenta previa, unspecified as to episode of care documented in this encounter [facility]* Diagnosis Second trimester state, incidental 20 weeks gestation of documented in this encounter [facility]* Diagnosis Hepatitis C virus infection in mother during - Primary documented in this encounter [facility]* Diagnosis Hepatitis C virus infection in mother during - Primary documented in this encounter [facility]* Diagnosis Hepatitis C virus infection in mother during - Primary Low-lying placenta Hemorrhage from placenta previa, unspecified as to episode of care documented in this encounter [facility]* Diagnosis 25 weeks gestation of - Primary Hepatitis C antibody positive documented in this encounter [facility]* Diagnosis Second trimester state, incidental 25 weeks gestation of with normal glucose tolerance test (GTT) Diabetes mellitus screening Screening for diabetes mellitus Encounter for consultation for female sterilization documented in this encounter [facility]* Diagnosis Third trimester (HHS-HCC) state, [...] (HHS-HCC) state, incidental documented in this encounter [facility]* Diagnosis Cystitis- Primary Unspecified cystitis [...] Health System InstructionsNot on filedocumented in [facility] Purpose Family History No [...] and content) DATE CREATED AUTHOR 11/29/[address] [facility] DATE CREATED AUTHOR AUTHOR'S ORGANIZ ATION 08/10/2024 [facility] DATE CREATED AUTHOR AUTHOR'S ORGANIZ ATION 08/17/2024 [facility] DATE CREATED AUTHOR AUTHOR'S ORGANIZ ATION 09/24/2024 [facility] DATE CREATED AUTHOR AUTHOR'S ORGANIZ ATION 10/25/2024 [facility] EPIC Reason for Visit (unrecogniz ed section and content) Reason Comments Amenorrhea Reason Comments Routine Visit Reason Comments Hepatitis C Hx C/S Care Teams (unrecognized sec tion and content) [employer] Relationship Specialty Start Date End Date Pcp, [place] [address] PCP - General Family Medicine 03/08/18 [employer] Relationship Specialty Start Date End Date Pcp, [place] [address] PCP - General Family Medicine 03/08/18 [employer] Relationship Specialty Start Date End Date Pcp, [place] [address] PCP - General Family Medicine 03/08/18 [employer] Relationship Specialty Start Date End Date Pcp, [place] [address] PCP - General Family Medicine 03/08/18 [employer] Relationship Specialty Start Date End Date Pcp, [place] [address] PCP - General Family Medicine 03/08/18 [employer] Relationship Specialty Start Date End Date Pcp, [place] [address] PCP - General Family Medicine 03/08/18 [employer] Relationship Specialty Start Date End Date Pcp, [place] [address] PCP - General Family Medicine 03/08/18 FOR [...] PRIMARY CLINICAL RECORDS. [facility]. provides no warranty or guarantee of the accuracy or completeness of information in this document.
[2024-10-25] MEDS: 0.9 % SODIUM CHLORIDE 1,000 ML 1000 ML IV (17:25)
[2024-10-25] MEDS: CEFAZOLIN SODIUM/DEXTROSE,ISO 2 GM/50 ML PIGGYBACK IV (17:35)
[2024-10-25] MEDS: METOCLOPRAMIDE HCL 10 MG/2 ML VIAL IVP (17:40)
[2024-10-25] MEDS: FAMOTIDINE/PF 20 MG/2 ML VIAL IV (17:40)
[2024-10-25] MEDS: LABETALOL HCL 20 MG/4 ML SYRINGE IVP (17:40)
--- NOTE | 2024-10-25 17:55 | PM.OBHP ---
OB - H&P: HPI History of Present Illness Chief complaint: 36 WEEKS GESTATION OF , THIRD TRIMESTER P : 3 Para: 2 Gestational age based on last menstrual period: 36 2/7wks Narrative: 33 at 36 2/7wks presents to l&d for nst, elevated bp 170's/100, repeat c/s times 2, protein creatine ratio 0.24, complains of daily headaches, positive fm, denies ctxns, lof, vb, ho hep c History of Present Dating criteria: LMP confirmed by 1st trimester US care: good care Ultrasounds: normal 1st trimester US and normal mid trimester US complications: preeclampsia and other Narrative: hep c Labs Blood type: O (+) positive Rubella: immune RPR/VDLR: nonreactive GBS status: unknown HBsAG: negative Review of Systems ROS Status of ROS: 10 or more systems reviewed and unremarkable except as noted in history and below Meds Home Medications and Allergies Allergies Allergy/AdvReac Type Severity Reaction Status Date / Time No Known Drug Allergies Allergy Verified 10/25/24 17:17 Exam Constitutional Vital Signs, click to edit/add: Last Vital Signs Pulse 73 10/25/24 17:37 BP 168/98 H 10/25/24 17:37 Documenting provider has reviewed patient's vital signs: yes Common normals: no apparent distress Respiratory Common normals: normal respiratory effort and clear to auscultation bilaterally Cardio Common normals: regular rate and regular rhythm GI Common normals: Normal to inspection, nondistended, normoactive bowel sounds present Extremity Common normals: no clubbing, cyanosis or edema and no calf tenderness Results Labs Labs: Short CBC 10/25/24 Range/Units 16:42 WBC 9.7 (4.0-11.0) 10^3/uL Hgb 12.9 (12.0-16.0) g/dL Hct 36.7 (36.0-48.0) % Plt Count 263 (150-450) 10^3/uL BMP 10/25/24 16:42 BUN 5.0 L Creatinine 0.51 L Liver Function 10/25/24 Range/Units 16:42 AST 34 (15-37) U/L ALT 60 H (14-59) U/L OB - A/P Assessment and Plan (1) Intrauterine : (2) Hepatitis C antibody positive: (3) Severe pre-eclampsia: Plan iup at 36 2/7wks, ho hep c, severe preeclampsia-will perform c/s, iv antihypertensive given, will start magnesium, consent obtained, iv, iv abx, labs reviewed
[2024-10-25 18:00] LABS: Cannabinoid Screen Urine NEGATIVE (NEGATIVE); Methamphetamines Screen Urine NEGATIVE (NEGATIVE); Tricyclic Antidepressant Urine NEGATIVE (NEGATIVE)
[2024-10-25 18:20] LABS: Partial Thromboplastin Time 29.7 sec (22.3-36.2); Prothrombin Time 9.8 sec (9.0-11.6)
--- NOTE | 2024-10-25 18:42 | P.ON_ITS ---
Brief Operative Note Date of procedure: 10/25/24 Pre-op diagnosis general: iup at 36 2/7wks, severe preeclampsia, hep c Post-op diagnosis: same as pre-op Procedure: NAME OF PROCEDURE: [ section with bilateral salpingectomy ] PROCEDURE: Patient was taken back to the Operating Room where she was given a spinal anesthesia with Duramorph without difficulty. She was prepped and draped in the normal sterile fashion. A Pfannenstiel skin incision was then made 2?cm above the symphysis pubis and carried down to underlying rectus fascia using a Bovie. The fascia was incised in the midline and extended laterally using Leon scissors. Two Isadora clamps were placed on the superior aspect of the fascia and dissected off the underlying rectus muscles. The same was performed on the inferior aspect as well. The muscles were then in the midline. Periton eum was identified and entered bluntly. The peritoneum was then extended superiorly and inferiorly with good visualization of the bladder. The bladder blade was inserted. Vesicouterine peritoneum was identified, tented up, and entered with Metzenbaum scissors. A bladder flap was then created digitally. The bladder blade was reinserted. A low transverse incision was made on the patient's uterus and extended laterally digitally. The infant was then delivered atraumatically after the bladder blade was removed in the cephalic position. The cord was clamped and cut. Cord blood was obtained. The infant was handed off to awaiting team. The patient's placenta was spontaneously delivered. The uterus was then exteriorized. The uterus was cleared of all clots and debris. The bladder blade was reinserted. The patient's uterine incision was closed using #0 Vicryl in a running lock fashion. Excellent hemostasis was assured.? The rt tube was identified and grasped with babock, the ligasure was used to transect and ligate the tube in its entirity, this was done on the contralateral side as well. The uterus was then returned to the patient's abdomen. The patient's abdomen was copiously irrigated using warm saline. Peritoneal gutters were cleared of all clots and debris. Again excellent hemostasis was assured. The patient's fascia was closed using #0 Vicryl in a running fashion. The pa tient's skin was closed using 4-0 Vicryl subcuticularly. The patient tolerated the procedure well. Sponge, lap, and needle counts were correct x2. The patient was taken to the Recovery Room in stable condition. Anesthesia: spinal Surgeon: Derian Garcia Drop Machine Operator: Elizabeth Silverio Estimated blood loss (mL): 575 Pathology: other (placenta and tubes) Condition: stable Disposition: PACU
[2024-10-25 18:46] LABS: INR <0.93
[2024-10-25 18:47] LABS: Fibrinogen 504 mg/dL (200-400)
--- NOTE | 2024-10-25 19:28 | PC.NURSE ---
1926:BP cuff adjustedbp 126/85
[2024-10-25] MEDS: 0.9 % SODIUM CHLORIDE 1,000 ML 50 ML IV (20:15)
[2024-10-25] MEDS: MAGNESIUM-BOLUS FROM THE BAG- 40 GM/1,000 ML IV.SOLN IV (20:40)
[2024-10-25] MEDS: MAGNESIUM SULFATE IN WATER 40 GM/1,000 ML IV.SOLN IV (21:02)
[2024-10-25] MEDS: ACETAMINOPHEN 500 MG TABLET 1000 MG PO (22:24)
[2024-10-26] VITALS (38 sets, daily range): BP systolic 109–140; BP diastolic 64–87; PULSE 74–75; TEMP 36.5–36.9; O2SAT 95–99
[2024-10-26] MEDS: KETOROLAC TROMETHAMINE 30 MG/ML VIAL IVP ×3 (01:43→17:14)
[2024-10-26 06:33] LABS: Hematocrit 30.0 % (36.0-48.0); Hemoglobin 10.5 g/dL (12.0-16.0); Immature Granulocytes Abs Auto 0.05 10^3/uL (0.00-0.03); Immature Granulocytes Pct Auto 0.4 % (0.0-0.5); Lymphocytes Absolute Auto 1.8 10^3/uL (1.2-3.8); Mean Corpuscular HGB Conc 35.0 g/dL (29.9-35.2); Mean Corpuscular Hemoglobin 30.2 pg (26.7-34.0); Mean Corpuscular Volume 86.2 fL (81.0-99.0); Platelet Count 213 10^3/uL (150-450); Red Blood Count 3.48 10^6/uL (4.20-5.40); White Blood Count 13.6 10^3/uL (4.0-11.0)
[2024-10-26] MEDS: CEFAZOLIN SODIUM/DEXTROSE,ISO 2 GM/50 ML PIGGYBACK IV (06:36)
[2024-10-26] MEDS: ENOXAPARIN SODIUM 40 MG/0.4 ML SYRINGE SUBQ (06:39)
[2024-10-26] MEDS: DOCUSATE SODIUM 100 MG CAPSULE PO ×2 (08:19→20:45)
[2024-10-26] MEDS: LABETALOL HCL 100 MG TABLET 200 MG PO ×2 (08:19→20:45)
[2024-10-26 09:29] LABS: Alanine Aminotransferase 50 U/L (14-59); Albumin Globulin Ratio 0.6; Albumin Level 2.3 g/dL (3.4-5.0); Alkaline Phosphatase 111 U/L (46-116); Anion Gap 13.5; Aspartate Amino Transferase 34 U/L (15-37); Blood Urea Nitrogen 5.0 mg/dL (7.0-18.0); Calcium 7.6 mg/dL (8.5-10.1); Carbon Dioxide 22.1 mmol/L (21.0-32.0); Chloride 107 mmol/L (98-107); Estimated GFR (African America >60 (>=60 mL/min/1.73m^2); Estimated GFR (Non-African Ame >60 (>=60 mL/min/1.73m^2); Globulin 3.9 g/dL; Glucose 103 mg/dL (74-106); Potassium 3.6 mmol/L (3.5-5.1); Sodium 139 mmol/L (136-145); Total Protein 6.2 g/dL (6.4-8.2); Uric Acid 4.2 mg/dL (2.6-6.0)
--- NOTE | 2024-10-26 11:40 | P.OBPN_ITS ---
OB - PN: Subj Subjective Patient comments: no complaints and pain well controlled Alexander status: doing well Exam Constitutional Vital Signs, click to edit/add: Last Vital Signs Temp 98.1 F 10/26/24 08:10 Pulse 74 10/26/24 08:10 Resp 16 10/26/24 08:10 BP 132/87 10/26/24 08:10 Pulse Ox 97 10/26/24 08:10 O2 Del Method Room Air 10/26/24 00:02 Documenting provider has reviewed patient's vital signs: yes Common normals: no apparent distress Respiratory Common normals: normal respiratory effort and clear to auscultation bilaterally Cardio Common normals: regular rate and regular rhythm GI Common normals: Normal to inspection, nondistended, normoactive bowel sounds present Extremity Common normals: no clubbing, cyanosis or edema and no calf tenderness Results Labs Labs: Short CBC 10/25/24 10/26/24 Range/Units 16:42 06:21 WBC 9.7 13.6 H (4.0-11.0) 10^3/uL Hgb 12.9 10.5 L (12.0-16.0) g/dL Hct 36.7 30.0 L (36.0-48.0) % Plt Count 263 213 (150-450) 10^3/uL BMP 10/25/24 10/26/24 16:42 09:07 Sodium 139 Potassium 3.6 Chloride 107 Carbon Dioxide 22.1 BUN 5.0 L 5.0 L Creatinine 0.51 L 0.59 Glucose 103 Calcium 7.6 L Liver Function 10/25/24 10/26/24 Range/Units 16:42 09:07 Total Bilirubin 0.3 (0.2-1.0) mg/dL AST 34 34 (15-37) U/L ALT 60 H 50 (14-59) U/L Alkaline Phosphatase 111 (46-116) U/L Albumin 2.3 L (3.4-5.0) g/dL Urinary Catheter Management Urinary Catheter Management Urethral: Cath placed during this visit: no OB - PN: A/P Assessment and Plan (1) Intrauterine : (2) Hepatitis C antibody positive: (3) Severe pre-eclampsia: Plan - day: 1 Plan: routine postop care Time Spent with Patient Time: Total time spent is greater than 50% in coordination of care (as documented) at patient's floor/unit and/or counseling patient: Total time spent with greater than 50% in coordination of care (as documented) at patient's floor/unit and/or counseling patient: less than 15 minutes
[2024-10-26] MEDS: MAGNESIUM SULFATE IN WATER 40 GM/1,000 ML IV.SOLN IV (15:30)
[2024-10-26] MEDS: 0.9 % SODIUM CHLORIDE 1,000 ML 1000 ML IV (15:31)
[2024-10-26] MEDS: ACETAMINOPHEN 500 MG TABLET 1000 MG PO (20:45)
[2024-10-26] MEDS: SIMETHICONE 80 MG TAB.CHEW PO (20:45)
[2024-10-27 01:08] VITALS: O2SAT 96
[2024-10-27 01:09] VITALS: BP 102/63; TEMP 36.8; O2SAT 97
[2024-10-27] MEDS: KETOROLAC TROMETHAMINE 30 MG/ML VIAL IVP ×2 (01:11→09:00)
[2024-10-27] MEDS: DOCUSATE SODIUM 100 MG CAPSULE PO (08:59)
[2024-10-27] MEDS: LABETALOL HCL 100 MG TABLET 200 MG PO (08:59)
[2024-10-27 09:00] VITALS: BP 145/87; TEMP 36.6; TEMP 37.1
[2024-10-27] MEDS: ENOXAPARIN SODIUM 40 MG/0.4 ML SYRINGE SUBQ (09:00)
--- NOTE | 2024-10-27 10:05 | PM.OBPN ---
OB - PN: Subj Subjective Patient comments: no complaints Burnett status: doing well Burnett feeding status: other (baby in [place] ) Exam Constitutional Vital Signs, click to edit/add: Last Vital Signs Temp 98.2 F 10/27/24 01:09 Pulse 75 10/26/24 17:05 Resp 16 10/27/24 01:09 BP 102/63 10/27/24 01:09 Pulse Ox 97 10/27/24 01:09 O2 Del Method Room Air 10/27/24 01:23 Documenting provider has reviewed patient's vital signs: yes Common normals: no apparent distress General appearance: cooperative Orientation/consciousness: Yes awake, Yes oriented to person, Yes oriented to place and Yes oriented to time HENMT Common normals: normocephalic Eye Common normals: EOMs intact bilaterally Neck & C-Spine Common normals: full ROM Lymph Lymphatic: no lymphadenopathy noted Chest Common normals: inspection of chest normal Respiratory Common normals: normal respiratory effort, no retractions, no use of accessory muscles and clear to auscultation bilaterally Effort & inspection: able to speak in complete sentences Auscultation: clear to auscultation bilaterally Cardio Common normals: regular rate and regular rhythm Rate: regular rate Rhythm: regular rhythm GI Common normals: Normal to inspection, nondistended, normoactive bowel sounds present Palpation: soft Common normals: no CVA tenderness Back & Pelvis Common normals: no CVA tenderness Extremity Common normals: normal to inspection and full ROM Neuro Common normals: oriented x3 Sensorium/orientation: awake, alert, oriented to person, oriented to place and oriented to time Psych Common normals: mental status grossly normal, thought process normal, cooperative, affect normal, speech normal, activity/motor behavior normal, denies hallucinations, denies homicidal ideation and denies suicidal ideation Appearance: grossly normal Attitude: calm Urinary Catheter Management Urinary Catheter Management Urethral: Cath placed during this visit: no Urethral indwelling: No OB - PN: A/P Assessment and Plan (1) Intrauterine : (2) Hepatitis C antibody positive: (3) Severe pre-eclampsia: Plan - day: 1 Plan: discharge home Time Spent with Patient Time: Total time spent is greater than 50% in coordination of care (as documented) at patient's floor/unit and/or counseling patient: Total time spent with greater than 50% in coordination of care (as documented) at patient's floor/unit and/or counseling patient: less than 15 minutes
== END 2024-10-27 17:27 | disposition home or self-care (01) | DRG 784 ==
LOC: US 17:17 → FBC 17:17
PROVIDERS: Admitting Provider Obstetrics & Gynecology; Visit Provider Obstetrics & Gynecology
PROC: 10D00Z1 Extraction of Products of Conception, Low, Open Approach (ICD-10-PCS; CPT 59514; principal; 2024-10-25 17:45)
DX: O14.14 Severe pre-eclampsia complicating childbirth (principal); O98.42 Viral hepatitis complicating childbirth; O34.211 Maternal care for low transverse scar from previous cesarean delivery; B19.20 Unspecified viral hepatitis C without hepatic coma; Z3A.36 36 weeks gestation of pregnancy; Z37.0 Single live birth; O13.4 Gestational [pregnancy-induced] hypertension without significant proteinuria, complicating childbirth
CPT/HCPCS: 36415; 51702; 76818; 80053; 80307; 82565; 82570; 83615; 84156; 84450; 84460; 84520; 84550; 85025; 85384; 85610; 85730; 86850; 86900; 86901; 94667; J0690; J1650; J1885; J1920; J2274; J2405; J2590; J2765; J3475; J3490